=== PATIENT | female | born 1975 | race Two or more races ===

== ENCOUNTER 2020-03-06 16:57 | Outpatient (REF) | payer OTHER, SELFPAY | END 2020-03-06 16:58 | disposition home or self-care (01) | LOC: HO.LNP 16:57 | PROVIDERS: Visit Provider Nurse Practitioner Family | DX: Z20.828 Contact with and (suspected) exposure to other viral communicable diseases (principal); R05 Cough | CPT/HCPCS: U0003 ==

== ENCOUNTER → 2020-03-10 07:49 | Outpatient (BNVA) | payer OTHER, SELFPAY | PROVIDERS: PCP Internal Medicine; Referring Provider Internal Medicine; Visit Provider Internal Medicine Endocrinology, Diabetes & Metabolism | DX: Z76.89 Persons encountering health services in other specified circumstances (principal) ==

== ENCOUNTER → 2020-06-03 07:27 | Outpatient (BNVA) | payer OTHER, SELFPAY | PROVIDERS: PCP Internal Medicine; Visit Provider Internal Medicine Endocrinology, Diabetes & Metabolism | DX: E11.65 Type 2 diabetes mellitus with hyperglycemia (principal); E11.21 Type 2 diabetes mellitus with diabetic nephropathy; Z79.4 Long term (current) use of insulin; I10 Essential (primary) hypertension; E78.00 Pure hypercholesterolemia, unspecified; E66.01 Morbid (severe) obesity due to excess calories; Z68.41 Body mass index [BMI] 40.0-44.9, adult; E55.9 Vitamin D deficiency, unspecified; E03.8 Other specified hypothyroidism; E06.3 Autoimmune thyroiditis | CPT/HCPCS: 82947; 99212 ==

== ENCOUNTER 2020-06-03 08:37 | Outpatient (REF) | payer OTHER, SELFPAY ==
[2020-06-03 10:45] LABS: Alanine Aminotransferase 16 U/L (0-31); Albumin Level 4.1 g/dL (3.5-5.0); Alkaline Phosphatase 51 U/L (39-117); Anion Gap 14 (12-20); Aspartate Amino Transferase 14 U/L (5-31); Bilirubin Total 0.4 mg/dL (0.0-1.0); Blood Urea Nitrogen 12 mg/dL (9-16); Calcium 8.8 mg/dL (8.4-10.2); Carbon Dioxide 26 mmol/L (22-29); Chloride 103 mmol/L (96-108); Cholesterol 139 mg/dL; Estimated Glomerular Filt Rate > 60; Glucose Fasting 114 mg/dL (60-99); HDL Cholesterol 48 mg/dL; LDL Cholesterol Calculated 76 mg/dl; Potassium 4.2 mmol/L (3.3-5.1); Sodium 139 mmol/L (135-145); Total Protein 6.6 g/dL (6.5-8.0); Triglycerides 75 mg/dL
[2020-06-03 11:10] LABS: Free T4 (Free Thyroxine) 1.24 ng/dL (0.71-1.85); Thyroid Stimulating Hormone 0.89 uIU/mL (0.32-4.0)
[2020-06-03 11:15] LABS: Vitamin B12 507 pg/mL (200-900)
[2020-06-03 11:34] LABS: Creatinine Urine 117.01 mg/dL; Microalbum/Creatinine Ratio Ur 245.2 ug/mg cr
[2020-06-04 05:32] LABS: LDL Cholesterol Direct 72 mg/dL (<100)
== END 2020-06-03 08:38 | disposition home or self-care (01) ==
LOC: HO.10HDL 08:37
PROVIDERS: Visit Provider Internal Medicine Endocrinology, Diabetes & Metabolism
DX: E11.65 Type 2 diabetes mellitus with hyperglycemia (principal); Z79.4 Long term (current) use of insulin
CPT/HCPCS: 36415; 80053; 80061; 82043; 82607; 83721; 84439; 84443

== ENCOUNTER → 2020-10-13 07:23 | Outpatient (BNVA) | payer OTHER, SELFPAY | PROVIDERS: PCP Internal Medicine; Visit Provider Internal Medicine Endocrinology, Diabetes & Metabolism | DX: E11.65 Type 2 diabetes mellitus with hyperglycemia (principal); E11.21 Type 2 diabetes mellitus with diabetic nephropathy; I10 Essential (primary) hypertension; E78.00 Pure hypercholesterolemia, unspecified; E66.01 Morbid (severe) obesity due to excess calories; Z68.41 Body mass index [BMI] 40.0-44.9, adult; E55.9 Vitamin D deficiency, unspecified; E03.8 Other specified hypothyroidism; E06.3 Autoimmune thyroiditis; Z79.4 Long term (current) use of insulin; Z71.3 Dietary counseling and surveillance | CPT/HCPCS: 82947; 99212 ==

== ENCOUNTER → 2021-02-13 13:52 | Outpatient (BNVA) | payer OTHER, SELFPAY | PROVIDERS: PCP Internal Medicine; Visit Provider Nurse Practitioner Gerontology | DX: E11.65 Type 2 diabetes mellitus with hyperglycemia (principal); E11.21 Type 2 diabetes mellitus with diabetic nephropathy; E78.00 Pure hypercholesterolemia, unspecified; E55.9 Vitamin D deficiency, unspecified; E03.8 Other specified hypothyroidism; E06.3 Autoimmune thyroiditis; E66.01 Morbid (severe) obesity due to excess calories; I10 Essential (primary) hypertension; K21.9 Gastro-esophageal reflux disease without esophagitis; Z79.4 Long term (current) use of insulin; Z68.42 Body mass index [BMI] 45.0-49.9, adult | CPT/HCPCS: 82947; 83036; 99212 ==

== ENCOUNTER → 2021-02-20 09:51 | Outpatient (BNVA) | payer OTHER, SELFPAY | PROVIDERS: PCP Internal Medicine; Visit Provider Registered Nurse Diabetes Educator | DX: E11.65 Type 2 diabetes mellitus with hyperglycemia (principal); Z79.4 Long term (current) use of insulin | CPT/HCPCS: 99211 ==

== ENCOUNTER → 2021-03-06 08:49 | Outpatient (BNVA) | payer OTHER, SELFPAY | PROVIDERS: PCP Internal Medicine; Visit Provider Registered Nurse Diabetes Educator | DX: E11.65 Type 2 diabetes mellitus with hyperglycemia (principal); Z79.4 Long term (current) use of insulin | CPT/HCPCS: 99211 ==

== ENCOUNTER 2021-03-24 13:54 | Outpatient (REF) | payer OTHER, SELFPAY ==
[2021-03-26 02:50] LABS: CT PCR NOT DETECTED (Not Detect.); NG PCR NOT DETECTED (Not Detect.)
[2021-03-26 10:14] LABS: BV Int Neg Control Negative (Negative); BV Int Pos Control Positive (Positive)
[2021-03-28 05:46] LABS: HPV mRNA E6/E7 rflx Not Detected (Not Detected)
== END 2021-03-24 13:55 | disposition home or self-care (01) ==
LOC: HO.LAB 13:54
PROVIDERS: PCP Internal Medicine; Visit Provider Advanced Practice Midwife
DX: Z01.411 Encounter for gynecological examination (general) (routine) with abnormal findings (principal); Z11.51 Encounter for screening for human papillomavirus (HPV); N91.1 Secondary amenorrhea; Z20.2 Contact with and (suspected) exposure to infections with a predominantly sexual mode of transmission; E66.01 Morbid (severe) obesity due to excess calories; E11.65 Type 2 diabetes mellitus with hyperglycemia; Z79.4 Long term (current) use of insulin
CPT/HCPCS: 87480; 87491; 87510; 87591; 87624; 87660; 88142

== ENCOUNTER → 2021-04-01 12:21 | Outpatient (BNVA) | payer OTHER, SELFPAY | PROVIDERS: PCP Internal Medicine; Visit Provider Dietitian, Registered | DX: E11.65 Type 2 diabetes mellitus with hyperglycemia (principal); E66.01 Morbid (severe) obesity due to excess calories; Z79.4 Long term (current) use of insulin; Z68.41 Body mass index [BMI] 40.0-44.9, adult | CPT/HCPCS: 97803 ==

== ENCOUNTER 2021-04-10 11:58 | Outpatient (REF) | payer OTHER, SELFPAY ==
--- NOTE | ~2021-04-10 | MM_ITS ---
EXAMINATION: MM SCREENING DIGITAL BREAST TOMOSYNTHESIS, BILATERAL CLINICAL INFORMATION: Screening. Asymptomatic. No prior breast imaging. Age 45. No known family history breast cancer. The lifetime risk of breast cancer based on the Tyrer-Cuzick Model is 12%. COMPARISON: None (current study represents initial baseline exam). TECHNIQUE: Digital breast tomosynthesis is performed in both the craniocaudal and mediolateral oblique views along with computer-aided detection (CAD). Synthesized 2D images are generated from the tomosynthesis. FINDINGS: There are scattered areas of fibroglandular density (ACR BI-RADS breast composition Category b). There are no significant masses, abnormal calcifications, or other abnormalities. The axilla and skin contours are unremarkable. MM/MM tomosynthesis screening BI IMPRESSION: No mammographic evidence of malignancy. ASSESSMENT: BI-RADS 1: Negative RECOMMENDATION: Routine annual mammography screening. This patient's information was entered into a reminder system with a target due date for their next mammogram.
== END 2021-04-10 11:59 | disposition home or self-care (01) ==
LOC: HO.MAMMO 11:58
PROVIDERS: Visit Provider Internal Medicine
DX: E11.65 Type 2 diabetes mellitus with hyperglycemia (principal); E11.21 Type 2 diabetes mellitus with diabetic nephropathy; E11.649 Type 2 diabetes mellitus with hypoglycemia without coma; Z12.31 Encounter for screening mammogram for malignant neoplasm of breast; Z79.4 Long term (current) use of insulin
CPT/HCPCS: 77063; 77067; 99211

== ENCOUNTER 2021-06-10 11:15 | Outpatient (REF) | payer OTHER, SELFPAY ==
[2021-06-10 14:00] LABS: H Pylori Breath Test Negative (Negative)
== END 2021-06-10 11:16 | disposition home or self-care (01) ==
LOC: HO.LNP 11:15
PROVIDERS: PCP Internal Medicine; Referring Provider Internal Medicine; Visit Provider Nurse Practitioner Family
DX: K21.9 Gastro-esophageal reflux disease without esophagitis (principal); K58.2 Mixed irritable bowel syndrome; K59.01 Slow transit constipation; R14.0 Abdominal distension (gaseous)
CPT/HCPCS: 83013; 99212

== ENCOUNTER → 2021-08-24 10:23 | Outpatient (BNVA) | payer OTHER, SELFPAY | PROVIDERS: PCP Internal Medicine; Visit Provider Nurse Practitioner Gerontology | DX: E11.65 Type 2 diabetes mellitus with hyperglycemia (principal); E11.21 Type 2 diabetes mellitus with diabetic nephropathy; E78.00 Pure hypercholesterolemia, unspecified; E55.9 Vitamin D deficiency, unspecified; E03.8 Other specified hypothyroidism; E06.3 Autoimmune thyroiditis; E66.01 Morbid (severe) obesity due to excess calories; I10 Essential (primary) hypertension; Z79.4 Long term (current) use of insulin; Z79.84 Long term (current) use of oral hypoglycemic drugs; Z68.42 Body mass index [BMI] 45.0-49.9, adult; Z79.899 Other long term (current) drug therapy | CPT/HCPCS: 82947; 83036; 99212 ==

== ENCOUNTER 2021-10-03 10:55 | Outpatient (REF) | payer OTHER, SELFPAY ==
[2021-10-03 11:08] LABS: MANUAL DIFF FLAG NO
[2021-10-03 11:49] LABS: Basophils Absolute Auto 0.1 X10*3/uL (0.0-0.2); Basophils Percent Auto 0.7 % (0-2); Eosinophils Absolute Auto 0.4 X10*3/uL (0.0-0.4); Eosinophils Percent Auto 4.5 % (0-4); Hematocrit 36.4 % (37.0-47.0); Hemoglobin 11.7 g/dl (12.0-16.0); Imm Gran Abs Auto 0.03 X10*3/uL (0.00-0.03); Imm Gran Pct Auto 0.3 % (0.0-0.4); Lymphocytes Absolute Auto 2.1 X10*3/uL (1.2-4.9); Lymphocytes Percent Auto 23.5 % (20-40); Mean Corpuscular HGB Conc 32.1 g/dl (31.0-35.0); Mean Corpuscular Hemoglobin 28.6 pg (27.0-33.0); Mean Platelet Volume 10.7 fL (9.4-12.3); Monocytes Absolute Auto 0.7 X10*3/uL (0.1-1.2); Monocytes Percent Auto 7.9 % (2-11); Neutrophils Absolute Auto 5.5 x10*3/uL (2.0-8.3); Neutrophils Percent Auto 63.1 % (45-73); Platelet Count 297 X10*3/uL (160-400); Red Blood Count 4.09 X10*6/uL (4.20-5.50); Red Cell Distribution Width 13.6 % (11.0-16.0); White Blood Count 8.7 X10*3/uL (4.8-10.8)
[2021-10-03 11:58] LABS: Alanine Aminotransferase 11 U/L (0-31); Albumin Level 3.9 g/dL (3.5-5.0); Alkaline Phosphatase 78 U/L (39-117); Anion Gap 12 (12-20); Aspartate Amino Transferase 12 U/L (5-31); Bilirubin Total 0.4 mg/dL (0.0-1.0); Blood Urea Nitrogen 12 mg/dL (9-16); Calcium 9.1 mg/dL (8.4-10.2); Carbon Dioxide 25 mmol/L (22-29); Chloride 106 mmol/L (96-108); Cholesterol 134 mg/dL; Estimated Glomerular Filt Rate > 60; Glucose Fasting 166 mg/dL (60-99); HDL Cholesterol 59 mg/dL; LDL Cholesterol Calculated 62 mg/dl; Potassium 4.3 mmol/L (3.3-5.1); Sodium 139 mmol/L (135-145); Total Protein 6.5 g/dL (6.5-8.0); Triglycerides 68 mg/dL
[2021-10-03 12:05] LABS: Creatinine Urine 182.58 mg/dL
[2021-10-03 12:21] LABS: Thyroid Stimulating Hormone 1.59 uIU/mL (0.32-4.0); Vitamin D 25-OH Total 45.7 ng/mL (>30)
[2021-10-05 04:58] LABS: LDL Cholesterol Direct 60 mg/dL (<100)
[2021-10-05 10:10] LABS: Folate 14.7 ng/mL (> or = 4.0); Vitamin B12 567 pg/mL (200-900)
== END 2021-10-03 10:56 | disposition home or self-care (01) ==
LOC: HO.LAB 10:55
PROVIDERS: Absent Provider Internal Medicine; PCP Internal Medicine; Visit Provider Nurse Practitioner Gerontology
DX: E11.21 Type 2 diabetes mellitus with diabetic nephropathy (principal); K21.9 Gastro-esophageal reflux disease without esophagitis
CPT/HCPCS: 36415; 80053; 80061; 82043; 82306; 82607; 82746; 83721; 84439; 84443; 85025

== ENCOUNTER 2021-10-13 15:38 | Outpatient (REF) | payer OTHER, SELFPAY ==
[2021-10-13 17:26] LABS: Vitamin D 25-OH Total 49.3 ng/mL (>30)
== END 2021-10-13 15:39 | disposition home or self-care (01) ==
LOC: HO.LAB 15:38
PROVIDERS: Absent Provider Nurse Practitioner Gerontology; PCP Internal Medicine; Visit Provider Nurse Practitioner Family
DX: K58.9 Irritable bowel syndrome, unspecified (principal); E11.21 Type 2 diabetes mellitus with diabetic nephropathy; E55.9 Vitamin D deficiency, unspecified
CPT/HCPCS: 36415; 82306; 82785; 86003; 99211; 99212

== ENCOUNTER → 2021-11-19 08:48 | Outpatient (BNVA) | payer OTHER, SELFPAY | PROVIDERS: PCP Internal Medicine; Visit Provider Registered Nurse Diabetes Educator | DX: E11.65 Type 2 diabetes mellitus with hyperglycemia (principal); Z79.4 Long term (current) use of insulin | CPT/HCPCS: 99211 ==

== ENCOUNTER 2022-01-09 10:17 | Emergency (ER) | payer OTHER, SELFPAY ==
--- NOTE | ~2022-01-09 | CT_ITS ---
EXAMINATION: CT SOFT TISSUE NECK WITHOUT CONTRAST CLINICAL INFORMATION: Left mandibular/neck pain and swelling. COMPARISON: None TECHNIQUE: Helical imaging was performed in the axial plane with generation of coronal and sagittal reformatted images. This CT examination was performed using dose optimization techniques as appropriate, variously including the following: *Automated exposure control *Adjustment of mA and/or kV according to patient size (this includes techniques or standardized protocols for targeted exams where dose is matched to indication/reason for exam; i.e. extremities or head) *Use of iterative reconstruction technique DLP: 675 mGy-cm FINDINGS: There is thickening of the platysma muscle on the left side with mild soft tissue stranding in the lateral left submandibular triangle and overlying the left parotid gland. No discrete soft tissue lesion or drainable fluid collection is otherwise seen. There is no cervical adenopathy. No mandibular periapical disease is visible. Bulky anterior endplate spurring with [id number] disc space narrowing evident at the C4-C5, C5-C6, and C6-C7 levels. The airway is normally maintained. The superior mediastinum is unremarkable. There are mild subsegmental atelectatic changes in the lungs. No acute osseous abnormality is otherwise seen. The orbits are normal. The paranasal sinuses, middle ear cavities, and mastoid air cells are well aerated. The TMJs are normal. The thyroid gland is homogeneous. The oral cavity, pharyngeal mucosal space, and larynx are unremarkable. The submandibular and parotid glands are fairly homogeneous in attenuation. The imaged portions of the brain demonstrate no acute abnormality. CT/CT soft tissue neck wo IV con IMPRESSION: Nonspecific soft tissue thickening of the platysma muscle with hazy inflammatory stranding of the overlying subcutaneous fat. Mild inflammatory changes in the left submandibular triangle laterally and overlying the left parotid gland to a lesser degree. No drainable fluid collection. No bulky cervical adenopathy. Query for any symptoms of a mild left-sided acute parotiditis.
[2022-01-09 10:44] VITALS: BP 151/94; PULSE 76; RESP 16; TEMP 36.3; O2SAT 100; BMI 48.2
[2022-01-09] MEDS: NaPROXEN 500 MG TABLET PO (12:20)
[2022-01-09] MEDS: Cyclobenzaprine HCl 10 MG TABLET PO (12:20)
--- NOTE | 2022-01-09 13:13 | ED.GENADULT ---
HPI - General Adult General Chief complaint: General Medical Stated complaint: swollen jaw no inj Time Seen by Provider: 01/09/22 11:55 Source: patient Mode of arrival: ambulatory Limitations: no limitations History of Present Illness HPI narrative: 46yoF c PMHx of allergic rhinitis, asthma, diabetic neuropathy associated with type 2 diabetes mellitus, hypercholesterolemia, hypertension, hypothyroidism, obesity and vitamin-D deficiency presenting to the ER with complaints of left jaw/mandibular pain that started suddenly after eating 2 [place]oan fries from [employer]. She reports it feels like a muscle spasm and she has been unable to eat since then. She reports ?I feel a lump?. She reports that she is up-to-date on all immunizations no recent cuts or falls. She denies any headaches, fevers, chills, sore throat, trouble swallowing or breathing, chest pain, cough, sputum production, trismus, drooling, changes in voice any history is of cancers or any other symptoms complaints or concerns at this time. MD complaint: Left jaw/mandibular pain Onset (ago): day(s) (Since yesterday) Location: mouth and neck Radiation: non-radiation Severity: moderate Quality: aching (Spasming) and constant Pain Consistency: constant Relieving factors: none Exacerbating factors: eating, movement and other (Palpation or chewing) Associated symptoms: denies other symptoms Treatments prior to arrival: none Related Data Home Medications Medication Instructions Recorded Confirmed pen needle, diabetic 32 gauge x #50 ea 03/06/20 12/07/21 Previous Rx's Medication Instructions Recorded albuterol sulfate 90 mcg/actuation 1 inh inhalation Q6H PRN shortness 04/04/20 aerosol inhaler (Ventolin HFA) of breath or wheezing #18 grams pen needle, diabetic 32 gauge x #150 ea 04/29/20 (1st Tier Unifine Pentips Plus) FreeStyle Lancets 28 gauge #120 ea 05/16/20 (lancets) blood sugar diagnostic (FreeStyle #200 ea 02/13/21 Lite Strips) lancets 28 gauge (FreeStyle #200 ea 02/13/21 Lancets) flash glucose sensor (FreeStyle #2 ea 04/10/21 Pascual 2 Sensor kit) albuterol sulfate 90 mcg/actuation 1 inh inhalation QID PRN shortness 05/12/21 aerosol inhaler of breath or wheezing #6.7 grams lidocaine 4 % topical patch 1 patch topical DAILY PRN pain #15 07/21/21 (Aspercreme (lidocaine)) ea tizanidine 2 mg tablet 2 mg PO Q12H PRN muscle spasticity 07/21/21 #10 tabs lisinopril 5 mg tablet 5 mg PO DAILY 30 days #30 tabs 08/06/21 insulin aspart 5 - 16 unit subcut QID 30 days #15 08/12/21 (niacinamide)(U-100) 100 unit/mL(3 mL mL) subcutaneous pen (Fiasp FlexTouch U-100 Insulin) insulin glargine 100 unit/mL (3 18 unit (0.18 mL) subcut QPM #15 mL 08/24/21 mL) subcutaneous pen (Lantus Solostar U-100 Insulin) cyclobenzaprine 5 mg tablet 5 mg PO TID PRN muscle spasm 15 09/03/21 days #45 tabs atorvastatin 20 mg tablet 20 mg PO DAILY #30 caps 09/08/21 metformin 500 mg tablet,extended 1,000 mg PO BID #120 tabs 10/06/21 release 24 hr sitagliptin 100 mg tablet (Januvia) 100 mg PO DAILY #30 tabs 10/06/21 pantoprazole 40 mg tablet,delayed 40 mg PO DAILY #90 tabs 10/13/21 release sennosides 8.6 mg tablet (Natural 17.2 mg PO BEDTIME constipation 10/13/21 Senna Laxative) #60 tabs cholecalciferol (vitamin D3) 25 25 mcg PO DAILY #90 caps 10/14/21 mcg (1,000 unit) capsule pen needle, diabetic 32 gauge x #150 ea 11/09/21 (BD Aishwarya 2nd Gen Pen Needle) meloxicam 7.5 mg tablet 15 mg PO DAILY PRN pain 5 days #10 12/31/21 tabs prednisone 50 mg tablet 50 mg PO DAILY #5 tabs 12/31/21 Levoxyl 100 mcg tablet 100 mcg PO DAILY #30 tabs 01/05/22 (levothyroxine) amoxicillin 875 mg-potassium 1 tab PO BID 10 days #20 tabs 01/09/22 clavulanate 125 mg tablet cyclobenzaprine 10 mg tablet 10 mg PO BID PRN muscle spasm #14 01/09/22 tabs naproxen 500 mg tablet 500 mg PO BID PRN pain #14 tabs 01/09/22 Allergies Allergy/AdvReac Type Severity Reaction Status Date / Time aspirin [ASA] Allergy Unknown BLEEDING Verified 12/31/21 15:51 grasses/pollen Allergy Mild congestion Uncoded 12/07/21 15:22 Actos Allergy Unknown nausea and Uncoded 12/07/21 15:22 vomiting Trulicity Allergy Unknown nausea and Uncoded 12/07/21 15:22 vomiting Review of Systems Review of Systems: Constitutional : No Weight loss, No Fever, No Chills, No Night Sweats, No Fatigue, No Malaise ENT/Mouth : No Hearing loss, No Ear Pain, No Nasal Congestion, No Sinus Pain, No Hoarseness, No sore throat, No Rhinorrhea, No Swallowing Difficulty Eyes: No Eye Pain, No Swelling, No Redness, No Foreign Body, No Discharge, No Vision Changes Cardiovascular : No Chest Pain, No SOB, No Dyspnea on Exertion, No Orthopnea, No Edema, No Palpitations Respiratory : No Cough, No Sputum, No Wheezing, No Smoke Exposure, No Dyspnea Gastrointestinal : No Nausea, No Vomiting, No Diarrhea, No Constipation, No abdominal Pain, No Hematochezia, No Melena Genitourinary : no irregular bleeding, No Dysuria, No Urinary Frequency, No Hematuria, No Urinary Incontinence, No Urgency, No Flank Pain, No Urinary Flow Changes, No Hesitancy Musculoskeletal : + joint pain, No Myalgias, No Joint Swelling Skin : No Skin Lesions, No rash Neuro : No Weakness, No Numbness, No Paresthesias, No Loss of Consciousness, No Dizziness, No Headache Psych : No Anxiety/Panic, No Depression, No SI/HI/AH/VH, No Social Issues, Heme/Lymph: No Bruising, No Bleeding,No Lymphadenopathy Endocrine : No Polyuria, No Polydipsia, No Temperature Intolerance Yes all other systems are reviewed and are negative [facility] Past Medical History Attestation statement: The following information was validated with the patient. 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 Menstrual bleeding problem Obesity Obesity due to excess calories Type 2 diabetes mellitus with hyperglycemia Vitamin D deficiency Surgical History Hx of tooth extraction Family History Family History Father Hypertension Obesity Prediabetes Mother Heart disease Glaucoma Social History Social History Household Members: Family Housing: Apartment Alcohol intake: never Patient Tobacco Use Status: Never used Tobacco e-Cigarette/Vaping Use: Never Used Second Hand Smoke Exposure: No Advance Directives: No Advance Directives Information Provided: No service: No Current occupational status: employed Current occupational exposures/hazards: No Gender identity: Female Cognitive needs: No Hearing needs: No Vision needs: Yes Physical Exam ED Vital Signs: Vital Signs - 24 hr 01/09/22 10:44 Temperature 97.4 F Pulse Rate 76 Respiratory Rate 16 Blood Pressure 151/94 H Pulse Oximetry 100 Oxygen Delivery Method Room Air BMI result Body Mass Index 48.2 vital signs have been reviewed as normal and appeared to be correct. Blood pressure 151/94. Heart rate normal. Respiration rate normal. Temperature normal. Oxygen saturation normal. Appearance: Alert. Oriented X3. No acute distress. Head: Normal external exam. Normocephalic. Atraumatic. Eyes: PERRLA. EOMI. Conjunctiva and sclera normal. Eyelids normal. ENT: EAC normal. TM's Normal. Dentation within normal limits. Not consistent with stones at this time. Not consistent with pharyngeal abscess/dental abscess/gingival abscess/tonsillar abscess. No erythema or exudate noted. Soft and hard palate within normal limits. Pharynx normal. Uvula midline. Moist mucous membranes. No lesions/ulcerations or masses noted on the tongue. Normal voice. No trismus noted. No drooling noted. No muffled voice noted. Neck: Normal inspection. Neck supple. FROM. + left anterior cervical chain adenopathy. The patient noted to have tenderness at the left jaw/mandibular/neck aspect. No obvious deformities. Thyroid Normal. No tracheal deviation noted. No crepitus is noted. No meningeal signs. No neck mass noted. No signs of trauma noted. CVS: Normal heart rate and rhythm. Heart sound normal. Pulses normal throughout. No murmurs/rales/gallops. Respiratory: No respiratory distress. Painless inspiration. Breath sounds normal. No wheezes/rales/rhonchi noted. Chest nontender. No crepitus is noted. No signs of trauma noted. No accessory muscle usage noted or decreased air movement noted. No signs of trauma. Abdomen: Soft and nontender. Bowel sounds normal in all 4 quadrants. No distention noted. No organomegaly noted. No visible injury noted. Back: Full range of motion noted. Nontender. Skin: Skin warm and dry. Normal skin color. Normal skin turgor. No rashes/lesions/lacerations noted. Extremities: Extremities exhibit normal range of motion and nontender. Neuro: Oriented X 3. No motor deficit. No sensory deficit. Reflexes normal. Normal steady gait. No focal neuro deficits noted. CN's II-XII intact bilaterally? Vascular: + radial pulses/+ 2 distal pedal pulses/+2 dorsalis pedis b/l. Normal cap refill. No cyanosis noted to upper extremity nails and lower extremity toes nails. Course Course Course Narrative: 12:12pm - 46yoF c PMHx of allergic rhinitis, asthma, diabetic neuropathy associated with type 2 diabetes mellitus, hypercholesterolemia, hypertension, hypothyroidism, obesity and vitamin-D deficiency presenting to the ER with complaints of left jaw/mandibular pain that started suddenly after eating 2 Samoan fries from [employer]. She reports it feels like a muscle spasm and she has been unable to eat since then. She reports ?I feel a lump?. Will obtain a CT scan of soft tissue neck. Provide naproxen and Flexeril and re-evaluate. Reevaluation(s) Reevaluation #1: - CT scan of soft tissue neck reports possible mild left-sided acute parotiditis.. Therefore will DC home with antibiotics and symptomatic treatment instructions return if any new or worsening symptoms to follow up with primary care provider. Patient understands agrees with this plan. Time: 14:33 Medical Decision Making Medical Records Medical records reviewed: Yes I reviewed the patient's medical records. Imaging Data CT scan soft tissue neck without contrast: Attestation: I personally reviewed and interpreted this imaging study as follows: Radiologist's impression: FINDINGS: There is thickening of the platysma muscle on the left side with mild soft tissue stranding in the lateral left submandibular triangle and overlying the left parotid gland. No discrete soft tissue lesion or drainable fluid collection is otherwise seen. There is no cervical adenopathy. No mandibular periapical disease is visible. Bulky anterior endplate spurring with [id number] disc space narrowing evident at the C4-C5, C5-C6, and C6-C7 levels. The airway is normally maintained. The superior mediastinum is unremarkable. There are mild subsegmental atelectatic changes in the lungs. No acute osseous abnormality is otherwise seen. The orbits are normal. The paranasal sinuses, middle ear cavities, and mastoid air cells are well aerated. The TMJs are normal. The thyroid gland is homogeneous. The oral cavity, pharyngeal mucosal space, and larynx are unremarkable. The submandibular and parotid glands are fairly homogeneous in attenuation. The imaged portions of the brain demonstrate no acute abnormality. CT/CT soft tissue neck wo IV con IMPRESSION: Nonspecific soft tissue thickening of the platysma muscle with hazy inflammatory stranding of the overlying subcutaneous fat. Mild inflammatory changes in the left submandibular triangle laterally and overlying the left parotid gland to a lesser degree. No drainable fluid collection. No bulky cervical adenopathy. Query for any symptoms of a mild left-sided acute parotiditis. Discharge Plan Discharge Clinical Impression: Parotiditis Patient Disposition: Home, Self-Care Instructions: Adenitis (ED) Prescriptions: New amoxicillin-pot clavulanate 875-125 mg tablet 1 tab PO BID 10 Days Qty: 20 0RF naproxen 500 mg tablet 500 mg PO BID PRN (Reason: pain) Qty: 14 0RF cyclobenzaprine 10 mg tablet 10 mg PO BID PRN (Reason: muscle spasm) Qty: 14 0RF No Action (DME) pen needle, diabetic [1st Tier Unifine Pentips Plus] 32 gauge x 5/32 needle See Rx Instructions .ROUTE .MEDSUPPLY Qty: 150 6RF Rx Instructions: 4 times a day (DME) lancets [FreeStyle Lancets] 28 gauge misc See Rx Instructions topical QID Qty: 120 6RF Rx Instructions: 4 times a day lisinopril 5 mg tablet 5 mg PO DAILY 30 Days Qty: 30 6RF Fiasp FlexTouch U-100 Insulin 100 unit/mL (3 mL) insulin pen 5 - 16 unit subcut QID 30 Days Qty: 15 5RF atorvastatin 20 mg tablet 20 mg PO DAILY Qty: 30 6RF Januvia 100 mg tablet 100 mg PO DAILY Qty: 30 7RF metformin 500 mg tablet extended release 24 hr 1,000 mg PO BID Qty: 120 7RF cholecalciferol (vitamin D3) 25 mcg (1,000 unit) capsule 25 mcg PO DAILY Qty: 90 1RF (DME) pen needle, diabetic [BD Aishwarya 2nd Gen Pen Needle] 32 gauge x 5/32 needle See Rx Instructions .MEDSUPPLY Qty: 150 4RF Rx Instructions: 5 times a day levothyroxine [Levoxyl] 100 mcg tablet 100 mcg PO DAILY Qty: 30 1RF Rx Instructions: TRACI - no substitutions Brand name medically necessary (DME) pen needle, diabetic 32 gauge x 5/32 needle See Rx Instructions subcut .MEDSUPPLY Qty: 50 Rx Instructions: As directed albuterol sulfate [Ventolin HFA] 90 mcg/actuation HFA aerosol inhaler 1 inh inhalation Q6H PRN (Reason: shortness of breath or wheezing) Qty: 18 1RF albuterol sulfate 90 mcg/actuation HFA aerosol inhaler 1 inh inhalation QID PRN (Reason: shortness of breath or wheezing) Qty: 6.7 1RF cyclobenzaprine 5 mg tablet 5 mg PO TID PRN (Reason: muscle spasm) 15 Days Qty: 45 0RF tizanidine 2 mg tablet 2 mg PO Q12H PRN (Reason: muscle spasticity) Qty: 10 0RF lidocaine [Aspercreme (lidocaine)] 4 % adhesive patch,medicated 1 patch topical DAILY PRN (Reason: pain) Qty: 15 0RF prednisone 50 mg tablet 50 mg PO DAILY Qty: 5 0RF meloxicam 7.5 mg tablet 15 mg PO DAILY PRN (Reason: pain) 5 Days Qty: 10 0RF (DME) FreeStyle Lite Strips Strip See Rx Instructions .ROUTE .MEDSUPPLY Qty: 200 11RF Rx Instructions: As directed six times a day (DME) lancets [FreeStyle Lancets] 28 gauge misc See Rx Instructions .ROUTE .MEDSUPPLY Qty: 200 11RF Rx Instructions: 6times a day Lantus Solostar U-100 Insulin 100 unit/mL (3 mL) insulin pen 18 unit subcut QPM Qty: 15 3RF pantoprazole 40 mg tablet,delayed release (DR/EC) 40 mg PO DAILY Qty: 90 2RF Rx Instructions: take one tablet half an hour before breakfast sennosides [Natural Senna Laxative] 8.6 mg tablet 17.2 mg PO BEDTIME Qty: 60 1RF (DME) FreeStyle Pascual 2 Sensor Kit See Rx Instructions .ROUTE .MEDSUPPLY Qty: 2 11RF Rx Instructions: As directed every 2 weeks Referrals: Po,Daksha Eduardo MD [Primary Care Provider] - 2 days Stand Alone Forms: Work/School Release Print Language: Botswanan
== END 2022-01-09 14:52 | disposition home or self-care (01) ==
PROVIDERS: Emergency Provider Internal Medicine; PCP Internal Medicine
DX: K11.20 Sialoadenitis, unspecified (principal); E11.9 Type 2 diabetes mellitus without complications; I10 Essential (primary) hypertension; E78.00 Pure hypercholesterolemia, unspecified; E66.01 Morbid (severe) obesity due to excess calories; Z68.42 Body mass index [BMI] 45.0-49.9, adult; Z79.4 Long term (current) use of insulin; Z79.02 Long term (current) use of antithrombotics/antiplatelets; Z79.899 Other long term (current) drug therapy
CPT/HCPCS: 70490; 99283; 99284

== ENCOUNTER → 2022-01-11 15:39 | Outpatient (BNVA) | payer OTHER, SELFPAY | PROVIDERS: PCP Internal Medicine; Visit Provider Nurse Practitioner Family | DX: K21.9 Gastro-esophageal reflux disease without esophagitis (principal); K58.1 Irritable bowel syndrome with constipation; Z79.899 Other long term (current) drug therapy | CPT/HCPCS: 99212 ==

== ENCOUNTER → 2022-02-03 07:36 | Outpatient (BNVA) | payer OTHER, SELFPAY | PROVIDERS: PCP Internal Medicine; Visit Provider Internal Medicine Endocrinology, Diabetes & Metabolism | DX: E11.65 Type 2 diabetes mellitus with hyperglycemia (principal); Z79.4 Long term (current) use of insulin; E03.8 Other specified hypothyroidism; E06.3 Autoimmune thyroiditis | CPT/HCPCS: 82947; 99212 ==

== ENCOUNTER → 2022-02-18 15:20 | Outpatient (BNVA) | payer OTHER, SELFPAY | PROVIDERS: PCP Internal Medicine; Visit Provider Registered Nurse Diabetes Educator | DX: E11.65 Type 2 diabetes mellitus with hyperglycemia (principal); Z79.4 Long term (current) use of insulin | CPT/HCPCS: 99211 ==

== ENCOUNTER → 2022-03-05 08:45 | Outpatient (BNVA) | payer OTHER, SELFPAY | PROVIDERS: PCP Internal Medicine; Visit Provider Registered Nurse Diabetes Educator | DX: E11.21 Type 2 diabetes mellitus with diabetic nephropathy (principal) | CPT/HCPCS: 99211 ==

== ENCOUNTER → 2022-03-11 15:17 | Outpatient (BNVA) | payer OTHER, SELFPAY | PROVIDERS: PCP Internal Medicine; Visit Provider Registered Nurse Diabetes Educator | DX: E11.65 Type 2 diabetes mellitus with hyperglycemia (principal); Z79.4 Long term (current) use of insulin | CPT/HCPCS: 99211 ==

== ENCOUNTER 2022-03-29 10:10 | Outpatient (REF) | payer OTHER, SELFPAY ==
[2022-03-29 18:09] LABS: Influenza A PCR NEGATIVE (Negative); Influenza B PCR NEGATIVE (Negative); Resp Syncy Virus RNA Qual PCR NEGATIVE (Negative); SARS COV2 PCR INHOUSE NEGATIVE (Negative)
== END 2022-03-29 10:11 | disposition home or self-care (01) ==
LOC: HO.LAB 10:10
PROVIDERS: Visit Provider Internal Medicine
DX: Z20.822 Contact with and (suspected) exposure to COVID-19 (principal); R43.9 Unspecified disturbances of smell and taste
CPT/HCPCS: 0241U

== ENCOUNTER → 2022-04-01 15:20 | Outpatient (BNVA) | payer OTHER, SELFPAY | PROVIDERS: PCP Internal Medicine; Visit Provider Registered Nurse Diabetes Educator | DX: E11.21 Type 2 diabetes mellitus with diabetic nephropathy (principal) | CPT/HCPCS: 99211 ==

== ENCOUNTER 2022-04-16 11:46 | Outpatient (REF) | payer OTHER, SELFPAY ==
--- NOTE | ~2022-04-16 | MM_ITS ---
EXAMINATION: MM SCREENING DIGITAL BREAST TOMOSYNTHESIS, BILATERAL CLINICAL INFORMATION: Screening. Asymptomatic. The lifetime risk of breast cancer based on the Tyrer-Cuzick Model is 11.7%. COMPARISON: Mammography: 04/10/2021. TECHNIQUE: Digital breast tomosynthesis is performed in both the craniocaudal and mediolateral oblique views along with computer-aided detection (CAD). Synthesized 2D images are generated from the tomosynthesis. FINDINGS: The breasts are heterogeneously dense, which may obscure small masses (ACR BI-RADS breast composition Category c). About the deep lateral aspect of the right breast, there is a lobulated contour density which is well demarcated measuring approximately 5 mm in diameter and lying approximately 12 cm from the nipple. No associated microcalcifications or spiculation is noted. About the anterior aspect of the left breast, there is a lobular contour density measuring approximately 1.2 x 0.8 cm in size. Recommend callback for bilateral breast spot compression views and possible ultrasound. MM/MM tomosynthesis screening BI IMPRESSION: Bilateral breast densities for further evaluation as described. ASSESSMENT: BI-RADS 0: Incomplete - Need Additional Imaging Evaluation . RECOMMENDATION: 1. Additional views of the bilateral breasts. 2. Targeted ultrasound if warranted after review of the additional views. 3. Radiology department staff will contact the patient for additional imaging. This patient's information was entered into a reminder system with a target due date for their next mammogram.
== END 2022-04-16 11:47 | disposition home or self-care (01) ==
LOC: HO.MAMMO 11:46
PROVIDERS: PCP Internal Medicine; Visit Provider Internal Medicine
DX: Z12.31 Encounter for screening mammogram for malignant neoplasm of breast (principal)
CPT/HCPCS: 77063; 77067

== ENCOUNTER 2022-05-05 14:32 | Outpatient (REF) | payer OTHER, SELFPAY ==
--- NOTE | ~2022-05-05 | MM_ITS ---
EXAMINATION: MM DIAGNOSTIC DIGITAL BREAST TOMOSYNTHESIS, BILATERAL BILATERAL BREAST ULTRASOUND CLINICAL INFORMATION: Bilateral breast densities. COMPARISON: Mammography: 04/16/2022 and 04/10/2021. TECHNIQUE: Digital breast tomosynthesis is performed. 2D images are generated from the tomosynthesis. The following views are obtained: Spot compression views of the left breast in craniocaudal and mediolateral oblique projections. Spot compression views of the right breast in mediolateral oblique projection. FINDINGS: There are scattered areas of fibroglandular density (ACR BI-RADS breast composition Category b). There is question of persistence of a faint circumscribed oval density about the central aspect of the left breast, approximately 3 cm from nipple, measuring approximately 1 cm in diameter. On tomosynthesis views this may represent superimposition of fibroglandular tissue. Within the deep lateral aspect of the right breast, approximately 12 cm from the nipple, there is a lobular circumscribed 7 mm density present. Targeted left breast ultrasound did not demonstrate any abnormal cystic or solid masses. No region of abnormal distal sound shadowing was appreciated. No edematous change within the parenchyma is seen. Recommend 6 month follow up mammography of the left breast. Targeted right breast ultrasound demonstrates a lobular hypoechoic lesion without internal vascularity and no definite fatty cleft. The lesion measures approximately 6 x 5 x 5 mm in size. This lies at approximately the 9 o'clock position, 9 cm from the nipple. The lesion is taller than it is wide. There appears to be some mild distal sound shadowing without definite distal sound enhancement. Ultrasound-guided core biopsy is recommended. Results are discussed with the patient at time of visit. Breast Center patient navigator called referring provider's office with the above recommendation. MM/MM tomosynthesis added view BI IMPRESSION: Right breast density in the deep lateral aspect for which ultrasound-guided core biopsy is recommended. Faint circumscribed density of the central anterior left breast without corresponding ultrasound finding and with tomosynthesis views demonstrating it to possibly represent superimposition of fibroglandular tissue. Six-month follow up examination of the left breast is recommended. ASSESSMENT: RIGHT BREAST: BI-RADS 4: Suspicious. LEFT BREAST: BI-RADS 3, probably benign. RECOMMENDATION: Ultrasound-guided core biopsy of the right breast lesion. This patient's information was entered into a reminder system with a target due date for their next mammogram.
== END 2022-05-05 14:33 | disposition home or self-care (01) ==
LOC: HO.MAMMO 14:32
PROVIDERS: PCP Internal Medicine; Visit Provider Internal Medicine
DX: R92.2 Inconclusive mammogram (principal)
CPT/HCPCS: 76642; 77062; 77066

== ENCOUNTER 2022-05-12 09:34 | Outpatient (REF) | payer OTHER, SELFPAY ==
--- NOTE | ~2022-05-12 | MM_ITS ---
EXAMINATION: ULTRASOUND GUIDED CORE BIOPSY BREAST, RIGHT POST PROCEDURE DIGITAL MAMMOGRAM, RIGHT CLINICAL INFORMATION: Macrolobulated avascular hypoechoic lesion posterior 9:00 right breast for tissue sampling. TC score 12%. COMPARISON: Mammography 05/05/2022, 04/16/2022, 04/10/2021; targeted right breast ultrasound 05/05/2022. FINDINGS: Proper informed consent is obtained from the patient after discussion of the procedure, potential risks and complications, and alternatives. Patient was given an opportunity for questions. The patient appeared to understand. The patient consented to the procedure and signed the consent form. GUIDANCE: Ultrasound-guided; aseptic technique. LESION: Macrolobulated avascular anechoic nodule posterior outer right breast. Suspected fibrocystic changes/grouped microcysts. APPROACH: Lateral medial. ANESTHESIA: 16mL carbonated 1% lidocaine. DERMATOTOMY: Single skin bryan dermatotomy performed. NEEDLE: 14-gauge Achieve core biopsy device with 13.5-gauge co-axial guide needle. CORES: 4. The nodule is difficult to visualize following first 2 passes suggesting collapse of cysts. CLIP: HydroMARK; shape: butterfly. The sampled lesion is difficult to visualize following sampling. Clip placed in general vicinity of the targeted lesion. POST PROCEDURE UNILATERAL DIGITAL MAMMOGRAM: The post biopsy mammogram is performed in separate room using separate digital mammography equipment from the biopsy procedure. CC and ML views are obtained. There are scattered areas of fibroglandular density (breast composition category: b). The clip marker is in expected position. No gross hematoma. The patient tolerated the procedure well. No immediate complications. Home instructions reviewed with the patient. Final pathology results are pending. MM/MM diagnostic mammo unilat RT IMPRESSION: 1. Status post ultrasound-guided core biopsy right breast. 2. Clip placed: HydroMARK; shape: butterfly. 3. Pathology pending. An addendum report will be issued.
== END 2022-05-12 09:35 | disposition home or self-care (01) ==
LOC: HO.MAMMO 09:34
PROVIDERS: PCP Internal Medicine; Visit Provider Surgery
DX: R92.2 Inconclusive mammogram (principal)
CPT/HCPCS: 19083; 77062; 77065; 88305; 99202

== ENCOUNTER → 2022-05-20 13:38 | Outpatient (BNVA) | payer OTHER, SELFPAY | PROVIDERS: PCP Internal Medicine; Visit Provider Surgery | DX: R92.2 Inconclusive mammogram (principal) | CPT/HCPCS: 99212 ==

== ENCOUNTER → 2022-06-09 15:43 | Outpatient (BNVA) | payer OTHER, SELFPAY | PROVIDERS: PCP Internal Medicine; Visit Provider Internal Medicine Endocrinology, Diabetes & Metabolism | DX: E11.65 Type 2 diabetes mellitus with hyperglycemia (principal); E11.21 Type 2 diabetes mellitus with diabetic nephropathy; I10 Essential (primary) hypertension; E06.3 Autoimmune thyroiditis; E78.5 Hyperlipidemia, unspecified; E66.9 Obesity, unspecified; Z68.42 Body mass index [BMI] 45.0-49.9, adult; Z79.4 Long term (current) use of insulin | CPT/HCPCS: 82947; 99212 ==

== ENCOUNTER → 2022-06-15 09:56 | Outpatient (BNVA) | payer OTHER, SELFPAY | PROVIDERS: PCP Internal Medicine; Referring Provider Internal Medicine; Visit Provider Nurse Practitioner Family | DX: K21.9 Gastro-esophageal reflux disease without esophagitis (principal); K59.01 Slow transit constipation; K58.1 Irritable bowel syndrome with constipation; Z91.018 Allergy to other foods; Z79.899 Other long term (current) drug therapy | CPT/HCPCS: 99212 ==

== ENCOUNTER 2022-09-11 07:59 | Outpatient (REF) | payer OTHER, SELFPAY ==
[2022-09-11 09:29] LABS: Free T4 (Free Thyroxine) 1.22 ng/dL (0.71-1.85); Thyroid Stimulating Hormone 1.72 uIU/mL (0.32-4.0)
== END 2022-09-11 08:00 | disposition home or self-care (01) ==
LOC: HO.LAB 07:59
PROVIDERS: PCP Internal Medicine; Visit Provider Internal Medicine Endocrinology, Diabetes & Metabolism
DX: E03.8 Other specified hypothyroidism (principal); E06.3 Autoimmune thyroiditis
CPT/HCPCS: 36415; 84439; 84443

== ENCOUNTER → 2022-09-16 15:11 | Outpatient (BNVA) | payer OTHER, SELFPAY | PROVIDERS: PCP Internal Medicine; Visit Provider Internal Medicine Endocrinology, Diabetes & Metabolism | DX: E11.65 Type 2 diabetes mellitus with hyperglycemia (principal); E03.8 Other specified hypothyroidism; E06.3 Autoimmune thyroiditis; Z79.4 Long term (current) use of insulin | CPT/HCPCS: 82947; 99212 ==

== ENCOUNTER 2022-10-12 13:35 | Outpatient (REF) | payer OTHER, SELFPAY ==
--- NOTE | ~2022-10-12 | MM_ITS ---
EXAMINATION: MM DIAGNOSTIC DIGITAL BREAST TOMOSYNTHESIS, LEFT CLINICAL INFORMATION: Short interval six-month follow-up probable benign asymmetric density anterior central left breast. History benign ultrasound-guided core biopsy contralateral right breast 05/12/2022 (focal fibrocystic change with apocrine metaplasia). TC score 12%. COMPARISON: Mammography: 05/05/2022, 04/16/2022 (BI-RADS 0), 04/10/2021 (baseline); left breast ultrasound 05/05/2022. TECHNIQUE: Digital breast tomosynthesis is performed in both the craniocaudal and mediolateral oblique views along with computer-aided detection (CAD). Synthesized 2D images are generated from the tomosynthesis. FINDINGS: There are scattered areas of fibroglandular density (ACR BI-RADS breast composition Category b). Parenchymal pattern is similar to prior studies. There is no developing density or interval architectural abnormality. No abnormal calcifications. The fibroglandular density anterior central left breast is stable. They will be reassessed again at time of annual bilateral exam, due in 6 months. The axilla and skin contours are unremarkable. Results are provided to the patient at time of visit by the technologist. MM/MM tomosynthesis diagnostic LT IMPRESSION: -No mammographic evidence of malignancy. -No interval developing density or architectural abnormality. ASSESSMENT: BI-RADS 3: Probably Benign RECOMMENDATION: Diagnostic mammography at time of annual bilateral mammography, due in 6 months. This patient's information was entered into a reminder system with a target due date for their next mammogram.
== END 2022-10-12 13:36 | disposition home or self-care (01) ==
LOC: HO.MAMMO 13:35
PROVIDERS: PCP Internal Medicine; Visit Provider Surgery
DX: R92.2 Inconclusive mammogram (principal)
CPT/HCPCS: 77061; 77065

== ENCOUNTER → 2022-10-13 09:23 | Outpatient (BNVA) | payer OTHER, SELFPAY | PROVIDERS: PCP Internal Medicine; Visit Provider Registered Nurse Diabetes Educator | DX: E11.21 Type 2 diabetes mellitus with diabetic nephropathy (principal) | CPT/HCPCS: 99211 ==

== ENCOUNTER 2022-11-23 08:21 | Outpatient (AMB) | payer OTHER, SELFPAY ==
--- NOTE | 2022-11-23 08:24 | MHC.PC.OV ---
Vital Signs 11/23/22 08:25 Height 5 ft 5 in Weight 287 lb BMI 47.8 BP 122/76 Blood Pressure Location Lt brachial Position Sitting Pulse 93 Pulse Source Pulse Oximeter Pulse Oximetry (%) 97 Oxygen Delivery Method Room Air Intake Visit Reasons: 3mth f/u Allergies aspirin [ASA] Allergy (Unknown, Verified 11/23/22 08:25) BLEEDING prednisone Adverse Reaction (Intermediate, Verified 11/23/22 08:25) high Blood sugar grasses/pollen Allergy (Mild, Uncoded 11/23/22 08:25) congestion Actos Allergy (Unknown, Uncoded 11/23/22 08:25) nausea and vomiting Trulicity Allergy (Unknown, Uncoded 11/23/22 08:25) nausea and vomiting Medication List - Last Reconciled 11/23/22 by Daksha Hernandez MD albuterol sulfate 90 mcg/actuation 1 inh inhalation QID PRN albuterol sulfate 90 mcg/actuation (Ventolin HFA) 1 inh inhalation Q6H PRN atorvastatin 20 mg PO DAILY blood sugar diagnostic (FreeStyle Lite Strips) As directed six times a day blood-glucose meter,continuous (Dexcom G6 Outpatient Physical Therapist Assistant) As directed blood-glucose sensor (Dexcom G6 Sensor device) As directed blood-glucose transmitter (Dexcom G6 Transmitter device) As directed cyclobenzaprine 5 mg PO TID PRN 15 days fexofenadine (Jennifer Allergy) 180 mg PO DAILY FreeStyle Lancets (lancets) 4 times a day NS insulin aspart (niacinamide) 100 unit/mL (3 mL) (Fiasp FlexTouch U-100 Insulin) 5 - 16 units subcut QID insulin glargine (Lantus Solostar U-100 Insulin) 12 units subcut QPM insulin pump cart,auto,BT-cntr (Omnipod 5 G6 Intro Kit (Gen 5) subcutaneous cartridge with controller) As directed insulin pump cart,automated,BT (Omnipod 5 G6 Pods (Gen 5) subcutaneous cartridge) As directed Levoxyl (levothyroxine) 100 mcg PO DAILY NS lisinopril 10 mg PO DAILY 30 days metformin ER 1,000 mg (2 x 500 mg) PO BID nystatin 1 appl topical BID pantoprazole 40 mg PO DAILY pen needle, diabetic As directed pen needle, diabetic (1st Tier Unifine Pentips Plus) 4 times a day pen needle, diabetic (BD Aishwarya 2nd Gen Pen Needle) 5 times a day semaglutide (Ozempic) 0.25 mg (0.4 mL) subcut QWEEK sennosides (Natural Senna Laxative) 17.2 mg (2 x 8.6 mg) PO BEDTIME Tobacco use date assessed: 08/16/22 Dental Screening Dental Screen Date: 11/23/22 Did you have a dental visit in the last 12 months?: Yes Did you have a dental problem in the last 6 months where you did not have access to dental care?: No Was dental information given to patient?: Patient has dentist HPI 3mth f/u HPI Details 46-year-old morbidly obese female with diabetes mellitus hypertension hypercholesterolemia hypothyroidism and GERD last seen in July 2022 blood work requested patient is here for follow-up. Mammogram is up-to-date. Noted 9 lb weight loss from starting the Ozempic [facility] Medical History (Updated 11/23/22 @ 08:53 by Daksha Hernandez MD) Allergic rhinitis Asthma Cough Diabetic nephropathy associated with type 2 diabetes mellitus Hypercholesterolemia Hypertension Hypothyroid Hypothyroidism Impacted cerumen of right ear MCFP (current) use of insulin Menstrual bleeding problem Obesity Obesity due to excess calories Type 2 diabetes mellitus with hyperglycemia Viral syndrome Vitamin D deficiency Surgical History Hx of right breast biopsy Hx of tooth extraction Family History (Updated 11/23/22 @ 08:26 by Nika Mike CMA) Father Hypertension Obesity Prediabetes Mother Heart disease Glaucoma Social History Household Members: Family Housing: Apartment Alcohol intake: never Patient Tobacco Use Status: Never used Tobacco e-Cigarette/Vaping Use: Never Used Second Hand Smoke Exposure: No service: No Current occupational status: employed Current occupational exposures/hazards: No Gender identity: Female Cognitive needs: No Hearing needs: No Vision needs: Yes Female Reproductive History Menstrual Age of Menarche: 12 Questionnaire PHQ-9 Over the last 2 weeks, how often have you been bothered by any of the following problems? 1. Little interest or pleasure in doing things: not at all 2. Feeling down, depressed, or hopeless: not at all 3. Trouble falling or staying asleep, or sleeping too much: not at all 4. Feeling tired or having little energy: not at all 5. Poor appetite or overeating: not at all 6. Feeling bad about yourself - or that you are a failure or have let yourself or your family down: not at all 7. Trouble concentrating on things, such as reading the newspaper or watching television: not at all 8. Moving or speaking so slowly that other people could have noticed. Or the opposite - being so fidgety or restless that you have been moving around a lot more than usual: not at all 9. Thoughts that you would be better off or of hurting yourself in some way: not at all Total score: 0 Depression Screening Interpretation: Negative Source: Developed by Drs. Sagar Ascencio, Jackelyn Dueñas, Camilo Redman and colleagues, with an educational maura from [employer]. Thrive Questionnaire Date Thrive assessed: 11/23/22 I am a: Patient What is your living situation today?: I have a steady place to live Within the past 12 months, did the food you bought not last and you didn't have the money to get more?: Never true Within the past 12 months, did you worry whether your food would run out before you got money to buy more?: Never true Do you have trouble paying for medicines?: No Do you have trouble getting transportation to medical appointments?: No Do you have trouble paying your heating and electricity bill?: No Do you have trouble taking care of your child, family member or friend?: No Do you have trouble with day-to-day activities such as bathing, preparing meals, shopping, managing finances, etc.?: No Are you currently unemployed and looking for a job?: No Are you interested in more education?: No Currently or been in a relationship where the following occur: no concerns reported AUDIT C Alcohol Use Questionnaire (AUDIT-C) 1. How often do you have a drink containing alcohol?: Never 3. How often do you have six or more drinks on one occasion?: Never Total Score: 0 Score Reviewed/Action Taken: No DIMA-7 AMB Questionnaire DIMA-7 Date DIMA - 7 assessed: 05/07/22 Source: Developed by Drs. Sagar Ascencio, Jackelyn Dueñas, Camilo Redman and colleagues, with an educational maura from [employer]. Physical exam (Primary Care) Vital Signs: Last Vital Signs Pulse 93 11/23/22 08:25 BP 122/76 11/23/22 08:25 Pulse Ox 97 11/23/22 08:25 Oxygen Delivery Method Room Air 11/23/22 08:25 BMI result Body Mass Index 47.8 Tobacco/Smoking Status: Tobacco use Status Tobacco use date assessed 08/16/22 11/23/22 08:26 Patient Tobacco Use Status Never used Tobacco 11/23/22 08:26 e-Cigarette/Vaping Use Never Used 11/23/22 08:26 PHQ-9: PHQ-9 Score PHQ-9: Total score 0 11/23/22 08:38 Depression Screening Interpretation: Negative Thrive Assessment: Date of Thrive Assessment Date Thrive assessed 11/23/22 11/23/22 08:33 Currently or been in a relationship where the following occur: no concerns reported Const General: alert; No acute distress Eyes Conjunctivae: conjunctivae normal Resp Auscultation: clear to auscultation bilaterally Cardio Rate: regular rate Rhythm: regular rhythm GI Inspection: Yes normal to inspection Extrem General: Yes normal to inspection and No edema Results AMB Hemoglobin A1c AMB Hemoglobin A1c 6.9 % Last Edit by Nika Mike CMA on 11/23/22 08:42 Results Reviewed Results Reviewed: Laboratory Last Values Hgb A1c (Clinic) 6.9 % (4.0-6.0) H 11/23/22 08:38 Assessment and Plan Assessment & Plan (1) Type 2 diabetes mellitus with hyperglycemia: Comment: Eye and Lasix Code(s): E11.65 - Type 2 diabetes mellitus with hyperglycemia Qualifiers: Diabetes mellitus longwall foreman insulin use: with longwall foreman use Qualified Code(s): E11.65 - Type 2 diabetes mellitus with hyperglycemia; Z79.4 - MCFP (current) use of insulin Plan: Decrease the amount of carbohydrate intake, pasta, bread, rice and potatoes are all sugar and that is aside from all the sweet stuff, remember that fruits are good but they are Sweet also. Hemoglobin A1c goal of less than 6.5 patient does follow-up with branch employment coordinator and Endocrinology (2) Hypertension: Code(s): I10 - Essential (primary) hypertension Qualifiers: Hypertension type: essential hypertension Qualified Code(s): I10 - Essential (primary) hypertension Plan: Continue with blood pressure medication. Decrease salt intake and exercise patient is on lisinopril 10 mg once a day (3) Obesity: Code(s): E66.9 - Obesity, unspecified Qualifiers: Obesity type: due to excess calories Obesity classification: adult class 3 (BMI >= 40) Serious obesity comorbidity presence: with serious comorbidity Body mass index: BMI 40.0-44.9 Qualified Code(s): E66.01 - Morbid (severe) obesity due to excess calories; Z68.41 - Body mass index [BMI]40.0-44.9, adult Plan: Diet and exercise, continue with semaglutide (4) Hypercholesterolemia: Code(s): E78.00 - Pure hypercholesterolemia, unspecified Plan: Avoid fried foods, chicken skin, eggs, butter margarine, pastries and meat. Be it pork or beef they have a lot of cholesterol LDL goal of less than 100 and triglyceride of less than 150. 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 After eating do not lie down, allow 3-4 hours before in lie down. And keep the head of bed above 30 degrees to avoid the acid from going up. Orders: Orders AMB Hemoglobin A1c Today Z13.9 - Encounter for screening, unspecified Medications: Refilled fexofenadine (Jennifer Allergy) 180 mg PO DAILY 90 tabs 1RF R09.81 - Nasal congestion Discontinued hydrocortisone-acetic acid 1-2 % Discontinued Reason: Change Referral Type 4 drps otic (ears) TID PRN 10 mL 0RF ear irritation H61.899 - Other specified disorders of external ear, unspecified ear sitagliptin phosphate (Januvia) Discontinued Reason: Doctor's Order 100 mg PO DAILY 30 tabs 3RF Coding Level of Care Code Est Pt Level 4 (34068) Diagnoses Type 2 diabetes mellitus with hyperglycemia E11.65; Z79.4 Diabetes mellitus longwall foreman insulin use: with senior care use Hypertension I10 Hypertension type: essential hypertension Obesity E66.01; Z68.41 Obesity type: due to excess calories Obesity classification: adult class 3 (BMI >= 40) Serious obesity comorbidity presence: with serious comorbidity Body mass index: BMI 40.0-44.9 Hypercholesterolemia E78.00 Hypothyroidism E03.8; E06.3 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
[2022-11-23 08:25] VITALS: BP 122/76; PULSE 93; O2SAT 97; BMI 47.8
== END 2022-11-23 09:25 | disposition home or self-care (01) ==
PROVIDERS: PCP Internal Medicine; Visit Provider Internal Medicine
DX: E11.65 Type 2 diabetes mellitus with hyperglycemia (principal); E66.01 Morbid (severe) obesity due to excess calories; Z68.41 Body mass index [BMI] 40.0-44.9, adult; Z79.4 Long term (current) use of insulin; I10 Essential (primary) hypertension; E78.00 Pure hypercholesterolemia, unspecified; E03.8 Other specified hypothyroidism; E06.3 Autoimmune thyroiditis; K21.9 Gastro-esophageal reflux disease without esophagitis
CPT/HCPCS: 83036; 99214

== ENCOUNTER 2022-12-07 10:01 | Outpatient (AMB) | payer OTHER, SELFPAY ==
--- NOTE | 2022-12-07 10:13 | A.OFFVIS_ITS ---
Intake Vital Signs 12/07/22 10:15 Height 5 ft 5 in Weight 285 lb BMI 47.4 Blood Pressure Location Lt brachial Position Sitting Intake Visit Reasons: 6 monht follow up GERD Intake Note: Patient follow up for GERD. Patient cc: acid relex with some burning sensation. Denies any other GI issues. Telesales Team Leader Required: No Accompanied by: Self / Same As Patient Allergies aspirin [ASA] Allergy (Unknown, Verified 12/07/22 10:12) BLEEDING prednisone Adverse Reaction (Intermediate, Verified 12/07/22 10:12) high Blood sugar grasses/pollen Allergy (Mild, Uncoded 11/23/22 08:25) congestion Actos Allergy (Unknown, Uncoded 11/23/22 08:25) nausea and vomiting Trulicity Allergy (Unknown, Uncoded 11/23/22 08:25) nausea and vomiting HPI 6 monht follow up GERD HPI Details LAST VISIT GERD (gastroesophageal reflux disease) Continue current dose of pantoprazole. Discussed with patient avoiding dietary triggers in late night snacking. Will send patient to see wood machinist apprentice. Patient reports that she feels like she has recently developed many different allergies to different food. Discussed with patient that some of all are probably sensitivities and not necessarily allergies. Discussed with patient the importance of staying upright for minimal 3 hours after meals. Constipation Continue to take senna. Discussed with patient drinking plenty fluids and increasing activity to promote better bowel motility. IBS (irritable bowel syndrome) Patient is following a low FODMAP diet. Patient states that she is avoiding food that is causing her abdominal cramping and bloating. Food allergy Multiple different allergies and sensitivities to food. Will send patient to see wood machinist apprentice. Discussed with patient that some of the food might not be allergies but sensitivities. I will see her in 6 months, sooner on as needed basis. Patient is agreeable to this plan and verbalizes understanding of instructions. She was given the opportunity to ask questions and all questions answered. ? Thank you for allowing me to participate in her care Plan Orders Referrals Allergy & Immunology Referral Z91.018 TODAY'S VISIT Patient is here today for follow-up. Patient reports that she has been doing fairly well, however she continues to occasionally have epigastric discomfort with dyspepsia without dysphagia or odynophagia. Patient reports that she is taking pantoprazole in the morning, feels like it is working for her. Patient states that occasionally when she eats something does not agree with her she will have the symptoms. However patient does states that she is trying to avoid food that irritates her stomach. Patient was started on Ozempic about 8 weeks ago or so. Patient states that she noticed more GI symptoms like postprandial epigastric discomfort after starting the medication. Patient reports that she lost 10 lb. Patient denies any nausea or vomiting. Denies any abdominal pain or discomfort. Occasional postprandial abdominal bloating. Patient reports that she is using senna and is moving her bowels daily. Patient denies melena, hematochezia, unintentional weight loss or ribbon like stools PFS Medical History (Updated 11/23/22 @ 08:53 by Daksha Hernandez MD) Allergic rhinitis Asthma Cough Diabetic nephropathy associated with type 2 diabetes mellitus Hypercholesterolemia Hypertension Hypothyroid Hypothyroidism Impacted cerumen of right ear assisted (current) use of insulin Menstrual bleeding problem Obesity Obesity due to excess calories Type 2 diabetes mellitus with hyperglycemia Viral syndrome Vitamin D deficiency Surgical History Hx of right breast biopsy Hx of tooth extraction Family History Father Hypertension Obesity Prediabetes Mother Heart disease Glaucoma Social History Household Members: Family Housing: Apartment Alcohol intake: never Patient Tobacco Use Status: Never used Tobacco e-Cigarette/Vaping Use: Never Used Second Hand Smoke Exposure: No service: No Current occupational status: employed Current occupational exposures/hazards: No Gender identity: Female Cognitive needs: No Hearing needs: No Vision needs: Yes Female Reproductive History Menstrual Age of Menarche: 12 Review of Systems Const Denies weight gain and Denies weight loss ENT Reports no additional complaints, Denies dysphagia and Denies odynophagia Card Reports no additional complaints Resp Reports no additional complaints GI Denies abdominal pain, Denies belching, Denies melena, Reports bloating (Occasional), Denies change in bowel habits, Denies dysphagia, Denies excessive flatus, Denies dyspepsia, Reports heartburn (Occasional), Denies diarrhea, Denies loose stools, Denies nausea, Denies odynophagia and Denies vomiting Reports no additional complaints Musc Reports no additional complaints Neuro Reports no additional complaints Psych Reports no additional complaints Endo Reports no additional complaints Physical Exam Vital Signs: BMI result Body Mass Index 47.4 Const General: healthy appearing, no acute distress and well developed Nutritional Appearance: obese Orientation/consciousness: patient oriented x3 HEENT Head: Yes normal to inspection, Yes normocephalic and Yes atraumatic Face and sinus: Yes normal facial exam Mouth: Normal oral and palatal mucosa present Throat: Yes posterior oropharynx normal, Yes tonsils normal and Yes uvula midline Eyes General: appearance normal, both eyes and all related structures Neck Neck: Yes normal visual inspection, Yes full ROM and Yes trachea midline Thyroid: Thyroid normal Resp Effort & Inspection: normal respiratory effort, able to speak in complete sentences, no tracheal deviation and symmetric chest movement Auscultation: clear to auscultation bilaterally Cardio Rate: regular rate Heart sounds: S1 normal heart sound present and S2 normal heart sound present GI Inspection: Yes normal to inspection, No distended and Yes obesity Palpation (GI): Soft to palpation, not firm, nontender and No hepatosplenomegaly present Auscultation: normal bowel sounds General: Yes no CVA tenderness Back/Spine/Pelvis Back: no CVA tenderness Skin General skin exam: elasticity normal, turgor normal and dry skin Neuro General: patient oriented x3 Psych Appearance: grossly normal Mental Status: mental status grossly normal Speech and movement: Normal speech and movement present Assessment & Plan Assessment & Plan (1) GERD (gastroesophageal reflux disease): Code(s): K21.9 - Gastro-esophageal reflux disease without esophagitis Qualifiers: Esophagitis presence: esophagitis presence not specified Qualified Cod e(s): K21.9 - Gastro-esophageal reflux disease without esophagitis Plan: Continue current treatment with pantoprazole. Discussed with patient avoiding dietary triggers and late night snacking. Staying upright for minimal 3 hours after meals discussed with patient. Patient will try smaller meals and more often (2) Constipation: Code(s): K59.00 - Constipation, unspecified Qualifiers: Constipation type: chronic idiopathic constipation Qualified Code(s): K59.04 - Chronic idiopathic constipation Plan: Continue taking Senokot daily. Patient was also encouraged to increase fluid intake and activity to promote better bowel motility. (3) IBS (irritable bowel syndrome): Code(s): K58.9 - Irritable bowel syndrome without diarrhea Qualifiers: Irritable bowel syndrome type: without diarrhea Qualified Code(s): K58.9 - Irritable bowel syndrome without diarrhea Plan: Occasional postprandial abdominal bloating. Low FODMAP diet discussed with patient. Patient is on unable to tolerate certain food. Will be seeing wood machinist apprentice in the next couple months. I will see patient in 8 months, sooner on as needed basis. Patient is agreeable to this plan and verbalizes understanding of instructions. She was given the opportunity to ask questions all questions answered. Thank you for allowing me to participate in her care Medications: Refilled sennosides (Natural Senna Laxative) 17.2 mg (2 x 8.6 mg) PO BEDTIME 60 tabs 4RF constipation K59.00 - Constipation, unspecified Coding Level of Care Code Est Pt Level 3 (73850) Diagnoses GERD (gastroesophageal reflux disease) K21.9 Esophagitis presence: esophagitis presence not specified Constipation K59.04 Constipation type: chronic idiopathic constipation IBS (irritable bowel syndrome) K58.9 Irritable bowel syndrome type: without diarrhea Time Spent (min) 30 Comment 20 minutes spent with patient and additional 10 minutes spent reviewing her records
[2022-12-07 10:15] VITALS: BMI 47.4
== END 2022-12-07 10:38 | disposition home or self-care (01) ==
PROVIDERS: PCP Internal Medicine; Visit Provider Nurse Practitioner Family
DX: K21.9 Gastro-esophageal reflux disease without esophagitis (principal); K59.04 Chronic idiopathic constipation; K58.9 Irritable bowel syndrome, unspecified
CPT/HCPCS: 99213

== ENCOUNTER → 2022-12-07 10:01 | Outpatient (BNVA) | payer OTHER, SELFPAY | PROVIDERS: PCP Internal Medicine; Visit Provider Nurse Practitioner Family | DX: K21.9 Gastro-esophageal reflux disease without esophagitis (principal); K59.04 Chronic idiopathic constipation; K58.9 Irritable bowel syndrome, unspecified; Z79.899 Other long term (current) drug therapy | CPT/HCPCS: 99212 ==

== ENCOUNTER 2022-12-10 08:48 | Outpatient (AMB) | payer OTHER, SELFPAY ==
--- NOTE | 2022-12-10 09:29 | A.OFFVIS_ITS ---
Intake Intake Visit Reasons: DM/with dexcom Estimator Paperboard Boxes Required: No Accompanied by: Self / Same As Patient Allergies aspirin [ASA] Allergy (Unknown, Verified 12/07/22 10:12) BLEEDING prednisone Adverse Reaction (Intermediate, Verified 12/07/22 10:12) high Blood sugar grasses/pollen Allergy (Mild, Uncoded 11/23/22 08:25) congestion Actos Allergy (Unknown, Uncoded 11/23/22 08:25) nausea and vomiting Trulicity Allergy (Unknown, Uncoded 11/23/22 08:25) nausea and vomiting HPI Comprehensive Diabetes Asmnt Most Recent Diabetes Results: No Data to Display [facility] Medical History (Updated 11/23/22 @ 08:53 by Daksha Hernandez MD) Allergic rhinitis Asthma Cough Diabetic nephropathy associated with type 2 diabetes mellitus Hypercholesterolemia Hypertension Hypothyroid Hypothyroidism Impacted cerumen of right ear half-way (current) use of insulin Menstrual bleeding problem Obesity Obesity due to excess calories Type 2 diabetes mellitus with hyperglycemia Viral syndrome Vitamin D deficiency Surgical History Hx of right breast biopsy Hx of tooth extraction Family History Father Hypertension Obesity Prediabetes Mother Heart disease Glaucoma Social History Household Members: Family Housing: Apartment Alcohol intake: never Patient Tobacco Use Status: Never used Tobacco e-Cigarette/Vaping Use: Never Used Second Hand Smoke Exposure: No service: No Current occupational status: employed Current occupational exposures/hazards: No Gender identity: Female Cognitive needs: No Hearing needs: No Vision needs: Yes Female Reproductive History Menstrual Age of Menarche: 12 Assessment & Plan Assessment & Plan (1) Type 2 diabetes mellitus with hyperglycemia: Comment: Eye and Lasix Code(s): E11.65 - Type 2 diabetes mellitus with hyperglycemia Qualifiers: Diabetes mellitus terminal operations manager insulin use: with penitentiary use Qualified Code(s): E11.65 - Type 2 diabetes mellitus with hyperglycemia; Z79.4 - buttermaker (current) use of insulin Plan: Personal Continuous Glucose Monitor: Patient's last A1c on 11/23/2022 6.9% Patients CGM information reviewed Reviewed patient's sensor data: Hypoglycemia: ? 1% Hyperglycemia:? 42% Time in Range:? 57% Average glucose for the last 2 weeks?176 mg/dL Patient use currently taking Lantus 12 units daily Fiasp before meals Insulin to carb ratio 1-10 Correction factor 1-20 She has decided that she would prefer to stay on Dexcom G7, 2 sample Dexcom G7 sensors given to patient. Prescription request sent to Dr. Wade for Dexcom G7 sensor Patient had conversation with nurse navigation suggested she may have Diabetes 1 or DIEGO. I recommended to patient she discuss this at appointment with Dr. Wade on 01/18/23. She can request that he run a C-peptide and/or DIMA antibody test to determine type of diabetes. Patient also reports that she had some severe lows recently, and requested prescription for glucagon. Reviewed with patient how to use Baqsimi nasal glucagon. Request for prescription sent to Dr. Wade. Patient having pattern of hyperglycemia around lunchtime. Discussed with marly michel using correction factor to correct for hyperglycemia. Patient will be returning to work in 2 weeks, where glucose pattern may change some. Instructed patient if she has questions after returning to work regarding glucose patterns to contact senior health educator. In addition patient reports that she did not take Lantus last night due to glucose of 101 mg/dL before bed. But noticed that her glucose running high overnight and into the morning. Reviewed with patient the importance of consistently taking Lantus, keep glucose levels evenly under control. If patient does not feel comfortable taking Lantus 12 units when her glucose is in the range of 100 mg/dL she can either try using complex carbohydrate bedtime snack or reduce Lantus to 8 units. Understand reducing Lantus to 8 units will affect the next 24 hours of glucose levels Reviewed how to interpret trend arrows Reminded patient that to check finger sticks if symptoms do not match sensor reading. Discussed lag time between finger stick and sensor data.? Patient able to insert sensor independently at home without issue.? Coding Level of Care Code Est Pt Level 1 (41075) Diagnoses Type 2 diabetes mellitus with hyperglycemia E11.65; Z79.4 Diabetes mellitus penitentiary insulin use: with terminal operations manager use
== END 2022-12-10 09:31 | disposition home or self-care (01) ==
PROVIDERS: PCP Internal Medicine; Visit Provider Registered Nurse Diabetes Educator
DX: E11.65 Type 2 diabetes mellitus with hyperglycemia (principal); Z79.4 Long term (current) use of insulin

== ENCOUNTER → 2022-12-10 08:48 | Outpatient (BNVA) | payer OTHER, SELFPAY | PROVIDERS: PCP Internal Medicine; Visit Provider Registered Nurse Diabetes Educator | DX: E11.65 Type 2 diabetes mellitus with hyperglycemia (principal); E11.21 Type 2 diabetes mellitus with diabetic nephropathy; E78.00 Pure hypercholesterolemia, unspecified; Z79.4 Long term (current) use of insulin | CPT/HCPCS: 99211 ==

== ENCOUNTER 2023-01-15 08:13 | Outpatient (REF) | payer OTHER, SELFPAY ==
[2023-01-15 09:35] LABS: Anion Gap 15 (12-20); Blood Urea Nitrogen 14 mg/dL (9-16); Calcium 9.4 mg/dL (8.4-10.2); Carbon Dioxide 24 mmol/L (22-29); Chloride 106 mmol/L (96-108); Cholesterol 126 mg/dL (<200); Estimated Glomerular Filt Rate > 60; Glucose Random 163 mg/dL (60-115); HDL Cholesterol 56 mg/dL (>40); LDL Cholesterol Calculated 58 mg/dL (<100); Potassium 4.2 mmol/L (3.3-5.1); Sodium 141 mmol/L (135-145); Triglycerides 62 mg/dL (<150)
[2023-01-15 09:49] LABS: Thyroid Stimulating Hormone 1.58 uIU/mL (0.32-4.0)
[2023-01-15 09:50] LABS: Free T4 (Free Thyroxine) 1.14 ng/dL (0.71-1.85); Vitamin D 25-OH Total 47.8 ng/mL (>30)
[2023-01-15 10:06] LABS: Folate 12.6 ng/mL (> or = 4.0); Vitamin B12 1355 pg/mL (200-900)
[2023-01-15 10:39] LABS: Creatinine Urine 248.78 mg/dL; Microalbum/Creatinine Ratio Ur 93.2 ug/mg cr (<30)
[2023-01-15 10:52] LABS: Estimated Average Glucose 157 mg/dL; Hemoglobin A1c % 7.1 % (<6.0)
== END 2023-01-15 08:14 | disposition home or self-care (01) ==
LOC: HO.LAB 08:13
PROVIDERS: Absent Provider Internal Medicine; PCP Internal Medicine; Visit Provider Internal Medicine Endocrinology, Diabetes & Metabolism
DX: E11.65 Type 2 diabetes mellitus with hyperglycemia (principal); E78.00 Pure hypercholesterolemia, unspecified; Z79.4 Long term (current) use of insulin
CPT/HCPCS: 36415; 80048; 80061; 82043; 82306; 82570; 82607; 82746; 83036; 84439; 84443

== ENCOUNTER 2023-01-18 15:14 | Outpatient (AMB) | payer OTHER, SELFPAY ==
--- NOTE | 2023-01-18 15:15 | MHC.OFFVIS ---
Intake Vital Signs 01/18/23 15:16 Height 5 ft 5 in Weight 288 lb 2.307 oz BMI 47.9 BP 137/84 Blood Pressure Location Lt brachial Position Sitting Pulse 80 Pulse Source Pulse Oximeter Intake Visit Reasons: f/u Type 2 DM/LVM Intake Note: Patient presents today to follow up on Type 2 Diabetes Mellitus. Patient receives DME supplies through: Last Diabetic Eye exam: 05/2022 Last Podiatry Visit: None Random Glucose: 146 mg/dl HgA1C:6.9% 11/23/22 Videogame Tester Required: No Accompanied by: Self / Same As Patient Allergies aspirin [ASA] Allergy (Unknown, Verified 01/18/23 15:22) BLEEDING prednisone Adverse Reaction (Intermediate, Verified 01/18/23 15:22) high Blood sugar grasses/pollen Allergy (Mild, Uncoded 11/23/22 08:25) congestion Actos Allergy (Unknown, Uncoded 11/23/22 08:25) nausea and vomiting Trulicity Allergy (Unknown, Uncoded 11/23/22 08:25) nausea and vomiting Medication List - Last Reconciled 01/18/23 by Sagar Wade MD albuterol sulfate 90 mcg/actuation 1 inh inhalation QID PRN albuterol sulfate 90 mcg/actuation (Ventolin HFA) 1 inh inhalation Q6H PRN atorvastatin 20 mg PO DAILY blood sugar diagnostic (FreeStyle Lite Strips) As directed six times a day blood-glucose sensor (Dexcom G7 Sensor device) As directed change every 10 days cyclobenzaprine 5 mg PO TID PRN 15 days fexofenadine (Jennifer Allergy) 180 mg PO DAILY FreeStyle Lancets (lancets) 4 times a day NS glucagon 3 mg/actuation (Baqsimi) 3 mg intranasal ONCE insulin aspart (niacinamide) 100 unit/mL (3 mL) (Fiasp FlexTouch U-100 Insulin) 5 - 16 units subcut QID insulin glargine (Lantus Solostar U-100 Insulin) 12 units subcut QPM insulin pump cart,auto,BT-cntr (Omnipod 5 G6 Intro Kit (Gen 5) subcutaneous cartridge with controller) As directed insulin pump cart,automated,BT (Omnipod 5 G6 Pods (Gen 5) subcutaneous cartridge) As directed Levoxyl (levothyroxine) 100 mcg PO DAILY NS lisinopril 10 mg PO DAILY 30 days metformin ER 1,000 mg (2 x 500 mg) PO BID nystatin 1 appl topical BID pantoprazole 40 mg PO DAILY pen needle, diabetic As directed pen needle, diabetic (1st Tier Unifine Pentips Plus) 4 times a day pen needle, diabetic (BD Aishwarya 2nd Gen Pen Needle) USE TO INJECT 5 TIMES A DAY semaglutide (Ozempic) 0.25 mg (0.368 mL) subcut QWEEK sennosides (Natural Senna Laxative) 17.2 mg (2 x 8.6 mg) PO BEDTIME HPI HPI Comments History of Present Illness Details Patient is 47-year-old female who presents for management of diabetes type 2 and hypothyroidism. Past medical history: Diabetes type 2 hypothyroidism, HTN, dyslipidemia, obesity 1) Diabetes - Diabetes type 2 diagnosed and 2015. She also had hypoglycemic unawareness. Micro and macrovascular complications: Nephropathy (+ microalbumin) Diabetes medications: Lantus 12 units daily, Fiasp via I:C ratior and sensitivity. . metformin ER 500 mg 2 tabs twice a day, Ozempic 0.25 qwkly Insurance did't cover [facility] Fiasp sensitivity factor of 1:30 Insulin to carb ratio 1:10 Correcting to 120 mg/dL CGM: in last 2 weeks average glucose 160 CGM 7.1 100% active. GMI 7.1%. Low 1%, In target of 70-180 69%, 30% above Symptoms reported: denies numbness, tingling, cramping in lower extremities Hypoglycemia: Rare Exercise: denies Kiln Setter - CDE education: currently Produce Specialist: never Dental exam: goes every 6 month Ophthalmology evaluation: Apr 2022 2) Hypothyroidism Has had Hypothyroidism since around 2014. Medications: Levoxyl 100 mcg eats and takes other medications at least one hour later. Reports has been on LT4 100mcg for 6 years Symptoms: REports cold intolerance, weight loss, irregular periods, occasional constipation, occasional insomnia, fatigue, dry skin. Denies dysphagia, dyspnea, dysphonia, Denies radiation to head or neck, thyroid surgery or biopsy. Denies biotin use. Family History: unknown if any hypothyroidism in family Laboratory Tests 02/13/21 14:31 Hgb A1c (Clinic) 7.8 H 06/03/20 06/03/20 06/03/20 08:45 08:45 Unknown Creatinine 0.61 Estimated GFR > 60 Hgb A1c (Clinic) Triglycerides 75 Cholesterol 139 LDL Cholesterol Di rect 72 LDL Cholesterol, C alc 76 HDL Cholesterol 48 TSH 0.89 Free T4 1.24 Microalb/Creat Rat io 245.2 10/13/20 07:47 Creatinine Estimated GFR Hgb A1c (Clinic) 7.8 H Triglycerides Cholesterol LDL Cholesterol Di rect LDL Cholesterol, C alc HDL Cholesterol TSH Free T4 Microalb/Creat Rat io Was thinking about going on Omnipod but co-pay is too high [facility] Medical History (Updated 11/23/22 @ 08:53 by Daksha Hernandez MD) Obesity due to excess calories Viral syndrome 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 Vitamin D deficiency Diabetic nephropathy associated with type 2 diabetes mellitus Hypothyroidism Cough Impacted cerumen of right ear Allergic rhinitis Menstrual bleeding problem Hypothyroid Asthma Hypercholesterolemia Obesity Hypertension Type 2 diabetes mellitus with hyperglycemia Surgical History Hx of right breast biopsy Hx of tooth extraction Family History Father Hypertension Obesity Prediabetes Mother Heart disease Glaucoma Social History Household Members: Family Housing: Apartment Alcohol intake: never Patient Tobacco Use Status: Never used Tobacco e-Cigarette/Vaping Use: Never Used Second Hand Smoke Exposure: No service: No Current occupational status: employed Current occupational exposures/hazards: No Gender identity: Female Cognitive needs: No Hearing needs: No Vision needs: Yes Female Reproductive History Menstrual Age of Menarche: 12 Physical Exam Absence of Cushingoid features. Absence of acromegalic features. Neck exam reveals nl size thyroid about 15 gms. No thyroid nodules palpable. No carotid bruits present. Lungs CTA. Heart S1 S2, Reg R/R. No M/R/ G. Skin exam reveals absence of vitiligo or acanthosis nigricans. Abdominal exam reveals Soft NT/ND with NA BS. No organomegaly present. Neck Other: . Extrem Other: Visual exam of foot performed. No ulcerations or open lesions. there are calluses on both toes. No onchomycosis, They are also multiple dry patches.Pulses 2 + distally Sensation intact to monofilament exam. Vibratory sensation sensed is intact with 128 Hz tuning fork Assessment & Plan Assessment & Plan (1) Type 2 diabetes mellitus with hyperglycemia: Comment: Eye and Lasix Code(s): E11.65 - Type 2 diabetes mellitus with hyperglycemia Qualifiers: Diabetes mellitus terminal block assembler insulin use: with terminal block assembler use Qualified Code(s): E11.65 - Type 2 diabetes mellitus with hyperglycemia; Z79.4 - MCC (current) use of insulin Plan: This is a 46-year-old female with a history of type 2 diabetes being treated metformin, Ozempic and basal- bolus insulin with excellent glycemic control and known microvascular complications namely microalbumin . The plan is to increase the Ozempic to 0.5 mg q.week. 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
[2023-01-18 15:16] VITALS: BP 137/84; PULSE 80; BMI 47.9
[2023-01-18 15:30] LABS: Glucose, Whole Blood 146 mg/dL (60-115)
== END 2023-01-18 15:54 | disposition home or self-care (01) ==
PROVIDERS: PCP Internal Medicine; Visit Provider Internal Medicine Endocrinology, Diabetes & Metabolism
DX: E11.65 Type 2 diabetes mellitus with hyperglycemia (principal); Z79.4 Long term (current) use of insulin; E03.8 Other specified hypothyroidism; E06.3 Autoimmune thyroiditis
CPT/HCPCS: 99214

== ENCOUNTER → 2023-01-18 15:14 | Outpatient (BNVA) | payer OTHER, SELFPAY | PROVIDERS: Visit Provider Internal Medicine Endocrinology, Diabetes & Metabolism | DX: E11.65 Type 2 diabetes mellitus with hyperglycemia (principal); E06.3 Autoimmune thyroiditis; E03.8 Other specified hypothyroidism; Z79.4 Long term (current) use of insulin | CPT/HCPCS: 82947; 99212 ==

== ENCOUNTER 2023-01-26 15:23 | Outpatient (REF) | payer OTHER, SELFPAY ==
[2023-02-01 19:39] LABS: Glutamic acid decarboxylase Ab >250 IU/mL (<5)
== END 2023-01-26 15:24 | disposition home or self-care (01) ==
LOC: HO.LAB 15:23
PROVIDERS: PCP Internal Medicine; Visit Provider Internal Medicine Endocrinology, Diabetes & Metabolism
DX: E11.65 Type 2 diabetes mellitus with hyperglycemia (principal)
CPT/HCPCS: 36415; 86341

== ENCOUNTER 2023-02-28 15:15 | Outpatient (AMB) | payer OTHER, SELFPAY ==
--- NOTE | 2023-02-28 16:06 | MHC.AMDMED ---
Intake Intake Visit Reasons: DM Administrative Support Coordinator Required: No Accompanied by: Self / Same As Patient Allergies aspirin [ASA] Allergy (Unknown, Verified 01/18/23 15:22) BLEEDING prednisone Adverse Reaction (Intermediate, Verified 01/18/23 15:22) high Blood sugar grasses/pollen Allergy (Mild, Uncoded 11/23/22 08:25) congestion Actos Allergy (Unknown, Uncoded 11/23/22 08:25) nausea and vomiting Trulicity Allergy (Unknown, Uncoded 11/23/22 08:25) nausea and vomiting HPI Comprehensive Diabetes Asmnt Most Recent Diabetes Results: Microalb/Creat Ratio 93.2 ug/mg cr (<30) H 01/15/23 Cholesterol 126 mg/dL (<200) 01/15/23 HDL Cholesterol 56 mg/dL (>40) 01/15/23 Triglycerides 62 mg/dL (<150) 01/15/23 Creatinine 0.65 mg/dL (0.5-1.4) 01/15/23 Blood Urea Nitrogen 14 mg/dL (9-16) 01/15/23 Sodium 141 mmol/L (135-145) 01/15/23 Potassium 4.2 mmol/L (3.3-5.1) 01/15/23 Chloride 106 mmol/L (96-108) 01/15/23 Carbon Dioxide 24 mmol/L (22-29) 01/15/23 Calcium 9.4 mg/dL (8.4-10.2) 01/15/23 [facility] Medical History (Updated 02/28/23 @ 16:08 by Glory Wolfe RN) Obesity due to excess calories Viral syndrome 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 Vitamin D deficiency Diabetic nephropathy associated with type 2 diabetes mellitus Hypothyroidism Cough Impacted cerumen of right ear Allergic rhinitis Menstrual bleeding problem Hypothyroid Asthma Hypercholesterolemia Obesity Hypertension Type 2 diabetes mellitus with hyperglycemia Surgical History Hx of right breast biopsy Hx of tooth extraction Family History Father Hypertension Obesity Prediabetes Mother Heart disease Glaucoma Social History Household Members: Family Housing: Apartment Alcohol intake: never Patient Tobacco Use Status: Never used Tobacco e-Cigarette/Vaping Use: Never Used Second Hand Smoke Exposure: No service: No Current occupational status: employed Current occupational exposures/hazards: No Gender identity: Female Cognitive needs: No Hearing needs: No Vision needs: Yes Female Reproductive History Menstrual Age of Menarche: 12 Assessment & Plan Assessment & Plan (1) 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 0% Hyperglycemia:? 52% Time in Range:? 48% Average glucose for the last 2 weeks? 188 mg/dL patient's diabetes diagnosis was recently changed to DIEGO, Dr. Wade ordered patient to stop metformin and Ozempic patient reports since then her glucose levels have been running above target patient reports she is currently taking Lantus 22 units daily using insulin to carb ratio of 1-7 sensitivity factor 1-30 reviewed with patient the difference between DIEGO and type 2 diabetes recommended to patient to increase Lantus 25 units daily updated insulin to carb ratio from 1-7 to 1-6 updated sensitivity factor from 1-30 to 1-25 reviewed patient how to treat low blood sugar with rule of 15s patient has increase in hypoglycemic events go back to using 1-7, and 1-30 Reviewed how to interpret trend arrows Reminded patient that to check finger sticks if symptoms do not match sensor reading. Discussed lag time between finger stick and sensor data.? Patient able to insert sensor independently at home without issue.? 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
== END 2023-02-28 16:11 | disposition home or self-care (01) ==
PROVIDERS: PCP Internal Medicine; Visit Provider Registered Nurse Diabetes Educator
DX: E13.9 Other specified diabetes mellitus without complications (principal)

== ENCOUNTER → 2023-02-28 15:15 | Outpatient (BNVA) | payer OTHER, SELFPAY | PROVIDERS: PCP Internal Medicine; Visit Provider Registered Nurse Diabetes Educator | DX: E13.9 Other specified diabetes mellitus without complications (principal) | CPT/HCPCS: 99211 ==

== ENCOUNTER 2023-03-03 15:42 | Outpatient (AMB) | payer OTHER, SELFPAY ==
[2023-03-03 15:56] VITALS: BP 162/88; PULSE 75; O2SAT 100; BMI 48.8
--- NOTE | 2023-03-03 15:56 | MHC.PC.OV ---
Vital Signs 03/03/23 15:56 Height 5 ft 5 in Weight 293 lb BMI 48.8 BP 162/88 H Blood Pressure Location Lt brachial Position Sitting Pulse 75 Pulse Source Pulse Oximeter Pulse Oximetry (%) 100 Oxygen Delivery Method Room Air Intake Visit Reasons: 3 months f/u Local Sales Associate Required: No Corn Sheller Operator: Not Required per policy Accompanied by: Self / Same As Patient Allergies aspirin [ASA] Allergy (Unknown, Verified 03/03/23 15:57) BLEEDING prednisone Adverse Reaction (Intermediate, Verified 03/03/23 15:57) high Blood sugar grasses/pollen Allergy (Mild, Uncoded 03/03/23 15:57) congestion Actos Allergy (Unknown, Uncoded 03/03/23 15:57) nausea and vomiting Trulicity Allergy (Unknown, Uncoded 03/03/23 15:57) nausea and vomiting Medication List - Last Reconciled 03/03/23 by Daksha Heranndez MD albuterol sulfate 90 mcg/actuation (Ventolin HFA) 1 inh inhalation Q6H PRN atorvastatin 20 mg PO DAILY blood sugar diagnostic (FreeStyle Lite Strips) As directed six times a day blood-glucose sensor (Best Learning English G7 Sensor device) As directed change every 10 days cyclobenzaprine 5 mg PO TID PRN 15 days fexofenadine (Jennifer Allergy) 180 mg PO DAILY FreeStyle Lancets (lancets) 4 times a day NS insulin aspart (niacinamide) 100 unit/mL (3 mL) (Fiasp FlexTouch U-100 Insulin) Inject up to 70 units a day subcutaneously 4 times a day; insulin glargine (Lantus Solostar U-100 Insulin) 30 units (0.3 mL) subcut QPM insulin pump cart,auto,BT-cntr (Omnipod 5 G6 Intro Kit (Gen 5) subcutaneous cartridge with controller) As directed insulin pump cart,automated,BT (Omnipod 5 G6 Pods (Gen 5) subcutaneous cartridge) As directed Levoxyl (levothyroxine) 100 mcg PO DAILY NS lisinopril 10 mg PO DAILY 30 days pantoprazole 40 mg PO DAILY pen needle, diabetic As directed pen needle, diabetic (1st Tier Unifine Pentips Plus) 4 times a day pen needle, diabetic (BD Aishwarya 2nd Gen Pen Needle) USE TO INJECT 5 TIMES A DAY Tobacco use date assessed: 08/16/22 Dental Screening Dental Screen Date: 03/03/23 Did you have a dental visit in the last 12 months?: No Did you have a dental problem in the last 6 months where you did not have access to dental care?: No Was dental information given to patient?: Patient has dentist HPI 3 months f/u HPI Details 47-year-old morbidly obese female with diabetes mellitus hypertension hypercholesterolemia hypothyroidism GERD last seen in November 2022. Patient comes in for follow-up. Mammogram is up-to-date patient follows up with Endocrinology noted increase in weight. no pump yet - because the dexcom 7 not communicating with omnipod and still awaiting. 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 Vitamin D deficiency Diabetic nephropathy associated with type 2 diabetes mellitus Hypothyroidism Cough Impacted cerumen of right ear Allergic rhinitis Menstrual bleeding problem Hypothyroid Asthma Hypercholesterolemia Obesity Hypertension Surgical History Hx of right breast biopsy Hx of tooth extraction Family History Father Hypertension Obesity Prediabetes Mother Heart disease Glaucoma Social History Household Members: Family Housing: Apartment Alcohol intake: never Patient Tobacco Use Status: Never used Tobacco e-Cigarette/Vaping Use: Never Used Second Hand Smoke Exposure: No service: No Current occupational status: employed Current occupational exposures/hazards: No Gender identity: Female Cognitive needs: No Hearing needs: No Vision needs: Yes Female Reproductive History Menstrual Age of Menarche: 12 Questionnaire PHQ-9 Over the last 2 weeks, how often have you been bothered by any of the following problems? 1. Little interest or pleasure in doing things: not at all 2. Feeling down, depressed, or hopeless: not at all 3. Trouble falling or staying asleep, or sleeping too much: not at all 4. Feeling tired or having little energy: not at all 5. Poor appetite or overeating: not at all 6. Feeling bad about yourself - or that you are a failure or have let yourself or your family down: not at all 7. Trouble concentrating on things, such as reading the newspaper or watching television: not at all 8. Moving or speaking so slowly that other people could have noticed. Or the opposite - being so fidgety or restless that you have been moving around a lot more than usual: not at all 9. Thoughts that you would be better off or of hurting yourself in some way: not at all Total score: 0 Depression Screening Interpretation: Negative Depression Screening Done: Yes Source: Developed by Drs. Sagar Ascencio, Jackelyn Dueñas, Camilo Redman and colleagues, with an educational maura from [employer]. Thrive Questionnaire Date Thrive assessed: 11/23/22 AUDIT C Alcohol Use Questionnaire (AUDIT-C) 1. How often do you have a drink containing alcohol?: Never 3. How often do you have six or more drinks on one occasion?: Never Total Score: 0 Score Reviewed/Action Taken: No DIMA-7 AMB Questionnaire DIMA-7 Date DIMA - 7 assessed: 05/07/22 Source: Developed by Drs. Sagar Ascencio, Jackelyn Dueñas, Camilo Redman and colleagues, with an educational maura from [employer]. Physical exam (Primary Care) Vital Signs: Last Vital Signs Pulse 75 03/03/23 15:56 BP 162/88 H 03/03/23 15:56 Pulse Ox 100 03/03/23 15:56 Oxygen Delivery Method Room Air 03/03/23 15:56 BMI result Body Mass Index 48.8 Tobacco/Smoking Status: Tobacco use Status Tobacco use date assessed 08/16/22 03/03/23 15:58 Patient Tobacco Use Status Never used Tobacco 03/03/23 15:58 e-Cigarette/Vaping Use Never Used 03/03/23 15:58 PHQ-9: PHQ-9 Score PHQ-9: Total score 0 03/03/23 16:26 Depression Screening Interpretation: Negative Thrive Assessment: Date of Thrive Assessment Date Thrive assessed 11/23/22 03/03/23 15:58 Const General: alert; No acute distress Eyes Conjunctivae: conjunctivae normal Resp Auscultation: clear to auscultation bilaterally Cardio Rate: regular rate Rhythm: regular rhythm GI Inspection: Yes normal to inspection Extrem General: Yes normal to inspection and No edema Office Procedures Flu Questionnaire Does the patient have a severe egg allergy?: No Does the patient have severe life threatening allergies?: No Does the patient have a fever or illness today?: No Has the patient ever had Guillain-[place] Syndrome?: No Has the patient ever had any past reaction to a flu shot?: No Immunizations flu vacc [id number] 6mos up(PF) 60 mcg(15 mcgx4)/0.5 mL IM syringe Performing Provider: Daksha Hernandez MD [facility] Administered by: AB Trejo on 03/03/23 16:38 Dose Route Admin Location Dispensed Lot Number Expiration Date NDC Die Developer 0.5 mL IM Left Deltoid 0.5 mL [id number] 10/23/23 28095-025-44 [employer] VIS Given Date VIS Provided VIS Publication Date 03/03/23 Single Vaccine 20 Eligibility Eligibility Date Funding Source Not [facility] Eligible 03/03/23 Private Assessment and Plan Assessment & Plan (1) 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 Hemoglobin A1c goal of less than 6.5 patient is being followed up by Endocrinology Fiasp, Lantus and insulin pump (2) Colon cancer screening: Code(s): Z12.11 - Encounter for screening for malignant neoplasm of colon Plan: Reminder about colon cancer screening (3) Obesity, morbid, BMI 40.0-49.9: Code(s): E66.01 - Morbid (severe) obesity due to excess calories Plan: Diet and exercise (4) GERD (gastroesophageal reflux disease): Code(s): K21.9 - Gastro-esophageal reflux disease without esophagitis Qualifiers: Esophagitis presence: esophagitis presence not specified Qualified Code(s): K21.9 - Gastro-esophageal reflux disease without esophagitis Plan: Avoid the foods that causes that usually spicy foods, tomato products, juices, coffee, soda and foods that your sensitive to. After eating do not lie down, allow 3-4 hours before in lie down. And keep the head of bed above 30 degrees to avoid the acid from going up. (5) Hypercholesterolemia: Code(s): E78.00 - Pure hypercholesterolemia, unspecified Plan: Avoid fried foods, chicken skin, eggs, butter margarine, pastries and meat. 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 Decrease salt intake and exercise patient is on lisinopril 10 mg once a day (8) Anemia: Code(s): D64.9 - Anemia, unspecified Orders: Orders IRON PROFILE 3 Months D64.9 - Anemia, unspecified Thyroid Stimulating Hormone 3 Months D64.9 - Anemia, unspecified Free T4 (Free Thyroxine) 3 Months D64.9 - Anemia, unspecified Influenza 9716-0351 Immunization Today Z23 - Encounter for immunization Complete Blood Count Auto Diff 3 Months D64.9 - Anemia, unspecified Ferritin 3 Months D64.9 - Anemia, unspecified Reticulocyte Count 3 Months D64.9 - Anemia, unspecified Vitamin B12 and Folate 3 Months D64.9 - Anemia, unspecified Coding Level of Care Code Est Pt Level 4 (00261) Diagnoses 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
== END 2023-03-03 16:42 | disposition home or self-care (01) ==
PROVIDERS: PCP Internal Medicine; Visit Provider Internal Medicine
DX: E13.9 Other specified diabetes mellitus without complications (principal); E66.01 Morbid (severe) obesity due to excess calories; Z68.42 Body mass index [BMI] 45.0-49.9, adult; K21.9 Gastro-esophageal reflux disease without esophagitis; E78.00 Pure hypercholesterolemia, unspecified; E03.8 Other specified hypothyroidism; Z23 Encounter for immunization; E06.3 Autoimmune thyroiditis; I10 Essential (primary) hypertension; D64.9 Anemia, unspecified
CPT/HCPCS: 90471; 90686; 99214

== ENCOUNTER 2023-03-14 15:13 | Outpatient (AMB) | payer OTHER, SELFPAY ==
--- NOTE | 2023-03-14 15:35 | MHC.AMDMED ---
Intake Intake Visit Reasons: 30 min Allergies aspirin [ASA] Allergy (Unknown, Verified 03/03/23 15:57) BLEEDING prednisone Adverse Reaction (Intermediate, Verified 03/03/23 15:57) high Blood sugar grasses/pollen Allergy (Mild, Uncoded 03/03/23 15:57) congestion Actos Allergy (Unknown, Uncoded 03/03/23 15:57) nausea and vomiting Trulicity Allergy (Unknown, Uncoded 03/03/23 15:57) nausea and vomiting HPI Comprehensive Diabetes Asmnt Most Recent Diabetes Results: Microalb/Creat Ratio 93.2 ug/mg cr (<30) H 01/15/23 Cholesterol 126 mg/dL (<200) 01/15/23 HDL Cholesterol 56 mg/dL (>40) 01/15/23 Triglycerides 62 mg/dL (<150) 01/15/23 Creatinine 0.65 mg/dL (0.5-1.4) 01/15/23 Blood Urea Nitrogen 14 mg/dL (9-16) 01/15/23 Sodium 141 mmol/L (135-145) 01/15/23 Potassium 4.2 mmol/L (3.3-5.1) 01/15/23 Chloride 106 mmol/L (96-108) 01/15/23 Carbon Dioxide 24 mmol/L (22-29) 01/15/23 Calcium 9.4 mg/dL (8.4-10.2) 01/15/23 [facility] Medical History (Updated 03/03/23 @ 16:29 by Daksha Hernandez MD) Obesity due to excess calories Viral syndrome care home (current) use of insulin Vitamin D deficiency Diabetic nephropathy associated with type 2 diabetes mellitus Hypothyroidism Cough Impacted cerumen of right ear Allergic rhinitis Menstrual bleeding problem Hypothyroid Asthma Hypercholesterolemia Obesity Hypertension Surgical History Hx of right breast biopsy Hx of tooth extraction Family History Father Hypertension Obesity Prediabetes Mother Heart disease Glaucoma Social History Household Members: Family Housing: Apartment Alcohol intake: never Patient Tobacco Use Status: Never used Tobacco e-Cigarette/Vaping Use: Never Used Second Hand Smoke Exposure: No service: No Current occupational status: employed Current occupational exposures/hazards: No Gender identity: Female Cognitive needs: No Hearing needs: No Vision needs: Yes Female Reproductive History Menstrual Age of Menarche: 12 Assessment & Plan Assessment & Plan (1) 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 1% Hyperglycemia:? 44% Time in Range:? 55% Average glucose for the last 2 weeks?178 mg/dL Patient is having postprandial increase in blood sugar after breakfast, glucose levels days elevated until mid afternoon Patient has had a couple of lows in mid afternoon which could be related to patient taking correction dose, patient also overnight has had 1 episode of hypoglycemia. Reviewed with patient to use 15s to treat hypoglycemia Recommended to patient to reduce Lantus to 24 units daily Change insulin to carb ratio for breakfast from 1-6 to 1-5, leave lunch and supper at 1-6 Reviewed how to interpret trend arrows Reminded patient that to check finger sticks if symptoms do not match sensor reading. Discussed lag time between finger stick and sensor data.? Patient able to insert sensor independently at home without issue.? 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
== END 2023-03-14 15:51 | disposition home or self-care (01) ==
PROVIDERS: PCP Internal Medicine; Visit Provider Registered Nurse Diabetes Educator
DX: E13.9 Other specified diabetes mellitus without complications (principal)

== ENCOUNTER → 2023-03-14 15:13 | Outpatient (BNVA) | payer OTHER, SELFPAY | PROVIDERS: PCP Internal Medicine; Visit Provider Registered Nurse Diabetes Educator | DX: E13.9 Other specified diabetes mellitus without complications (principal); Z79.4 Long term (current) use of insulin | CPT/HCPCS: 99211 ==

== ENCOUNTER 2023-04-15 14:43 | Outpatient (REF) | payer OTHER, SELFPAY ==
--- NOTE | ~2023-04-15 | MM_ITS ---
EXAMINATION: MM DIAGNOSTIC DIGITAL BREAST TOMOSYNTHESIS, BILATERAL CLINICAL INFORMATION: Follow-up retroareolar focal asymmetry left breast, not seen on ultrasound previously. COMPARISON: Mammography: 10/12/2022, 10/03/2022, 04/16/2022 (BI-RADS 0). TECHNIQUE: Digital breast tomosynthesis is performed in both the craniocaudal and mediolateral oblique views along with computer-aided detection (CAD). Synthesized 2D images are generated from the tomosynthesis. FINDINGS: There are scattered areas of fibroglandular density (ACR BI-RADS breast composition Category b). Only well seen on the left cc view, and the directly retroareolar anterior left breast, there is a 1 view asymmetry measuring 1.3 x 1.0 cm, stable from prior exams. Previous ultrasound 05/05/2022 showed no abnormalities. This is likely an island of glandular parenchyma, especially given its inability to be well seen currently on the left MLO view. One-year follow-up recommended to ensure stability. There is a biopsy clip in a small mass within the posterolateral right breast. No suspicious masses, areas of architectural distortion, or suspicious calcifications in either breast. MM/MM tomosynthesis diagnostic BI IMPRESSION: No findings suspicious for malignancy in either breast. The asymmetry is seen in the retroareolar region of the left breast is only well seen on the CC projection and not well seen on the MLO projection. Despite this, it appears similar in size and morphology from prior studies without change. Nothing was seen on prior left breast ultrasound. I would recommend a 1 year follow-up to document a two-year stability. There are no suspicious findings in the right breast. ASSESSMENT: BI-RADS BI-RADS 3 - Probably benign finding(s) - 12 month follow-up suggested RECOMMENDATION: 12 month diagnostic follow up Results were provided to the patient at time of visit by the technologist. This patient's information was entered into a reminder system with a target due date for their next mammogram.
== END 2023-04-15 14:44 | disposition home or self-care (01) ==
LOC: HO.MAMMO 14:43
PROVIDERS: PCP Internal Medicine; Visit Provider Internal Medicine
DX: R92.2 Inconclusive mammogram (principal)
CPT/HCPCS: 77062; 77066

== ENCOUNTER → 2023-04-15 15:00 | Outpatient (BNV) | payer OTHER, SELFPAY | PROVIDERS: PCP Internal Medicine; Visit Provider Radiology Diagnostic Radiology | DX: R92.8 Other abnormal and inconclusive findings on diagnostic imaging of breast (principal) | CPT/HCPCS: 77062; 77066 ==

== ENCOUNTER 2023-05-18 15:21 | Outpatient (AMB) | payer OTHER, SELFPAY ==
--- NOTE | 2023-05-18 15:34 | A.OFFVIS_ITS ---
Intake Intake Visit Reasons: DM/confirmed Allergies aspirin [ASA] Allergy (Unknown, Verified 03/03/23 15:57) BLEEDING prednisone Adverse Reaction (Intermediate, Verified 03/03/23 15:57) high Blood sugar grasses/pollen Allergy (Mild, Uncoded 03/03/23 15:57) congestion Actos Allergy (Unknown, Uncoded 03/03/23 15:57) nausea and vomiting Trulicity Allergy (Unknown, Uncoded 03/03/23 15:57) nausea and vomiting HPI Comprehensive Diabetes Asmnt Most Recent Diabetes Results: Microalb/Creat Ratio 93.2 ug/mg cr (<30) H 01/15/23 Cholesterol 126 mg/dL (<200) 01/15/23 HDL Cholesterol 56 mg/dL (>40) 01/15/23 Triglycerides 62 mg/dL (<150) 01/15/23 Creatinine 0.65 mg/dL (0.5-1.4) 01/15/23 Blood Urea Nitrogen 14 mg/dL (9-16) 01/15/23 Sodium 141 mmol/L (135-145) 01/15/23 Potassium 4.2 mmol/L (3.3-5.1) 01/15/23 Chloride 106 mmol/L (96-108) 01/15/23 Carbon Dioxide 24 mmol/L (22-29) 01/15/23 Calcium 9.4 mg/dL (8.4-10.2) 01/15/23 AST 12 U/L (5-31) 10/03/21 ALT 11 U/L (0-31) 10/03/21 Total Protein 6.5 g/dL (6.5-8.0) 10/03/21 Albumin 3.9 g/dL (3.5-5.0) 10/03/21 [facility] Medical History (Updated 03/03/23 @ 16:29 by Daksha Hernandez MD) Obesity due to excess calories Viral syndrome 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 Vitamin D deficiency Diabetic nephropathy associated with type 2 diabetes mellitus Hypothyroidism Cough Impacted cerumen of right ear Allergic rhinitis Menstrual bleeding problem Hypothyroid Asthma Hypercholesterolemia Obesity Hypertension Surgical History Hx of right breast biopsy Hx of tooth extraction Family History Father Hypertension Obesity Prediabetes Mother Heart disease Glaucoma Social History Household Members: Family Housing: Apartment Alcohol intake: never Patient Tobacco Use Status: Never used Tobacco e-Cigarette/Vaping Use: Never Used Second Hand Smoke Exposure: No service: No Current occupational status: employed Current occupational exposures/hazards: No Gender identity: Female Cognitive needs: No Hearing needs: No Vision needs: Yes Female Reproductive History Menstrual Age of Menarche: 12 Assessment & Plan Assessment & Plan (1) 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 0% Hyperglycemia:? 45% Time in Range:? 55% Average glucose for the last 2 weeks? 180 mg/dL Patient is interested in Omnipod 5, however does not want to resubmit prescriptions until Omnipod 5 is integrated with Dexcom G7 Patient has upcoming appointment with Dr. Wade in May 2023, at that visit recommended patient discuss starting medication to help with insulin resistance. Metformin is not an option because of GI side effects Patient has overnight increase in glucose levels, we will adjust Lantus from 25- 30 units leaving insulin to carb ratios the same Reviewed how to interpret trend arrows Reminded patient that to check finger sticks if symptoms do not match sensor reading. Discussed lag time between finger stick and sensor data.? Patient able to insert sensor independently at home without issue.? 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
== END 2023-05-18 15:52 | disposition home or self-care (01) ==
PROVIDERS: PCP Internal Medicine; Visit Provider Registered Nurse Diabetes Educator
DX: E13.9 Other specified diabetes mellitus without complications (principal)

== ENCOUNTER → 2023-05-18 15:21 | Outpatient (BNVA) | payer OTHER, SELFPAY | PROVIDERS: PCP Internal Medicine; Visit Provider Registered Nurse Diabetes Educator | DX: E13.9 Other specified diabetes mellitus without complications (principal) | CPT/HCPCS: 99211 ==

== ENCOUNTER 2023-05-30 15:04 | Outpatient (AMB) | payer OTHER, SELFPAY ==
[2023-05-30 15:06] VITALS: BP 110/72; PULSE 74; BMI 53.0
--- NOTE | 2023-05-30 15:06 | A.OFFVIS_ITS ---
Intake Vital Signs 05/30/23 15:06 Height 5 ft 5 in Weight 318 lb 9.087 oz BMI 53.0 BP 110/72 Blood Pressure Location Lt brachial Position Sitting Pulse 74 Pulse Source Pulse Oximeter Intake Visit Reasons: DM Intake Note: Patient presents today to follow up on DMT. Last Diabetic Eye exam: 05/2022 Last Podiatry Visit:None Random Glucose: 76 mg/dl HgA1c: 7.2% Comic Book Artist Required: No Accompanied by: Self / Same As Patient Allergies aspirin [ASA] Allergy (Unknown, Verified 05/30/23 15:20) BLEEDING prednisone Adverse Reaction (Intermediate, Verified 05/30/23 15:20) high Blood sugar grasses/pollen Allergy (Mild, Uncoded 03/03/23 15:57) congestion Actos Allergy (Unknown, Uncoded 03/03/23 15:57) nausea and vomiting Trulicity Allergy (Unknown, Uncoded 03/03/23 15:57) nausea and vomiting Medication List - Last Reconciled 05/30/23 by Sagar Wade MD albuterol sulfate 90 mcg/actuation (Ventolin HFA) 1 inh inhalation Q6H PRN atorvastatin 20 mg PO DAILY blood sugar diagnostic (FreeStyle Lite Strips) As directed six times a day blood-glucose sensor ([employer] G7 Sensor device) As directed change every 10 days cyclobenzaprine 5 mg PO TID PRN 15 days fexofenadine (Jennifer Allergy) 180 mg PO DAILY FreeStyle Lancets (lancets) 4 times a day NS insulin aspart (niacinamide) 100 unit/mL (3 mL) (Fiasp FlexTouch U-100 Insulin) Inject up to 70 units a day subcutaneously 4 times a day; insulin glargine (Lantus Solostar U-100 Insulin) 30 units (0.3 mL) subcut QPM insulin pump cart,auto,BT-cntr (Omnipod 5 G6 Intro Kit (Gen 5) subcutaneous cartridge with controller) As directed insulin pump cart,automated,BT (Omnipod 5 G6 Pods (Gen 5) subcutaneous cartridge) As directed Levoxyl (levothyroxine) 100 mcg PO DAILY NS lisinopril 10 mg PO DAILY 30 days pantoprazole 40 mg PO DAILY pen needle, diabetic As directed pen needle, diabetic (1st Tier Unifine Pentips Plus) 4 times a day pen needle, diabetic (BD Aishwarya 2nd Gen Pen Needle) USE TO INJECT 5 TIMES A DAY HPI HPI Comments History of Present Illness Details Patient is 47-year-old female who presents for management of diabetes type 1 and hypothyroidism. Past medical history: Diabetes type 2 hypothyroidism, HTN, dyslipidemia, obesity 1) Diabetes - Diabetes type 2 diagnosed and 2015. She also had hypoglycemic unawareness. Micro and macrovascular complications: Nephropathy (+ microalbumin) Diabetes medications: Lantus 30 units daily, Fiasp via I:C ratior and sensitivity. . Fiasp sensitivity factor of 1:30 Insulin to carb ratio 1:10 Correcting to 120 mg/dL CGM: in last 2 weeks average glucose 164 CGM 7.2 100% active. GMI 7.2%. 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 Needs to make appt 2) Hypothyroidism Has had Hypothyroidism since around 2014. Medications: Levoxyl 100 mcg eats and takes other medications at least one hour later. Reports has been on LT4 100mcg for 6 years Symptoms: REports cold intolerance, weight loss, irregular periods, occasional constipation, occasional insomnia, fatigue, dry skin. Denies dysphagia, dyspn ea, dysphonia, Denies radiation to head or neck, thyroid surgery or biopsy. Denies biotin use. Family History: unknown if any hypothyroidism in family Laboratory Tests 02/13/21 14:31 Hgb A1c (Clinic) 7.8 H 06/03/20 06/03/20 06/03/20 08:45 08:45 Unknown Creatinine 0.61 Estimated GFR > 60 Hgb A1c (Clinic) Triglycerides 75 Cholesterol 139 LDL Cholesterol Di rect 72 LDL Cholesterol, C alc 76 HDL Cholesterol 48 TSH 0.89 Free T4 1.24 Microalb/Creat Rat io 245.2 10/13/20 07:47 Creatinine Estimated GFR Hgb A1c (Clinic) 7.8 H Triglycerides Cholesterol LDL Cholesterol Di rect LDL Cholesterol, C alc HDL Cholesterol TSH Free T4 Microalb/Creat Rat io Was thinking about going on Omnipod but co-pay is too high [facility] Medical History (Updated 05/30/23 @ 15:19 by Sagar Wade MD) Uncontrolled type 1 diabetes mellitus with hyperglycemia, with long-term current use of insulin Obesity due to excess calories Viral syndrome alf (current) use of insulin Vitamin D deficiency Diabetic nephropathy associated with type 2 diabetes mellitus Hypothyroidism Cough Impacted cerumen of right ear Allergic rhinitis Menstrual bleeding problem Hypothyroid Asthma Hypercholesterolemia Obesity Hypertension Surgical History Hx of right breast biopsy Hx of tooth extraction Family History Father Hypertension Obesity Prediabetes Mother Heart disease Glaucoma Social History Household Members: Family Housing: Apartment Alcohol intake: never Patient Tobacco Use Status: Never used Tobacco e-Cigarette/Vaping Use: Never Used Second Hand Smoke Exposure: No service: No Current occupational status: employed Current occupational exposures/hazards: No Gender identity: Female Cognitive needs: No Hearing needs: No Vision needs: Yes Female Reproductive History Menstrual Age of Menarche: 12 Physical Exam Vital Signs: Last Vital Signs Pulse 74 05/30/23 15:06 BP 110/72 05/30/23 15:06 BMI result Body Mass Index 53.0 Absence of Cushingoid features. Absence of acromegalic features. Neck exam reveals nl size thyroid about 15 gms. No thyroid nodules palpable. No carotid bruits present. Lungs CTA. Heart S1 S2, Reg R/R. No M/R/ G. Skin exam reveals absence of vitiligo or acanthosis nigricans. Abdominal exam reveals Soft NT/ND with NA BS. No organomegaly present. Neck Other: . Extrem Other: Visual exam of foot performed. No ulcerations or open lesions. there are calluses on both toes. No onchomycosis, They are also multiple dry patches.Pulses 2 + distally Sensation intact to monofilament exam. Vibratory sensation sensed is intact with 128 Hz tuning fork Results AMB Hemoglobin A1c AMB Hemoglobin A1c 7.2 % Last Edit by Linda Guy on 05/30/23 15:27 Assessment & Plan Assessment & Plan (1) Type 2 diabetes mellitus with hyperglycemia: Comment: Eye and Lasix Code(s): E11.65 - Type 2 diabetes mellitus with hyperglycemia Qualifiers: Diabetes mellitus care home insulin use: with care home use Qualified Code(s): E11.65 - Type 2 diabetes mellitus with hyperglycemia; Z79.4 - superintendent container terminal (current) use of insulin Plan: (2) Hypothyroidism: Code(s): E03.9 - Hypothyroidism, unspecified Qualifiers: 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 Plan is to continue the current therapy (3) Uncontrolled type 1 diabetes mellitus with hyperglycemia, with long-term current use of insulin: Code(s): E10.65 - Type 1 diabetes mellitus with hyperglycemia Plan: Is a 47-year-old female with a history of type 1 diabetes being treated with basal-bolus insulin with good but not optimal glycemic control and known microvascular complications namely micro albuminuria Plan is to continue the current therapy. We will talk to the patient again about getting an Omnipod 5 pump . 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
[2023-05-30 15:22] LABS: Glucose, Whole Blood 76 mg/dL (60-115)
== END 2023-05-30 15:28 | disposition home or self-care (01) ==
PROVIDERS: PCP Internal Medicine; Visit Provider Internal Medicine Endocrinology, Diabetes & Metabolism
DX: E10.65 Type 1 diabetes mellitus with hyperglycemia (principal); Z79.4 Long term (current) use of insulin; E03.8 Other specified hypothyroidism; E06.3 Autoimmune thyroiditis
CPT/HCPCS: 99214

== ENCOUNTER → 2023-05-30 15:04 | Outpatient (BNVA) | payer OTHER, SELFPAY | PROVIDERS: PCP Internal Medicine; Visit Provider Internal Medicine Endocrinology, Diabetes & Metabolism | DX: E10.65 Type 1 diabetes mellitus with hyperglycemia (principal); E03.8 Other specified hypothyroidism; E06.3 Autoimmune thyroiditis; Z79.4 Long term (current) use of insulin; Z79.899 Other long term (current) drug therapy | CPT/HCPCS: 82947; 83036; 99212 ==

== ENCOUNTER 2023-06-13 15:36 | Outpatient (AMB) | payer OTHER, SELFPAY ==
--- NOTE | 2023-06-13 15:38 | MHC.PC.OV ---
Vital Signs 06/13/23 15:39 Height 5 ft 5 in Weight 321 lb 4 oz BMI 53.5 BP 110/64 Blood Pressure Location Lt brachial Position Sitting Pulse 71 Pulse Source Pulse Oximeter Pulse Oximetry (%) 98 Oxygen Delivery Method Room Air Intake Visit Reasons: DM Intake Note: Patient is here to follow up on DM. Licensed Psychologist Manager Required: No Designer Architect: Not Required per policy Accompanied by: Self / Same As Patient Allergies aspirin [ASA] Allergy (Unknown, Verified 06/13/23 15:39) BLEEDING prednisone Adverse Reaction (Intermediate, Verified 06/13/23 15:39) high Blood sugar grasses/pollen Allergy (Mild, Uncoded 06/13/23 15:39) congestion Actos Allergy (Unknown, Uncoded 06/13/23 15:39) nausea and vomiting Trulicity Allergy (Unknown, Uncoded 06/13/23 15:39) nausea and vomiting Medication List - Last Reconciled 06/13/23 by Daksha Hernandez, albuterol sulfate 90 mcg/actuation (Ventolin HFA) 1 inh inhalation Q6H PRN atorvastatin 20 mg PO DAILY blood sugar diagnostic (FreeStyle Lite Strips) As directed six times a day blood-glucose sensor ([employer] G7 Sensor device) As directed change every 10 days cyclobenzaprine 5 mg PO TID PRN 15 days fexofenadine (Jennifer Allergy) 180 mg PO DAILY FreeStyle Lancets (lancets) 4 times a day NS insulin aspart (niacinamide) 100 unit/mL (3 mL) (Fiasp FlexTouch U-100 Insulin) Inject up to 70 units a day subcutaneously 4 times a day; insulin glargine (Lantus Solostar U-100 Insulin) 30 units (0.3 mL) subcut QPM insulin pump cart,auto,BT-cntr (Omnipod 5 G6 Intro Kit (Gen 5) subcutaneous cartridge with controller) As directed insulin pump cart,automated,BT (Omnipod 5 G6 Pods (Gen 5) subcutaneous cartridge) As directed Levoxyl (levothyroxine) 100 mcg PO DAILY NS lisinopril 10 mg PO DAILY 30 days pantoprazole 40 mg PO DAILY pen needle, diabetic As directed pen needle, diabetic (1st Tier Unifine Pentips Plus) 4 times a day pen needle, diabetic (BD Aishwarya 2nd Gen Pen Needle) USE TO INJECT 5 TIMES A DAY Tobacco use date assessed: 06/13/23 Dental Screening Dental Screen Date: 06/13/23 Did you have a dental visit in the last 12 months?: No Did you have a dental problem in the last 6 months where you did not have access to dental care?: No Was dental information given to patient?: No HPI DM HPI Details 47-year-old morbidly obese female with diabetes mellitus GERD hypercholesterolemia hypothyroidism hypertension last seen in February 2023. Patient was reminded about the colon cancer screening. And has seen endocrinology May 2023 advised Omnipod 5 pump and Dexcom PFSH Medical History (Updated 05/30/23 @ 15:19 by Sagar Wade MD) Uncontrolled type 1 diabetes mellitus with hyperglycemia, with long-term current use of insulin Obesity due to excess calories Viral syndrome group home (current) use of insulin Vitamin D deficiency Diabetic nephropathy associated with type 2 diabetes mellitus Hypothyroidism Cough Impacted cerumen of right ear Allergic rhinitis Menstrual bleeding problem Hypothyroid Asthma Hypercholesterolemia Obesity Hypertension Surgical History Hx of right breast biopsy Hx of tooth extraction Family History Father Hypertension Obesity Prediabetes Mother Heart disease Glaucoma Social History Household Members: Family Housing: Apartment Alcohol intake: never Patient Tobacco Use Status: Never used Tobacco e-Cigarette/Vaping Use: Never Used Second Hand Smoke Exposure: No service: No Current occupational status: employed Current occupational exposures/hazards: No Gender identity: Female Cognitive needs: No Hearing needs: No Vision needs: Yes Female Reproductive History Menstrual Age of Menarche: 12 Questionnaire PHQ-9 Over the last 2 weeks, how often have you been bothered by any of the following problems? 1. Little interest or pleasure in doing things: not at all 2. Feeling down, depressed, or hopeless: not at all 3. Trouble falling or staying asleep, or sleeping too much: not at all 4. Feeling tired or having little energy: not at all 5. Poor appetite or overeating: not at all 6. Feeling bad about yourself - or that you are a failure or have let yourself or your family down: not at all 7. Trouble concentrating on things, such as reading the newspaper or watching television: not at all 8. Moving or speaking so slowly that other people could have noticed. Or the opposite - being so fidgety or restless that you have been moving around a lot more than usual: not at all 9. Thoughts that you would be better off or of hurting yourself in some way: not at all Total score: 0 Depression Screening Interpretation: Negative Depression Screening Done: Yes Source: Developed by Drs. Sagar Ascencio, Jackelyn Dueñas, Camilo Redman and colleagues, with an educational maura from [employer]. Thrive Questionnaire Date Thrive assessed: 06/13/23 I am a: Patient What is your living situation today?: I have a steady place to live Within the past 12 months, did the food you bought not last and you didn't have the money to get more?: Never true Within the past 12 months, did you worry whether your food would run out before you got money to buy more?: Never true Do you have trouble paying for medicines?: No Do you have trouble getting transportation to medical appointments?: No Do you have trouble paying your heating and electricity bill?: No Do you have trouble taking care of your child, family member or friend?: No Do you have trouble with day-to-day activities such as bathing, preparing meals, shopping, managing finances, etc.?: No Are you currently unemployed and looking for a job?: No Are you interested in more education?: No Currently or been in a relationship where the following occur: no concerns reported THRIVE Score: 0 AUDIT C Alcohol Use Questionnaire (AUDIT-C) 1. How often do you have a drink containing alcohol?: Never Total Score: 0 DIMA-7 AMB Questionnaire DIMA-7 Date DIMA - 7 assessed: 06/13/23 Feeling nervous, anxious, or on edge: 0 = Not at all Not being able to stop or control worryin = Not at all Worrying too much about different things: 0 = Not at all Trouble relaxin = Not at all Being so restless that it is hard to sit still: 0 = Not at all Becoming easily annoyed or irritable: 0 = Not at all Feeling afraid as if something awful might happen: 0 = Not at all Total DIMA-7 score (0-4 normal; 5-9 mild; 10-14 moderate; 15-21 severe): 0 Source: Developed by Drs. Sagar Ascencio, Jackelyn Dueñas, Camilo Redman and colleagues, with an educational maura from [employer]. Physical exam (Primary Care) Vital Signs: Last Vital Signs Pulse 71 06/13/23 15:39 BP 110/64 06/13/23 15:39 Pulse Ox 98 06/13/23 15:39 Oxygen Delivery Method Room Air 06/13/23 15:39 BMI result Body Mass Index 53.5 Tobacco/Smoking Status: Tobacco use Status Tobacco use date assessed 06/13/23 06/13/23 15:45 Patient Tobacco Use Status Never used Tobacco 06/13/23 15:45 e-Cigarette/Vaping Use Never Used 06/13/23 15:45 PHQ-9: PHQ-9 Score PHQ-9: Total score 0 06/13/23 16:04 Depression Screening Interpretation: Negative Thrive Assessment: Date of Thrive Assessment Date Thrive assessed 06/13/23 06/13/23 15:45 Currently or been in a relationship where the following occur: no concerns reported Const General: alert; No acute distress Eyes Conjunctivae: conjunctivae normal Resp Auscultation: clear to auscultation bilaterally Cardio Rate: regular rate Rhythm: regular rhythm GI Inspection: Yes normal to inspection Extrem General: Yes normal to inspection and No edema Assessment and Plan Assessment & Plan (1) Uncontrolled type 1 diabetes mellitus with hyperglycemia, with long-term current use of insulin: Code(s): E10.65 - Type 1 diabetes mellitus with hyperglycemia Plan: Decrease the amount of carbohydrate intake, pasta, bread, rice and potatoes are all sugar and that is aside from all the sweet stuff, remember that fruits are good but they are Sweet also. Hemoglobin A1c goal of less than 6.5. Patient is being followed up by Endocrinology presently and planned insulin pump (2) Colon cancer screening: Code(s): Z12.11 - Encounter for screening for malignant neoplasm of colon Plan: Patient is reminded about colonoscopy.- scheduled to see GASTRO (3) Obesity due to excess calories: Code(s): E66.09 - Other obesity due to excess calories Qualifiers: Body mass index: BMI 45.0-49.9 Obesity classification: adult class 3 (BMI >= 40) Serious obesity comorbidity presence: with serious comorbidity Qualified Code(s): E66.01 - Morbid (severe) obesity due to excess calories; Z68.42 - Body mass index [BMI] 45.0-49.9, adult Plan: Diet and exercise (4) Hypercholesterolemia: Code(s): E78.00 - Pure hypercholesterolemia, unspecified Plan: Avoid fried foods, chicken skin, eggs, butter margarine, pastries and meat. Be it pork or beef they have a lot of cholesterol LDL goal of less than 100 and triglyceride of less than 150 on atorvastatin 20 mg once a day (5) Hypertension: Code(s): I10 - Essential (primary) hypertension Qualifiers: Hypertension type: essential hypertension Qualified Code(s): I10 - Essential (primary) hypertension Plan: Continue with blood pressure medication. Decrease salt intake and exercise continue with lisinopril 10 mg once a day (6) GERD (gastroesophageal reflux disease): Code(s): K21.9 - Gastro-esophageal reflux disease without esophagitis Qualifiers: Esophagitis presence: esophagitis presence not specified Qualified Code(s): K21.9 - Gastro-esophageal reflux disease without esophagitis Plan: Avoid the foods that causes that usually spicy foods, tomato products, juices, coffee, soda and foods that your sensitive to. After eating do not lie down, allow 3-4 hours before in lie down. And keep the head of bed above 30 degrees to avoid the acid from going up. On pantoprazole 40 mg once a day Medications: Refilled albuterol sulfate 90 mcg/actuation (Ventolin HFA) 1 inh inhalation Q6H PRN 18 grams 0RF shortness of breath or wheezing Coding Level of Care Code Est Pt Level 4 (20500) Diagnoses Uncontrolled type 1 diabetes mellitus with hyperglycemia, with long-term current use of insulin E10.65 Colon cancer screening Z12.11 Class 3 severe obesity due to excess calories with serious comorbidity and body mass index (BMI) of 45.0 to 49.9 in adult E66.01; Z68.42 Body mass index: BMI 45.0-49.9 Obesity classification: adult class 3 (BMI >= 40) Serious obesity comorbidity presence: with serious comorbidity Hypercholesterolemia E78.00 Essential hypertension I10 Hypertension type: essential hypertension Gastroesophageal reflux disease, unspecified whether esophagitis present K21.9 Esophagitis presence: esophagitis presence not specified
[2023-06-13 15:39] VITALS: BP 110/64; PULSE 71; O2SAT 98; BMI 53.5
== END 2023-06-13 16:18 | disposition home or self-care (01) ==
PROVIDERS: PCP Internal Medicine; Visit Provider Internal Medicine
DX: E10.65 Type 1 diabetes mellitus with hyperglycemia (principal); E66.01 Morbid (severe) obesity due to excess calories; Z68.42 Body mass index [BMI] 45.0-49.9, adult; Z12.11 Encounter for screening for malignant neoplasm of colon; E78.00 Pure hypercholesterolemia, unspecified; I10 Essential (primary) hypertension; K21.9 Gastro-esophageal reflux disease without esophagitis
CPT/HCPCS: 99214

== ENCOUNTER 2023-06-17 09:46 | Outpatient (AMB) | payer OTHER, SELFPAY ==
--- NOTE | 2023-06-17 09:48 | MHC.OFFVIS ---
Intake Vital Signs 06/17/23 09:49 Height 5 ft 5 in Weight 312 lb BMI 51.9 BP 131/75 Blood Pressure Location Lt brachial Position Sitting Pulse 75 Pulse Source Monitor Intake Visit Reasons: 6 month fu Intake Note: Patient states her stool is pasty since she stopped taking her senna medication, the senna was making her constipated. Mineral Surveying Technician Required: No Accompanied by: Self / Same As Patient Allergies aspirin [ASA] Allergy (Unknown, Verified 06/17/23 09:51) BLEEDING prednisone Adverse Reaction (Intermediate, Verified 06/17/23 09:51) high Blood sugar grasses/pollen Allergy (Mild, Uncoded 06/13/23 15:39) congestion Actos Allergy (Unknown, Uncoded 06/13/23 15:39) nausea and vomiting Trulicity Allergy (Unknown, Uncoded 06/13/23 15:39) nausea and vomiting HPI 6 month fu HPI Details LAST VISIT: GERD (gastroesophageal reflux disease) Continue current treatment with pantoprazole. Discussed with patient avoiding dietary triggers and late night snacking. Staying upright for minimal 3 hours after meals discussed with patient. Patient will try smaller meals and more often Constipation Continue taking Senokot daily. Patient was also encouraged to increase fluid intake and activity to promote better bowel motility. IBS (irritable bowel syndrome) Occasional postprandial abdominal bloating. Low FODMAP diet discussed with patient. Patient is on unable to tolerate certain food. Will be seeing reed maker in the next couple months. I will see patient in 8 months, sooner on as needed basis. Patient is agreeable to this plan and verbalizes understanding of instructions. She was given the opportunity to ask questions all questions answered. ? Thank you for allowing me to participate in her care Plan Medications Refilled sennosides (Natural Senna Laxative) 17.2 mg (2 x 8.6 mg) PO BEDTIME 60 tabs 4RF constipation K59.00 - Constipation, unspecified TODAY'S VISIT: Patient is here today for follow-up. Patient reports that since last time I have seen her she has been feeling better. Patient states that mail caller stopped metformin and Ozempic and since that she has been feeling better. Patient is able to move her bowels without any issues. Start taking senna as she felt that she was not really moving her bowels well. Patient states that she is drinking more water. Her blood sugars much more control with the insulin. Patient is seeing manager dish that helps her introduce food back again. Patient has seen reed maker and has been going for allergy testing. So far patient is not sure if she is allergic to any type of food but she was told she is allergic to pollen. Patient states that she is taking pantoprazole and her symptoms of acid reflux are suppressed for the most part. However patient does admit that occasionally when she has something spicy she will have certain usually at night time. Patient is not taking anything at nighttime to help her with acid reflux. She does try to avoid spicy food. Patient denies melena, hematochezia, unintentional weight loss or ribbon like stools. Patient reports occasional dyspepsia without dysphagia or odynophagia. 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 Vitamin D deficiency Diabetic nephropathy associated with type 2 diabetes mellitus Hypothyroidism Cough Impacted cerumen of right ear Allergic rhinitis Menstrual bleeding problem Hypothyroid Asthma Hypercholesterolemia Obesity Hypertension Surgical History Hx of right breast biopsy Hx of tooth extraction Family History Father Hypertension Obesity Prediabetes Mother Heart disease Glaucoma Social History Household Members: Family Housing: Apartment Alcohol intake: never Patient Tobacco Use Status: Never used Tobacco e-Cigarette/Vaping Use: Never Used Second Hand Smoke Exposure: No service: No Current occupational status: employed Current occupational exposures/hazards: No Gender identity: Female Cognitive needs: No Hearing needs: No Vision needs: Yes Female Reproductive History Menstrual Age of Menarche: 12 Review of Systems Const Denies weight gain and Denies weight loss ENT Reports no additional complaints, Denies dysphagia and Denies odynophagia Card Reports no additional complaints Resp Reports no additional complaints GI Denies abdominal pain, Denies belching, Denies melena, Denies bloating, Denies change in bowel habits, Denies dysphagia, Denies excessive flatus, Denies dyspepsia, Denies heartburn, Denies diarrhea, Denies loose stools, Denies nausea, Denies odynophagia and Denies vomiting Musc Reports no additional complaints Neuro Reports no additional complaints Psych Reports no additional complaints Endo Reports no additional complaints Physical Exam Vital Signs: Last Vital Signs Pulse 75 06/17/23 09:49 BP 131/75 06/17/23 09:49 BMI result Body Mass Index 51.9 Const General: healthy appearing, no acute distress and well developed Nutritional Appearance: obese Orientation/consciousness: patient oriented x3 Resp Effort & Inspection: normal respiratory effort, able to speak in complete sentences, no tracheal deviation and symmetric chest movement Auscultation: clear to auscultation bilaterally Cardio Rate: regular rate GI Inspection: Yes normal to inspection, No distended and Yes obesity Palpation (GI): Soft to palpation, not firm, nontender and No hepatosplenomegaly present Auscultation: normal bowel sounds General: Yes no CVA tenderness Back/Spine/Pelvis Back: no CVA tenderness Skin General skin exam: elasticity normal, turgor normal and dry skin Neuro General: patient oriented x3 Psych Appearance: grossly normal Mental Status: mental status grossly normal Assessment & Plan Assessment & Plan (1) GERD (gastroesophageal reflux disease): Code(s): K21.9 - Gastro-esophageal reflux disease without esophagitis Qualifiers: Esophagitis presence: esophagitis presence not specified Qualified Code(s): K21.9 - Gastro-esophageal reflux disease without esophagitis (2) Constipation: Code(s): K59.00 - Constipation, unspecified (3) IBS (irritable bowel syndrome): Code(s): K58.9 - Irritable bowel syndrome without diarrhea (4) Colon cancer screening: Code(s): Z12.11 - Encounter for screening for malignant neoplasm of colon Plan Patient will continue taking pantoprazole. Avoid dietary triggers in late night snacking. Avoid spicy food space she late at night. May use famotidine on as needed basis. Patient will be going for upper endoscopy as well as for colonoscopy. Patient will be booked in November. Continue increasing fluid intake and activity to promote better bowel motility. Patient will return in 2 months so we can discuss the prep. She is agreeable to this plan and verbalizes understanding of instructions. She was given the opportunity to ask questions and all questions answered. Thank you for allowing me to participate in her care Coding Level of Care Code Est Pt Level 4 (10040) Diagnoses Gastroesophageal reflux disease, unspecified whether esophagitis present K21.9 Esophagitis presence: esophagitis presence not specified Constipation K59.00 IBS (irritable bowel syndrome) K58.9 Colon cancer screening Z12.11 Time Spent (min) 35 Comment 20 minutes spent with patient and additional 15 minutes spent reviewing her records
[2023-06-17 09:49] VITALS: BP 131/75; PULSE 75; BMI 51.9
== END 2023-06-17 10:13 | disposition home or self-care (01) ==
PROVIDERS: PCP Internal Medicine; Visit Provider Nurse Practitioner Family
DX: K21.9 Gastro-esophageal reflux disease without esophagitis (principal); K59.00 Constipation, unspecified; K58.9 Irritable bowel syndrome, unspecified; Z12.11 Encounter for screening for malignant neoplasm of colon
CPT/HCPCS: 99214

== ENCOUNTER → 2023-06-17 09:46 | Outpatient (BNVA) | payer OTHER, SELFPAY | PROVIDERS: PCP Internal Medicine; Visit Provider Nurse Practitioner Family | DX: Z12.11 Encounter for screening for malignant neoplasm of colon (principal); K21.9 Gastro-esophageal reflux disease without esophagitis; K59.00 Constipation, unspecified; K58.9 Irritable bowel syndrome, unspecified | CPT/HCPCS: 99212 ==

== ENCOUNTER 2023-07-06 15:01 | Outpatient (AMB) | payer OTHER, SELFPAY ==
--- NOTE | 2023-07-06 15:22 | AM.OFFWIN_ITS ---
Intake Vital Signs 07/06/23 15:25 Height 5 ft 5 in BP 122/78 Blood Pressure Location Rt brachial Position Sitting Pulse 80 Pulse Source Pulse Oximeter Temp 97.6 F Temp Source Temporal Artery Scan Pulse Oximetry (%) 98 Oxygen Delivery Method Room Air Intake Visit Reasons: EP Lower back pain Intake Note: Pt is here c/o lower back pain. Pt states no falls or injuries. Patient Tobacco Use Status: Never used Tobacco Allergies aspirin [ASA] Allergy (Unknown, Verified 07/06/23 15:24) BLEEDING prednisone Adverse Reaction (Intermediate, Verified 07/06/23 15:24) high Blood sugar grasses/pollen Allergy (Mild, Uncoded 07/06/23 15:24) congestion Actos Allergy (Unknown, Uncoded 07/06/23 15:24) nausea and vomiting Trulicity Allergy (Unknown, Uncoded 07/06/23 15:24) nausea and vomiting Do you need a note to return to daycare/school/sports/work: Yes HPI HPI Comments History of Present Illness Details 47 y/o female patient who presents to [facility] in clinic with c/o lower back pain x 2 days. She was lifting furniture at home and aggravated her back. [facility] Medical History (Updated 07/06/23 @ 15:46 by Maryan Beebe NP) Uncontrolled type 1 diabetes mellitus with hyperglycemia, with long-term current use of insulin Obesity due to excess calories Viral syndrome detention (current) use of insulin Vitamin D deficiency Diabetic nephropathy associated with type 2 diabetes mellitus Hypothyroidism Cough Impacted cerumen of right ear Allergic rhinitis Menstrual bleeding problem Hypothyroid Asthma Hypercholesterolemia Obesity Hypertension Surgical History Hx of right breast biopsy Hx of tooth extraction Family History Father Hypertension Obesity Prediabetes Mother Heart disease Glaucoma Social History Household Members: Family Housing: Apartment Alcohol intake: never Patient Tobacco Use Status: Never used Tobacco e-Cigarette/Vaping Use: Never Used Second Hand Smoke Exposure: No service: No Current occupational status: employed Current occupational exposures/hazards: No Gender identity: Female Cognitive needs: No Hearing needs: No Vision needs: Yes Female Reproductive History Menstrual Age of Menarche: 12 Review of Systems Const All systems reviewed & are unremarkable except as noted in HPI and below Physical Exam Vital Signs: Last Vital Signs Temp 97.6 F 07/06/23 15:25 Pulse 80 07/06/23 15:25 BP 122/78 07/06/23 15:25 Pulse Ox 98 07/06/23 15:25 Oxygen Delivery Method Room Air 07/06/23 15:25 Const General: no acute distress; No comfortable Nutritional Appearance: obese morbidly obese Orientation/consciousness: patient oriented x3 Back/Spine/Pelvis Thoracic/Lumbar Spine: thoracic and lumbar spine normal to inspection, thoraco- lumbar ROM limited with forward flexion, with lateral flexion to the right, with lateral flexion to the left, with rotation to the right and with rotation to the left, thoraco-lumbar spasm and straight leg raise positive Neuro General: patient oriented x3, gait normal and moves all extremities Motor exam (neuro): 5/5 motor strength present throughout Psych Speech and movement: Normal speech and movement present Assessment & Plan Assessment & Plan (1) Low back pain: Code(s): M54.50 - Low back pain, unspecified Qualifiers: Back pain laterality: midline Chronicity: chronic Sciatica presence: without sciatica Qualified Code(s): M54.50 - Low back pain, unspecified; G89.29 - Other chronic pain Plan: - Rest -Take medication as prescribed Medications: New cyclobenzaprine 10 mg PO BEDTIME 14 tabs 0RF M54.50 - Low back pain, unspecified acetaminophen 1,000 mg (2 x 500 mg) PO Q6H PRN 30 caps 0RF pain M54.50 - Low back pain, unspecified lidocaine 5% leave on most painful area for up to 12 hrs 1 patch topical DAILY 30 ea 0RF M54.50 - Low back pain, unspecified Coding Level of Care Code Est Pt Level 3 (94217) Diagnoses Chronic midline low back pain without sciatica M54.50; G89.29 Back pain laterality: midline Chronicity: chronic Sciatica presence: without sciatica Time Spent (min) 15
[2023-07-06 15:25] VITALS: BP 122/78; PULSE 80; TEMP 36.4; O2SAT 98
== END 2023-07-06 15:55 | disposition home or self-care (01) ==
PROVIDERS: PCP Internal Medicine; Visit Provider Nurse Practitioner Family
DX: M54.50 Low back pain, unspecified (principal); G89.29 Other chronic pain
CPT/HCPCS: 99213

== ENCOUNTER 2023-07-18 15:07 | Outpatient (AMB) | payer OTHER, SELFPAY ==
--- NOTE | 2023-07-18 15:31 | A.OFFVIS_ITS ---
Intake Intake Visit Reasons: 30 min Water Engineer Required: No Accompanied by: Self / Same As Patient Allergies aspirin [ASA] Allergy (Unknown, Verified 07/06/23 15:24) BLEEDING prednisone Adverse Reaction (Intermediate, Verified 07/06/23 15:24) high Blood sugar grasses/pollen Allergy (Mild, Uncoded 07/06/23 15:24) congestion Actos Allergy (Unknown, Uncoded 07/06/23 15:24) nausea and vomiting Trulicity Allergy (Unknown, Uncoded 07/06/23 15:24) nausea and vomiting HPI Comprehensive Diabetes Asmnt Most Recent Diabetes Results: Microalb/Creat Ratio 93.2 ug/mg cr (<30) H 01/15/23 Cholesterol 126 mg/dL (<200) 01/15/23 HDL Cholesterol 56 mg/dL (>40) 01/15/23 Triglycerides 62 mg/dL (<150) 01/15/23 Creatinine 0.65 mg/dL (0.5-1.4) 01/15/23 Blood Urea Nitrogen 14 mg/dL (9-16) 01/15/23 Sodium 141 mmol/L (135-145) 01/15/23 Potassium 4.2 mmol/L (3.3-5.1) 01/15/23 Chloride 106 mmol/L (96-108) 01/15/23 Carbon Dioxide 24 mmol/L (22-29) 01/15/23 Calcium 9.4 mg/dL (8.4-10.2) 01/15/23 AST 12 U/L (5-31) 10/03/21 ALT 11 U/L (0-31) 10/03/21 Total Protein 6.5 g/dL (6.5-8.0) 10/03/21 Albumin 3.9 g/dL (3.5-5.0) 10/03/21 [facility] Medical History (Updated 07/06/23 @ 15:46 by Maryan Beebe NP) Uncontrolled type 1 diabetes mellitus with hyperglycemia, with long-term current use of insulin Obesity due to excess calories 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 Vitamin D deficiency Diabetic nephropathy associated with type 2 diabetes mellitus Hypothyroidism Cough Impacted cerumen of right ear Allergic rhinitis Menstrual bleeding problem Hypothyroid Asthma Hypercholesterolemia Obesity Hypertension Surgical History Hx of right breast biopsy Hx of tooth extraction Family History Father Hypertension Obesity Prediabetes Mother Heart disease Glaucoma Social History Household Members: Family Housing: Apartment Alcohol intake: never Patient Tobacco Use Status: Never used Tobacco e-Cigarette/Vaping Use: Never Used Second Hand Smoke Exposure: No service: No Current occupational status: employed Current occupational exposures/hazards: No Gender identity: Female Cognitive needs: No Hearing needs: No Vision needs: Yes Female Reproductive History Menstrual Age of Menarche: 12 Assessment & Plan Assessment & Plan (1) Uncontrolled type 1 diabetes mellitus with hyperglycemia, with long-term current use of insulin: Code(s): E10.65 - Type 1 diabetes mellitus with hyperglycemia Plan: Personal Continuous Glucose Monitor: Patients CGM information reviewed Reviewed patient's sensor data: Hypoglycemia: ? 0% Hyperglycemia:? 29% Time in Range:? 71% Average glucose for the last 2 weeks? 154 mg/dL Patient's last A1c 154 mg/dL Patient has recently started the FodMap diet, she has noticed since the diet her overnight glucose levels have dropped close to hypoglycemic levels. Instructed patient to decrease Lantus from 30 units to 25 units Sensitivity factor: 1-25 I:CHO at breakfast 1:5, lunch and dinner 1:6 Patient will follow-up with diabetes Education nurse in 6 weeks after starting 2nd phase of FodMap Reviewed how to interpret trend arrows . Discussed lag time between finger stick and sensor data.? Patient able to insert sensor independently at home without issue.? Patient Instructions: Decrease Lantus from 30 units to 26 units Follow-up with Diabetes Education nurse in 6 weeks Coding Level of Care Code Est Pt Level 1 (43629) Diagnoses Uncontrolled type 1 diabetes mellitus with hyperglycemia, with long-term current use of insulin E10.65
== END 2023-07-18 15:35 | disposition home or self-care (01) ==
PROVIDERS: PCP Internal Medicine; Visit Provider Registered Nurse Diabetes Educator
DX: E10.65 Type 1 diabetes mellitus with hyperglycemia (principal)

== ENCOUNTER → 2023-07-18 15:07 | Outpatient (BNVA) | payer OTHER, SELFPAY | PROVIDERS: PCP Internal Medicine; Visit Provider Registered Nurse Diabetes Educator | DX: E10.65 Type 1 diabetes mellitus with hyperglycemia (principal) | CPT/HCPCS: 99211 ==

== ENCOUNTER 2023-08-09 10:32 | Outpatient (AMB) | payer OTHER, SELFPAY ==
[2023-08-09 11:31] VITALS: BP 137/62; PULSE 61; BMI 51.2
--- NOTE | 2023-08-09 11:31 | A.OFFVIS_ITS ---
Intake Vital Signs 08/09/23 11:31 Height 5 ft 5 in Weight 308 lb BMI 51.2 BP 137/62 Blood Pressure Location Lt brachial Position Sitting Pulse 61 Intake Visit Reasons: discuss colonoscopy and possible endoscopy Intake Note: Juan presents in the office as a follow up to discuss COLO and EGD. CC: She states that she is here today to discuss having the procedures. Dependency Program Director Required: No Allergies aspirin [ASA] Allergy (Unknown, Verified 08/09/23 11:31) BLEEDING prednisone Adverse Reaction (Intermediate, Verified 08/09/23 11:31) high Blood sugar grasses/pollen Allergy (Mild, Uncoded 08/09/23 11:31) congestion Actos Allergy (Unknown, Uncoded 08/09/23 11:31) nausea and vomiting Trulicity Allergy (Unknown, Uncoded 08/09/23 11:31) nausea and vomiting HPI discuss colonoscopy and possible endoscopy HPI Details LAST VIVIT: GERD (gastroesophageal reflux disease) Constipation IBS (irritable bowel syndrome) Colon cancer screening Plan Patient will continue taking pantoprazole. Avoid dietary triggers in late night snacking. Avoid spicy food space she late at night. May use famotidine on as needed basis. Patient will be going for upper endoscopy as well as for colonoscopy. Patient will be booked in November. Continue increasing fluid intake and activity to promote better bowel motility. Patient will return in 2 months so we can discuss the prep. She is agreeable to this plan and verbalizes unders tanding of instructions. She was given the opportunity to ask questions and all questions answered. TODAY'S VISIT: Patient is here today for follow-up. Patient reports that since she started taking pantoprazole she has been feeling better. Patient in addition is avoiding dietary triggers. She is following FODMAP diet at this time. Patient reports that she is moving her bowels well without any issues. Patient denies dyspepsia, dysphagia or odynophagia. Denies any melena, hematochezia, unintentional weight loss or ribbon like stools. Paternal uncle had CRC. Patient denies any issues with anesthesia in the past. No history of sleep apnea. Not on any anticoagulation medication. Denies any cardiac or respiratory symptoms. [facility] Medical History (Updated 07/06/23 @ 15:46 by Maryan Beebe NP) Uncontrolled type 1 diabetes mellitus with hyperglycemia, with long-term current use of insulin Obesity due to excess calories Viral syndrome [facility] (current) use of insulin Vitamin D deficiency Diabetic nephropathy associated with type 2 diabetes mellitus Hypothyroidism Cough Impacted cerumen of right ear Allergic rhinitis Menstrual bleeding problem Hypothyroid Asthma Hypercholesterolemia Obesity Hypertension Surgical History Hx of right breast biopsy Hx of tooth extraction Family History Father Hypertension Obesity Prediabetes Mother Heart disease Glaucoma Social History Household Members: Family Housing: Apartment Alcohol intake: never Patient Tobacco Use Status: Never used Tobacco e-Cigarette/Vaping Use: Never Used Second Hand Smoke Exposure: No service: No Current occupational status: employed Current occupational exposures/hazards: No Gender identity: Female Cognitive needs: No Hearing needs: No Vision needs: Yes Female Reproductive History Menstrual Age of Menarche: 12 Review of Systems Const Denies weight gain and Denies weight loss ENT Reports no additional complaints, Denies dysphagia and Denies odynophagia Card Reports no additional complaints Resp Reports no additional complaints GI Denies abdominal pain, Denies belching, Denies melena, Denies bloating, Denies change in bowel habits, Denies dysphagia, Denies excessive flatus, Denies dyspepsia, Denies heartburn, Denies diarrhea, Denies loose stools, Denies nausea, Denies odynophagia and Denies vomiting Reports no additional complaints Musc Reports no additional complaints Neuro Reports no additional complaints Psych Reports no additional complaints Endo Reports no additional complaints Physical Exam Vital Signs: Last Vital Signs Pulse 61 08/09/23 11:31 BP 137/62 08/09/23 11:31 BMI result Body Mass Index 51.2 Const General: healthy appearing and no acute distress Nutritional Appearance: obese Orientation/consciousness: patient oriented x3 Resp Effort & Inspection: normal respiratory effort, able to speak in complete sentences, no tracheal deviation and symmetric chest movement Auscultation: clear to auscultation bilaterally Cardio Rate: regular rate GI Inspection: Yes normal to inspection, No distended and Yes obesity Palpation (GI): Soft to palpation, not firm, nontender and No hepatosplenomegaly present Auscultation: normal bowel sounds General: Yes no CVA tenderness Back/Spine/Pelvis Back: no CVA tenderness Skin General skin exam: elasticity normal, turgor normal and dry skin Neuro General: patient oriented x3 Psych Appearance: grossly normal Mental Status: mental status grossly normal Assessment & Plan Assessment & Plan (1) GERD (gastroesophageal reflux disease): Code(s): K21.9 - Gastro-esophageal reflux disease without esophagitis Qualifiers: Esophagitis presence: esophagitis presence not specified Qualified Code(s): K21.9 - Gastro-esophageal reflux disease without esophagitis (2) Colon cancer screening: Code(s): Z12.11 - Encounter for screening for malignant neoplasm of colon (3) Constipation: Code(s): K59.00 - Constipation, unspecified Qualifiers: Constipation type: slow transit constipation Qualified Code(s): K59.01 - Slow transit constipation (4) IBS (irritable bowel syndrome): Code(s): K58.9 - Irritable bowel syndrome without diarrhea Qualifiers: Irritable bowel syndrome type: without diarrhea Qualified Code(s): K58.9 - Irritable bowel syndrome without diarrhea Plan Patient will be sent for upper endoscopy to rule out gastritis, duodenitis, gastric or peptic ulcer, Enriquez's, H pylori. Patient has been on PPI for quite some time. Patient also is diabetic. Patient denies any issues with anesthesia in the past. Will be sent for colonoscopy. Family history of colorectal cancer. Patient is uncle was diagnosed with CRC. Patient denies any melena, hematochezia, unintentional weight loss or ribbon like stools. No issues with anesthesia in the past. No history of sleep apnea. Not on any anticoagulation medication. I will see patient after the procedure, sooner on a s needed basis. Patient is agreeable to this plan and verbalizes understanding of instructions. She was given the opportunity to ask questions and all questions answered. Thank you for allowing me to participate in her care Coding Level of Care Code Est Pt Level 3 (22776) Diagnoses Gastroesophageal reflux disease, unspecified whether esophagitis present K21.9 Esophagitis presence: esophagitis presence not specified Colon cancer screening Z12.11 Slow transit constipation K59.01 Constipation type: slow transit constipation Irritable bowel syndrome without diarrhea K58.9 Irritable bowel syndrome type: without diarrhea Time Spent (min) 30 Comment 20 minutes spent with patient and additional 10 minutes spent reviewing her records
== END 2023-08-09 12:48 | disposition home or self-care (01) ==
PROVIDERS: PCP Internal Medicine; Visit Provider Nurse Practitioner Family
DX: K21.9 Gastro-esophageal reflux disease without esophagitis (principal); Z12.11 Encounter for screening for malignant neoplasm of colon; K59.01 Slow transit constipation; K58.9 Irritable bowel syndrome, unspecified
CPT/HCPCS: 99213

== ENCOUNTER → 2023-08-09 10:32 | Outpatient (BNVA) | payer OTHER, SELFPAY | PROVIDERS: PCP Internal Medicine; Visit Provider Nurse Practitioner Family | DX: Z12.11 Encounter for screening for malignant neoplasm of colon (principal); K21.9 Gastro-esophageal reflux disease without esophagitis; K59.01 Slow transit constipation; K58.9 Irritable bowel syndrome, unspecified | CPT/HCPCS: 99212 ==

== ENCOUNTER 2023-09-21 15:40 | Outpatient (REF) | payer OTHER, SELFPAY ==
[2023-09-21 15:54] LABS: MANUAL DIFF FLAG NO
[2023-09-21 16:57] LABS: Basophils Absolute Auto 0.1 X10*3/uL (0.0-0.2); Basophils Percent Auto 0.7 % (0-2); Eosinophils Absolute Auto 0.3 X10*3/uL (0.0-0.4); Eosinophils Percent Auto 2.4 % (0-4); Hematocrit 36.6 % (37.0-47.0); Imm Gran Abs Auto 0.04 X10*3/uL (0.00-0.03); Imm Gran Pct Auto 0.4 % (0.0-0.4); Immature Retic Fraction 11.1 % (3.0-15.9); Lymphocytes Absolute Auto 2.3 X10*3/uL (1.2-4.9); Lymphocytes Percent Auto 22.5 % (20-40); Mean Corpuscular HGB Conc 32.8 g/dl (31.0-35.0); Mean Corpuscular Hemoglobin 28.9 pg (27.0-33.0); Mean Corpuscular Volume 88.2 fL (80.0-98.0); Mean Platelet Volume 10.9 fL (9.4-12.3); Monocytes Absolute Auto 0.7 X10*3/uL (0.1-1.2); Monocytes Percent Auto 7.1 % (2-11); Neutrophils Absolute Auto 6.9 x10*3/uL (2.0-8.3); Neutrophils Percent Auto 66.9 % (45-73); Platelet Count 336 X10*3/uL (160-400); Red Blood Count 4.15 X10*6/uL (4.20-5.50); Red Cell Distribution Width 15.2 % (11.0-16.0); Retic HGB Equivalent 32.6 pg (30.0-35.0); Reticulocyte Percent 1.7 % (0.5-1.8); Reticulocytes Absolute 0.069 X10*6/uL (0.026-0.095); White Blood Count 10.3 X10*3/uL (4.8-10.8)
[2023-09-21 17:46] LABS: Iron 23 mcg/dL (30-160); Percent Iron Saturation 8 % (15-50); Total Iron Binding Capacity 286 mcg/dL (228-428); Unsaturated Iron Binding 263 ug/dL
[2023-09-21 18:02] LABS: Ferritin 20 ng/mL (10-250); Free T4 (Free Thyroxine) 1.27 ng/dL (0.71-1.85); Thyroid Stimulating Hormone 2.71 uIU/mL (0.32-4.0)
[2023-09-21 18:07] LABS: Vitamin B12 766 pg/mL (200-900)
[2023-09-21 18:29] LABS: Folate 10.7 ng/mL (> or = 4.0)
== END 2023-09-21 15:41 | disposition home or self-care (01) ==
LOC: HO.LAB 15:40
PROVIDERS: PCP Internal Medicine; Visit Provider Internal Medicine
DX: E11.65 Type 2 diabetes mellitus with hyperglycemia (principal); D64.9 Anemia, unspecified; Z79.4 Long term (current) use of insulin
CPT/HCPCS: 36415; 82570; 82607; 82728; 82746; 83540; 84439; 84443; 85025; 85045

== ENCOUNTER 2023-09-22 15:33 | Outpatient (AMB) | payer OTHER, SELFPAY ==
[2023-09-22 15:35] VITALS: BP 136/82; PULSE 73; O2SAT 98; BMI 51.1
--- NOTE | 2023-09-22 15:35 | MHC.PC.OV ---
Vital Signs 09/22/23 15:35 Height 5 ft 5 in Weight 307 lb BMI 51.1 BP 136/82 Blood Pressure Location Rt brachial Position Sitting Pulse 73 Pulse Source Pulse Oximeter Temp Source Skin Pulse Oximetry (%) 98 Oxygen Delivery Method Room Air Intake Visit Reasons: DM Sound Effects Manager Required: No Allergies aspirin [ASA] Allergy (Unknown, Verified 09/22/23 15:35) BLEEDING prednisone Adverse Reaction (Intermediate, Verified 09/22/23 15:35) high Blood sugar grasses/pollen Allergy (Mild, Uncoded 09/22/23 15:35) congestion Actos Allergy (Unknown, Uncoded 09/22/23 15:35) nausea and vomiting Trulicity Allergy (Unknown, Uncoded 09/22/23 15:35) nausea and vomiting Medication List - Last Reconciled 09/22/23 by Daksha Eduardo Po, acetaminophen 1,000 mg (2 x 500 mg) PO Q6H PRN albuterol sulfate 90 mcg/actuation (Ventolin HFA) 1 inh inhalation Q6H PRN atorvastatin 20 mg PO DAILY blood sugar diagnostic (FreeStyle Lite Strips) As directed six times a day blood-glucose sensor (MedAdherence G7 Sensor device) As directed change every 10 days cetirizine 10 mg PO DAILY cyclobenzaprine 10 mg PO BEDTIME ferrous sulfate ER (Slow Fe) 137 mg PO .QD 90 days FreeStyle Lancets (lancets) 4 times a day NS insulin aspart (niacinamide) 100 unit/mL (3 mL) (Fiasp FlexTouch U-100 Insulin) Inject up to 70 units a day subcutaneously 4 times a day; insulin glargine (Lantus Solostar U-100 Insulin) 30 units (0.3 mL) subcut QPM insulin pump cart,auto,BT-cntr (Omnipod 5 G6 Intro Kit (Gen 5) subcutaneous cartridge with controller) As directed insulin pump cart,automated,BT (Omnipod 5 G6 Pods (Gen 5) subcutaneous cartridge) As directed Levoxyl (levothyroxine) 100 mcg PO DAILY NS lidocaine 5% 1 patch topical DAILY lisinopril 10 mg PO DAILY 30 days pantoprazole 40 mg PO DAILY pen needle, diabetic As directed pen needle, diabetic (1st Tier Unifine Pentips Plus) 4 times a day pen needle, diabetic (BD Aishwarya 2nd Gen Pen Needle) USE TO INJECT 5 TIMES A DAY sennosides-docusate sodium 8.6-50 mg (Senna Plus) 2 tab-caps (2 x 8.6-50 mg) PO BEDTIME 30 days Tobacco use date assessed: 09/22/23 Dental Screening Dental Screen Date: 06/13/23 HPI DM HPI Details 47-year-old morbidly obese female with diabetes mellitus hypercholesterolemia hypertension GERD last seen in 06/14/2023. Patient was referred to Gastroenterology for and scheduled for 12/13/2023. 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 Vitamin D deficiency Diabetic nephropathy associated with type 2 diabetes mellitus Hypothyroidism Cough Impacted cerumen of right ear Allergic rhinitis Menstrual bleeding problem Hypothyroid Asthma Hypercholesterolemia Obesity Hypertension Surgical History Hx of right breast biopsy Hx of tooth extraction Family History Father Hypertension Obesity Prediabetes Mother Heart disease Glaucoma Social History Household Members: Family Housing: Apartment Alcohol intake: never Patient Tobacco Use Status: Never used Tobacco e-Cigarette/Vaping Use: Never Used Second Hand Smoke Exposure: No service: No Current occupational status: employed Current occupational exposures/hazards: No Gender identity: Female Cognitive needs: No Hearing needs: No Vision needs: Yes Female Reproductive History Menstrual Age of Menarche: 12 Questionnaire Thrive Questionnaire Date Thrive assessed: 06/13/23 AUDIT C Alcohol Use Questionnaire (AUDIT-C) 1. How often do you have a drink containing alcohol?: Never 3. How often do you have six or more drinks on one occasion?: Never Total Score: 0 DIMA-7 AMB Questionnaire DIMA-7 Date DIMA - 7 assessed: 06/13/23 Source: Developed by Drs. Sagar Ascencio, Jackelyn Dueñas, Camilo Redman and colleagues, with an educational maura from [employer]. Physical exam (Primary Care) Vital Signs: Last Vital Signs Pulse 73 09/22/23 15:35 BP 136/82 09/22/23 15:35 Pulse Ox 98 09/22/23 15:35 Oxygen Delivery Method Room Air 09/22/23 15:35 BMI result Body Mass Index 51.1 Tobacco/Smoking Status: Tobacco use Status Tobacco use date assessed 09/22/23 09/22/23 15:36 Patient Tobacco Use Status Never used Tobacco 09/22/23 15:36 e-Cigarette/Vaping Use Never Used 09/22/23 15:36 Thrive Assessment: Date of Thrive Assessment Date Thrive assessed 06/13/23 09/22/23 15:36 Const General: alert; No acute distress Eyes Conjunctivae: conjunctivae normal Resp Auscultation: clear to auscultation bilaterally Cardio Rate: regular rate Rhythm: regular rhythm GI Inspection: Yes normal to inspection Extrem General: Yes normal to inspection and No edema Results AMB Hemoglobin A1c AMB Hemoglobin A1c 7.2 % Last Edit by AB Lozada on 09/22/23 15:46 Results Reviewed Results Reviewed: Laboratory Last Values Hgb A1c (Clinic) 7.2 % (4.0-6.0) H 09/22/23 15:09 Assessment and Plan Assessment & Plan (1) 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 Decrease salt intake and exercise takes lisinopril 10 mg once a day (4) Hypercholesterolemia: Code(s): E78.00 - Pure hypercholesterolemia, unspecified Plan: Avoid fried foods, chicken skin, eggs, butter margarine, pastries and meat. 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 Panel 3 Months E10.65 - Type 1 diabetes mellitus with hyperglycemia Thyroid Stimulating Hormone 3 Months E10.65 - Type 1 diabetes mellitus with hyperglycemia Lipid Panel 3 Months E10.65 - Type 1 diabetes mellitus with hyperglycemia, E78.00 - Pure hypercholesterolemia, unspecified Hemoglobin A1c 3 Months E10.65 - Type 1 diabetes mellitus with hyperglycemia Microalbumin, Random (w Creat) 3 Months E10.65 - Type 1 diabetes mellitus with hyperglycemia, E11.65 - Type 2 diabetes mellitus with hyperglycemia Free T4 (Free Thyroxine) 3 Months E10.65 - Type 1 diabetes mellitus with hyperglycemia Creatinine Urine 3 Months E10.65 - Type 1 diabetes mellitus with hyperglycemia, E11.65 - Type 2 diabetes mellitus with hyperglycemia Vitamin B12 and Folate 3 Months E10.65 - Type 1 diabetes mellitus with hyperglycemia Vitamin D 25-OH Total 3 Months E10.65 - Type 1 diabetes mellitus with hyperglycemia AMB Hemoglobin A1c Today E11.21 - Type 2 diabetes mellitus with diabetic nephropathy Medications: New ferrous sulfate ER (Slow Fe) 137 mg PO .QD 90 days 90 tabs 3RF D64.9 - Anemia, unspecified sennosides-docusate sodium 8.6-50 mg (Senna Plus) 2 tab-caps (2 x 8.6-50 mg) PO BEDTIME 30 days 60 tabs 4RF K59.00 - Constipation, unspecified Coding Level of Care Code Est Pt Level 4 (57775) Diagnoses 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
== END 2023-09-22 16:10 | disposition home or self-care (01) ==
PROVIDERS: PCP Internal Medicine; Visit Provider Internal Medicine
DX: E11.21 Type 2 diabetes mellitus with diabetic nephropathy (principal); E66.01 Morbid (severe) obesity due to excess calories; Z68.43 Body mass index [BMI] 50.0-59.9, adult; I10 Essential (primary) hypertension; E78.00 Pure hypercholesterolemia, unspecified; E03.8 Other specified hypothyroidism; E06.3 Autoimmune thyroiditis; K59.00 Constipation, unspecified
CPT/HCPCS: 83036; 99214

== ENCOUNTER 2023-10-03 15:15 | Outpatient (AMB) | payer OTHER, SELFPAY ==
--- NOTE | 2023-10-03 15:17 | MHC.OFFVIS ---
Vital Signs 10/03/23 15:18 Height 5 ft 5 in Weight 310 lb 10.101 oz BMI 51.7 BP 118/78 Blood Pressure Location Lt brachial Position Sitting Pulse 67 Pulse Source Pulse Oximeter Intake Visit Reasons: f/u Type 1 DM and hypothyroidism-confirmed Intake Note: Patient present today to follow up on Type 2 Diabetes Mellitus and Hypothyroidism. Patient receives DME supplies through: [employer] Last Diabetic Eye exam: 05/2023 Last Podiatry Visit: Doesn't have one Random Glucose: 113 mg/dl HgA1C: 7.2@ 09/22/23 Ditch Repairer Required: No Accompanied by: Self / Same As Patient Allergies aspirin [ASA] Allergy (Unknown, Verified 10/03/23 15:22) BLEEDING prednisone Adverse Reaction (Intermediate, Verified 10/03/23 15:22) high Blood sugar grasses/pollen Allergy (Mild, Uncoded 10/03/23 15:22) congestion Actos Allergy (Unknown, Uncoded 10/03/23 15:22) nausea and vomiting Trulicity Allergy (Unknown, Uncoded 10/03/23 15:22) nausea and vomiting HPI Comments Details: Patient is 47-year-old female who presents for management of diabetes type 1 and hypothyroidism. Past medical history: Diabetes type 2 hypothyroidism, HTN, dyslipidemia, obesity 1) Diabetes - Diabetes type 2 diagnosed and 2015. She also had hypoglycemic unawareness. Micro and macrovascular complications: Nephropathy (+ microalbumin) Diabetes medications: Lantus 30 units daily, Fiasp via I:C ratior and sensitivity. . Fiasp sensitivity factor of 1:30 Insulin to carb ratio 1:10 Correcting to 120 mg/dL CGM: in last 2 weeks average glucose 180 CGM 7.6 100% active.. 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 Medications: Levoxyl 100 mcg eats and takes other medications at least one hour later. Reports has been on LT4 100mcg for 6 years Symptoms: REports cold intolerance, weight loss, irregular periods, occasional constipation, occasional insomnia, fatigue, dry skin. Denies dysphagia, dyspnea, dysphonia, Denies radiation to head or neck, thyroid surgery or biopsy. Denies biotin use. Family History: unknown if any hypothyroidism in family Laboratory Tests 02/13/21 14:31 Hgb A1c (Clinic) 7.8 H 06/03/20 06/03/20 06/03/20 08:45 08:45 Unknown Creatinine 0.61 Estimated GFR > 60 Hgb A1c (Clinic) Triglycerides 75 Cholesterol 139 LDL Cholesterol Direct 72 LDL Cholesterol, Calc 76 HDL Cholesterol 48 TSH 0.89 Free T4 1.24 Microalb/Creat Ratio 245.2 10/13/20 07:47 Creatinine Estimated GFR Hgb A1c (Clinic) 7.8 H Triglycerides Cholesterol LDL Cholesterol Direct LDL Cholesterol, Calc HDL Cholesterol TSH Free T4 Microalb/Creat Ratio Was thinking about going on Omnipod but co-pay is too high [facility] Medical History (Updated 09/22/23 @ 16:03 by Daksha Hernandez MD) Uncontrolled type 1 diabetes mellitus with hyperglycemia, with long-term current use of insulin Obesity due to excess calories 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 Vitamin D deficiency Diabetic nephropathy associated with type 2 diabetes mellitus Hypothyroidism Cough Impacted cerumen of right ear Allergic rhinitis Menstrual bleeding problem Hypothyroid Asthma Hypercholesterolemia Obesity Hypertension Surgical History Hx of right breast biopsy Hx of tooth extraction Family History Father Hypertension Obesity Prediabetes Mother Heart disease Glaucoma Social History Household Members: Family Housing: Apartment Alcohol intake: never Patient Tobacco Use Status: Never used Tobacco e-Cigarette/Vaping Use: Never Used Second Hand Smoke Exposure: No service: No Current occupational status: employed Current occupational exposures/hazards: No Gender identity: Female Cognitive needs: No Hearing needs: No Vision needs: Yes Female Reproductive History Menstrual Age of Menarche: 12 Physical Exam Vital Signs: Last Vital Signs Pulse 67 10/03/23 15:18 BP 118/78 10/03/23 15:18 BMI result Body Mass Index 51.7 Absence of Cushingoid features. Absence of acromegalic features. Neck exam reveals nl size thyroid about 15 gms. No thyroid nodules palpable. No carotid bruits present. Lungs CTA. Heart S1 S2, Reg R/R. No M/R/ G. Skin exam reveals absence of vitiligo or acanthosis nigricans. Abdominal exam reveals Soft NT/ND with NA BS. No organomegaly present. Neck Other: . Extrem Other: Visual exam of foot performed. No ulcerations or open lesions. there are calluses on both toes. No onchomycosis, They are also multiple dry patches.Pulses 2 + distally Sensation intact to monofilament exam. Vibratory sensation sensed is intact with 128 Hz tuning fork Results Reviewed Results Reviewed: Laboratory Last Values Glucose (Clinic) 113 mg/dL (60-115) 10/03/23 15:25 Assessment & Plan Assessment & Plan (1) Type 2 diabetes mellitus with hyperglycemia: Comment: Eye and Lasix Code(s): E11.65 - Type 2 diabetes mellitus with hyperglycemia Category: Medical Qualifiers: Diabetes mellitus [facility] insulin use: with termination clerk use Qualified Code(s): E11.65 - Type 2 diabetes mellitus with hyperglycemia; Z79.4 - retirement (current) use of insulin Plan: (2) Hypothyroidism: Code(s): E03.9 - Hypothyroidism, unspecified Category: Medical Qualifiers: 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 Plan is to continue the current therapy. At this point, terms of hypothyroidism, patient returned to the care of her primary care provider returned back to endocrinology as needed (3) Uncontrolled type 1 diabetes mellitus with hyperglycemia, with long-term current use of insulin: Code(s): E10.65 - Type 1 diabetes mellitus with hyperglycemia Category: Medical Plan: Is a 47-year-old female with a history of type 1 diabetes being treated with basal-bolus insulin with good but not optimal glycemic control and known microvascular complications namely micro albuminuria Plan is to increase Lantus to 36 units . We will talk to the patient again about getting an Omnipod 5 pump . 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
[2023-10-03 15:18] VITALS: BP 118/78; PULSE 67; BMI 51.7
[2023-10-03 15:29] LABS: Glucose, Whole Blood 113 mg/dL (60-115)
== END 2023-10-03 15:35 | disposition home or self-care (01) ==
PROVIDERS: PCP Internal Medicine; Visit Provider Internal Medicine Endocrinology, Diabetes & Metabolism
DX: E11.65 Type 2 diabetes mellitus with hyperglycemia (principal); Z79.4 Long term (current) use of insulin; E03.8 Other specified hypothyroidism; E06.3 Autoimmune thyroiditis
CPT/HCPCS: 99214

== ENCOUNTER → 2023-10-03 15:15 | Outpatient (BNVA) | payer OTHER, SELFPAY | PROVIDERS: PCP Internal Medicine; Visit Provider Internal Medicine Endocrinology, Diabetes & Metabolism | DX: E11.65 Type 2 diabetes mellitus with hyperglycemia (principal); E03.8 Other specified hypothyroidism; E06.3 Autoimmune thyroiditis; E10.65 Type 1 diabetes mellitus with hyperglycemia; Z79.4 Long term (current) use of insulin | CPT/HCPCS: 82947; 99212 ==

== ENCOUNTER 2023-10-13 08:41 | Outpatient (AMB) | payer OTHER, SELFPAY ==
--- NOTE | 2023-10-13 09:30 | MHC.AMDMED ---
Intake Intake Visit Reasons: f/u T1DM/LVM Hospitality Specialist Required: No Accompanied by: Self / Same As Patient Allergies aspirin [ASA] Allergy (Unknown, Verified 10/03/23 15:22) BLEEDING prednisone Adverse Reaction (Intermediate, Verified 10/03/23 15:22) high Blood sugar grasses/pollen Allergy (Mild, Uncoded 10/03/23 15:22) congestion Actos Allergy (Unknown, Uncoded 10/03/23 15:22) nausea and vomiting Trulicity Allergy (Unknown, Uncoded 10/03/23 15:22) nausea and vomiting HPI Comprehensive Diabetes Asmnt Most Recent Diabetes Results: Microalb/Creat Ratio 93.2 ug/mg cr (<30) H 01/15/23 Cholesterol 126 mg/dL (<200) 01/15/23 HDL Cholesterol 56 mg/dL (>40) 01/15/23 Triglycerides 62 mg/dL (<150) 01/15/23 Creatinine 0.65 mg/dL (0.5-1.4) 01/15/23 Blood Urea Nitrogen 14 mg/dL (9-16) 01/15/23 Sodium 141 mmol/L (135-145) 01/15/23 Potassium 4.2 mmol/L (3.3-5.1) 01/15/23 Chloride 106 mmol/L (96-108) 01/15/23 Carbon Dioxide 24 mmol/L (22-29) 01/15/23 Calcium 9.4 mg/dL (8.4-10.2) 01/15/23 AST 12 U/L (5-31) 10/03/21 ALT 11 U/L (0-31) 10/03/21 Total Protein 6.5 g/dL (6.5-8.0) 10/03/21 Albumin 3.9 g/dL (3.5-5.0) 10/03/21 [facility] Medical History (Updated 09/22/23 @ 16:03 by Daksha Hernandez MD) Uncontrolled type 1 diabetes mellitus with hyperglycemia, with long-term current use of insulin Obesity due to excess calories 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 Vitamin D deficiency Diabetic nephropathy associated with type 2 diabetes mellitus Hypothyroidism Cough Impacted cerumen of right ear Allergic rhinitis Menstrual bleeding problem Hypothyroid Asthma Hypercholesterolemia Obesity Hypertension Surgical History Hx of right breast biopsy Hx of tooth extraction Family History Father Hypertension Obesity Prediabetes Mother Heart disease Glaucoma Social History Household Members: Family Housing: Apartment Alcohol intake: never Patient Tobacco Use Status: Never used Tobacco e-Cigarette/Vaping Use: Never Used Second Hand Smoke Exposure: No service: No Current occupational status: employed Current occupational exposures/hazards: No Gender identity: Female Cognitive needs: No Hearing needs: No Vision needs: Yes Female Reproductive History Menstrual Age of Menarche: 12 Assessment & Plan Assessment & Plan (1) Uncontrolled type 1 diabetes mellitus with hyperglycemia, with long-term current use of insulin: Code(s): E10.65 - Type 1 diabetes mellitus with hyperglycemia Plan: Personal Continuous Glucose Monitor: Patients CGM information reviewed Reviewed patient's sensor data: Hypoglycemia: ? 1% Hyperglycemia:? 41% Time in Range:? 58% Average glucose for the last 2 weeks? 172 mg/dL Patient reports that the last 7 days have been difficult due to family member passing away and she is explained the experiencing more hyperglycemia than usual. Discussed patient how emotional stress can impact glucose levels Patient has also come to a decision that she would like to start insulin pump therapy, patient has chosen iLet insulin pump Discussed with patient, available insulin delivery sets for iLet, and meal and announcement Reviewed how to interpret trend arrows Reminded patient that to check finger sticks if symptoms do not match sensor reading. Discussed lag time between finger stick and sensor data.? Patient able to insert sensor independently at home without issue.? Portions of this note were created using voice recognition software, please excuse any words or phrases that may have been misinterpreted. Patient Instructions: Patient will call for insulin training appointment, when she receives insulin pump supplies Coding Level of Care Code Est Pt Level 1 (48865) Diagnoses Uncontrolled type 1 diabetes mellitus with hyperglycemia, with long-term current use of insulin E10.65
== END 2023-10-13 09:31 | disposition home or self-care (01) ==
PROVIDERS: PCP Internal Medicine; Visit Provider Registered Nurse Diabetes Educator
DX: E10.65 Type 1 diabetes mellitus with hyperglycemia (principal)

== ENCOUNTER → 2023-10-13 08:41 | Outpatient (BNVA) | payer OTHER, SELFPAY | PROVIDERS: PCP Internal Medicine; Visit Provider Registered Nurse Diabetes Educator | DX: E10.65 Type 1 diabetes mellitus with hyperglycemia (principal) | CPT/HCPCS: 99211 ==

== ENCOUNTER 2023-12-15 14:57 | Outpatient (AMB) | payer OTHER, SELFPAY ==
--- NOTE | 2023-12-15 16:35 | MHC.AMDMED ---
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 Required: No Accompanied by: Self / Same As Patient Allergies aspirin [ASA] Allergy (Unknown, Verified 10/03/23 15:22) BLEEDING prednisone Adverse Reaction (Intermediate, Verified 10/03/23 15:22) high Blood sugar grasses/pollen Allergy (Mild, Uncoded 10/03/23 15:22) congestion Actos Allergy (Unknown, Uncoded 10/03/23 15:22) nausea and vomiting Trulicity Allergy (Unknown, Uncoded 10/03/23 15:22) nausea and vomiting HPI Comprehensive Diabetes Asmnt Most Recent Diabetes Results: No Data to Display [facility] Medical History (Updated 09/22/23 @ 16:03 by Daksha Hernandez MD) Uncontrolled type 1 diabetes mellitus with hyperglycemia, with long-term current use of insulin Obesity due to excess calories 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 Vitamin D deficiency Diabetic nephropathy associated with type 2 diabetes mellitus Hypothyroidism Cough Impacted cerumen of right ear Allergic rhinitis Menstrual bleeding problem Hypothyroid Asthma Hypercholesterolemia Obesity Hypertension Surgical History Hx of right breast biopsy Hx of tooth extraction Family History Father Hypertension Obesity Prediabetes Mother Heart disease Glaucoma Social History Household Members: Family Housing: Apartment Alcohol intake: never Patient Tobacco Use Status: Never used Tobacco e-Cigarette/Vaping Use: Never Used Second Hand Smoke Exposure: No service: No Current occupational status: employed Current occupational exposures/hazards: No Gender identity: Female Cognitive needs: No Hearing needs: No Vision needs: Yes Female Reproductive History Menstrual Age of Menarche: 12 Assessment & Plan Assessment & Plan (1) Uncontrolled type 1 diabetes mellitus with hyperglycemia, with long-term current use of insulin: Code(s): E10.65 - Type 1 diabetes mellitus with hyperglycemia Plan Patient presents for pump training for iLet pump and CGM training today. The following topics were reviewed today: -Pump therapy basic concepts: Basal/bolus -Device settings: Bluetooth/mobile connection (if applicable), correct date and time, sound volume -CGM settings(if integrated system): CGM graft views and trend arrows, alerts and alarms, Start new sensor Insulin delivery settings Instructed patient to only use room temperature insulin, how to load cartridge or fill pod, with insulin. Fill tubing and cannula (if applicable) Inserting infusion set or starting pod Troubleshooting after starting new pod or inserting new insulin set: Occlusion, adhesive tape sensitivity, redness Check BG 2 hours after site change Safety information: Importance of a backup plan, for manual injections, proper prescriptions and emergency supplies ketone strips, and rules for testing for ketones Patient was able to insert insulin set today without difficulty. Patient understands the basic concepts of pump therapy, how to give insulin for meals and snacks, how to troubleshoot for hyper and hypoglycemia. Patient will follow up with CDE as instructed Patient will contact CDE with questions or concerns, patient given IT number to support in any technical issues related to insulin pump Portions of this note were created using voice recognition software, please excuse any words or phrases that may have been misinterpreted. Patient Instructions: Patient will follow-up with inclusion special educator in 1 week Coding Level of Care Code Est Pt Level 1 (43432) Diagnoses Uncontrolled type 1 diabetes mellitus with hyperglycemia, with long-term current use of insulin E10.65
== END 2023-12-15 16:40 | disposition home or self-care (01) ==
PROVIDERS: PCP Internal Medicine; Visit Provider Registered Nurse Diabetes Educator
DX: E10.65 Type 1 diabetes mellitus with hyperglycemia (principal)

== ENCOUNTER → 2023-12-15 14:57 | Outpatient (BNVA) | payer OTHER, SELFPAY | PROVIDERS: PCP Internal Medicine; Visit Provider Registered Nurse Diabetes Educator | DX: E10.65 Type 1 diabetes mellitus with hyperglycemia (principal); Z96.41 Presence of insulin pump (external) (internal); Z79.4 Long term (current) use of insulin | CPT/HCPCS: 99211 ==

== ENCOUNTER 2023-12-27 15:46 | Outpatient (AMB) | payer OTHER, SELFPAY ==
--- NOTE | 2023-12-27 16:24 | A.OFFVIS_ITS ---
Intake Intake Visit Reasons: 30 Min Rug Washer Required: No Accompanied by: Self / Same As Patient Allergies aspirin [ASA] Allergy (Unknown, Verified 10/03/23 15:22) BLEEDING prednisone Adverse Reaction (Intermediate, Verified 10/03/23 15:22) high Blood sugar grasses/pollen Allergy (Mild, Uncoded 10/03/23 15:22) congestion Actos Allergy (Unknown, Uncoded 10/03/23 15:22) nausea and vomiting Trulicity Allergy (Unknown, Uncoded 10/03/23 15:22) nausea and vomiting HPI Comprehensive Diabetes Asmnt Most Recent Diabetes Results: No Data to Display [facility] Medical History (Updated 09/22/23 @ 16:03 by Daksha Hernandez MD) Uncontrolled type 1 diabetes mellitus with hyperglycemia, with long-term current use of insulin Obesity due to excess calories Viral syndrome assisted (current) use of insulin Vitamin D deficiency Diabetic nephropathy associated with type 2 diabetes mellitus Hypothyroidism Cough Impacted cerumen of right ear Allergic rhinitis Menstrual bleeding problem Hypothyroid Asthma Hypercholesterolemia Obesity Hypertension Surgical History Hx of right breast biopsy Hx of tooth extraction Family History Father Hypertension Obesity Prediabetes Mother Heart disease Glaucoma Social History Household Members: Family Housing: Apartment Alcohol intake: never Patient Tobacco Use Status: Never used Tobacco e-Cigarette/Vaping Use: Never Used Second Hand Smoke Exposure: No service: No Current occupational status: employed Current occupational exposures/hazards: No Gender identity: Female Cognitive needs: No Hearing needs: No Vision needs: Yes Female Reproductive History Menstrual Age of Menarche: 12 Assessment & Plan Assessment & Plan (1) Uncontrolled type 1 diabetes mellitus with hyperglycemia, with long-term cu rrent use of insulin: Code(s): E10.65 - Type 1 diabetes mellitus with hyperglycemia Plan: Patient presents for pump training for iLet pump and CGM training today. The following topics were reviewed today: -Pump therapy basic concepts: Basal/bolus -Always dose 15 minutes prior to meals - Off pump backup insulin plan Patient is at visit to relearn how to fill cartridges. Patient doug insulin out of insulin pen was able to remove air bubbles. She pushed insulin into cartridge, and removed some air at top of cartridge. She did not have supercharger repair supervisor with her so we could not finish process but she said she understood how to load cartridge, fill tubing and insert insulin delivery set. Instructed patient to only use room temperature insulin, how to load cartridge or fill pod, with insulin. Fill tubing and cannula (if applicable) Troubleshooting after starting new pod or inserting new insulin set: Occlusion, adhesive tape sensitivity, redness Check BG 2 hours after site change Reviewed Safety information: Importance of a backup plan, for manual injections, proper prescriptions and emergency supplies ketone strips, and rules for testing for ketones Patient understands the basic concepts of pump therapy, how to give insulin for meals and snacks, how to troubleshoot for hyper and hypoglycemia. Patient will follow up with [facility] as instructed Patient will contact [facility] with questions or concerns, patient given IT number to support in any technical issues related to insulin pump Portions of this note were created using voice recognition software, please excuse any words or phrases that may have been misinterpreted. Patient Instructions: Patient will follow-up in 2 weeks Coding Level of Care Code Est Pt Level 1 (50605) Diagnoses Uncontrolled type 1 diabetes mellitus with hyperglycemia, with long-term current use of insulin E10.65
== END 2023-12-27 16:26 | disposition home or self-care (01) ==
PROVIDERS: PCP Internal Medicine; Visit Provider Registered Nurse Diabetes Educator
DX: E10.65 Type 1 diabetes mellitus with hyperglycemia (principal)

== ENCOUNTER → 2023-12-27 15:46 | Outpatient (BNVA) | payer OTHER, SELFPAY | PROVIDERS: PCP Internal Medicine; Visit Provider Registered Nurse Diabetes Educator | DX: E10.65 Type 1 diabetes mellitus with hyperglycemia (principal); Z79.4 Long term (current) use of insulin; Z46.81 Encounter for fitting and adjustment of insulin pump | CPT/HCPCS: 99211 ==

== ENCOUNTER 2024-01-11 15:28 | Outpatient (AMB) | payer OTHER, SELFPAY ==
--- NOTE | 2024-01-11 16:04 | A.OFFVIS_ITS ---
Intake Intake Visit Reasons: 60 min/confirmed Scientific Laboratory Supervisor Required: No Accompanied by: Self / Same As Patient Allergies aspirin [ASA] Allergy (Unknown, Verified 10/03/23 15:22) BLEEDING prednisone Adverse Reaction (Intermediate, Verified 10/03/23 15:22) high Blood sugar grasses/pollen Allergy (Mild, Uncoded 10/03/23 15:22) congestion Actos Allergy (Unknown, Uncoded 10/03/23 15:22) nausea and vomiting Trulicity Allergy (Unknown, Uncoded 10/03/23 15:22) nausea and vomiting HPI Comprehensive Diabetes Asmnt Most Recent Diabetes Results: Microalb/Creat Ratio 93.2 ug/mg cr (<30) H 01/15/23 Cholesterol 126 mg/dL (<200) 01/15/23 HDL Cholesterol 56 mg/dL (>40) 01/15/23 Triglycerides 62 mg/dL (<150) 01/15/23 Creatinine 0.65 mg/dL (0.5-1.4) 01/15/23 Blood Urea Nitrogen 14 mg/dL (9-16) 01/15/23 Sodium 141 mmol/L (135-145) 01/15/23 Potassium 4.2 mmol/L (3.3-5.1) 01/15/23 Chloride 106 mmol/L (96-108) 01/15/23 Carbon Dioxide 24 mmol/L (22-29) 01/15/23 Calcium 9.4 mg/dL (8.4-10.2) 01/15/23 AST 12 U/L (5-31) 10/03/21 ALT 11 U/L (0-31) 10/03/21 Total Protein 6.5 g/dL (6.5-8.0) 10/03/21 Albumin 3.9 g/dL (3.5-5.0) 10/03/21 [facility] Medical History (Updated 09/22/23 @ 16:03 by Daksha Hernandez MD) Uncontrolled type 1 diabetes mellitus with hyperglycemia, with long-term current use of insulin Obesity due to excess calories Viral syndrome 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 Vitamin D deficiency Diabetic nephropathy associated with type 2 diabetes mellitus Hypothyroidism Cough Impacted cerumen of right ear Allergic rhinitis Menstrual bleeding problem Hypothyroid Asthma Hypercholesterolemia Obesity Hypertension Surgical History Hx of right breast biopsy Hx of tooth extraction Family History Father Hypertension Obesity Prediabetes Mother Heart disease Glaucoma Social History Household Members: Family Housing: Apartment Alcohol intake: never Patient Tobacco Use Status: Never used Tobacco e-Cigarette/Vaping Use: Never Used Second Hand Smoke Exposure: No service: No Current occupational status: employed Current occupational exposures/hazards: No Gender identity: Female Cognitive needs: No Hearing needs: No Vision needs: Yes Female Reproductive History Menstrual Age of Menarche: 12 Assessment & Plan Assessment & Plan (1) Uncontrolled type 1 diabetes mellitus with hyperglycemia, with long-term current use of insulin: Code(s): E10.65 - Type 1 diabetes mellitus with hyperglycemia Plan: Patient presents for pump training for iLet pump and CGM training today. The following topics were reviewed today: -Pump therapy basic concepts: Basal/bolus -Always dose 15 minutes prior to meals - Off pump backup insulin plan iLet Alerts: ??? High Alert: 300 mg/dl ??? Low Alert: 75 mg/dl CGM: Above target:4.8% At target:94.9% Below target:0.3% Patient's average glucose for the past 14 days 133 mg/dL SD: 25.8 mg/dL CV 19.4% TDD:49.1 units Basal:26.4 units Patient has excellent glucose control with iLet Patient has used in usual twice for dinner, after both she had episodes of hypoglycemia. Patient also reported that at those meals she had increase the dose because she had had alcoholic beverage. Reviewed with patient alcohol can actually hypoglycemia, several hours after consumption. Recommended to patient that next time she just bolus for regular meal, and wants to see if hypoglycemia reoccurs Reviewed with patient the to treat hypoglycemia with rule of 15s Patient reports she carries glucose tabs with her to treat any episodes of hypoglycemia Instructed patient to only use room temperature insulin, how to load cartridge or fill pod, with insulin. Fill tubing and cannula (if applicable) Troubleshooting after starting new pod or inserting new insulin set: Occlusion, adhesive tape sensitivity, redness Check BG 2 hours after site change Reviewed Safety information: Importance of a backup plan, for manual injections, proper prescriptions and emergency supplies ketone strips, and rules for testing for ketones Patient understands the basic concepts of pump therapy, how to give insulin for meals and snacks, how to troubleshoot for hyper and hypoglycemia. Patient will follow up with [facility] as instructed Patient will contact [facility] with questions or concerns, patient given IT number to support in any technical issues related to insulin pump Portions of this note were created using voice recognition software, please excuse any words or phrases that may have been misinterpreted. Patient Instructions: Patient will follow-up with optical engineering technician in 5 weeks Coding Level of Care Code Est Pt Level 1 (42365) Diagnoses Uncontrolled type 1 diabetes mellitus with hyperglycemia, with long-term current use of insulin E10.65
== END 2024-01-11 16:09 | disposition home or self-care (01) ==
PROVIDERS: PCP Internal Medicine; Visit Provider Registered Nurse Diabetes Educator
DX: E10.65 Type 1 diabetes mellitus with hyperglycemia (principal)

== ENCOUNTER → 2024-01-11 15:28 | Outpatient (BNVA) | payer OTHER, SELFPAY | PROVIDERS: PCP Internal Medicine; Visit Provider Registered Nurse Diabetes Educator | DX: E10.65 Type 1 diabetes mellitus with hyperglycemia (principal); Z79.4 Long term (current) use of insulin; Z96.41 Presence of insulin pump (external) (internal); Z46.81 Encounter for fitting and adjustment of insulin pump | CPT/HCPCS: 99211 ==

== ENCOUNTER 2024-01-30 15:15 | Outpatient (AMB) | payer OTHER, SELFPAY ==
[2024-01-30 15:19] VITALS: BP 122/84; PULSE 84; TEMP 36.8; O2SAT 99; BMI 53.7
--- NOTE | 2024-01-30 15:19 | MHC.OFFWIV ---
Intake Vital Signs 01/30/24 15:19 Height 5 ft 5 in Weight 323 lb BMI 53.7 BP 122/84 Blood Pressure Location Rt brachial Position Sitting Pulse 84 Pulse Source Pulse Oximeter Temp 98.3 F Temp Source Oral Pulse Oximetry (%) 99 Oxygen Delivery Method Room Air Intake Visit Reasons: EP ? asthma, congestion ear, nose Intake Note: Patient here for cough, congestion, ear pain which has been present since . Patient Tobacco Use Status: Never used Tobacco Allergies aspirin [ASA] Allergy (Unknown, Verified 01/30/24 15:20) BLEEDING prednisone Adverse Reaction (Intermediate, Verified 01/30/24 15:20) high Blood sugar grasses/pollen Allergy (Mild, Uncoded 01/30/24 15:20) congestion Actos Allergy (Unknown, Uncoded 01/30/24 15:20) nausea and vomiting Trulicity Allergy (Unknown, Uncoded 01/30/24 15:20) nausea and vomiting Do you need a note to return to daycare/school/sports/work: Yes HPI HPI Comments History of Present Illness Details Patient is a 48-year-old female with a past medical history of asthma and diabetes complaining of 3 days of cough and congestion with sinus pain. She denies any wheezing, shortness of breath, fevers, ear pain or headaches. She states she has been using a nebulizer machine that is her cousins and she still has some nebulizer liquid from a prescription her doctor in [place] gave her. But she tells me her Ventolin inhaler is . She has not been taking any other wumn-ewy-droidco medications to manage her symptoms. 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 (current) use of insulin Vitamin D deficiency Diabetic nephropathy associated with type 2 diabetes mellitus Hypothyroidism Cough Impacted cerumen of right ear Allergic rhinitis Menstrual bleeding problem Hypothyroid Asthma Hypercholesterolemia Obesity Hypertension Surgical History Hx of right breast biopsy Hx of tooth extraction Family History Father Hypertension Obesity Prediabetes Mother Heart disease Glaucoma Social History Household Members: Family Housing: Apartment Alcohol intake: never Patient Tobacco Use Status: Never used Tobacco e-Cigarette/Vaping Use: Never Used Second Hand Smoke Exposure: No service: No Current occupational status: employed Current occupational exposures/hazards: No Gender identity: Female Cognitive needs: No Hearing needs: No Vision needs: Yes Female Reproductive History Menstrual Age of Menarche: 12 Review of Systems Const All systems reviewed & are unremarkable except as noted in HPI and below Physical Exam Vital Signs: Last Vital Signs Temp 98.3 F 01/30/24 15:19 Pulse 84 01/30/24 15:19 BP 122/84 01/30/24 15:19 Pulse Ox 99 01/30/24 15:19 Oxygen Delivery Method Room Air 01/30/24 15:19 BMI result Body Mass Index 53.7 Const General: cooperative, healthy appearing, comfortable and no acute distress Orientation/consciousness: patient oriented x3 Limitations: no limitations HEENT Head: Yes normal to inspection Ears: hearing grossly normal bilaterally, external ears normal and TM's normal bilaterally General nose exam: Normal external nose present, Normal nares present and No nasal discharge present Face and sinus: Yes normal facial exam and Yes sinuses nontender Mouth: Normal oral and palatal mucosa present and moist mucous membranes Throat: Yes tonsils normal, Yes uvula midline and Yes posterior oropharynx abnormal (Erythema) Eyes General: appearance normal, both eyes and all related structures Neck Neck: Yes normal visual inspection Resp Effort & Inspection: normal respiratory effort, able to speak in complete sentences, Actively coughing, no respiratory distress, not tachypneic, no tripod positioning and no use of accessory muscles Auscultation: clear to auscultation bilaterally Cardio Rate: regular rate Rhythm: regular rhythm Heart sounds: normal S1 and S2 Skin General skin exam: no rashes or lesions noted Neuro General: patient oriented x3 Extrem General: Yes normal to inspection and Yes no clubbing, cyanosis or edema Assessment & Plan Assessment & Plan (1) Upper respiratory tract infection: Code(s): J06.9 - Acute upper respiratory infection, unspecified Qualifiers: URI type: unspecified viral URI Qualified Code(s): J06.9 - Acute upper respiratory infection, unspecified Plan: Vital signs are stable and patient is well-appearing, lung sounds are clear so no indication for a chest x-ray. I will send a new inhaler to her pharmacy. Recommended she use a Neti pot with distilled water, Flonase or Nasonex and other qiip-tlg-xuyjont medications to manage her symptoms. We did send flu COVID and RSV testing as well. Plan See above Medications: Refilled albuterol sulfate 90 mcg/actuation (Ventolin HFA) 1 inh inhalation Q6H PRN 18 grams 0RF shortness of breath or wheezing Coding Level of Care Code Est Pt Level 3 (27544) Diagnoses Viral upper respiratory tract infection J06.9 URI type: unspecified viral URI
== END 2024-01-30 15:51 | disposition home or self-care (01) ==
PROVIDERS: PCP Internal Medicine; Visit Provider Physician Assistant
DX: J06.9 Acute upper respiratory infection, unspecified (principal)

== ENCOUNTER 2024-01-30 15:15 | Outpatient (REF) | payer OTHER, SELFPAY ==
[2024-01-31 10:58] LABS: Influenza A PCR NEGATIVE (Negative); Influenza B PCR NEGATIVE (Negative); Resp Syncy Virus RNA Qual PCR NEGATIVE (Negative); SARS COV2 PCR INHOUSE NEGATIVE (Negative)
== END 2024-01-30 15:16 | disposition home or self-care (01) ==
LOC: HO.LAB 15:15
PROVIDERS: PCP Internal Medicine; Visit Provider Physician Assistant
DX: J06.9 Acute upper respiratory infection, unspecified (principal)
CPT/HCPCS: 0241U; 99212

== ENCOUNTER 2024-02-02 16:15 | Outpatient (AMB) | payer OTHER, SELFPAY ==
--- NOTE | 2024-02-02 16:09 | A.OFFVIS_ITS ---
Vital Signs 02/02/24 16:20 Height 5 ft 5 in Weight 324 lb 1.272 oz BMI 53.9 BP 118/74 Blood Pressure Location Rt brachial Position Sitting Pulse 76 Pulse Source Pulse Oximeter Intake Visit Reasons: f/u Type 1 DM/CONFIRMED Intake Note: Patient presents today to re-establish treatment for Type 1 Diabetes Mellitus: Last Diabetic eye exam was on: 05/2023 Last Podiatry exam was on: Does not see a Fire Lookout Most recent HbA1c: 7.0%, 02/02/2024 Random Glucose- 72 mg/dL, Today Packing Machine Can Feeder Required: No Accompanied by: Self / Same As Patient Allergies aspirin [ASA] Allergy (Unknown, Verified 02/02/24 16:17) BLEEDING prednisone Adverse Reaction (Intermediate, Verified 02/02/24 16:17) high Blood sugar grasses/pollen Allergy (Mild, Uncoded 02/02/24 16:17) congestion Actos Allergy (Unknown, Uncoded 02/02/24 16:17) nausea and vomiting Trulicity Allergy (Unknown, Uncoded 02/02/24 16:17) nausea and vomiting HPI Comments Details: Patient is 48-year-old female who presents for management of diabetes type 1 and hypothyroidism. She was last seen by Dr. Wade September 2023 and by Glory SILVA on 01/11/2024 for follow up islet insulin pump. Continuous glucose sensing at that time was in excellent control. A1C on 02/02/24 09/22/23 7.2% Past medical history: Diabetes type 2 hypothyroidism, HTN, dyslipidemia, obesity 1) Diabetes Diabetes type 2 diagnosed and 2015. She also had hypoglycemic unawareness. Micro and macrovascular complications: Nephropathy (+ microalbumin) Diabetes medications: Back up pump failure plan: Lantus 30 units daily, Fiasp via I:C ratio 1:10, and sensitivity 1:10 begin correction at 120mg/dl Dexcom average glucose: [145 ] 14 day continuous glucose monitor report reviewed Glucose Managment indicator 6.9 % Days with CGM data 93 % TIme in ranges: 1.4 % very high (above 250) 15.1 % high ?(181-250) A 3.4 % in range ?(70-180] 0.1 % low (69-55) 0 % ?very low (below 54) [ 26.4] Standard Deviation Interpretation [well-controlled with no significant postprandial variation ] Symptoms reported: denies numbness, tingling, cramping in lower extremities Hypoglycemia: No Exercise: denies Bronze Chaser - CDE education: currently Fire Lookout: never Dental exam: goes every 6 month Ophthalmology evaluation: 05/2023 2) Hypothyroidism Has had Hypothyroidism since around 2014. Medications: Levoxyl 100 mcg eats and takes other medications at least one hour later. TSH has been in good range. 09/21/23 2.71 Symptoms: Reports some fatigue, dry skin. Denies dysphagia, dyspnea, dysphonia, Denies radiation to head or neck, thyroid surgery or biopsy. Denies biotin use. 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 Vitamin D deficiency Diabetic nephropathy associated with type 2 diabetes mellitus Hypothyroidism Cough Impacted cerumen of right ear Allergic rhinitis Menstrual bleeding problem Hypothyroid Asthma Hypercholesterolemia Obesity Hypertension Surgical History Hx of right breast biopsy Hx of tooth extraction Family History Father Hypertension Obesity Prediabetes Mother Heart disease Glaucoma Social History Household Members: Family Housing: Apartment Alcohol intake: never Patient Tobacco Use Status: Never used Tobacco e-Cigarette/Vaping Use: Never Used Second Hand Smoke Exposure: No service: No Current occupational status: employed Current occupational exposures/hazards: No Gender identity: Female Cognitive needs: No Hearing needs: No Vision needs: Yes Female Reproductive History Menstrual Age of Menarche: 12 Physical Exam Vital Signs: Last Vital Signs Pulse 76 02/02/24 16:20 BP 118/74 02/02/24 16:20 BMI result Body Mass Index 53.9 Const Other: Absence of Cushingoid features. Absence of acromegalic features. Neck exam reveals nl size thyroid about 15 gms. No thyroid nodules palpable. No carotid bruits present. Lungs CTA. Heart S1 S2, Reg R/R. No M/R G. Skin exam reveals absence of vitiligo or acanthosis nigricans. No edema Visual exam of foot performed. No ulcerations or open lesions. No inter digit maceration or fissuring. No onychomycosis, no callouses. Sensation intact to monofilament exam. Vibratory sensation is normal with 128 Hz tuning fork. Results AMB Hemoglobin A1c AMB Hemoglobin A1c 7.0 % Last Edit by AB Henriquez on 02/02/24 16:36 Results Reviewed Results Reviewed: Laboratory Last Values Glucose (Clinic) 72 mg/dL (60-115) 02/02/24 16:25 Hgb A1c (Clinic) 7.0 % (4.0-6.0) H 02/02/24 16:29 Assessment & Plan Assessment & Plan (1) Uncontrolled type 1 diabetes mellitus with hyperglycemia, with long-term current use of insulin: Code(s): E10.65 - Type 1 diabetes mellitus with hyperglycemia Category: Medical Plan Patient is a type 1 diabetic recently switched over from basal bolus insulin to islet bionics insulin pump. She is doing well with recent CGM data an average of 145 without hypoglycemia. Orders: Orders AMB Hemoglobin A1c 02/02/24 E10.65 - Type 1 diabetes mellitus with hyperglycemia AMB Glucose Monitoring Today E10.65 - Type 1 diabetes mellitus with hyperglycemia Referrals Podiatry Referral E10.65 - Type 1 diabetes mellitus with hyperglycemia Medications: New blood-glucose meter (FreeStyle Lite Meter kit) As directed 1 ea 1RF lancets (FreeStyle Lancets) 6 times a day prn sensor failure or to confirm glucose 100 ea 1RF Changed From blood sugar diagnostic (FreeStyle Lite Strips) As directed six times a day 200 ea 11RF E11.65 - Type 2 diabetes mellitus with hyperglycemia, Z79.4 - halfway (current) use of insulin To blood sugar diagnostic (FreeStyle Lite Strips) As directed six times a day p.r.n. sensor failure or to confirm readings 200 ea 11RF E11.65 - Type 2 diabetes mellitus with hyperglycemia, Z79.4 - halfway (current) use of insulin Refilled blood sugar diagnostic (FreeStyle Lite Strips) As directed six times a day p.r.n. sensor failure or to confirm readings 200 ea 11RF E11.65 - Type 2 diabetes mellitus with hyperglycemia, Z79.4 - halfway (current) use of insulin Patient Instructions: Symptoms of DKA were reviewed: early: frequent urination, dry mouth, fatigue, feeling ill, severe symptoms: ketones in the urine, abdominal pain, nausea, v omiting and weakness. It is important to hydrate with sugar free liquids every 30 minutes and bring the sugars down to normal levels. Troubleshooting after starting new pod or inserting new insulin set: Occlusion, adhesive tape sensitivity, redness Check BG 2 hours after site change Safety information: Importance of a backup plan, for manual injections, proper prescriptions and emergency supplies ketone strips, and rules for testing for ketones, functional glucometer and if sensor failed must manually enter in blood glucose readings in order to keep the pump working for 48 hours The patient was counseled to always carry a source of sugar and on the rule of 15's: Take 3 glucose tablets and repeat again in 15 minutes if blood sugar is not in normal range. Continue to repeat every 15 minutes until blood sugar is normal. Coding Level of Care Code Est Pt Level 5 (89546) Diagnoses Uncontrolled type 1 diabetes mellitus with hyperglycemia, with long-term current use of insulin E10.65 Time Spent (min) 45 Comment Reviewing labs/provider notes, glucose sensor/pump reports, face to face, chart doc
[2024-02-02 16:20] VITALS: BP 118/74; PULSE 76; BMI 53.9
[2024-02-02 16:29] LABS: Glucose, Whole Blood 72 mg/dL (60-115)
== END 2024-02-03 08:41 | disposition home or self-care (01) ==
PROVIDERS: PCP Internal Medicine; Visit Provider Nurse Practitioner Adult Health
DX: E10.65 Type 1 diabetes mellitus with hyperglycemia (principal)
CPT/HCPCS: 99215

== ENCOUNTER → 2024-02-02 16:15 | Outpatient (BNVA) | payer OTHER, SELFPAY | PROVIDERS: PCP Internal Medicine; Visit Provider Nurse Practitioner Adult Health | DX: E10.65 Type 1 diabetes mellitus with hyperglycemia (principal); E03.9 Hypothyroidism, unspecified; Z79.4 Long term (current) use of insulin | CPT/HCPCS: 82947; 83036; 99212 ==

== ENCOUNTER 2024-02-06 15:34 | Outpatient (AMB) | payer OTHER, SELFPAY ==
--- NOTE | 2024-02-06 15:55 | MHC.PC.OV ---
Vital Signs 02/06/24 15:56 Height 5 ft 5 in Weight 321 lb 4 oz BMI 53.5 BP 130/70 Blood Pressure Location Rt brachial Position Sitting Pulse 82 Pulse Source Pulse Oximeter Pulse Oximetry (%) 98 Oxygen Delivery Method Room Air Intake Visit Reasons: DM Intake Note: Patient is here to follow up on DM. Pt decline for flu shot today. Medical Assistant Secretary Required: No Bagman/Woman: Not Required per policy Accompanied by: Self / Same As Patient Allergies aspirin [ASA] Allergy (Unknown, Verified 02/06/24 15:56) BLEEDING lisinopril Adverse Reaction (Intermediate, Unverified 02/06/24 16:20) Cough prednisone Adverse Reaction (Intermediate, Verified 02/06/24 15:56) high Blood sugar grasses/pollen Allergy (Mild, Uncoded 02/06/24 15:56) congestion Actos Allergy (Unknown, Uncoded 02/06/24 15:56) nausea and vomiting Trulicity Allergy (Unknown, Uncoded 02/06/24 15:56) nausea and vomiting Tobacco use date assessed: 02/06/24 Dental Screening Dental Screen Date: 06/13/23 HPI DM HPI Details 48-year-old morbidly obese female with diabetes mellitus (DIEGO) hypertension hypercholesterolemia hypothyroidism last seen in 09/22/2023. Patient's mammogram is up-to-date. Patient is under endocrinology on basal bolus insulin [employer] insulin pump. January 29 urgent care visit for upper respiratory tract infection prescribed albuterol. Review of the notes has been seen by Allergy and immunology November 27 diagnosis of allergic rhinitis with mild asthma advised immunotherapy. complains of cough with congestion, no fevers. - colon test not done due grandma passing away. 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 Vitamin D deficiency Diabetic nephropathy associated with type 2 diabetes mellitus Hypothyroidism Cough Impacted cerumen of right ear Allergic rhinitis Menstrual bleeding problem Hypothyroid Asthma Hypercholesterolemia Obesity Hypertension Surgical History Hx of right breast biopsy Hx of tooth extraction Family History Father Hypertension Obesity Prediabetes Mother Heart disease Glaucoma Social History Household Members: Family Housing: Apartment Alcohol intake: never Patient Tobacco Use Status: Never used Tobacco e-Cigarette/Vaping Use: Never Used Second Hand Smoke Exposure: No service: No Current occupational status: employed Current occupational exposures/hazards: No Gender identity: Female Cognitive needs: No Hearing needs: No Vision needs: Yes Female Reproductive History Menstrual Age of Menarche: 12 Questionnaire Thrive Questionnaire Date Thrive assessed: 06/13/23 Are you currently unemployed and looking for a job?: No DIMA-7 AMB Questionnaire DIMA-7 Date DIMA - 7 assessed: 06/13/23 Source: Developed by Drs. Sagar Ascencio, Jackelyn Dueñas, Camilo Redman and colleagues, with an educational maura from [employer]. Physical exam (Primary Care) Vital Signs: Last Vital Signs Pulse 82 02/06/24 15:56 BP 130/70 02/06/24 15:56 Pulse Ox 98 02/06/24 15:56 Oxygen Delivery Method Room Air 02/06/24 15:56 BMI result Body Mass Index 53.5 Tobacco/Smoking Status: Tobacco use Status Tobacco use date assessed 02/06/24 02/06/24 16:01 Patient Tobacco Use Status Never used Tobacco 02/06/24 16:01 e-Cigarette/Vaping Use Never Used 02/06/24 16:01 Thrive Assessment: Date of Thrive Assessment Date Thrive assessed 06/13/23 02/06/24 16:01 Const General: alert; No acute distress [facility] Throat image: 1. Postnasal drip at the back of the throat Eyes Conjunctivae: conjunctivae normal Resp Auscultation: clear to auscultation bilaterally Cardio Rate: regular rate Rhythm: regular rhythm GI Inspection: Yes normal to inspection Extrem General: Yes normal to inspection and No edema Coding Level of Care Code Est Pt Level 4 (60599) Diagnoses Uncontrolled type 1 diabetes mellitus with hyperglycemia, with long-term current use of insulin E10.65 Colon cancer screening Z12.11 Morbid obesity E66.01 Gastroesophageal reflux disease, unspecified whether esophagitis present K21.9 Esophagitis presence: esophagitis presence not specified Essential hypertension I10 Hypertension type: essential hypertension 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 (2) Colon cancer screening: Code(s): Z12.11 - Encounter for screening for malignant neoplasm of colon Category: Medical Plan: Patient is reminded about colonoscopy (3) Morbid obesity: Code(s): E66.01 - Morbid (severe) obesity due to excess calories Category: Medical Plan: Diet and exercise (4) GERD (gastroesophageal reflux disease): Code(s): K21.9 - Gastro-esophageal reflux disease without esophagitis Category: Medical Qualifiers: Esophagitis presence: esophagitis presence not specified Qualified Code(s): K21.9 - Gastro-esophageal reflux disease without esophagitis Plan: Avoid the foods that causes that usually spicy foods, tomato products, juices, coffee, soda and foods that your sensitive to. After eating do not lie down, allow 3-4 hours before in lie down. And keep the head of bed above 30 degrees to avoid the acid from going up. (5) Hypertension: Code(s): I10 - Essential (primary) hypertension Category: Medical Qualifiers: Hypertension type: essential hypertension Qualified Code(s): I10 - Essential (primary) hypertension Plan: Continue with blood pressure medication. Decrease salt intake and exercise presently on lisinopril 10 mg once a day. Concern that the coughing is from lisinopril and so will stop lisinopril and place on losartan. Meanwhile Tessalon Perles is being given to help the cough. (6) Hypothyroidism: Code(s): E03.9 - Hypothyroidism, unspecified Category: Medical Qualifiers: 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 Qualified Code(s): E03.8 - Other specified hypothyroidism; E06.3 - Autoimmune thyroiditis Plan: Continue with thyroid medication (7) Hives: Code(s): L50.9 - Urticaria, unspecified Category: Medical Plan: Patient is being seen by Allergy and immunology, allergy desensitization treatment. (8) Hypercholesterolemia: Code(s): E78.00 - Pure hypercholesterolemia, unspecified Category: Medical Plan: Avoid fried foods, chicken skin, eggs, butter margarine, pastries and meat. Be it pork or beef they have a lot of cholesterol LDL goal of less than 100 and triglyceride of less than 150. 2022 last test on atorvastatin and need to get blood work (9) Allergy: Code(s): T78.40XA - Allergy, unspecified, initial encounter Category: Medical Qualifiers: Encounter type: subsequent encounter Qualified Code(s): T78.40XD - Allergy, unspecified, subsequent encounter Plan: Continue with present allergy medication. Medications: New losartan 25 mg PO DAILY 30 tabs 3RF I10 - Essential (primary) hypertension benzonatate 200 mg PO BID-TID PRN 30 caps 0RF cough T78.40XA - Allergy, unspecified, initial encounter Discontinued lisinopril Discontinued Reason: Doctor's Order 10 mg PO DAILY 30 days 30 tabs 6RF I10 - Essential (primary) hypertension
[2024-02-06 15:56] VITALS: BP 130/70; PULSE 82; O2SAT 98; BMI 53.5
== END 2024-02-06 16:27 | disposition home or self-care (01) ==
PROVIDERS: PCP Internal Medicine; Visit Provider Internal Medicine
DX: E10.65 Type 1 diabetes mellitus with hyperglycemia (principal); K21.9 Gastro-esophageal reflux disease without esophagitis; E66.01 Morbid (severe) obesity due to excess calories; Z68.43 Body mass index [BMI] 50.0-59.9, adult; Z12.11 Encounter for screening for malignant neoplasm of colon; E03.8 Other specified hypothyroidism; I10 Essential (primary) hypertension; E06.3 Autoimmune thyroiditis; L50.9 Urticaria, unspecified; E78.00 Pure hypercholesterolemia, unspecified; T78.40XD Allergy, unspecified, subsequent encounter

== ENCOUNTER → 2024-02-06 15:34 | Outpatient (BNVA) | payer OTHER, SELFPAY | PROVIDERS: PCP Internal Medicine; Visit Provider Internal Medicine | DX: E10.65 Type 1 diabetes mellitus with hyperglycemia (principal); E66.01 Morbid (severe) obesity due to excess calories; K21.9 Gastro-esophageal reflux disease without esophagitis; I10 Essential (primary) hypertension; E03.8 Other specified hypothyroidism; E06.3 Autoimmune thyroiditis; L50.9 Urticaria, unspecified; E78.00 Pure hypercholesterolemia, unspecified; T78.40XD Allergy, unspecified, subsequent encounter | CPT/HCPCS: 99212 ==

== ENCOUNTER 2024-02-12 17:14 | Emergency (ER) | payer OTHER, SELFPAY ==
--- NOTE | ~2024-02-12 | XR_ITS ---
EXAMINATION: XR CHEST CLINICAL INFORMATION: Productive cough. COMPARISON: None available. TECHNIQUE: 2 views of the chest were obtained. FINDINGS: The lungs are well expanded. No focal consolidation. No pleural effusion. Cardiac silhouette appears prominent for patient's age. XR/XR chest 2V IMPRESSION: No acute consolidation. Prominent cardiac silhouette. Electronically signed by: Perez Carson MD 02/12/2024 05:45 PM EDT
[2024-02-12 17:23] VITALS: BP 151/87; PULSE 96; RESP 20; TEMP 36.3; O2SAT 98; BMI 62.7
--- NOTE | 2024-02-12 17:25 | ED_ITS ---
HPI - URI/Sore Throat General Chief Complaint: Upper Respiratory Symptoms Stated Complaint: Flu like symptoms Time Seen by Provider: 02/12/24 19:05 Source: patient Mode of arrival: ambulatory Limitations: no limitations History of Present Illness ED Provider: AHMET ARMSTRONG PA-C HPI Narrative: 48 year old female with pmhx significant for HTN, HDL, asthma, hypothyroid, T2DM, diabetic neuropathy, vitamin D deficiency presents to the ED today for evaluation of cough, bilateral ear ache, sore throat, sneezing x2 weeks. Cough is non productive of sputum. States her symptoms began after receiving an allergy shot on 01/26/24. 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 Denies fever, chills, chest pain, shortness of breath, hearing changes/ discharge from the ears. Related Data Home Medications ?Medication ?Instructions ?Recorded ?Confirmed pen needle, diabetic 32 gauge x #50 ea 03/06/20 02/24/24 cetirizine 10 mg tablet 10 mg PO DAILY 06/17/23 02/24/24 Previous Rx's ?Medication ?Instructions ?Recorded pen needle, diabetic 32 gauge x #150 ea 04/29/20 (1st Tier Unifine Pentips Plus) FreeStyle Lancets 28 gauge #120 ea 05/16/20 (lancets) insulin pump cart,automated,BT #5 ea 04/20/22 (Omnipod 5 G6 Pods (Gen 5) subcutaneous cartridge) insulin pump cartridge,automated #1 ea 04/20/22 dose,BT with controller subcutaneous (Omnipod 5 G6 Intro Kit (Gen 5) subcutaneous cartridge with controller) blood-glucose sensor (Dexcom G7 #3 ea 12/10/22 Sensor device) pantoprazole 40 mg tablet,delayed 40 mg PO DAILY #90 tabs 05/30/23 release pen needle, diabetic 32 gauge x #150 ea 07/03/23 (BD Aishwarya 2nd Gen Pen Needle) acetaminophen 500 mg capsule 1,000 mg (2 x 500 mg) PO Q6H PRN 07/06/23 pain #30 caps lidocaine 5 % topical patch 1 patch topical DAILY #30 ea 07/06/23 ferrous sulfate 137 mg (45 mg 137 mg PO .QD 90 days #90 tabs 09/22/23 iron) tablet,extended release (Slow Fe) sennosides 8.6 mg-docusate sodium 2 tab-cap (2 x 8.6-50 mg) PO 09/22/23 50 mg tablet (Senna Plus) BEDTIME 30 days #60 tabs bisacodyl 5 mg tablet,delayed 20 mg (4 x 5 mg) PO ONCE 1 day #4 11/30/23 release (Dulcolax (bisacodyl)) tabs polyethylene glycol 3350 17 238 g PO ONCE 1 day #238 grams 11/30/23 gram/dose oral powder (Miralax) Levoxyl 100 mcg tablet 100 mcg PO DAILY #30 tabs 12/26/23 (levothyroxine) atorvastatin 20 mg tablet 20 mg PO DAILY #30 tabs 12/26/23 insulin aspart (niacinamide) See Rx Instructions .Route 01/10/24 (U-100) 100 unit/mL subcutaneous .COMPLEX #20 mL solution (Fiasp U-100 Insulin) insulin aspart See Rx Instructions .Route 01/12/24 (niacinamide)(U-100) 100 unit/mL(3 .COMPLEX #30 mL mL) subcutaneous pen (Fiasp FlexTouch U-100 Insulin) albuterol sulfate 90 mcg/actuation 1 inh inhalation Q6H PRN shortness 01/30/24 aerosol inhaler (Ventolin HFA) of breath or wheezing #18 grams acetone (urine) test (Ketone Urine #25 ea 02/03/24 Test strips) blood sugar diagnostic (FreeStyle #200 ea 02/03/24 Lite Strips) blood-glucose meter (FreeStyle #1 ea 02/03/24 Lite Meter kit) lancets 28 gauge (FreeStyle #100 ea 02/03/24 Lancets) benzonatate 200 mg capsule 200 mg PO BID-TID PRN cough #30 02/06/24 caps losartan 25 mg tablet 25 mg PO DAILY #30 tabs 02/06/24 benzocaine 15 mg-menthol 2.6 mg 1 taya mucous membrane Q2-4H PRN 02/12/24 lozenges (Cepacol Sore Throat sore throat #16 ea (benzocaine-menthol)) codeine 10 mg-guaifenesin 100 mg/5 10 ml PO Q6H PRN cough #120 mL 02/12/24 mL oral liquid (Guaifenesin AC) doxycycline hyclate 100 mg capsule 100 mg PO BID 10 days #20 caps 02/20/24 ciprofloxacin 0.3 %-dexamethasone 4 drp otic (ears) BID 7 days #7.5 02/24/24 0.1 % ear drops,suspension mL inhalational spacing device #1 ea 02/24/24 Allergies Allergy/AdvReac Type Severity Reaction Status Date / Time aspirin [ASA] Allergy Unknown BLEEDING Verified 02/24/24 15:20 lisinopril AdvReac Intermediate Cough Verified 02/24/24 15:20 prednisone AdvReac Intermediate high Blood Verified 02/24/24 15:20 sugar grasses/pollen Allergy Mild congestion Uncoded 02/24/24 15:20 Actos Allergy Unknown nausea and Uncoded 02/24/24 15:20 vomiting Trulicity Allergy Unknown nausea and Uncoded 02/24/24 15:20 vomiting Review of Systems Review of Systems: Constitutional: No fever, chills, fatigue, night sweats, weight changes ENT/Mouth: No ear pain, hearing loss, nasal congestion, sinus pain, rhinorrhea, +sore throat, +ear ache Eyes: No eye pain, swelling, redness, vision changes, discharge Cardio: No chest pain, palpitations, WATTS, orthopnea, peripheral edema, +cough Pulm: No SOB, cough, sputum, wheezing, dyspnea, hemoptysis GI: No nausea, vomiting, hematemesis, abdominal pain, diarrhea, constipation, hematochezia, melena : No irregular bleeding, dysuria, frequency, urgency, hesitancy, hematuria, flank pain, urinary flow changes, urinary incontinence or retention MSK: No back pain, neck pain, joint pain, myalgias Skin: No lesions, rashes Neuro: No weakness, numbness, paresthesias, LOC, dizziness, headache Psych: No anxiety/panic, depression, SI/HI, AH/VH All other systems reviewed and are negative. [facility] [place] Past Medical History Attestation statement: The following information was validated with the patient. Source: old records reviewed and nursing notes reviewed Medical History Cough Uncontrolled type 1 diabetes mellitus with hyperglycemia, with long-term current use of insulin Obesity due to excess calories Viral syndrome meterman (current) use of insulin Vitamin D deficiency Diabetic nephropathy associated with type 2 diabetes mellitus Hypothyroidism Impacted cerumen of right ear Allergic rhinitis Menstrual bleeding problem Hypothyroid Asthma Hypercholesterolemia Obesity Hypertension Surgical History Hx of right breast biopsy Hx of tooth extraction Family History Family History Father Hypertension Obesity Prediabetes Mother Heart disease Glaucoma Social History Social History Household Members: Family Housing: Apartment Alcohol intake: never Patient Tobacco Use Status: Never used Tobacco e-Cigarette/Vaping Use: Never Used Second Hand Smoke Exposure: No service: No Current occupational status: employed Current occupational exposures/hazards: No Gender identity: Female Cognitive needs: No Hearing needs: No Vision needs: Yes Physical Exam Vital Signs: Vital Signs: Last Vital Signs Temp 97.3 F 02/12/24 20:06 Pulse 96 02/12/24 20:06 Resp 20 02/12/24 20:06 BP 151/87 H 02/12/24 20:06 Pulse Ox 98 02/12/24 20:06 O2 Del Method Room Air 02/12/24 20:06 BMI result Body Mass Index 62.7 hypertensive, afebrile General: Well appearing, in no acute distress. Skin: Warm, dry, intact. No rashes or lesions. Head: Normocephalic, atraumatic. EENT: Hearing is intact b/l. PERRLA. EOM intact. Moist mucous membranes.? Posterior oropharynx without erythema or edema. No tonsillar exudates. No peritonsillar masses. Uvula midline. Controlling secretions and speaking complete sentences. + No pain on manipulation of left pinna or tragus. No mastoid tenderness. Left EAC without erythema, edema or discharge. TM intact without erythema, effusion, or bulging. + pain on manipulation right pinna. No m astoid tenderness. Right EAC erythematous and edematous without noted discharge. TM intact without erythema, effusion, or bulging. Neck: Supple without LAD Cardiac: Chest wall symmetric. RRR Lungs: Normal respiratory effort without accessory muscle use. Bronchospastic cough. CTA bilaterally. No rales, rhonchi, or wheezes.? Back: No midline spinous or paraspinal tenderness. No step off deformity. Ext: Upper and lower extremities atraumatic, without tenderness, deformity, swelling or erythema. Full ROM throughout. Neuro: AOx3. Normal speech. Ambulating with steady gait. Psych: Appropriate mood and affect. Responds appropriately to questions. Course Course Course Narrative: This is a Rapid Medical Examination (RME) performed by Parviz Armstrogn PA-C in triage. Full HPI, ROS, assessment and treatment plan per primary provider in the Main ED. 48 yo female hx of asthma, allergic rhinitis, T2DM, neuropathy, HDL, HTN, hypothyroid, obesity, vitamin D deficiency here for eval of productive cough, bilateral ear ache, sore throat, and sneezing x2 wks. believes her symptoms began after receiving an allergy shot on 01/25. 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 Plan: viral/ strep swabs, CXR Reevaluation(s) Reevaluation #1: Negative COVID, flu, RSV, strep throat. Chest x-ray does not demonstrate infiltrate or consolidation to suggest pneumonia. Physical exam is consistent with right otitis externa. Will send Ciprodex to pharmacy for treatment. She likely has associated upper respiratory infection. Will send guaifenesin and Cepacol throat lozenges for symptomatic treatment. Advised to follow up with PCP this week. Patient has remained stable throughout ED visit today. Discussed worrisome signs and symptoms and when to return to the ED. All questions answered at this time. Patient is agreeable with disposition and stable for discharge. Medications Administered Discontinued Medications Generic Name Dose Route Start Last Admin Trade Name Freq PRN Reason Stop Dose Admin Albuterol Sulfate 5 mg/ 0 mg 02/12/24 19:28 02/12/24 19:30 Albuterol/Ipratropium 3 ml INHALE 02/12/24 19:29 1 each ONCE ONE Administration Methylprednisolone Sodium Succinate 60 mg 02/12/24 19:17 02/12/24 19:20 Methylprednisolone Sod Succ 125 Mg/2 Ml Vial IM 02/12/24 19:18 60 mg ONCE ONE Administration Medical Decision Making Medical Decision Making MDM Narrative: 48 year old female with pmhx significant for HTN, HDL, asthma, hypothyroid, T2DM, diabetic neuropathy, vitamin D deficiency presents to the ED today for evaluation of cough, bilateral ear ache, sore throat, sneezing x2 weeks. Hypertensive, afebrile. Not hypoxic. She is nontoxic appearing and in NAD. on exam, pain on manipulation right pinna. No mastoid tenderness. Right EAC erythematous and edematous without noted discharge. TM intact without erythema, effusion, or bulging. Posterior oropharynx without erythema or edema. No tonsillar exudates. Uvula midline. Controlling secretions and speaking complete sentences. No increased effort of breathing. No tripoding. Bronchospastic cough. Lungs are CTA bilaterally. No rales, rhonchi or wheezes. Skin is warm, dry, intact. No rashes. Differential diagnosis includes otitis media, otitis externa, viral syndrome, strep throat, bronchitis, pneumonia. lower suspicion for allergic reaction. Plan for viral/ strep swabs, CXR, re-evaluation. Differential Diagnosis Differential Diagnoses: The differential diagnosis associated with the presentation includes as above. Admission/Observation not indicated. Lab Data MDM Lab Attestation statement: I reviewed the patient's lab results. as above. Labs: Lab Results 02/12/24 Range/Units 17:48 Influenza Type A (PCR) NEGATIVE (Negative) Influenza Type B (PCR) NEGATIVE (Negative) RSV RNA Qual (PCR) NEGATIVE (Negative) SARS-CoV-2 RNA (RT-PCR) NEGATIVE (Negative) S. pyogenes GrpA MARY LOU Negative (Negative) Independent Interpretation I performed an independent interpretation of an: Plain X-Ray Interpretation: chest xray without consolidation or infiltrate. agree with radiologist's interpretation. Radiology Impression Discussion of test interpretation with radiology: I have reviewed the radiologist's reading. Radiologist Impression: EXAMINATION: XR CHEST CLINICAL INFORMATION: Productive cough. COMPARISON: None available. TECHNIQUE: 2 views of the chest were obtained. FINDINGS: The lungs are well expanded. No focal consolidation. No pleural effusion. Cardiac silhouette appears prominent for patient's age. XR/XR chest 2V IMPRESSION: No acute consolidation. Prominent cardiac silhouette. Electronically signed by: Perez Carson MD 02/12/2024 05:45 PM EDT External Record Review External record reviewed: Inpatient record, Office record, Outpatient record, Prior outpatient labs, Prior outpatient radiology, Primary care record and Outside ED record Prescription Management I considered prescription management with: Other (ciprodex, cepacol throat lozenges, guaifenesin) Chronic Conditions Patient?s care impacted by: Other (asthma) Social Determinants Patient?s care significantly limited by Social Determinants of Health including: Other Social Determinant of Health Critical Care Time Critical Care Time Critical Care Time: No Discharge Plan Discharge Clinical Impression: Otitis externa URI (upper respiratory infection) Qualifiers: URI type: unspecified viral URI Qualified Code(s): J06.9 - Acute upper respiratory infection, unspecified Patient Disposition: Home, Self-Care Instructions: Otitis Externa (ED), Viral Syndrome (ED) Additional Instructions: You tested negative for strep throat, flu, COVID, RSV. Your chest xray does not show pneumonia. It does show an enlarged heart silhouette. You likely have a viral upper respiratory infection that does not require antibiotic treatment. Guaifenesin/codeine has been sent to your pharmacy for you to take as needed for cough. Cepacol throat lozenges have been sent to your pharmacy for you to take as needed for sore throat. I have also sent Ciprodex ear drops to your pharmacy for suspected outer ear infection. Alter ibuprofen and Tylenol for fevers and body aches. Follow-up with your PCP regarding chest xray findings. If symptoms persist or worsen please return to the emergency department. The case of an emergency call 911. Prescriptions: New codeine-guaifenesin [Guaifenesin AC] 10-100 mg/5 mL liquid 10 ml PO Q6H PRN (Reason: cough) Qty: 120 0RF Cepacol Sore Throat (flora-men) 15-2.6 mg lozenge 1 taya mucous membrane Q2-4H PRN (Reason: sore throat) Qty: 16 0RF No Action (DME) pen needle, diabetic [1st Tier Unifine Pentips Plus] 32 gauge x 5/32 needle See Rx Instructions .ROUTE .MEDSUPPLY Qty: 150 6RF Rx Instructions: 4 times a day (DME) lancets [FreeStyle Lancets] 28 gauge misc See Rx Instructions topical QID Qty: 120 6RF Rx Instructions: 4 times a day (DME) Omnipod 5 G6 Intro Kit (Gen 5) Cartridge See Rx Instructions .Route Qty: 1 0RF Rx Instructions: As directed (DME) Omnipod 5 G6 Pods (Gen 5) Cartridge See Rx Instructions .Route Qty: 5 3RF Rx Instructions: As directed (DME) Dexcom G7 Sensor Device See Rx Instructions .Route Qty: 3 4RF Rx Instructions: As directed change every 10 days pantoprazole 40 mg tablet,delayed release (DR/EC) 40 mg PO DAILY Qty: 90 2RF Rx Instructions: take one tablet half an hour before breakfast (DME) pen needle, diabetic [BD Aishwarya 2nd Gen Pen Needle] 32 gauge x 5/32 needle See Rx Instructions .ROUTE .COMPLEX Qty: 150 6RF Dose Instruction: USE TO INJECT 5 TIMES A DAY Rx Instructions: USE TO INJECT 5 TIMES A DAY bisacodyl [Dulcolax (bisacodyl)] 5 mg tablet,delayed release (DR/EC) 20 mg PO ONCE 1 Days Qty: 4 0RF Rx Instructions: the day before colonoscopy take 2 pills at noon, 2 pills at 5pm with water polyethylene glycol 3350 [Miralax] 17 gram/dose powder 238 g PO ONCE 1 Days Qty: 238 0RF Rx Instructions: Take as directed by mouth the day before your procedure. atorvastatin 20 mg tablet 20 mg PO DAILY Qty: 30 6RF levothyroxine [Levoxyl] 100 mcg tablet 100 mcg PO DAILY Qty: 30 2RF Fiasp U-100 Insulin 100 unit/mL solution See Rx Instructions .ROUTE .COMPLEX Qty: 20 4RF Rx Instructions: infuse up to 60 units/day via insulin pump; Fiasp FlexTouch U-100 Insulin 100 unit/mL (3 mL) insulin pen See Rx Instructions .ROUTE .COMPLEX Qty: 30 3RF Rx Instructions: 60 units daily via pump; doxycycline hyclate 100 mg capsule 100 mg PO BID 10 Days Qty: 20 0RF (DME) pen needle, diabetic 32 gauge x 5/32 needle See Rx Instructions subcut .MEDSUPPLY Qty: 50 Rx Instructions: As directed Slow Fe 137 mg (45 mg iron) tablet extended release 137 mg PO .QD 90 Days Qty: 90 3RF sennosides-docusate sodium [Senna Plus] 8.6-50 mg tablet 2 tab-cap PO BEDTIME 30 Days Qty: 60 4RF acetaminophen 500 mg capsule 1,000 mg PO Q6H PRN (Reason: pain) Qty: 30 0RF lidocaine 5 % adhesive patch,medicated 1 patch topical DAILY Qty: 30 0RF Rx Instructions: leave on most painful area for up to 12 hrs cetirizine 10 mg tablet 10 mg PO DAILY benzonatate 200 mg capsule 200 mg PO BID-TID PRN (Reason: cough) Qty: 30 0RF losartan 25 mg tablet 25 mg PO DAILY Qty: 30 3RF albuterol sulfate [Ventolin HFA] 90 mcg/actuation HFA aerosol inhaler 1 inh inhalation Q6H PRN (Reason: shortness of breath or wheezing) Qty: 18 0RF ciprofloxacin-dexamethasone 0.3-0.1 % drops,suspension 4 drp otic (ears) BID 7 Days Qty: 7.5 0RF (DME) inhalational spacing device Spacer See Rx Instructions .Route Qty: 1 0RF Rx Instructions: As directed (DME) FreeStyle Lite Strips Strip See Rx Instructions .ROUTE .MEDSUPPLY Qty: 200 11RF Rx Instructions: As directed six times a day p.r.n. sensor failure or to confirm readings (DME) lancets [FreeStyle Lancets] 28 gauge misc See Rx Instructions .ROUTE .MEDSUPPLY Qty: 100 1RF Rx Instructions: 6 times a day prn sensor failure or to confirm glucose (DME) blood-glucose meter [FreeStyle Lite Meter] Kit See Rx Instructions .Route Qty: 1 1RF Rx Instructions: As directed (DME) Ketone Urine Test Strip See Rx Instructions .ROUTE .MEDSUPPLY Qty: 25 1RF Rx Instructions: As directed Referrals: Daksha Hernandez MD [Primary Care Provider] - Stand Alone Forms: Work/School Release Interventions: ED Discharge Assessment Last Done: 02/12/24 20:06 Discharge Date/Time: 02/12/24 20:06 Print Language: Italian
[2024-02-12 18:03] LABS: IDNOW Serial# 08D9AD1C; Strep A Nucleic Acid Negative (Negative)
[2024-02-12 18:36] LABS: Influenza A PCR NEGATIVE (Negative); Influenza B PCR NEGATIVE (Negative); Resp Syncy Virus RNA Qual PCR NEGATIVE (Negative); SARS COV2 PCR INHOUSE NEGATIVE (Negative)
[2024-02-12] MEDS: methylPREDNISolone Sod Succ 125 MG/2 ML VIAL 60 MG IM (19:20)
[2024-02-12] MEDS: Albuterol Sulfate 5 MG, Albuterol/Iprat 2.5/0.5MG 3 ML 3 ML INHALE (19:30)
[2024-02-12 20:06] VITALS: BP 151/87; PULSE 96; RESP 20; TEMP 36.3; O2SAT 98
== END 2024-02-12 20:06 | disposition home or self-care (01) ==
PROVIDERS: Physician Assistant Medical; Emergency Provider Emergency Medicine; PCP Internal Medicine
DX: J06.9 Acute upper respiratory infection, unspecified (principal); H60.93 Unspecified otitis externa, bilateral; R05.9 Cough, unspecified; H92.03 Otalgia, bilateral; J02.9 Acute pharyngitis, unspecified; Z03.818 Encounter for observation for suspected exposure to other biological agents ruled out
CPT/HCPCS: 0241U; 71046; 87651; 96372; 99282; 99284; J2919

== ENCOUNTER 2024-02-14 05:45 | Emergency (ER) | payer OTHER, SELFPAY ==
[2024-02-14 05:49] VITALS: BP 149/74; PULSE 99; RESP 20; TEMP 36.8; O2SAT 95; BMI 53.4
--- NOTE | 2024-02-14 07:04 | PC.NURSE ---
patient presents here from home via External triage, patient states she was here tuesday and diagnosed with bronchitis, states she was prescribed medications and inhalers but feels as if she is starting to cough up more phlegm and feels like 'I'm choking on it . patient denies any fevers or chills, lung sounds clear to auscultation, patient with productive cough, and points to throat and states its all coming from here . VSS, oxygenating well on room air. awaiting MD celis
[2024-02-14 07:06] VITALS: O2SAT 97
--- NOTE | 2024-02-14 07:22 | ED.URI ---
HPI - URI/Sore Throat General Chief Complaint: Upper Respiratory Symptoms Stated Complaint: coughing, asthma Time Seen by Provider: 02/14/24 07:16 Source: patient Mode of arrival: ambulatory Limitations: no limitations History of Present Illness HPI Narrative: THIS IS A 48 YEARS OLD PATIENT WITH HISTORY OF DIABETES ASTHMA PRESENTED TO THE EMERGENCY ROOM WITH COMPLAINT OF COUGH CONGESTION SHE WAS SEEN IN THE EMERGENCY ROOM 2 DAYS AGO WELL. SHE HAD AN CHEST X-RAY AND VIRAL TESTS WHICH WERE NEGATIVE FOR COVID FLU. SHE DENIES ANY FEVER OR VOMITING. MD elicited complaint: cough and sore throat Pertinent past history: asthma Onset (ago): day(s) (3) Consistency: constant Severity: moderate Description of mucous: watery Able to tolerate fluids by mouth: Yes Exacerbating factors: nothing Relieving factors: nothing Associated symptoms: cough Related Data Home Medications ?Medication ?Instructions ?Recorded ?Confirmed pen needle, diabetic 32 gauge x #50 ea 03/06/20 09/22/23 cetirizine 10 mg tablet 10 mg PO DAILY 06/17/23 09/22/23 Previous Rx's ?Medication ?Instructions ?Recorded pen needle, diabetic 32 gauge x #150 ea 04/29/20 (1st Tier Unifine Pentips Plus) FreeStyle Lancets 28 gauge #120 ea 05/16/20 (lancets) insulin pump cart,automated,BT #5 ea 04/20/22 (Omnipod 5 G6 Pods (Gen 5) subcutaneous cartridge) insulin pump cartridge,automated #1 ea 04/20/22 dose,BT with controller subcutaneous (Omnipod 5 G6 Intro Kit (Gen 5) subcutaneous cartridge with controller) blood-glucose sensor (Dexcom G7 #3 ea 12/10/22 Sensor device) pantoprazole 40 mg tablet,delayed 40 mg PO DAILY #90 tabs 05/30/23 release pen needle, diabetic 32 gauge x #150 ea 07/03/23 (BD Aishwarya 2nd Gen Pen Needle) acetaminophen 500 mg capsule 1,000 mg (2 x 500 mg) PO Q6H PRN 07/06/23 pain #30 caps lidocaine 5 % topical patch 1 patch topical DAILY #30 ea 07/06/23 ferrous sulfate 137 mg (45 mg 137 mg PO .QD 90 days #90 tabs 09/22/23 iron) tablet,extended release (Slow Fe) sennosides 8.6 mg-docusate sodium 2 tab-cap (2 x 8.6-50 mg) PO 09/22/23 50 mg tablet (Senna Plus) BEDTIME 30 days #60 tabs bisacodyl 5 mg tablet,delayed 20 mg (4 x 5 mg) PO ONCE 1 day #4 11/30/23 release (Dulcolax (bisacodyl)) tabs polyethylene glycol 3350 17 238 g PO ONCE 1 day #238 grams 11/30/23 gram/dose oral powder (Miralax) Levoxyl 100 mcg tablet 100 mcg PO DAILY #30 tabs 12/26/23 (levothyroxine) atorvastatin 20 mg tablet 20 mg PO DAILY #30 tabs 12/26/23 insulin aspart (niacinamide) See Rx Instructions .Route 01/10/24 (U-100) 100 unit/mL subcutaneous .COMPLEX #20 mL solution (Fiasp U-100 Insulin) insulin aspart See Rx Instructions .Route 01/12/24 (niacinamide)(U-100) 100 unit/mL(3 .COMPLEX #30 mL mL) subcutaneous pen (Fiasp FlexTouch U-100 Insulin) albuterol sulfate 90 mcg/actuation 1 inh inhalation Q6H PRN shortness 01/30/24 aerosol inhaler (Ventolin HFA) of breath or wheezing #18 grams acetone (urine) test (Ketone Urine #25 ea 02/03/24 Test strips) blood sugar diagnostic (FreeStyle #200 ea 02/03/24 Lite Strips) blood-glucose meter (FreeStyle #1 ea 02/03/24 Lite Meter kit) lancets 28 gauge (FreeStyle #100 ea 02/03/24 Lancets) benzonatate 200 mg capsule 200 mg PO BID-TID PRN cough #30 02/06/24 caps losartan 25 mg tablet 25 mg PO DAILY #30 tabs 02/06/24 benzocaine 15 mg-menthol 2.6 mg 1 taya mucous membrane Q2-4H PRN 02/12/24 lozenges (Cepacol Sore Throat sore throat #16 ea (benzocaine-menthol)) ciprofloxacin 0.3 %-dexamethasone 4 drp otic (ears) BID 7 days #7.5 02/12/24 0.1 % ear drops,suspension mL codeine 10 mg-guaifenesin 100 mg/5 10 ml PO Q6H PRN cough #120 mL 02/12/24 mL oral liquid (Guaifenesin AC) amoxicillin 500 mg capsule 500 mg PO TID 7 days #21 caps 02/14/24 prednisone 20 mg tablet 60 mg (3 x 20 mg) PO DAILY #12 tabs 02/14/24 Allergies Allergy/AdvReac Type Severity Reaction Status Date / Time aspirin [ASA] Allergy Unknown BLEEDING Verified 02/14/24 05:56 lisinopril AdvReac Intermediate Cough Verified 02/14/24 05:56 prednisone AdvReac Intermediate high Blood Verified 02/14/24 05:56 sugar grasses/pollen Allergy Mild congestion Uncoded 02/14/24 05:56 Actos Allergy Unknown nausea and Uncoded 02/14/24 05:56 vomiting Trulicity Allergy Unknown nausea and Uncoded 02/14/24 05:56 vomiting Review of Systems Constitutional: Constitutional: Reports no additional constitutional complaints ENT: Reports system reviewed and no additional complaints, except as documented Gastrointestinal: Gastrointestinal: Reports no additional gastrointestinal complaints PMFSH Past Medical History Attestation statement: The following information was validated with the patient. 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 Vitamin D deficiency Diabetic nephropathy associated with type 2 diabetes mellitus Hypothyroidism Cough Impacted cerumen of right ear Allergic rhinitis Menstrual bleeding problem Hypothyroid Asthma Hypercholesterolemia Obesity Hypertension Surgical History Hx of right breast biopsy Hx of tooth extraction Family History Family History Father Hypertension Obesity Prediabetes Mother Heart disease Glaucoma Social History Social History Household Members: Family Housing: Apartment Alcohol intake: never Patient Tobacco Use Status: Never used Tobacco Smoked in Last 30 Days: No e-Cigarette/Vaping Use: Never Used Second Hand Smoke Exposure: No Use of substances other than those prescribed or required for medical reasons: No Advance Directives: No Advance Directives Information Provided: No Do you have a plan to hurt others: No Plan Patient : No service: No Current occupational status: employed Current occupational exposures/hazards: No Gender identity: Female Cognitive needs: No Hearing needs: No Vision needs: Yes Physical Exam Vital Signs: Vital Signs: Last Vital Signs Temp 98.7 F 02/14/24 07:47 Pulse 91 02/14/24 07:47 Resp 16 02/14/24 07:47 BP 133/65 02/14/24 07:47 Pulse Ox 96 02/14/24 07:47 O2 Del Method Room Air 02/14/24 07:47 BMI result Body Mass Index 53.4 PATIENT IS AWAKE AND ALERT IN NOT ACUTE DISTRESS Const: General: cooperative Nutritional Appearance: well nourished HEENT: Head: Yes normal to inspection General nose exam: Normal nares present Face and sinus: Yes normal facial exam Mouth: Normal oral and palatal mucosa present Throat: Yes posterior oropharynx normal Neck: Neck: Yes normal visual inspection and Yes full ROM Resp: Effort & Inspection: normal respiratory effort and able to speak in complete sentences Auscultation: rhonchi Cardio: Jugular venous distension: no JVD Rate: regular rate GI: Inspection: Yes normal to inspection Palpation (GI): Soft to palpation Auscultation: normal bowel sounds Skin: General skin exam: no rashes or lesions noted and elasticity normal Lesions: no lesions Rashes: no rashes Trauma: no lacerations or abrasions Extrem: General: Yes normal to inspection and Yes full ROM Course Course Course Narrative: PATIENT LOOKS WELL NO TOXIC-APPEARING SATTING WELL AFEBRILE CHEST X-RAY DONE 2 DAYS AGO I THINK IT IS REASONABLE TO DISCHARGE HER I WILL TREAT BRONCHITIS WITH PREDNISONE AND ANTIBIOTIC Medical Decision Making Medical Decision Making [facility] Narrative: PATIENT PRESENTED WITH COUGH AND CONGESTION SHE WAS SEEN ALREADY 2 DAYS AGO SHE ALREADY HAD A CHEST X-RAY DONE 2 DAYS AGO SO I DO NOT THINK ANOTHER CHEST X-RAY WILL NOT BE NECESSARY, COVID TESTING WAS DONE 2 DAYS AGO SO I DO NOT THINK WE NEED TO REPEAT ANOTHER 1. Differential Diagnosis Differential Diagnoses: The differential diagnosis associated with the presentation includes BRONCHITIS/ASTHMA EXACERBATION Admission/Observation Consideration of admission/observation: Escalation of care including admission/observation considered Lab Data [facility] Lab Attestation statement: I reviewed the patient's lab results. I REVIEWED THE CHEST X-RAY OF THE LABS DONE 2 DAYS AGO Independent Historian Clinical information obtained from an independent historian. History obtained from or confirmed by: Other (SISTER) External Record Review External record reviewed: Inpatient record Prescription Management I considered prescription management with: Antibiotic Chronic Conditions Patient?s care impacted by: Diabetes Discharge Plan Discharge Clinical Impression: Bronchitis Patient Disposition: Home, Self-Care Instructions: Acute Bronchitis (ED) Prescriptions: New amoxicillin 500 mg capsule 500 mg PO TID 7 Days Qty: 21 0RF prednisone 20 mg tablet 60 mg PO DAILY Qty: 12 0RF No Action (DME) pen needle, diabetic [1st Tier Unifine Pentips Plus] 32 gauge x 5/32 needle See Rx Instructions .ROUTE .MEDSUPPLY Qty: 150 6RF Rx Instructions: 4 times a day (DME) lancets [FreeStyle Lancets] 28 gauge misc See Rx Instructions topical QID Qty: 120 6RF Rx Instructions: 4 times a day (DME) Omnipod 5 G6 Intro Kit (Gen 5) Cartridge See Rx Instructions .Route Qty: 1 0RF Rx Instructions: As directed (DME) Omnipod 5 G6 Pods (Gen 5) Cartridge See Rx Instructions .Route Qty: 5 3RF Rx Instructions: As directed (DME) Dexcom G7 Sensor Device See Rx Instructions .Route Qty: 3 4RF Rx Instructions: As directed change every 10 days pantoprazole 40 mg tablet,delayed release (DR/EC) 40 mg PO DAILY Qty: 90 2RF Rx Instructions: take one tablet half an hour before breakfast (DME) pen needle, diabetic [BD Aishwarya 2nd Gen Pen Needle] 32 gauge x 5/32 needle See Rx Instructions .ROUTE .COMPLEX Qty: 150 6RF Dose Instruction: USE TO INJECT 5 TIMES A DAY Rx Instructions: USE TO INJECT 5 TIMES A DAY bisacodyl [Dulcolax (bisacodyl)] 5 mg tablet,delayed release (DR/EC) 20 mg PO ONCE 1 Days Qty: 4 0RF Rx Instructions: the day before colonoscopy take 2 pills at noon, 2 pills at 5pm with water polyethylene glycol 3350 [Miralax] 17 gram/dose powder 238 g PO ONCE 1 Days Qty: 238 0RF Rx Instructions: Take as directed by mouth the day before your procedure. atorvastatin 20 mg tablet 20 mg PO DAILY Qty: 30 6RF levothyroxine [Levoxyl] 100 mcg tablet 100 mcg PO DAILY Qty: 30 2RF Fiasp U-100 Insulin 100 unit/mL solution See Rx Instructions .ROUTE .COMPLEX Qty: 20 4RF Rx Instructions: infuse up to 60 units/day via insulin pump; Fiasp FlexTouch U-100 Insulin 100 unit/mL (3 mL) insulin pen See Rx Instructions .ROUTE .COMPLEX Qty: 30 3RF Rx Instructions: 60 units daily via pump; codeine-guaifenesin [Guaifenesin AC] 10-100 mg/5 mL liquid 10 ml PO Q6H PRN (Reason: cough) Qty: 120 0RF Cepacol Sore Throat (flora-men) 15-2.6 mg lozenge 1 taya mucous membrane Q2-4H PRN (Reason: sore throat) Qty: 16 0RF ciprofloxacin-dexamethasone 0.3-0.1 % drops,suspension 4 drp otic (ears) BID 7 Days Qty: 7.5 0RF (DME) pen needle, diabetic 32 gauge x 5/32 needle See Rx Instructions subcut .MEDSUPPLY Qty: 50 Rx Instructions: As directed Slow Fe 137 mg (45 mg iron) tablet extended release 137 mg PO .QD 90 Days Qty: 90 3RF sennosides-docusate sodium [Senna Plus] 8.6-50 mg tablet 2 tab-cap PO BEDTIME 30 Days Qty: 60 4RF acetaminophen 500 mg capsule 1,000 mg PO Q6H PRN (Reason: pain) Qty: 30 0RF lidocaine 5 % adhesive patch,medicated 1 patch topical DAILY Qty: 30 0RF Rx Instructions: leave on most painful area for up to 12 hrs cetirizine 10 mg tablet 10 mg PO DAILY benzonatate 200 mg capsule 200 mg PO BID-TID PRN (Reason: cough) Qty: 30 0RF losartan 25 mg tablet 25 mg PO DAILY Qty: 30 3RF albuterol sulfate [Ventolin HFA] 90 mcg/actuation HFA aerosol inhaler 1 inh inhalation Q6H PRN (Reason: shortness of breath or wheezing) Qty: 18 0RF (DME) FreeStyle Lite Strips Strip See Rx Instructions .ROUTE .MEDSUPPLY Qty: 200 11RF Rx Instructions: As directed six times a day p.r.n. sensor failure or to confirm readings (DME) lancets [FreeStyle Lancets] 28 gauge misc See Rx Instructions .ROUTE .MEDSUPPLY Qty: 100 1RF Rx Instructions: 6 times a day prn sensor failure or to confirm glucose (DME) blood-glucose meter [FreeStyle Lite Meter] Kit See Rx Instructions .Route Qty: 1 1RF Rx Instructions: As directed (DME) Ketone Urine Test Strip See Rx Instructions .ROUTE .MEDSUPPLY Qty: 25 1RF Rx Instructions: As directed Stand Alone Forms: Work/School Release Interventions: ED Discharge Assessment Last Done: 02/14/24 07:47 Discharge Date/Time: 02/14/24 07:53 Print Language: Malay
[2024-02-14 07:47] VITALS: BP 133/65; PULSE 91; RESP 16; TEMP 37.1; O2SAT 96
== END 2024-02-14 07:53 | disposition home or self-care (01) ==
PROVIDERS: Emergency Provider Emergency Medicine; PCP Internal Medicine
DX: J40 Bronchitis, not specified as acute or chronic (principal); R05.9 Cough, unspecified; Z79.899 Other long term (current) drug therapy
CPT/HCPCS: 99283; 99284

== ENCOUNTER 2024-02-20 16:04 | Emergency (ER) | payer OTHER, SELFPAY ==
--- NOTE | ~2024-02-20 | XR_ITS ---
EXAMINATION: XR CHEST CLINICAL INFORMATION: Cough and shortness of breath COMPARISON: 02/12/2024 TECHNIQUE: 2 views of the chest were obtained. FINDINGS: No significant abnormality is noted involving the heart, lungs, mediastinum, bony thorax or soft tissues. XR/XR chest 2V IMPRESSION: Unremarkable examination. Electronically signed by: Karri Styles MD 02/20/2024 07:39 PM EDT RP
[2024-02-20 16:29] VITALS: BP 152/88; PULSE 90; RESP 18; TEMP 36.3; O2SAT 98; BMI 53.7
--- NOTE | 2024-02-20 16:29 | ED_ITS ---
HPI - URI/Sore Throat General Chief Complaint: Upper Respiratory Symptoms Stated Complaint: Congestion, ear ache Time Seen by Provider: 02/20/24 19:36 Source: patient and family Mode of arrival: ambulatory Limitations: no limitations History of Present Illness ED Provider: Verónica ARNETT HPI Narrative: This is a 48-year-old female history of bronchitis recently treated, uncontrolled type 1 diabetes, anemia, latent autoimmune diabetes, obesity, GERD, hives presenting with congestion, sinus pressure, bilateral ear discomfort, sore throat, fatigue, malaise, myalgias ongoing since January 25. Patient reports she was recently treated here at this facility for bronchitis about a week ago, she was given antibiotics as well as prednisone she noted some improvement in symptoms. Her cough is dry. She reports these symptoms started after receiving an allergy shot earlier this month. She reports because of the coughing she is having a hoarse voice. She denies recent travel, shortness of breath, nausea, vomiting, abdominal pain, headache, vision changes, dizziness, chest pain, smoking history. Related Data Home Medications ?Medication ?Instructions ?Recorded ?Confirmed pen needle, diabetic 32 gauge x #50 ea 03/06/20 09/22/23 cetirizine 10 mg tablet 10 mg PO DAILY 06/17/23 09/22/23 Previous Rx's ?Medication ?Instructions ?Recorded pen needle, diabetic 32 gauge x #150 ea 04/29/20 (1st Tier Unifine Pentips Plus) FreeStyle Lancets 28 gauge #120 ea 05/16/20 (lancets) insulin pump cart,automated,BT #5 ea 04/20/22 (Omnipod 5 G6 Pods (Gen 5) subcutaneous cartridge) insulin pump cartridge,automated #1 ea 04/20/22 dose,BT with controller subcutaneous (Omnipod 5 G6 Intro Kit (Gen 5) subcutaneous cartridge with controller) blood-glucose sensor (BrakeQuotes.[email or web address] G7 #3 ea 12/10/22 Sensor device) pantoprazole 40 mg tablet,delayed 40 mg PO DAILY #90 tabs 05/30/23 release pen needle, diabetic 32 gauge x #150 ea 07/03/23 (BD Aishwarya 2nd Gen Pen Needle) acetaminophen 500 mg capsule 1,000 mg (2 x 500 mg) PO Q6H PRN 07/06/23 pain #30 caps lidocaine 5 % topical patch 1 patch topical DAILY #30 ea 07/06/23 ferrous sulfate 137 mg (45 mg 137 mg PO .QD 90 days #90 tabs 09/22/23 iron) tablet,extended release (Slow Fe) sennosides 8.6 mg-docusate sodium 2 tab-cap (2 x 8.6-50 mg) PO 09/22/23 50 mg tablet (Senna Plus) BEDTIME 30 days #60 tabs bisacodyl 5 mg tablet,delayed 20 mg (4 x 5 mg) PO ONCE 1 day #4 11/30/23 release (Dulcolax (bisacodyl)) tabs polyethylene glycol 3350 17 238 g PO ONCE 1 day #238 grams 11/30/23 gram/dose oral powder (Miralax) Levoxyl 100 mcg tablet 100 mcg PO DAILY #30 tabs 12/26/23 (levothyroxine) atorvastatin 20 mg tablet 20 mg PO DAILY #30 tabs 12/26/23 insulin aspart (niacinamide) See Rx Instructions .Route 01/10/24 (U-100) 100 unit/mL subcutaneous .COMPLEX #20 mL solution (Fiasp U-100 Insulin) insulin aspart See Rx Instructions .Route 01/12/24 (niacinamide)(U-100) 100 unit/mL(3 .COMPLEX #30 mL mL) subcutaneous pen (Fiasp FlexTouch U-100 Insulin) albuterol sulfate 90 mcg/actuation 1 inh inhalation Q6H PRN shortness 01/30/24 aerosol inhaler (Ventolin HFA) of breath or wheezing #18 grams acetone (urine) test (Ketone Urine #25 ea 02/03/24 Test strips) blood sugar diagnostic (FreeStyle #200 ea 02/03/24 Lite Strips) blood-glucose meter (FreeStyle #1 ea 02/03/24 Lite Meter kit) lancets 28 gauge (FreeStyle #100 ea 02/03/24 Lancets) benzonatate 200 mg capsule 200 mg PO BID-TID PRN cough #30 02/06/24 caps losartan 25 mg tablet 25 mg PO DAILY #30 tabs 02/06/24 benzocaine 15 mg-menthol 2.6 mg 1 taya mucous membrane Q2-4H PRN 02/12/24 lozenges (Cepacol Sore Throat sore throat #16 ea (benzocaine-menthol)) ciprofloxacin 0.3 %-dexamethasone 4 drp otic (ears) BID 7 days #7.5 02/12/24 0.1 % ear drops,suspension mL codeine 10 mg-guaifenesin 100 mg/5 10 ml PO Q6H PRN cough #120 mL 02/12/24 mL oral liquid (Guaifenesin AC) amoxicillin 500 mg capsule 500 mg PO TID 7 days #21 caps 02/14/24 prednisone 20 mg tablet 60 mg (3 x 20 mg) PO DAILY #12 tabs 02/14/24 doxycycline hyclate 100 mg capsule 100 mg PO BID 10 days #20 caps 02/20/24 Allergies Allergy/AdvReac Type Severity Reaction Status Date / Time aspirin [ASA] Allergy Unknown BLEEDING Verified 02/20/24 16:31 lisinopril AdvReac Intermediate Cough Verified 02/20/24 16:31 prednisone AdvReac Intermediate high Blood Verified 02/20/24 16:31 sugar grasses/pollen Allergy Mild congestion Uncoded 02/14/24 05:56 Actos Allergy Unknown nausea and Uncoded 02/14/24 05:56 vomiting Trulicity Allergy Unknown nausea and Uncoded 02/14/24 05:56 vomiting Review of Systems Review of Systems: Yes all other systems are reviewed and are negative PMFSH Past Medical History Attestation statement: The following information was validated with the patient. 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 Vitamin D deficiency Diabetic nephropathy associated with type 2 diabetes mellitus Hypothyroidism Cough Impacted cerumen of right ear Allergic rhinitis Menstrual bleeding problem Hypothyroid Asthma Hypercholesterolemia Obesity Hypertension Surgical History Hx of right breast biopsy Hx of tooth extraction Family History Family History Father Hypertension Obesity Prediabetes Mother Heart disease Glaucoma Social History Social History Household Members: Family Housing: Apartment Alcohol intake: never Patient Tobacco Use Status: Never used Tobacco e-Cigarette/Vaping Use: Never Used Second Hand Smoke Exposure: No Advance Directives: No Advance Directives Information Provided: No Do you have a plan to hurt others: No Plan service: No Current occupational status: employed Current occupational exposures/hazards: No Gender identity: Female Cognitive needs: No Hearing needs: No Vision needs: Yes Physical Exam Vital Signs: Vital Signs: Last Vital Signs Temp 97.8 F 02/20/24 19:13 Pulse 89 02/20/24 19:13 Resp 24 H 02/20/24 19:13 BP 140/68 H 02/20/24 19:13 Pulse Ox 99 02/20/24 19:13 O2 Del Method Room Air 02/20/24 19:13 BMI result Body Mass Index 53.7 vss Appearance: Alert.? Oriented X3.? No acute distress.? Head: Normocephalic, atraumatic, no step-offs or deformities Eyes: Pupils equal, round and reactive to light.? ENT: Pharynx normal.??External ears w/ errythema. L TM w/ errythema and mild bulging, R tm errythematous hard to visualize due to cerrumen in EC. Mild discomfort w/ manipulation of b/l ears. No mastoid tenderness. Amanda hard and soft pallate. Discomfort w/ palpation of facial sinuses Neck: Normal inspection.? Neck supple.? CVS: Normal heart rate and rhythm.? Pulses normal.? Respiratory: No respiratory distress.? Breath sounds normal.? Abdomen: Soft and nontender.? Skin: Skin warm and dry.? Normal skin color.? Normal skin turgor.? Extremities: No lower extremity edema.? No calf ttp. 5/5 strength to bilateral upper and lower extremities Neuro: Oriented X 3.? No motor deficit.? No sensory deficit. CN 2-12 intact Course Course Course Narrative: This is a Rapid Medical Exam performed in triage by Ashely Parry PA-C. Full HPI, ROS and PE to be performed by primary ED provider. 48 yo F w/PMHx obesity, anemia, DM, Asthma, hypothyroidm HTN presenting to the ED c/o cough, SOB w/ cough, sore throat, b/l ear pain, sinus pressure x Occtober 10th. Was seen in our ED on 02/11 & 02/13. Finished course of Abx w/o relief. PE: Dry cough appreciated. Talking in short sentences. Raspy. Plan: Viral testing, rapid strep, CXR, ED bronch protocol Reevaluation(s) Reevaluation #1: Patient's flu, COVID, RSV and strep test negative. Chest x-ray unremarkable. Educated patient on diagnosis and treatment plan, answered all question, patient verbalizes understanding. At this time patient will be discharged home, advised to return with new or worsening symptoms. Educated on worrisome signs and symptoms and when to return. At this time I feel comfortable discharge home. Time: 20:18 Medications Administered Discontinued Medications Generic Name Dose Route Start Last Admin Trade Name Freq PRN Reason Stop Dose Admin Albuterol Sulfate 4 puff 02/20/24 16:53 02/20/24 16:56 Albuterol Sulfate 90 Mcg 8 Gm Inhaler INHALE 02/20/24 16:54 4 puff ONCE ONE Administration Medical Decision Making Medical Decision Making [facility] Narrative: 48 year old female presents w/ sinus pressure, cough, sore throat, ear pain since january 26 2024 Recently on amoxicillin 500 mg tid and prednision 60 mg po daily X 4 days this was on February 14, 2024 mild improvement PE Pharynx normal.??External ears w/ errythema. L TM w/ errythema and mild bulging, R tm errythematous hard to visualize due to cerrumen in EC. Mild discomfort w/ manipulation of b/l ears. No mastoid tenderness. Amanda hard and soft pallate. Discomfort w/ palpation of facial sinuses History and physical exam concerning for otitis media not improving and sinusitis with bronchitis. Unlikely pneumonia, PE, tuberculosis, acute respiratory distress, ACS. No signs of Alfredo's or necrotizing infection. No meningeal signs. Plan viral testing, strep testing, chest x-ray. Differential Diagnosis Differential Diagnoses: The differential diagnosis associated with the presentation includes ( History and physical exam concerning for otitis media not improving and sinusitis with bronchitis. Unlikely pneumonia, PE, tuberculosis, acute respiratory distress, ACS. No signs of Alfredo's or necrotizing infection. No meningeal signs.) Admission/Observation Consideration of admission/observation: Escalation of care including admission/observation considered Lab Data [facility] Lab Attestation statement: I reviewed the patient's lab results. Labs: Lab Results 10/28/24 Range/Units 17:22 Influenza Type A (PCR) NEGATIVE (Negative) Influenza Type B (PCR) NEGATIVE (Negative) RSV RNA Qual (PCR) NEGATIVE (Negative) SARS-CoV-2 RNA (RT-PCR) NEGATIVE (Negative) S. pyogenes GrpA MARY LOU Negative (Negative) Independent Interpretation I performed an independent interpretation of an: Plain X-Ray (XR/XR chest 2V IMPRESSION: Unremarkable examination.) Radiology Impression Discussion of test interpretation with radiology: I have reviewed the radiologist's reading. External Record Review External record reviewed: Inpatient record, Office record, Outpatient record, Prior outpatient labs, Prior outpatient radiology, Primary care record and Outside ED record Chronic Conditions Patient?s care impacted by: Other (See hpi ) Discharge Plan Discharge Clinical Impression: Impacted cerumen of right ear, Otitis media, Sinusitis, Acute bronchitis Patient Disposition: Home, Self-Care Instructions: Sinusitis (ED), Ear Infection (ED), Acute Bronchitis (ED) Additional Instructions: Take your medications as prescribed. If you were prescribed antibiotics today, it is important that you take your medication to their entirety, do not skip any doses, do not finish them early. Follow-up with your primary care provider this week. Return to the emergency department with new or worsening symptoms. Such as fevers, chills, chest pain, shortness of breath, nausea, vomiting, dizziness, headache, vision changes, lethargy In case of emergency call 911 Prescriptions: New doxycycline hyclate 100 mg capsule 100 mg PO BID 10 Days Qty: 20 0RF No Action (DME) pen needle, diabetic [1st Tier Unifine Pentips Plus] 32 gauge x 5/32 needle See Rx Instructions .ROUTE .MEDSUPPLY Qty: 150 6RF Rx Instructions: 4 times a day (DME) lancets [FreeStyle Lancets] 28 gauge misc See Rx Instructions topical QID Qty: 120 6RF Rx Instructions: 4 times a day (DME) Omnipod 5 G6 Intro Kit (Gen 5) Cartridge See Rx Instructions .Route Qty: 1 0RF Rx Instructions: As directed (DME) Omnipod 5 G6 Pods (Gen 5) Cartridge See Rx Instructions .Route Qty: 5 3RF Rx Instructions: As directed (DME) Dexcom G7 Sensor Device See Rx Instructions .Route Qty: 3 4RF Rx Instructions: As directed change every 10 days pantoprazole 40 mg tablet,delayed release (DR/EC) 40 mg PO DAILY Qty: 90 2RF Rx Instructions: take one tablet half an hour before breakfast (DME) pen needle, diabetic [BD Aishwarya 2nd Gen Pen Needle] 32 gauge x 5/32 needle See Rx Instructions .ROUTE .COMPLEX Qty: 150 6RF Dose Instruction: USE TO INJECT 5 TIMES A DAY Rx Instructions: USE TO INJECT 5 TIMES A DAY bisacodyl [Dulcolax (bisacodyl)] 5 mg tablet,delayed release (DR/EC) 20 mg PO ONCE 1 Days Qty: 4 0RF Rx Instructions: the day before colonoscopy take 2 pills at noon, 2 pills at 5pm with water polyethylene glycol 3350 [Miralax] 17 gram/dose powder 238 g PO ONCE 1 Days Qty: 238 0RF Rx Instructions: Take as directed by mouth the day before your procedure. atorvastatin 20 mg tablet 20 mg PO DAILY Qty: 30 6RF levothyroxine [Levoxyl] 100 mcg tablet 100 mcg PO DAILY Qty: 30 2RF Fiasp U-100 Insulin 100 unit/mL solution See Rx Instructions .ROUTE .COMPLEX Qty: 20 4RF Rx Instructions: infuse up to 60 units/day via insulin pump; Fiasp FlexTouch U-100 Insulin 100 unit/mL (3 mL) insulin pen See Rx Instructions .ROUTE .COMPLEX Qty: 30 3RF Rx Instructions: 60 units daily via pump; amoxicillin 500 mg capsule 500 mg PO TID 7 Days Qty: 21 0RF prednisone 20 mg tablet 60 mg PO DAILY Qty: 12 0RF codeine-guaifenesin [Guaifenesin AC] 10-100 mg/5 mL liquid 10 ml PO Q6H PRN (Reason: cough) Qty: 120 0RF Cepacol Sore Throat (flora-men) 15-2.6 mg lozenge 1 taya mucous membrane Q2-4H PRN (Reason: sore throat) Qty: 16 0RF ciprofloxacin-dexamethasone 0.3-0.1 % drops,suspension 4 drp otic (ears) BID 7 Days Qty: 7.5 0RF (DME) pen needle, diabetic 32 gauge x 5/32 needle See Rx Instructions subcut .MEDSUPPLY Qty: 50 Rx Instructions: As directed Slow Fe 137 mg (45 mg iron) tablet extended release 137 mg PO .QD 90 Days Qty: 90 3RF sennosides-docusate sodium [Senna Plus] 8.6-50 mg tablet 2 tab-cap PO BEDTIME 30 Days Qty: 60 4RF acetaminophen 500 mg capsule 1,000 mg PO Q6H PRN (Reason: pain) Qty: 30 0RF lidocaine 5 % adhesive patch,medicated 1 patch topical DAILY Qty: 30 0RF Rx Instructions: leave on most painful area for up to 12 hrs cetirizine 10 mg tablet 10 mg PO DAILY benzonatate 200 mg capsule 200 mg PO BID-TID PRN (Reason: cough) Qty: 30 0RF losartan 25 mg tablet 25 mg PO DAILY Qty: 30 3RF albuterol sulfate [Ventolin HFA] 90 mcg/actuation HFA aerosol inhaler 1 inh inhalation Q6H PRN (Reason: shortness of breath or wheezing) Qty: 18 0RF (DME) FreeStyle Lite Strips Strip See Rx Instructions .ROUTE .MEDSUPPLY Qty: 200 11RF Rx Instructions: As directed six times a day p.r.n. sensor failure or to confirm readings (DME) lancets [FreeStyle Lancets] 28 gauge misc See Rx Instructions .ROUTE .MEDSUPPLY Qty: 100 1RF Rx Instructions: 6 times a day prn sensor failure or to confirm glucose (DME) blood-glucose meter [FreeStyle Lite Meter] Kit See Rx Instructions .Route Qty: 1 1RF Rx Instructions: As directed (DME) Ketone Urine Test Strip See Rx Instructions .ROUTE .MEDSUPPLY Qty: 25 1RF Rx Instructions: As directed Referrals: ED Physician,Generic [Physician] - 2 days Stand Alone Forms: Work/School Release Print Language: Uruguayan
[2024-02-20 16:53] VITALS: PULSE 90; RESP 18; O2SAT 97
[2024-02-20] MEDS: Albuterol Sulfate 90 MCG 8 GM INHALER 4 PUFF INHALE (16:56)
[2024-02-20 17:37] LABS: IDNOW Serial# 08D9AD1C
[2024-02-20 17:38] LABS: Strep A Nucleic Acid Negative (Negative)
[2024-02-20 18:04] LABS: Influenza A PCR NEGATIVE (Negative); Influenza B PCR NEGATIVE (Negative); Resp Syncy Virus RNA Qual PCR NEGATIVE (Negative); SARS COV2 PCR INHOUSE NEGATIVE (Negative)
[2024-02-20 19:13] VITALS: BP 140/68; PULSE 89; RESP 24; TEMP 36.6; O2SAT 99
[2024-02-20] MEDS: dexAMETHasone sod phosphate 4 MG/ML VIAL 8 MG IVPUSH (20:21)
[2024-02-20 20:26] VITALS: BP 140/68; PULSE 89; RESP 24; TEMP 36.6; O2SAT 99
== END 2024-02-20 20:27 | disposition home or self-care (01) ==
PROVIDERS: Physician Assistant; Emergency Provider Internal Medicine; PCP Internal Medicine
DX: J20.9 Acute bronchitis, unspecified (principal); J32.9 Chronic sinusitis, unspecified; H61.21 Impacted cerumen, right ear; H66.93 Otitis media, unspecified, bilateral; R06.02 Shortness of breath; Z03.818 Encounter for observation for suspected exposure to other biological agents ruled out; E11.9 Type 2 diabetes mellitus without complications; I10 Essential (primary) hypertension; E78.00 Pure hypercholesterolemia, unspecified; Z79.899 Other long term (current) drug therapy
CPT/HCPCS: 0241U; 71046; 87651; 94640; 94664; 99283; 99284; J1100

== ENCOUNTER 2024-02-22 15:39 | Outpatient (AMB) | payer OTHER, SELFPAY ==
--- NOTE | 2024-02-22 16:29 | A.OFFVIS_ITS ---
Intake Intake Visit Reasons: 60 min-conf Case Management Assistant Required: No Accompanied by: Self / Same As Patient Allergies aspirin [ASA] Allergy (Unknown, Verified 02/20/24 16:31) BLEEDING lisinopril Adverse Reaction (Intermediate, Verified 02/20/24 16:31) Cough prednisone Adverse Reaction (Intermediate, Verified 02/20/24 16:31) high Blood sugar grasses/pollen Allergy (Mild, Uncoded 02/14/24 05:56) congestion Actos Allergy (Unknown, Uncoded 02/14/24 05:56) nausea and vomiting Trulicity Allergy (Unknown, Uncoded 02/14/24 05:56) nausea and vomiting HPI Comprehensive Diabetes Asmnt Most Recent Diabetes Results: Microalb/Creat Ratio 93.2 ug/mg cr (<30) H 01/15/23 Cholesterol 126 mg/dL (<200) 01/15/23 HDL Cholesterol 56 mg/dL (>40) 01/15/23 Triglycerides 62 mg/dL (<150) 01/15/23 Creatinine 0.65 mg/dL (0.5-1.4) 01/15/23 Blood Urea Nitrogen 14 mg/dL (9-16) 01/15/23 Sodium 141 mmol/L (135-145) 01/15/23 Potassium 4.2 mmol/L (3.3-5.1) 01/15/23 Chloride 106 mmol/L (96-108) 01/15/23 Carbon Dioxide 24 mmol/L (22-29) 01/15/23 Calcium 9.4 mg/dL (8.4-10.2) 01/15/23 AST 12 U/L (5-31) 10/03/21 ALT 11 U/L (0-31) 10/03/21 Total Protein 6.5 g/dL (6.5-8.0) 10/03/21 Albumin 3.9 g/dL (3.5-5.0) 10/03/21 [facility] Medical History Uncontrolled type 1 diabetes mellitus with hyperglycemia, with long-term current use of insulin Obesity due to excess calories Viral syndrome halfway (current) use of insulin Vitamin D deficiency Diabetic nephropathy associated with type 2 diabetes mellitus Hypothyroidism Cough Impacted cerumen of right ear Allergic rhinitis Menstrual bleeding problem Hypothyroid Asthma Hypercholesterolemia Obesity Hypertension Surgical History Hx of right breast biopsy Hx of tooth extraction Family History Father Hypertension Obesity Prediabetes Mother Heart disease Glaucoma Social History Household Members: Family Housing: Apartment Alcohol intake: never Patient Tobacco Use Status: Never used Tobacco e-Cigarette/Vaping Use: Never Used Second Hand Smoke Exposure: No service: No Current occupational status: employed Current occupational exposures/hazards: No Gender identity: Female Cognitive needs: No Hearing needs: No Vision needs: Yes Female Reproductive History Menstrual Age of Menarche: 12 Assessment & Plan Assessment & Plan (1) Uncontrolled type 1 diabetes mellitus with hyperglycemia, with long-term current use of insulin: Code(s): E10.65 - Type 1 diabetes mellitus with hyperglycemia Plan: Patient presents for pump training for iLet pump and CGM training today. The following topics were reviewed today: -Pump therapy basic concepts: Basal/bolus -Always dose prior to meals - Off pump backup insulin plan iLet Alerts: ??? High Alert: 300 mg/dl ??? Low Alert: 75 mg/dl CGM: Above target:28.2% At target:71.2% Below target:0.3% Patient's average glucose for the past 14 days 164 mg/dL TDD:114.5 units Basal:57.6 units Patient is being treated for bronchitis since the beginning of January, has been concerned that glucose levels have been running too high and has been selecting more than usual for over 60% of all of her meals Instructed patient that this is actually having the opposite effect, the pump will not be delivering any more insulin for greater than meals if she is continuing eating the same amount of carbohydrates Then when she is actually consuming 50% more carbohydrates than usual the pump will not know to compensate for the greater carb in take The pump continually learns from the previous meal announcements. If pump does not give enough insulin for usual breakfast, in the next day for the usual breakfast it will increase the amount of insulin until glucose levels are brought back into target. Patient stated she understands the instructions. Contact staking technician with any questions or concerns Instructed patient to only use room temperature insulin, how to load cartridge or fill pod, with insulin. Fill tubing and cannula (if applicable) Troubleshooting after starting new pod or inserting new insulin set: Occlusion, adhesive tape sensitivity, redness Check BG 2 hours after site change Reviewed Safety information: Reinforced the Importance of a backup plan, for manual injections, proper prescriptions and emergency supplies ketone strips, and rules for testing for ketones Setup Boluscalc sandra in Pt's phone in the event she has to give herself manual injection Patient understands the basic concepts of pump therapy, how to give insulin for meals and snacks, how to troubleshoot for hyper and hypoglycemia. Patient will follow up with [facility] as instructed Patient will contact [facility] with questions or concerns, patient given IT number to support in any technical issues related to insulin pump Portions of this note were created using voice recognition software, please excuse any words or phrases that may have been misinterpreted. Patient Instructions: Patient will follow-up with staking technician in 1 month Coding Level of Care Code Est Pt Level 1 (53487) Diagnoses Uncontrolled type 1 diabetes mellitus with hyperglycemia, with long-term current use of insulin E10.65
== END 2024-02-22 16:31 | disposition home or self-care (01) ==
LOC: HO.ENCR 15:40
PROVIDERS: PCP Internal Medicine; Visit Provider Registered Nurse Diabetes Educator
DX: E10.65 Type 1 diabetes mellitus with hyperglycemia (principal)

== ENCOUNTER → 2024-02-22 15:39 | Outpatient (BNVA) | payer OTHER, SELFPAY | PROVIDERS: PCP Internal Medicine; Visit Provider Registered Nurse Diabetes Educator | DX: E10.65 Type 1 diabetes mellitus with hyperglycemia (principal); Z96.41 Presence of insulin pump (external) (internal); Z79.4 Long term (current) use of insulin | CPT/HCPCS: 99211 ==

== ENCOUNTER 2024-02-24 15:13 | Outpatient (AMB) | payer OTHER, SELFPAY ==
[2024-02-24 15:20] VITALS: BP 110/60; PULSE 82; O2SAT 98; BMI 53.7
--- NOTE | 2024-02-24 15:20 | A.OFFPC_ITS ---
Vital Signs 02/24/24 15:20 Height 5 ft 5 in Weight 323 lb BMI 53.7 BP 110/60 Blood Pressure Location Lt radial Position Sitting Pulse 82 Pulse Source Pulse Oximeter Pulse Oximetry (%) 98 Oxygen Delivery Method Room Air Intake Visit Re[place] [facility] [place] Coughing Asthma Intake Note: Patient is here to follow-up after a visit the emergency department at [facility]/14/24 Pumper Gauger Required: No Allergies aspirin [ASA] Allergy (Unknown, Verified 02/24/24 15:20) BLEEDING lisinopril Adverse Reaction (Intermediate, Verified 02/24/24 15:20) Cough prednisone Adverse Reaction (Intermediate, Verified 02/24/24 15:20) high Blood sugar grasses/pollen Allergy (Mild, Uncoded 02/24/24 15:20) congestion Actos Allergy (Unknown, Uncoded 02/24/24 15:20) nausea and vomiting Trulicity Allergy (Unknown, Uncoded 02/24/24 15:20) nausea and vomiting Medication List - Last Reconciled 02/24/24 by Kylah Goins PA-C acetaminophen 1,000 mg (2 x 500 mg) PO Q6H PRN acetone (urine) test (Ketone Urine Test strips) As directed albuterol sulfate 90 mcg/actuation (Ventolin HFA) 1 inh inhalation Q6H PRN atorvastatin 20 mg PO DAILY benzocaine-menthol 15-2.6 mg (Cepacol Sore Throat (benzocaine-menthol)) 1 taya mucous membrane Q2-4H PRN benzonatate 200 mg PO BID-TID PRN bisacodyl (Dulcolax (bisacodyl)) 20 mg (4 x 5 mg) PO ONCE 1 day blood sugar diagnostic (FreeStyle Lite Strips) As directed six times a day p.r.n. sensor failure or to confirm readings blood-glucose meter (FreeStyle Lite Meter kit) As directed blood-glucose sensor (Xenon Arc G7 Sensor device) As directed change every 10 days cetirizine 10 mg PO DAILY ciprofloxacin-dexamethasone 0.3-0.1 % 4 drps otic (ears) BID 7 days codeine-guaifenesin 10-100 mg/5 mL (Guaifenesin AC) 10 mL PO Q6H PRN doxycycline hyclate 100 mg PO BID 10 days ferrous sulfate ER (Slow Fe) 137 mg PO .QD 90 days FreeStyle Lancets (lancets) 4 times a day NS insulin aspart (niacinamide) 100 unit/mL (Fiasp U-100 Insulin) infuse up to 60 units/day via insulin pump; insulin aspart (niacinamide) 100 unit/mL (3 mL) (Fiasp FlexTouch U-100 Insulin) 60 units daily via pump; insulin pump cart,auto,BT-cntr (Omnipod 5 G6 Intro Kit (Gen 5) subcutaneous cartridge with controller) As directed insulin pump cart,automated,BT (Omnipod 5 G6 Pods (Gen 5) subcutaneous cartridge) As directed lancets (FreeStyle Lancets) 6 times a day prn sensor failure or to confirm glucose Levoxyl (levothyroxine) 100 mcg PO DAILY NS lidocaine 5% 1 patch topical DAILY losartan 25 mg PO DAILY pantoprazole 40 mg PO DAILY pen needle, diabetic As directed pen needle, diabetic (1st Tier Unifine Pentips Plus) 4 times a day pen needle, diabetic (BD Aishwarya 2nd Gen Pen Needle) USE TO INJECT 5 TIMES A DAY polyethylene glycol 3350 (Miralax) 238 grams PO ONCE 1 day sennosides-docusate sodium 8.6-50 mg (Senna Plus) 2 tab-caps (2 x 8.6-50 mg) PO BEDTIME 30 days Tobacco use date assessed: 02/06/24 Dental Screening Dental Screen Date: 06/13/23 [facility] 02/13 Coughing Asthma HPI Details 48-year-old female with diabetes mellitu s, hypertension, hypercholesterolemia, hypothyroidism last seen by Dr. Hernandez 02/06/2024 [facility]. In review of the notes, patient was seen in [facility] [place]/21/2024 for ear pain and URI symptom patient's workup was unremarkable diagnosed with sinusitis and given doxycycline and discharged home. Continues to have a cough but feels her symptoms have been improving at this time. Park been having bilateral ear pain, right-sided rib pain from the cough and sore throat from the cough as well. She has been on multiple rounds of antibiotics and is currently 3 days into a 10 day course of doxycycline. She has also had prednisone but states this message with her sugars and would like to avoid using steroids at this time. 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 Vitamin D deficiency Diabetic nephropathy associated with type 2 diabetes mellitus Hypothyroidism Impacted cerumen of right ear Allergic rhinitis Menstrual bleeding problem Hypothyroid Asthma Hypercholesterolemia Obesity Hypertension Surgical History Hx of right breast biopsy Hx of tooth extraction Family History Father Hypertension Obesity Prediabetes Mother Heart disease Glaucoma Social History Household Members: Family Housing: Apartment Alcohol intake: never Patient Tobacco Use Status: Never used Tobacco e-Cigarette/Vaping Use: Never Used Second Hand Smoke Exposure: No service: No Current occupational status: employed Current occupational exposures/hazards: No Gender identity: Female Cognitive needs: No Hearing needs: No Vision needs: Yes Female Reproductive History Menstrual Age of Menarche: 12 Questionnaire Thrive Questionnaire Date Thrive assessed: 06/13/23 Are you currently unemployed and looking for a job?: No AUDIT C Alcohol Use Questionnaire (AUDIT-C) 1. How often do you have a drink containing alcohol?: Never 3. How often do you have six or more drinks on one occasion?: Never Total Score: 0 DIMA-7 AMB Questionnaire DIMA-7 Date DIMA - 7 assessed: 06/13/23 Source: Developed by Drs. Sagar Ascencio, Jackelyn Dueñas, Camilo Redman and colleagues, with an educational maura from [employer]. Review of Systems Const Denies body aches, Denies chills, Denies fatigue, Denies fever(s) and Denies headache(s) Eyes Reports no additional complaints ENT Reports otalgia, Denies facial pain, Denies headache(s), Denies sinus pain, Denies sore throat and Denies throat swelling Card Denies chest pain, Denies leg edema, Denies lightheadedness, Denies dyspnea and Reports dyspnea on exertion Resp Reports cough, Denies hemoptysis, Denies excessive phlegm production, Denies dyspnea and Reports dyspnea on exertion GI Reports no additional complaints Reports no additional complaints Musc Details: Right-sided rib pain Neuro Denies headache(s) Endo Denies fatigue Aller/Immun Denies throat swelling Physical exam (Primary Care) Vital Signs: Last Vital Signs Pulse 82 02/24/24 15:20 BP 110/60 02/24/24 15:20 Pulse Ox 98 02/24/24 15:20 Oxygen Delivery Method Room Air 02/24/24 15:20 BMI result Body Mass Index 53.7 Tobacco/Smoking Status: Tobacco use Status Tobacco use date assessed 02/06/24 02/24/24 15:21 Patient Tobacco Use Status Never used Tobacco 02/24/24 15:21 e-Cigarette/Vaping Use Never Used 02/24/24 15:21 Thrive Assessment: Date of Thrive Assessment Date Thrive assessed 06/13/23 02/24/24 15:21 Const General: cooperative, healthy appearing, comfortable and no acute distress Orientation/consciousness: patient oriented x3 HENMT Head: Yes normocephalic Ears: hearing grossly normal bilaterally, TM normal on the right, EAC's normal and TM abnormal bulging on the left General nose exam: Normal external nose present Eyes General: appearance normal, both eyes and all related structures Conjunctivae: conjunctivae normal Neck Neck: Yes full ROM and Yes no lymphadenopathy Chest Other: Tenderness to palpation over right ribs Resp Effort & Inspection: normal respiratory effort Auscultation: clear to auscultation bilaterally, no crackles, no rales, no rhonchi and no wheezes Cardio Rate: regular rate Rhythm: regular rhythm Skin General skin exam: no rashes or lesions noted Neuro General: patient oriented x3 Gait exam (Neuro): Normal gait present Extrem General: Yes normal to inspection, Yes full ROM and No edema Psych Affect: normal affect Attitude: cooperative Insight: Good insight present (Psych) Judgement: Good judgement present (Psych) Coding Level of Care Code Est Pt Level 3 (80640) Diagnoses Allergy, subsequent encounter T78.40XD Encounter type: subsequent encounter Cough R05 Otitis media H66.90 Assessment & Plan Assessment & Plan (1) Allergy: Code(s): T78.40XA - Allergy, unspecified, initial encounter Category: Medical Qualifiers: Encounter type: subsequent encounter Qualified Code(s): T78.40XD - Allergy, unspecified, subsequent encounter Plan: Patient having allergy related symptoms such as cough advised to use Jennifer daily, saline nasal sprays and Flonase. (2) Cough: Code(s): R05 - Cough Category: Medical Plan: Patient having negative imaging and lungs sound clear on exam. Advised patient to continue to use her inhaler as needed and a spacing device will be provided as this tends to work better for her. Continue on 10 day course of doxycycline for sinusitis. Patient states her symptoms have been improving and advised to follow up if symptoms worsen or do not improve. (3) Otitis media: Code(s): H66.90 - Otitis media, unspecified, unspecified ear Category: Medical Plan: Patient having left-sided otitis media without effusion currently on doxycycline which should treat this infection and patient requesting refill of Ciprodex as this helped the ear pain. Plan This note was constructed using voice recognition software. While every effort has been made to ensure accuracy and family support specialist, still areas may have been included sometimes these areas may affect the content or meeting of the given symptoms. Total time spent caring for the patient today was 30 minutes. This includes time spent before the visit reviewing the chart, time spent during the visit, and time spent after the visit and documentation. Medications: New inhalational spacing device As directed 1 ea 0RF Refilled ciprofloxacin-dexamethasone 0.3-0.1 % 4 drps otic (ears) BID 7 days 7.5 mL 0RF
== END 2024-02-24 16:48 | disposition home or self-care (01) ==
LOC: HO.HMCH 15:13
PROVIDERS: PCP Internal Medicine
DX: T78.40XD Allergy, unspecified, subsequent encounter (principal); R05.9 Cough, unspecified; H66.90 Otitis media, unspecified, unspecified ear

== ENCOUNTER → 2024-02-24 15:13 | Outpatient (BNVA) | payer OTHER, SELFPAY | PROVIDERS: PCP Internal Medicine | DX: R05.9 Cough, unspecified (principal); T78.40XD Allergy, unspecified, subsequent encounter; H66.90 Otitis media, unspecified, unspecified ear | CPT/HCPCS: 99212 ==

== ENCOUNTER 2024-03-20 16:20 | Outpatient (AMB) | payer OTHER, SELFPAY ==
--- NOTE | 2024-03-20 16:44 | A.OFFVIS_ITS ---
Intake Intake Visit Reasons: DM-confirmed User Interface Designer Required: No Accompanied by: Self / Same As Patient Allergies aspirin [ASA] Allergy (Unknown, Verified 02/24/24 15:20) BLEEDING lisinopril Adverse Reaction (Intermediate, Verified 02/24/24 15:20) Cough prednisone Adverse Reaction (Intermediate, Verified 02/24/24 15:20) high Blood sugar grasses/pollen Allergy (Mild, Uncoded 02/24/24 15:20) congestion Actos Allergy (Unknown, Uncoded 02/24/24 15:20) nausea and vomiting Trulicity Allergy (Unknown, Uncoded 02/24/24 15:20) nausea and vomiting HPI Comprehensive Diabetes Asmnt Most Recent Diabetes Results: Microalb/Creat Ratio 93.2 ug/mg cr (<30) H 01/15/23 Cholesterol 126 mg/dL (<200) 01/15/23 HDL Cholesterol 56 mg/dL (>40) 01/15/23 Triglycerides 62 mg/dL (<150) 01/15/23 Creatinine 0.65 mg/dL (0.5-1.4) 01/15/23 Blood Urea Nitrogen 14 mg/dL (9-16) 01/15/23 Sodium 141 mmol/L (135-145) 01/15/23 Potassium 4.2 mmol/L (3.3-5.1) 01/15/23 Chloride 106 mmol/L (96-108) 01/15/23 Carbon Dioxide 24 mmol/L (22-29) 01/15/23 Calcium 9.4 mg/dL (8.4-10.2) 01/15/23 AST 12 U/L (5-31) 10/03/21 ALT 11 U/L (0-31) 10/03/21 Total Protein 6.5 g/dL (6.5-8.0) 10/03/21 Albumin 3.9 g/dL (3.5-5.0) 10/03/21 [facility] Medical History Cough Uncontrolled type 1 diabetes mellitus with hyperglycemia, with long-term current use of insulin Obesity due to excess calories 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 Vitamin D deficiency Diabetic nephropathy associated with type 2 diabetes mellitus Hypothyroidism Impacted cerumen of right ear Allergic rhinitis Menstrual bleeding problem Hypothyroid Asthma Hypercholesterolemia Obesity Hypertension Surgical History Hx of right breast biopsy Hx of tooth extraction Family History Father Hypertension Obesity Prediabetes Mother Heart disease Glaucoma Social History Household Members: Family Housing: Apartment Alcohol intake: never Patient Tobacco Use Status: Never used Tobacco e-Cigarette/Vaping Use: Never Used Second Hand Smoke Exposure: No service: No Current occupational status: employed Current occupational exposures/hazards: No Gender identity: Female Cognitive needs: No Hearing needs: No Vision needs: Yes Female Reproductive History Menstrual Age of Menarche: 12 Assessment & Plan Assessment & Plan (1) 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 The following topics were reviewed today: -Pump therapy basic concepts: Basal/bolus -For most effective glucose control bolus prior to meals - Off pump backup insulin plan iLet Alerts: ??? High Alert: 300 mg/dl ??? Low Alert: 75 mg/dl CGM: Above target:13.8% At target:85.7% Below target:0.4% Patient's average glucose for the past 14 days 141 mg/dL Patient has started announcing usual meal more frequently, this has improved average glucose. Patient is still waiting for vials that are on back order Instructed patient if she needs new prescription because insulin demand has gone up she needs to contact clinic for new prescriptions Patient will be due for next A1c in 05/14/2024 TDD:86.8 units Basal:48.6 units Instructed patient to only use room temperature insulin, how to load cartridge or fill pod, with insulin. Fill tubing and cannula (if applicable) Troubleshooting after starting new pod or inserting new insulin set: Occlusion, adhesive tape sensitivity, redness Check BG 2 hours after site change Reviewed Safety information: Importance of a backup plan, for manual injections, proper prescriptions and emergency supplies ketone strips, and rules for testing for ketones Patient understands the basic concepts of pump therapy, how to give insulin for meals and snacks, how to troubleshoot for hyper and hypoglycemia. Patient will follow up with [facility] as instructed Patient will contact [facility] with questions or concerns, patient given IT number to support in any technical issues related to insulin pump Portions of this note were created using voice recognition software, please excuse any words or phrases that may have been misinterpreted. 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
== END 2024-03-20 16:52 | disposition home or self-care (01) ==
PROVIDERS: PCP Internal Medicine; Visit Provider Registered Nurse Diabetes Educator
DX: E13.9 Other specified diabetes mellitus without complications (principal)

== ENCOUNTER → 2024-03-20 16:20 | Outpatient (BNVA) | payer OTHER, SELFPAY | PROVIDERS: PCP Internal Medicine; Visit Provider Registered Nurse Diabetes Educator | DX: E10.65 Type 1 diabetes mellitus with hyperglycemia (principal); E10.21 Type 1 diabetes mellitus with diabetic nephropathy; Z79.4 Long term (current) use of insulin; Z46.81 Encounter for fitting and adjustment of insulin pump | CPT/HCPCS: 99211 ==

== ENCOUNTER 2024-04-09 12:09 | Outpatient (REF) | payer OTHER, SELFPAY ==
--- NOTE | ~2024-04-09 | MM_ITS ---
EXAMINATION: MM DIAGNOSTIC DIGITAL BREAST TOMOSYNTHESIS, BILATERAL CLINICAL INFORMATION: Two-year follow-up for left breast asymmetry retroareolar region on cc view without prior sonographic correlate. COMPARISON: Mammography: Comparison is made with relevant prior exams. TECHNIQUE: Digital breast mammography with tomosynthesis is performed in both the craniocaudal and mediolateral oblique views along with computer-aided detection (CAD). FINDINGS: There are scattered areas of fibroglandular density (ACR BI-RADS breast composition Category b). Left: Previously seen asymmetry in the retroareolar region anterior depth on CC view is not significantly changed from prior mammograms dating back for 2 years, no prior sonographic correlate was seen. No suspicious calcifications or other abnormal findings. Right: Marker clip from previous benign needle core biopsy. No suspicious masses calcifications or other abnormal findings. Results are provided to the patient at time of visit by the technologist. MM/MM tomosynthesis diagnostic BI IMPRESSION: Left: Benign. Right: Benign. ASSESSMENT: BI-RADS BI-RADS 2 - Benign Findings RECOMMENDATION: 1 year F/U This patient's information was entered into a reminder system with a target due date for their next mammogram. Electronically signed by: Lin Santana DO 04/09/2024 12:50 PM NIKKI
== END 2024-04-09 12:10 | disposition home or self-care (01) ==
LOC: HO.MAMMO 12:09
PROVIDERS: PCP Internal Medicine; Visit Provider Internal Medicine
DX: R92.2 Inconclusive mammogram (principal)
CPT/HCPCS: 77062; 77066

== ENCOUNTER → 2024-04-09 12:30 | Outpatient (BNV) | payer OTHER, SELFPAY | PROVIDERS: PCP Internal Medicine; Visit Provider Internal Medicine | DX: N63.10 Unspecified lump in the right breast, unspecified quadrant (principal) | CPT/HCPCS: 77065 ==

== ENCOUNTER 2024-05-04 15:19 | Outpatient (AMB) | payer OTHER, SELFPAY ==
--- NOTE | 2024-05-04 15:25 | A.OFFVIS_ITS ---
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 Most recent HbA1c: 5.6%, 05/04/2024 Random Glucose- 87 mg/dL, Today Admitting Clerk Required: No Accompanied by: Self / Same As Patient Allergies aspirin [ASA] Allergy (Unknown, Verified 05/04/24 15:30) BLEEDING lisinopril Adverse Reaction (Intermediate, Verified 05/04/24 15:30) Cough prednisone Adverse Reaction (Intermediate, Verified 05/04/24 15:30) high Blood sugar grasses/pollen Allergy (Mild, Uncoded 05/04/24 15:30) congestion Actos Allergy (Unknown, Uncoded 05/04/24 15:30) nausea and vomiting Trulicity Allergy (Unknown, Uncoded 05/04/24 15:30) nausea and vomiting HPI Comments Details: Patient is 48-year-old female who presents for management of diabetes type 1 and hypothyroidism. She was last seen by by myself 02/02/24 and by Glory SILVA on 03/17/24 for follow up islet insulin pump. Continuous glucose sensing at that time was in excellent control. HgbA1C 05/04/24 02/02/24 7% 09/22/23 7.2% Past medical history: Diabetes type 2 hypothyroidism, HTN, dyslipidemia, obesity 1) Diabetes Diabetes type 2 diagnosed and 2015. She also had hypoglycemic unawareness. Micro and macrovascular complications: Nephropathy (+ microalbumin) Diabetes medications: Back up pump failure plan: Lantus 30 units daily, Fiasp via I:C ratio 1:10, and sensitivity 1:10 begin correction at 120mg/dl Dexcom average glucose: [ ] 14 day continuous glucose monitor report reviewed Glucose Managment indicator [ ] % Days with CGM data [ ] % TIme in ranges: [ ] % very high (above 250) [ ] % high ?(181-250) [ ] % in range ?(70-180] [ ] % low (69-55) [ ] % ?very low (below 54) [ ] Standard Deviation Interpretation [ ] Symptoms reported: denies numbness, tingling, cramping in lower extremities Hypoglycemia: No Exercise: denies 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 Medications: Levoxyl 100 mcg eats and takes other medications at least one hour later. TSH has been in good range. 09/21/23 2.71 Symptoms: Reports some fatigue, dry skin. Denies dysphagia, dyspnea, dysphonia, Denies radiation to head or neck, thyroid surgery or biopsy. Denies biotin use. 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 Vitamin D deficiency Diabetic nephropathy associated with type 2 diabetes mellitus Hypothyroidism Impacted cerumen of right ear Allergic rhinitis Menstrual bleeding problem Hypothyroid Asthma Hypercholesterolemia Obesity Hypertension Surgical History Hx of right breast biopsy Hx of tooth extraction Family History Father Hypertension Obesity Prediabetes Mother Heart disease Glaucoma Social History Household Members: Family Housing: Apartment Alcohol intake: never Patient Tobacco Use Status: Never used Tobacco e-Cigarette/Vaping Use: Never Used Second Hand Smoke Exposure: No service: No Current occupational status: employed Current occupational exposures/hazards: No Gender identity: Female Cognitive needs: No Hearing needs: No Vision needs: Yes Female Reproductive History Menstrual Age of Menarche: 12 Physical Exam Vital Signs: Last Vital Signs BP 118/76 05/04/24 15:29 BMI result Body Mass Index 55.4 Results AMB Hemoglobin A1c AMB Hemoglobin A1c 5.6 % Last Edit by AB Henriquez on 05/04/24 15:46 Assessment & Plan Assessment & Plan Orders: Orders AMB Hemoglobin A1c Today E13.9 - Other specified diabetes mellitus without complications Medications: Refilled insulin aspart (niacinamide) 100 unit/mL infuse up to 60 units/day via insulin pump; 20 mL 4RF Coding
[2024-05-04 15:29] VITALS: BP 118/76; BMI 55.4
[2024-05-04 15:39] LABS: Glucose, Whole Blood 87 mg/dL (60-115)
== END 2024-05-04 16:03 | disposition home or self-care (01) ==
PROVIDERS: PCP Internal Medicine; Visit Provider Nurse Practitioner Adult Health
DX: E13.9 Other specified diabetes mellitus without complications (principal)

== ENCOUNTER → 2024-05-04 15:19 | Outpatient (BNVA) | payer OTHER, SELFPAY | PROVIDERS: PCP Internal Medicine; Visit Provider Nurse Practitioner Adult Health | DX: E13.9 Other specified diabetes mellitus without complications (principal) | CPT/HCPCS: 82947; 83036; 99212 ==

== ENCOUNTER 2024-05-08 14:43 | Outpatient (AMB) | payer OTHER, SELFPAY ==
--- NOTE | 2024-05-09 07:53 | A.OFFVIS_ITS ---
Intake Intake Visit Reasons: DM Binding Bench Worker Required: No Accompanied by: Self / Same As Patient Allergies aspirin [ASA] Allergy (Unknown, Verified 05/04/24 15:30) BLEEDING lisinopril Adverse Reaction (Intermediate, Verified 05/04/24 15:30) Cough prednisone Adverse Reaction (Intermediate, Verified 05/04/24 15:30) high Blood sugar grasses/pollen Allergy (Mild, Uncoded 05/04/24 15:30) congestion Actos Allergy (Unknown, Uncoded 05/04/24 15:30) nausea and vomiting Trulicity Allergy (Unknown, Uncoded 05/04/24 15:30) nausea and vomiting HPI Comprehensive Diabetes Asmnt Most Recent Diabetes Results: No Data to Display [facility] Medical History Cough Uncontrolled type 1 diabetes mellitus with hyperglycemia, with long-term current use of insulin Obesity due to excess calories Viral syndrome long-term (current) use of insulin Vitamin D deficiency Diabetic nephropathy associated with type 2 diabetes mellitus Hypothyroidism Impacted cerumen of right ear Allergic rhinitis Menstrual bleeding problem Hypothyroid Asthma Hypercholesterolemia Obesity Hypertension Surgical History Hx of right breast biopsy Hx of tooth extraction Family History Father Hypertension Obesity Prediabetes Mother Heart disease Glaucoma Social History Household Members: Family Housing: Apartment Alcohol intake: never Patient Tobacco Use Status: Never used Tobacco e-Cigarette/Vaping Use: Never Used Second Hand Smoke Exposure: No service: No Current occupational status: employed Current occupational exposures/hazards: No Gender identity: Female Cognitive needs: No Hearing needs: No Vision needs: Yes Female Reproductive History Menstrual Age of Menarche: 12 Assessment & Plan Assessment & Plan (1) 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 The following topics were reviewed today: -Pump therapy basic concepts: Basal/bolus -For most effective glucose control bolus prior to meals Patient concerned regarding significant hypoglycemic event on 1/13/25 after supper. Patient reports that since the holidays are over her eating habits have changed significantly. Patient requested factory reset at today's visit. Reviewed the following: Patient instructed to only announce meals that have carbohydrates For the 1st few days: Eat meals that have usual amount of carbs for you in announce them as usual Wait at least 4 hours between eating meals with carbs and announcing again If you are eating between meals, low carb snacks are the best option. Announce meal right away when you start eating If you forget and is more than 30 minutes since started eating do not announce Avoid over treating lows that occur after meals Always have extra supplies: CGM sensor Supply to refill your insulin cartridge and replace your infusion set Blood glucose and ketone testing supplies Extra insulin Treatment for low blood glucose Emergency contact information Ketone action plan Keep sandra open on your phone, keep your ilet paired with the sandra Always sink her data before appointments with your healthcare provider BG run mode: The iLet will go into BG mode if not receiving CGM glucose readings You will be required to enter BG into pump every 4 hours. After 72 hours insulin delivery will stop, if a new CGM is not initiated. In the 1st week of pump therapy you will need to enter BG every hour. After 48 hours without CGM in the 1st week insulin delivery will stop Instructed patient to only use room temperature insulin, how to load cartridge or fill pod, with insulin. Fill tubing and cannula (if applicable) iLet Alerts: ??? High Alert: 300 mg/dl ??? Low Alert: 75 mg/dl CGM: Above target:12.8% At target:84.7% Below target:1.0% Patient's average glucose for the past 14 days 137 mg/dL TDD:72.2 units Basal:22.8 units Instructed patient to only use room temperature insulin, how to load cartridge or fill pod, with insulin. Fill tubing and cannula (if applicable) Troubleshooting after starting new pod or inserting new insulin set: Occlusion, adhesive tape sensitivity, redness Check BG 2 hours after site change Reviewed Safety information: Importance of a backup plan, for manual injections, proper prescriptions and emergency supplies ketone strips, and rules for testing for ketones Patient understands the basic concepts of pump therapy, how to give insulin for meals and snacks, how to troubleshoot for hyper and hypoglycemia. Patient will follow up with [facility] as instructed Patient will contact [facility] with questions or concerns, patient given IT number to support in any technical issues related to insulin pump Portions of this note were created using voice recognition software, please excuse any words or phrases that may have been misinterpreted. 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
== END 2024-05-08 16:08 | disposition home or self-care (01) ==
PROVIDERS: PCP Internal Medicine; Visit Provider Registered Nurse Diabetes Educator
DX: E13.9 Other specified diabetes mellitus without complications (principal)

== ENCOUNTER → 2024-05-08 14:43 | Outpatient (BNVA) | payer OTHER, SELFPAY | PROVIDERS: PCP Internal Medicine; Visit Provider Registered Nurse Diabetes Educator | DX: E13.9 Other specified diabetes mellitus without complications (principal) | CPT/HCPCS: 99211 ==

== ENCOUNTER 2024-05-15 15:47 | Outpatient (AMB) | payer OTHER, SELFPAY ==
--- NOTE | 2024-05-15 16:07 | MHC.AMDMED ---
Intake Intake Visit Reasons: 60 min Patient Registration Supervisor Required: No Accompanied by: Self / Same As Patient Allergies aspirin [ASA] Allergy (Unknown, Verified 05/04/24 15:30) BLEEDING lisinopril Adverse Reaction (Intermediate, Verified 05/04/24 15:30) Cough prednisone Adverse Reaction (Intermediate, Verified 05/04/24 15:30) high Blood sugar grasses/pollen Allergy (Mild, Uncoded 05/04/24 15:30) congestion Actos Allergy (Unknown, Uncoded 05/04/24 15:30) nausea and vomiting Trulicity Allergy (Unknown, Uncoded 05/04/24 15:30) nausea and vomiting HPI Comprehensive Diabetes Asmnt Most Recent Diabetes Results: Microalb/Creat Ratio 93.2 ug/mg cr (<30) H 01/15/23 Cholesterol 126 mg/dL (<200) 01/15/23 HDL Cholesterol 56 mg/dL (>40) 01/15/23 Triglycerides 62 mg/dL (<150) 01/15/23 Creatinine 0.65 mg/dL (0.5-1.4) 01/15/23 Blood Urea Nitrogen 14 mg/dL (9-16) 01/15/23 Sodium 141 mmol/L (135-145) 01/15/23 Potassium 4.2 mmol/L (3.3-5.1) 01/15/23 Chloride 106 mmol/L (96-108) 01/15/23 Carbon Dioxide 24 mmol/L (22-29) 01/15/23 Calcium 9.4 mg/dL (8.4-10.2) 01/15/23 AST 12 U/L (5-31) 10/03/21 ALT 11 U/L (0-31) 10/03/21 Total Protein 6.5 g/dL (6.5-8.0) 10/03/21 Albumin 3.9 g/dL (3.5-5.0) 10/03/21 [facility] Medical History Cough Uncontrolled type 1 diabetes mellitus with hyperglycemia, with long-term current use of insulin Obesity due to excess calories Viral syndrome 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 Vitamin D deficiency Diabetic nephropathy associated with type 2 diabetes mellitus Hypothyroidism Impacted cerumen of right ear Allergic rhinitis Menstrual bleeding problem Hypothyroid Asthma Hypercholesterolemia Obesity Hypertension Surgical History Hx of right breast biopsy Hx of tooth extraction Family History Father Hypertension Obesity Prediabetes Mother Heart disease Glaucoma Social History Household Members: Family Housing: Apartment Alcohol intake: never Patient Tobacco Use Status: Never used Tobacco e-Cigarette/Vaping Use: Never Used Second Hand Smoke Exposure: No service: No Current occupational status: employed Current occupational exposures/hazards: No Gender identity: Female Cognitive needs: No Hearing needs: No Vision needs: Yes Female Reproductive History Menstrual Age of Menarche: 12 Assessment & Plan Assessment & Plan (1) Uncontrolled type 1 diabetes mellitus with hyperglycemia, with long-term current use of insulin: Code(s): E10.65 - Type 1 diabetes mellitus with hyperglycemia Plan: Patient presents for pump training for iLet pump and CGM training today. The following topics were reviewed today: -Pump therapy basic concepts: Basal/bolus -For most effective glucose control bolus prior to meals - Off pump backup insulin plan iLet Alerts: ??? High Alert: 300 mg/dl ??? Low Alert: 75 mg/dl CGM: Above target:9% At target:90% Below target:1% Patient's average glucose for the past 14 days 140 mg/dL TDD:64.5 units Basal:41 units Since factory reset on 05/09/2024 hypoglycemic episodes have decreased. Patient has consistently use usual meal with the last 7 days. Discussed with patient using larger than usual on weekends when she tends to eat larger meals Instructed patient to only use room temperature insulin, how to load cartridge or fill pod, with insulin. Fill tubing and cannula (if applicable) Troubleshooting after starting new pod or inserting new insulin set: Occlusion, adhesive tape sensitivity, redness Check BG 2 hours after site change Reviewed Safety information: Importance of a backup plan, for manual injections, proper prescriptions and emergency supplies ketone strips, and rules for testing for ketones Patient understands the basic concepts of pump therapy, how to give insulin for meals and snacks, how to troubleshoot for hyper and hypoglycemia. Patient will follow up with [facility] as instructed Patient will contact [facility] with questions or concerns, patient given IT number to support in any technical issues related to insulin pump Portions of this note were created using voice recognition software, please excuse any words or phrases that may have been misinterpreted. Patient Instructions: Patient will contact special education paraeducator with questions or concerns Patient will follow-up with special education paraeducator in 5 months Coding Level of Care Code Est Pt Level 1 (58470) Diagnoses Uncontrolled type 1 diabetes mellitus with hyperglycemia, with long-term current use of insulin E10.65
--- OUTSIDE RECORDS SUMMARY | 2024-05-15 17:37 | XMS_ITS | Clinical Summary ---
Author Organization [employer] Address [address] [facility] [address] [place] [address] Care Team Providers Care Liquor Gallery Operator Name Role Phone Unavailable Primary Care Provider Unavailabl e Allergies Active Allergy Reactions Criticality Noted Date Comments Aspirin Hives 06/27/2018 Medications atorvastatin (Lipitor) 20 MG tablet Take 20 mg by mouth Once per day. 4 Active Ventolin HFA 108 (90 Base) MCG/ACT inhaler INHALE ONE PUFF BY MOUTH EVERY 6 HOURS NEEDED FOR SHORTNESS OF BREATH OR WHEEZING 4 Active Fiasp FlexTouch 100 UNIT/ML injection INJECT UP TO 70 UNITS UNDER THE SKIN DAILY SPLIT 4 TIMES A DAY) 4 Active Lantus SoloStar 100 UNIT/ML pen Inject under the skin. Active Levoxyl 100 MCG tablet Take 100 mcg by mouth Once per day. Active BD Pen Needle Aishwarya 2nd Gen 32G X 4 MM misc 4 Active lisinopril 10 MG tablet Take 10 mg by mouth Once per day. 4 Active pantoprazole (ProtoNix) 40 MG EC tablet TAKE ONE TABLET BY MOUTH EVERY DAY 1/2 HOUR BEFORE BREAKFAST 4 Active clonazePAM (KlonoPIN) 0.5 MG tablet Take 0.5 tablets (0.25 mg) by mouth 2 times daily. 30 tablet 4 Active Active Problems Problem Noted Date Diagnosed Date Dental plaque 10/14/2023 Chronic TMJ pain 10/14/2023 Localized gingival recession 10/14/2023 MPDS (myofascial pain dysfunction syndrome) 09/24 Encounters Date Type Department Care Team Description 04/16/2024 Telephone [facility] ADULT D[facility] [address] [place] [address] Sonali Álvarez from Last 3 Months Social History Tobacco Use Types Packs/Day Years Used Date Smoking Tobacco: Never Smokeless Tobacco: Never Tobacco Cessation:Counseling Given: Not Answered Comments Unknown Sex and Gender Information Value Date Recorded Sex Assigned at Female 02/22/2022 10:17 AM EDT Legal Sex Female 10:17 AM EDT Gender Identity Female 02/22/2022 10:17 AM EDT Sexual Orientation Choose not to disclose 2021 10:17 AM EDT Last Filed Vital Signs Vital Sign Reading Time Taken Comments Blood Pressure 122/74 10/14/2023 10:57 AM EDT Pulse 76 10/14/2023 10:57 AM EDT Temperature - - Respiratory Rate - - Oxygen Saturation - - Inhaled Oxygen Concentration - - Weight - - Height - - Body Mass Index - - Plan of Treatment Upcoming Encounters Date Type Department Care Team (Late st Contact Info) Description 06/14/2024 2:00 PM EST Office Visit [facility]ULT [facility] [address] [place] [address] Sonali Álvarez [address] [place] [address] Health Maintenance Due Date Last Done Comments CT Colonography 1976 Colonoscopy 1976 Colorectal Cancer Screening 1976 Depression Screening 1976 FIT DNA/Cologuard 1976 FIT 1976 FOBT 1976 HIV Screening 1976 SDOH Screening 1976 Sigmoidoscopy 1976 Alcohol/Substance Use Screening 1988 Hepatitis C Screening 1994 Hepatitis B Vaccines (1 of 3 - 19+ 3-dose series) 12/01/1995 Pap Smear 1997 Cervical Cancer Screening 2006 HPV/Cotest 2006 Mammogram 2016 Dental X-Ray: Full Mouth 11/20/2023 11/18/2020, 02/24 COVID-19 Vaccine ( season) 2023 03/28/2021, 07/29/2020, 07/08/2020 Influenza Vaccine (#1) 2023 , 03/15/2022, 02/20/2021, Additional history exists Dental Oral Exam 04/15/2024 10/14/2023, , 11/18/2020, Additional history exists Dental Prophylaxis 04/15/2024 10/14/2023, 0 11/27/2021, 11/18/2020, Additional history exists Tobacco Screening 10/13/2024 10/14/2023 Dental X-Ray: Bitewings 10/14/2024 10/14/19 24, 11/27/2021, 11/18/2020, Additional history exists DTaP/Tdap/Td Vaccines (2 - Td or Tdap) 02/26/2026 02/27/2016 Zoster Vaccines (1 of 2) 2026 RSV Patients and Patients Aged 60 years or older (1 - 1-dose 75+ series) 12/01/2051 HIB Vaccines Aged Out No longer eligi ble based on patient's age to complete this topic HPV Vaccines Aged Out No longer eligi ble based on patient's age to complete this topic Hepatitis A Vaccines Aged Out No long er eligible based on patient's age to complete this topic IPV Vaccines Aged Out No longer eligi ble based on patient's age to complete this topic Meningococcal Vaccine Aged Out No garret ricardo eligible based on patient's age to complete this topic Pneumococcal Vaccine: Pediatrics (0 to 5 Years) and At-Risk Patients (6 to 64 Years) Aged Out No longer eligible based on patient's age to complete this topic RSV under 20 months Aged Out No longe r eligible based on patient's age to complete this topic Rotavirus Vaccines Aged Out No longer eligible based on patient's age to complete this topic Procedures Procedure Name Priority Date/Time Associated Diagnosis Comments Full PROPHYLAXIS - ADULT Routine 024 11:00 AM EDT Dental plaque BITEWINGS - 4 RADIOGRAPHIC IMAGES Routine 10/14/2023 11:00 AM EDT Dental plaque Chronic TMJ pain Localized gingival recession PERIODIC ORAL EVALUATION - ESTABLISHED PATIENT Routine 10/14/2023 11:00 AM EDT DIAGNOSTIC - DIAGNOSTIC IMAGING - INTRAORAL - COMPREHENSIVE SERIES OF RADIOGRAPHIC IMAGES Routine 11/18/2020 12:00 AM EDT from Last 3 Months or Most Recently Relevant to Health Maintenance Insurance DENTAL - HSN PARTIAL (MEDICAID)
--- OUTSIDE RECORDS SUMMARY | 2024-05-15 17:37 | XMS_ITS | Encounter Summary ---
Author Organization [employer] Address [address] [facility] [address] [place] [address] Care Team Providers Care Area Captain Name Role Phone Unavailable Primary Care Provider Unavailabl e Encounter Details Date Type Department Care Team (Late st Contact Info) Description 04/16/2024 Telephone [facility] ADULT D[facility] [address] [place] [address] Henri, Sonali [address] [place] [address] Social History Tobacco Use Types Packs/Day Years Used Date Smoking Tobacco: Never Smokeless Tobacco: Never Comments Unknown Sex and Gender Information Value Date Recorded Sex Assigned at Female 02/22/2022 10:17 AM EDT Legal Sex Female 10:17 AM EDT Gender Identity Female 02/22/2022 10:17 AM EDT Sexual Orientation Choose not to disclose 2021 10:17 AM EDT documented as of this encounter Miscellaneous Notes * Telephone Encounter - Savana Francisco - 04/16/2024 10:54 AM EST Called to schedule a cleaning appointment but patient is going to travel and she prefers to call uswhen she comes back to schedule this appointment. documented in this encounter Plan of Treatment Upcoming Encounters Date Type Department Care Team (Late st Contact Info) Description 06/14/2024 2:00 PM EST Office Visit [facility]ULT [facility] [address] [place] [address] Sonali Álvarez [address] [place] [id number] documented as of this encounter Visit Diagnoses Not on filedocumented in this encounter
--- OUTSIDE RECORDS SUMMARY | 2024-05-15 17:37 | XMS_ITS | Encounter Summary ---
Author Organization [employer] Address [address] [facility] [address] [place] [address] Care Team Providers Care Aircraft Armorer Name Role Phone Unavailable Primary Care Provider Unavailabl e Encounter Details Date Type Department Care Team (Latest Contact Info) Description 11/18/2020 Abstract [facility] CONVERSIONS Dental, Provider, DDS Social History Tobacco Use Types Packs/Day Years Used Date Smoking Tobacco: Never Assessed Comments Unknown Sex and Gender Information Value Date Recorded Sex Assigned at Female 02/22/2022 10:17 AM EDT Legal Sex Female 10:17 AM EDT Gender Identity Female 02/22/2022 10:17 AM EDT Sexual Orientation Choose not to disclose 2021 10:17 AM EDT documented as of this encounter Plan of Treatment Upcoming Encounters Date Type Department Care Team (Late st Contact Info) Description 06/14/2024 2:00 PM EST Office Visit [facility] ADULT DENTAL [address] [place] [address] Henri, Sonali [address] [place] [address] documented as of this encounter Visit Diagnoses Not on filedocumented in this encounter
--- OUTSIDE RECORDS SUMMARY | 2024-05-15 17:37 | XMS_ITS | Encounter Summary ---
Author Organization [employer] Address [address] [facility] [address] [place] [address] Care Team Providers Care Attendant Child Activity Name Role Phone Unavailable Primary Care Provider Unavailabl e Encounter Details Date Type Department Care Team (Latest Contact Info) Description 11/27/2021 Abstract [facility] CONVERSIONS Dental, Provider, DDS Social History Tobacco [...] Description 06/14/2024 2:00 PM EST Office Visit [facility] ADULT DENT[facility] [address] [place] [address] Henri, Sonali [address] [place] [address] documented as of this encounter Visit Diagnoses Not on filedocumented in this encounter
--- OUTSIDE RECORDS SUMMARY | 2024-05-15 17:37 | XMS_ITS | Encounter Summary ---
Author Organization [employer] Address [address] [facility] [address] [place] [address] Care Team Providers Care Tong Setter Name Role Phone Unavailable Primary Care Provider Unavailabl e Encounter Details Date Type Department Care Team (Latest Contact Info) Description 04/24/2019 Abstract [facility] Dental, Provider, DDS Social History [...] Description 06/14/2024 2:00 PM EST Office Visit [facility] [address] [place] [address] Henri, Sonali [address] [place] [address] documented as of this encounter Visit Diagnoses Not on filedocumented in this encounter
== END 2024-05-15 16:10 | disposition home or self-care (01) ==
PROVIDERS: PCP Internal Medicine; Visit Provider Registered Nurse Diabetes Educator
DX: E10.65 Type 1 diabetes mellitus with hyperglycemia (principal)

== ENCOUNTER → 2024-05-15 15:47 | Outpatient (BNVA) | payer OTHER, SELFPAY | PROVIDERS: PCP Internal Medicine; Visit Provider Registered Nurse Diabetes Educator | DX: E10.65 Type 1 diabetes mellitus with hyperglycemia (principal) | CPT/HCPCS: 99211 ==

== ENCOUNTER 2024-05-26 09:47 | Outpatient (REF) | payer OTHER, SELFPAY ==
[2024-05-26 10:09] LABS: MANUAL DIFF FLAG NO
[2024-05-26 10:35] LABS: Basophils Absolute Auto 0.1 X10*3/uL (0.0-0.2); Basophils Percent Auto 0.9 % (0-2); Eosinophils Absolute Auto 0.2 X10*3/uL (0.0-0.4); Eosinophils Percent Auto 2.8 % (0-4); Hematocrit 37.2 % (37.0-47.0); Hemoglobin 12.1 g/dl (12.0-16.0); Imm Gran Abs Auto 0.02 X10*3/uL (0.00-0.03); Imm Gran Pct Auto 0.3 % (0.0-0.4); Lymphocytes Absolute Auto 1.9 X10*3/uL (1.2-4.9); Lymphocytes Percent Auto 24.3 % (20-40); Mean Corpuscular HGB Conc 32.5 g/dl (31.0-35.0); Mean Corpuscular Hemoglobin 28.3 pg (27.0-33.0); Mean Corpuscular Volume 86.9 fL (80.0-98.0); Mean Platelet Volume 10.4 fL (9.4-12.3); Monocytes Absolute Auto 0.6 X10*3/uL (0.1-1.2); Monocytes Percent Auto 7.5 % (2-11); Neutrophils Absolute Auto 4.9 x10*3/uL (2.0-8.3); Neutrophils Percent Auto 64.2 % (45-73); Platelet Count 316 X10*3/uL (160-400); Red Blood Count 4.28 X10*6/uL (4.20-5.50); Red Cell Distribution Width 13.5 % (11.0-16.0); White Blood Count 7.6 X10*3/uL (4.8-10.8)
[2024-05-26 10:58] LABS: Creatinine Urine 200.84 mg/dL; Microalbum/Creatinine Ratio Ur 54.2 ug/mg cr (<30)
[2024-05-26 11:08] LABS: Alanine Aminotransferase 23 U/L (0-31); Alkaline Phosphatase 88 U/L (39-117); Anion Gap 11 (12-20); Aspartate Amino Transferase 24 U/L (5-31); Bilirubin Total 0.5 mg/dL (0.0-1.0); Blood Urea Nitrogen 14 mg/dL (9-16); Calcium 9.4 mg/dL (8.4-10.2); Carbon Dioxide 25 mmol/L (22-29); Chloride 110 mmol/L (96-108); Cholesterol 153 mg/dL (<200); Estimated Glomerular Filt Rate > 60; Glucose Random 88 mg/dL (60-115); HDL Cholesterol 63 mg/dL (>40); LDL Cholesterol Calculated 79 mg/dL (<100); Potassium 3.9 mmol/L (3.3-5.1); Sodium 142 mmol/L (135-145); Total Protein 7.5 g/dL (6.5-8.0); Triglycerides 56 mg/dL (<150)
[2024-05-26 11:32] LABS: Free T4 (Free Thyroxine) 1.21 ng/dL (0.71-1.85); Thyroid Stimulating Hormone 2.02 uIU/mL (0.32-4.0); Vitamin D 25-OH Total 75.2 ng/mL (>30)
[2024-05-26 11:34] LABS: Folate 14.5 ng/mL (> or = 4.0); Vitamin B12 810 pg/mL (200-900)
[2024-05-26 14:51] LABS: Creatinine Urine 199.53 mg/dL
== END 2024-05-26 09:48 | disposition home or self-care (01) ==
LOC: HO.LAB 09:47
PROVIDERS: PCP Internal Medicine; Visit Provider Internal Medicine
DX: E78.00 Pure hypercholesterolemia, unspecified (principal); E10.65 Type 1 diabetes mellitus with hyperglycemia
CPT/HCPCS: 36415; 80053; 80061; 82043; 82306; 82570; 82607; 82746; 84439; 84443; 85025

== ENCOUNTER 2024-05-29 15:31 | Outpatient (AMB) | payer OTHER, SELFPAY ==
--- OUTSIDE RECORDS SUMMARY | 2024-05-29 15:36 | XMS_ITS | Encounter Summary ---
Author Organization [employer] Address [address] [facility] [address] [place] [address] Care Team Providers Care Matrix Supervisor Name Role Phone Unavailable Primary Care Provider Unavailabl e Encounter Details Date Type Department Care Team (Latest Contact Info) Description 11/27/2021 Abstract [facility] CONVERSIONS Dental, Provider, DDS Social History Tobacco [...] Description 06/14/2024 2:00 PM EST Office Visit [facility] ADULT DENTAL [address] [place] [address] Henri, Sonali [address] [place] [address] documented as of this encounter Visit Diagnoses Not on filedocumented in this encounter
--- OUTSIDE RECORDS SUMMARY | 2024-05-29 15:36 | XMS_ITS | Encounter Summary ---
Author Organization [employer] Address [address] [facility] [address] [place] [address] Care Team Providers Care Hospital Insurance Clerk Name Role Phone Unavailable Primary Care Provider Unavailabl e Encounter Details Date Type Department Care Team (Latest Contact Info) Description 11/18/2020 Abstract [facility] CONVERSIONS Dental, Provider, DDS Social [...] Description 06/14/2024 2:00 PM EST Office Visit [facility] ADULT DENTAL [address] [place] [address] Henri, Sonali [address] [place] [address] documented as of this encounter Visit Diagnoses Not on filedocumented in this encounter
--- OUTSIDE RECORDS SUMMARY | 2024-05-29 15:36 | XMS_ITS | Clinical Summary ---
Author Organization [employer] Address [address] [facility] [address] [place] [address] Care Team Providers Care Checker Product Design Name Role Phone Unavailable Primary Care Provider [...] Type Department Care Team Description 04/16/2024 Telephone [facility] ADULT DENTAL [address] [place] [address] Sonali Álvarez from Last 3 Months Social [...] Description 06/14/2024 2:00 PM EST Office Visit [facility] ADULT DENTAL [address] [place] [address] Sonali Álvarez [address] [place] [address] Health Maintenance Due Date Last Done Comments CT Colonography 1976 Colonoscopy 1976 Colorectal Cancer Screening 1976 Depression Screening 1976 FIT DNA/Cologuard 1976 FIT 1976 FOBT 1976 HIV Screening 1976 SDOH Screening 1976 Sigmoidoscopy 1976 Alcohol/Substance Use Screening 1988 Family Planning (PISQ) 12/01/1991 Hepatitis C Screening 1994 Hepatitis B Vaccines [...] 5 Years) and At-Risk Patients (6 to 49) Years) Aged Out No longer eligible based [...]
--- OUTSIDE RECORDS SUMMARY | 2024-05-29 15:36 | XMS_ITS | Encounter Summary ---
Author Organization [employer] Address [address] [facility] [address] [place] [address] Care Team Providers Care Library Supervisor Name Role Phone Unavailable Primary Care Provider Unavailabl e Encounter Details Date Type Department Care Team (Latest Contact Info) Description 04/24/2019 Abstract [facility] CONVERSIONS Dental, Provider, DDS Social History [...] Description 06/14/2024 2:00 PM EST Office Visit [facility] ADULT DENTAL [address] [place] [address] Henri, Sonali [address] [place] [address] documented as of this encounter Visit Diagnoses Not on filedocumented in this encounter
[2024-05-29 15:42] VITALS: BP 136/72; PULSE 87; O2SAT 98; BMI 56.1
--- NOTE | 2024-05-29 15:42 | MHC.PC.OV ---
Vital Signs 05/29/24 15:42 Height 5 ft 5 in Weight 337 lb 1.388 oz BMI 56.1 BP 136/72 Blood Pressure Location Lt brachial Position Sitting Pulse 87 Pulse Source Pulse Oximeter Pulse Oximetry (%) 98 Oxygen Delivery Method Room Air Intake Visit Reasons: DM, HTN, cough Intake Note: Believes she is dealing with sciatic nerve pain periodically since Feb. Allergies aspirin [ASA] Allergy (Unknown, Verified 05/29/24 15:43) BLEEDING lisinopril Adverse Reaction (Intermediate, Verified 05/29/24 15:43) Cough prednisone Adverse Reaction (Intermediate, Verified 05/29/24 15:43) high Blood sugar grasses/pollen Allergy (Mild, Uncoded 05/29/24 15:43) congestion Actos Allergy (Unknown, Uncoded 05/29/24 15:43) nausea and vomiting Trulicity Allergy (Unknown, Uncoded 05/29/24 15:43) nausea and vomiting Tobacco use date assessed: 05/29/24 Dental Screening Dental Screen Date: 05/29/24 Did you have a dental visit in the last 12 months?: Yes Did you have a dental problem in the last 6 months where you did not have access to dental care?: No Was dental information given to patient?: Patient has dentist HPI DM, HTN, cough HPI Details The patient is a 48-year-old female presenting with a follow-up for type 1 diabetes mellitus, sciatica, and sinusitis. The patient has a known history of type 1 diabetes and is currently managed with an insulin pump. The hemoglobin A1c was 7.0% in January, which improved to 5.6% by April following adjustments to her insulin regimen. The patient mentioned episodes of hypoglycemia previously, which prompted a recalibration of her insulin pump. The patient reports experiencing pain and discomfort suggesting sciatica since February, coinciding with physical activities like moving heavy objects. The pain radiates from the lower back to the legs and occurs intermittently but is significant during episodes. The patient describes the pain as severe enough to consider pharmacologic intervention. Sinusitis symptoms began in January, following a severe illness compared to bronchitis. The patient reports a sensation of fullness in both ears, with the right being more pronounced and occasional pressure, suggesting sinus congestion. She has been treating allergy symptoms with Jennifer and Cetirizine but continues to experience discomfort. 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 Vitamin D deficiency Diabetic nephropathy associated with type 2 diabetes mellitus Hypothyroidism Impacted cerumen of right ear Allergic rhinitis Menstrual bleeding problem Hypothyroid Asthma Hypercholesterolemia Hypertension Surgical History Hx of right breast biopsy Hx of tooth extraction Family History Father Hypertension Obesity Prediabetes Mother Heart disease Glaucoma Social History Household Members: Family Housing: Apartment Alcohol intake: never Patient Tobacco Use Status: Never used Tobacco Tobacco use type: Cigarette e-Cigarette/Vaping Use: Never Used Second Hand Smoke Exposure: No service: No Current occupational status: employed Current occupational exposures/hazards: No Gender identity: Female Cognitive needs: No Hearing needs: No Vision needs: Yes Female Reproductive History Menstrual Age of Menarche: 12 Questionnaire PHQ-9 Over the last 2 weeks, how often have you been bothered by any of the following problems? 1. Little interest or pleasure in doing things: not at all 2. Feeling down, depressed, or hopeless: not at all 3. Trouble falling or staying asleep, or sleeping too much: not at all 4. Feeling tired or having little energy: not at all 5. Poor appetite or overeating: not at all 6. Feeling bad about yourself - or that you are a failure or have let yourself or your family down: not at all 7. Trouble concentrating on things, such as reading the newspaper or watching television: not at all 8. Moving or speaking so slowly that other people could have noticed. Or the opposite - being so fidgety or restless that you have been moving around a lot more than usual: not at all 9. Thoughts that you would be better off or of hurting yourself in some way: not at all Total score: 0 Depression Screening Interpretation: Negative Depression Screening Done: Yes Source: Developed by Drs. Sagar Ascencio, Jackelyn B.W. Camilo Dueñas and colleagues, with an educational maura from [employer]. Thrive Questionnaire Date Thrive assessed: 05/29/24 I am a: Patient What is your living situation today?: I have a steady place to live Within the past 12 months, did the food you bought not last and you didn't have the money to get more?: Never true Within the past 12 months, did you worry whether your food would run out before you got money to buy more?: Never true Do you have trouble paying for medicines?: No Do you have trouble getting transportation to medical appointments?: No Do you have trouble paying your heating and electricity bill?: No Do you have trouble taking care of your child, family member or friend?: No Do you have trouble with day-to-day activities such as bathing, preparing meals, shopping, managing finances, etc.?: No Are you currently unemployed and looking for a job?: No Are you interested in more education?: No Currently or been in a relationship where the following occur: No concerns reported THRIVE Score: 0 AUDIT C Alcohol Use Questionnaire (AUDIT-C) 1. How often do you have a drink containing alcohol?: Never 3. How often do you have six or more drinks on one occasion?: Never Total Score: 0 DIMA-7 AMB Questionnaire DIMA-7 Date DIMA - 7 assessed: 05/29/24 Feeling nervous, anxious, or on edge: 0 = Not at all Not being able to stop or control worryin = Not at all Worrying too much about different things: 0 = Not at all Trouble relaxin = Not at all Being so restless that it is hard to sit still: 0 = Not at all Becoming easily annoyed or irritable: 0 = Not at all Feeling afraid as if something awful might happen: 0 = Not at all Total DIMA-7 score (0-4 normal; 5-9 mild; 10-14 moderate; 15-21 severe): 0 Source: Developed by Drs. Sagar Ascencio, Camilo Pereira and colleagues, with an educational maura from [employer]. Physical exam (Primary Care) Vital Signs: Last Vital Signs Pulse 87 05/29/24 15:42 BP 136/72 05/29/24 15:42 Pulse Ox 98 05/29/24 15:42 Oxygen Delivery Method Room Air 05/29/24 15:42 BMI result Body Mass Index 56.1 Tobacco/Smoking Status: Tobacco use Status Tobacco use date assessed 05/29/24 05/29/24 15:53 Patient Tobacco Use Status Never used Tobacco 05/29/24 15:53 Tobacco use type Cigarette 05/29/24 15:53 e-Cigarette/Vaping Use Never Used 05/29/24 15:53 PHQ-9: PHQ-9 Score PHQ-9: Total score 0 05/29/24 15:53 Depression Screening Interpretation: Negative Thrive Assessment: Date of Thrive Assessment Date Thrive assessed 05/29/24 05/29/24 15:53 Currently or been in a relationship where the following occur: No concerns reported Const General: alert; No acute distress Eyes Conjunctivae: conjunctivae normal Resp Auscultation: clear to auscultation bilaterally Cardio Rate: regular rate Rhythm: regular rhythm GI Inspection: Yes normal to inspection Extrem General: Yes normal to inspection and No edema Coding Level of Care Code Est Pt Level 4 (01774) Complex EM visit Add On G2211 Diagnoses 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), managed as type 1 E13.9 Gastroesophageal reflux disease, unspecified whether esophagitis present K21.9 Esophagitis presence: esophagitis presence not specified 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; E06.3 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 Hypercholesterolemia E78.00 Essential hypertension I10 Hypertension type: essential hypertension Morbid obesity E66.01 Proteinuria R80.9 Generalized anxiety disorder F41.1 Sinusitis J32.9 Assessment & Plan Assessment & Plan (1) 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), managed as type 1: Comment: Eye and Lasix Code(s): E13.9 - Other specified diabetes mellitus without complications Category: Medical (2) GERD (gastroesophageal reflux disease): Code(s): K21.9 - Gastro-esophageal reflux disease without esophagitis Category: Medical Qualifiers: Esophagitis presence: esophagitis presence not specified Qualified Code(s): K21.9 - Gastro-esophageal reflux disease without esophagitis (3) Hypothyroidism: Code(s): E03.9 - Hypothyroidism, unspecified Category: Medical Qualifiers: 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 Qualified Code(s): E03.8 - Other specified hypothyroidism; E06.3 - Autoimmune thyroiditis (4) Hypercholesterolemia: Code(s): E78.00 - Pure hypercholesterolemia, unspecified Category: Medical (5) Hypertension: Code(s): I10 - Essential (primary) hypertension Category: Medical Qualifiers: Hypertension type: essential hypertension Qualified Code(s): I10 - Essential (primary) hypertension (6) Morbid obesity: Code(s): E66.01 - Morbid (severe) obesity due to excess calories Category: Medical (7) Proteinuria: Code(s): R80.9 - Proteinuria, unspecified Category: Medical (8) Generalized anxiety disorder: Code(s): F41.1 - Generalized anxiety disorder Category: Medical (9) Sinusitis: Code(s): J32.9 - Chronic sinusitis, unspecified Category: Medical Plan - Type 1 Diabetes Mellitus: Continue management with insulin pump basal-bolus regimen. Maintain regular follow-ups with endocrinology. Ensure the glucose monitoring targets avoid hypoglycemia. - Sciatica: Prescribe muscle relaxants for symptomatic relief. Instruct the patient to take medication at night due to potential sedative effects. - Sinusitis: Initiate antibiotic therapy with penicillin for 7 days. Continue with allergy medication and monitor symptom resolution. - Essential Hypertension: Continue losartan 25 mg daily, monitor blood pressure. - Dyslipidemia: Continue atorvastatin 20 mg daily, monitor lipid levels. - Hypothyroidism: Maintain levothyroxine 100 mcg daily, with routine thyroid function tests. - Gastroesophageal Reflux Disease: Continue pantoprazole, monitor for symptom control. - Proteinuria: Arrange nephrology consultation for evaluation of proteinuria. - Obesity: Offer referral to weight management services. - Allergies: Continue current allergy medications; consider adjusting based on symptom severity. - Psychiatric Concerns: Referral to a psychiatric nurse practitioner for mental health evaluation and treatment initiation. - Preventive: Encourage vaccinations, discussing seasonal flu, RSV, and COVID-19 precautions. Orders: Orders PT Evaluation and Treatment Today M54.30 - Sciatica, unspecified side Referrals Medical Weight Management Referral E66.01 - Morbid (severe) obesity due to excess calories Nephrology Referral R80.9 - Proteinuria, unspecified Psychiatry Outpatient Consultation Service F41.1 - Generalized anxiety disorder Medications: New cyclobenzaprine 5 mg PO BEDTIME PRN 30 tabs 0RF muscle spasm M54.30 - Sciatica, unspecified side amoxicillin-pot clavulanate 500-125 mg 1 tab PO TID 21 tabs 0RF J32.9 - Chronic sinusitis, unspecified
== END 2024-05-29 16:24 | disposition home or self-care (01) ==
PROVIDERS: PCP Internal Medicine; Visit Provider Internal Medicine
DX: E78.00 Pure hypercholesterolemia, unspecified (principal); E13.9 Other specified diabetes mellitus without complications; E66.01 Morbid (severe) obesity due to excess calories; Z68.43 Body mass index [BMI] 50.0-59.9, adult; K21.9 Gastro-esophageal reflux disease without esophagitis; E03.8 Other specified hypothyroidism; E06.3 Autoimmune thyroiditis; I10 Essential (primary) hypertension; R80.9 Proteinuria, unspecified; F41.1 Generalized anxiety disorder; J32.9 Chronic sinusitis, unspecified

== ENCOUNTER → 2024-05-29 15:31 | Outpatient (BNVA) | payer OTHER, SELFPAY | PROVIDERS: PCP Internal Medicine; Visit Provider Internal Medicine | DX: E13.9 Other specified diabetes mellitus without complications (principal); K21.9 Gastro-esophageal reflux disease without esophagitis; E03.8 Other specified hypothyroidism; E06.3 Autoimmune thyroiditis; E78.00 Pure hypercholesterolemia, unspecified; E66.01 Morbid (severe) obesity due to excess calories; R80.9 Proteinuria, unspecified; I10 Essential (primary) hypertension; F41.1 Generalized anxiety disorder; J32.9 Chronic sinusitis, unspecified | CPT/HCPCS: 99212 ==

== ENCOUNTER → 2024-06-12 13:43 | Outpatient (BNVA) | payer OTHER, SELFPAY | PROVIDERS: PCP Internal Medicine; Visit Provider Surgery ==

== ENCOUNTER 2024-06-13 14:15 | Outpatient (AMB) | payer OTHER, SELFPAY ==
--- NOTE | 2024-06-13 14:20 | HO.NEPHOV_ITS ---
Vital Signs 06/13/24 14:24 Height 5 ft 5 in Weight 333 lb 4 oz BMI 55.4 BP 110/80 Blood Pressure Location Lt radial Position Sitting Pulse 82 Pulse Source Pulse Oximeter Pulse Oximetry (%) 98 Oxygen Delivery Method Room Air Intake Visit Reasons: INP: Proteinuria/ Conf Tableau Developer Required: No Accompanied by: Self / Same As Patient Allergies aspirin [ASA] Allergy (Unknown, Verified 06/13/24 14:24) BLEEDING lisinopril Adverse Reaction (Intermediate, Verified 06/13/24 14:24) Cough prednisone Adverse Reaction (Intermediate, Verified 06/13/24 14:24) high Blood sugar grasses/pollen Allergy (Mild, Uncoded 05/29/24 15:43) congestion Actos Allergy (Unknown, Uncoded 05/29/24 15:43) nausea and vomiting Trulicity Allergy (Unknown, Uncoded 05/29/24 15:43) nausea and vomiting HPI Comments Details: 48-year-old female with type 1 diabetes mellitus was seen in consultation for proteinuria. She is currently managed with an insulin pump. The hemoglobin A1c was 7.0% in January, which improved to 5.6% by April following adjustments to her insulin regimen. The patient mentioned episodes of hypoglycemia previously, which prompted a recalibration of her insulin pump. She has history of pain and discomfort suggesting sciatica since February, coinciding with physical a ctivities like moving heavy objects but denied taking excessive nonsteroidal anti-inflammatories. She has no history of flank pain, hematuria or edema. She has no family history of renal dysfunction, ESRD or renal transplantation. She has no history of retinopathy, neuropathy, coronary artery disease ,carotid stenosis, CVA, peripheral arterial disease or renal artery stenosis. She has been on losartan. She has hypothyroidism and is on levothyroxine. She also takes PPI for acid reflux. She maintains good hydration. She feels well. 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 Vitamin D deficiency Diabetic nephropathy associated with type 2 diabetes mellitus Hypothyroidism Impacted cerumen of right ear Allergic rhinitis Menstrual bleeding problem Hypothyroid Asthma Hypercholesterolemia Hypertension Surgical History History of hysteroscopy Hx of right breast biopsy Hx of tooth extraction Family History Father Hypertension Obesity Prediabetes Mother Heart disease Glaucoma Social History Household Members: Family Housing: Apartment Alcohol intake: never Patient Tobacco Use Status: Never used Tobacco Tobacco use type: Cigarette e-Cigarette/Vaping Use: Never Used Second Hand Smoke Exposure: No service: No Current occupational status: employed Current occupational exposures/hazards: No Gender identity: Female Cognitive needs: No Hearing needs: No Vision needs: Yes Female Reproductive History Menstrual Age of Menarche: 12 Review of Systems Const All systems reviewed & are unremarkable except as noted in HPI and below Physical Exam Vital Signs: Last Vital Signs Pulse 82 06/13/24 14:24 BP 110/80 06/13/24 14:24 Pulse Ox 98 06/13/24 14:24 Oxygen Delivery Method Room Air 06/13/24 14:24 BMI result Body Mass Index 55.4 Const General: comfortable and no acute distress Orientation/consciousness: patient oriented x3 HEENT Head: Yes normocephalic Mouth: Normal oral and palatal mucosa present Eyes EOM: EOMs intact bilaterally Neck Neck: Yes supple Resp Auscultation: clear to auscultation bilaterally Cardio Jugular venous distension: no JVD Rate: regular rate GI Palpation (GI): Soft to palpation Auscultation: normal bowel sounds General: Yes no CVA tenderness Back/Spine/Pelvis Back: no CVA tenderness Skin General skin exam: no rashes or lesions noted Neuro General: patient oriented x3 and moves all extremities Extrem General: Yes no pedal edema Results Reviewed Nephrology Results: Hgb 12.1 g/dl (12.0-16.0) 05/26/24 WBC 7.6 X10*3/uL (4.8-10.8) 05/26/24 Plt Count 316 X10*3/uL (160-400) 05/26/24 Sodium 142 mmol/L (135-145) 05/26/24 Potassium 3.9 mmol/L (3.3-5.1) 05/26/24 Chloride 110 mmol/L (96-108) H 05/26/24 Carbon Dioxide 25 mmol/L (22-29) 05/26/24 BUN 14 mg/dL (9-16) 05/26/24 Creatinine 0.61 mg/dL (0.5-1.4) 05/26/24 Calcium 9.4 mg/dL (8.4-10.2) 05/26/24 Urine Creatinine 199.53 mg/dL 05/26/24 Assessment & Plan Assessment & Plan (1) Hypertension: Code(s): I10 - Essential (primary) hypertension Category: Medical Qualifiers: Hypertension type: essential hypertension Qualified Code(s): I10 - Essential (primary) hypertension (2) Proteinuria: Code(s): R80.9 - Proteinuria, unspecified Category: Medical Qualifiers: Proteinuria type: other Qualified Code(s): R80.8 - Other proteinuria Plan Juan has proteinuria most likely due to her diabetes mellitus. Her high BMI is putting her at risk for secondary FSGS. She also had been on PPI for a long time which also can cause intrarenal nephritis leading to proteinuria. Her renal functions are normal. Her blood pressure is at goal. I increased her losartan to 25 mg twice daily. I ordered follow-up lab work and urine studies. After the next visit I intend to do a 24 hour urine collection for protein. Answered all questions. Follow-up appointment given. Orders: Orders Blood Urea Nitrogen 2 Months I10 - Essential (primary) hypertension, R80.9 - Proteinuria, unspecified Immunofixation Pnl, Serum 2 Months I10 - Essential (primary) hypertension, R80.9 - Proteinuria, unspecified Electrolytes 2 Months I10 - Essential (primary) hypertension, R80.9 - Proteinuria, unspecified Creatinine 2 Months I10 - Essential (primary) hypertension, R80.9 - Proteinuria, unspecified Protein Creatinine Ratio, Ur 2 Months I10 - Essential (primary) hypertension, R80.9 - Proteinuria, unspecified Immunofixation, Random Urine 2 Months I10 - Essential (primary) hypertension, R80.9 - Proteinuria, unspecified Medications: Changed From losartan 25 mg PO DAILY 30 tabs 3RF I10 - Essential (primary) hypertension To losartan 25 mg PO BID 30 days 60 tabs 6RF I10 - Essential (primary) hypertension Coding Level of Care Code New Pt Level 4 (18687) Diagnoses Essential hypertension I10 Hypertension type: essential hypertension Other proteinuria R80.8 Proteinuria type: other
[2024-06-13 14:24] VITALS: BP 110/80; PULSE 82; O2SAT 98; BMI 55.4
--- OUTSIDE RECORDS SUMMARY | 2024-06-13 14:28 | XMS_ITS | Clinical Summary ---
Author Organization [employer] Address [address] [place] [address] Care Team Providers Care Union Organizer Name Role Phone Unavailable Primary Care Provider [...] Type Department Care Team Description 04/16/2024 Telephone [facility] [address] [place] [address] Sonali Álvarez from Last 3 Months Social [...] Description 06/14/2024 2:00 PM EST Office Visit [facility] [address] [place] [address] Sonali Álvarez [address] [place] [address] Health Maintenance Due Date Last Done Comments [...] ESTABLISHED PATIENT Routine 10/14/2023 11:00 AM EDT INTRAORAL - COMPLETE SERIES OF RADIOGRAPHIC IMAGES Routine 11/18/2020 12:00 AM EDT from Last 3 Months or Most Recently Relevant to Health Maintenance Insurance DENTAL - HSN PARTIAL (MEDICAID)
--- OUTSIDE RECORDS SUMMARY | 2024-06-13 14:28 | XMS_ITS | Encounter Summary ---
Author Organization [employer] Address [address] [place] [address] Care Team Providers Care District Sales Coordinator Name Role Phone Unavailable Primary Care Provider Unavailabl e Encounter Details Date Type Department Care Team (Latest Contact Info) Description 11/27/2021 Abstract [facility] CONVERSIONS Dental, Provider, DDS Social History Tobacco [...] Description 06/14/2024 2:00 PM EST Office Visit [facility] [address] [place] [address] Henri, Sonali [address] [place] [address] documented as of this encounter Visit Diagnoses Not on filedocumented in this encounter
--- OUTSIDE RECORDS SUMMARY | 2024-06-13 14:28 | XMS_ITS | Encounter Summary ---
Author Organization [employer] Address [address] [place] [address] Care Team Providers Care Heel Coverer Machine Operator Name Role Phone Unavailable Primary Care Provider Unavailabl e Encounter Details Date Type Department Care Team (Latest Contact Info) Description 11/18/2020 Abstract [facility] CONVERSIONS Dental, Provider, DDS Social [...] Description 06/14/2024 2:00 PM EST Office Visit [facility] [address] [place] [address] Henri, Sonali [address] [place] [address] documented as of this encounter Visit Diagnoses Not on filedocumented in this encounter
--- OUTSIDE RECORDS SUMMARY | 2024-06-13 14:28 | XMS_ITS | Encounter Summary ---
Author Organization [employer] Address [address] [place] [address] Care Team Providers Care Rental Sales Associate Name Role Phone Unavailable Primary Care Provider Unavailabl e Encounter Details Date Type Department Care Team (Latest Contact Info) Description 04/24/[address] [facility] CONVERSIONS Dental, Provider, DDS Social History [...] Description 06/14/2024 2:00 PM EST Office Visit [facility] [address] [place] [address] Henri, Sonali [address] [place] [address] documented as of this encounter Visit Diagnoses Not on filedocumented in this encounter
== END 2024-06-13 14:54 | disposition home or self-care (01) ==
PROVIDERS: PCP Internal Medicine; Referring Provider Internal Medicine; Visit Provider Internal Medicine Nephrology
DX: I10 Essential (primary) hypertension (principal); R80.8 Other proteinuria
CPT/HCPCS: 99204

== ENCOUNTER → 2024-06-13 14:15 | Outpatient (BNVA) | payer OTHER, SELFPAY | PROVIDERS: PCP Internal Medicine; Referring Provider Internal Medicine; Visit Provider Internal Medicine Nephrology | DX: E10.9 Type 1 diabetes mellitus without complications (principal); R80.8 Other proteinuria; I10 Essential (primary) hypertension; Z79.4 Long term (current) use of insulin; Z96.41 Presence of insulin pump (external) (internal) | CPT/HCPCS: 99202 ==

== ENCOUNTER 2024-06-15 08:02 | Outpatient (AMB) | payer OTHER, SELFPAY ==
--- OUTSIDE RECORDS SUMMARY | 2024-06-15 08:05 | XMS_ITS | Encounter Summary ---
Demographics Address [address] [place] [address] Mobile Phone Home Phone Work Phone Email Address [email or web address] Preferred Language en Marital Status Single Methodist Affiliation Unknown Race Other Race Ethnic Group or Author Organization [employer] Address [address] [place] [address] Care Team Providers Care Enrollment Advisor Name Role Phone Unavailable Primary Care Provider Unavailabl e Encounter Details Date Type Department Care Team (Latest Contact Info) Description 04/24/2019 Abstract [facility] CONVERSIONS Dental, Provider, DDS Social History Tobacco [...] as of this encounter Plan of Treatment Not on file documented as of this encounter Visit Diagnoses Not on filedocumented in this encounter
--- OUTSIDE RECORDS SUMMARY | 2024-06-15 08:05 | XMS_ITS | Encounter Summary ---
Demographics Address [address] [place] [address] Mobile Phone Home Phone Work Phone Email Address Preferred Language en Marital Status Single Yarsani Affiliation Unknown Race Other Race Ethnic Group or Author Organization [employer] Address [address] [place] [address] Care Team Providers Care Dicer Operator Name Role Phone Unavailable Primary Care Provider Unavailabl e Encounter Details Date Type Department Care Team (Latest Contact Info) Description 11/27/2021 Abstract [facility] CONVERSION[facility] Dental, Provider, DDS Social [...]
--- OUTSIDE RECORDS SUMMARY | 2024-06-15 08:05 | XMS_ITS | Encounter Summary ---
Demographics Address [address] [place] [address] Mobile Phone Home Phone Work Phone Email Address Preferred Language en Marital Status Single Mandaeism Affiliation Unknown Race Other Race Ethnic Group or Author Organization [employer] Address [address] [place] [address] Care Team Providers Care Handy Worker Name Role Phone Unavailable Primary Care Provider Unavailabl e Encounter Details Date Type Department Care Team (Latest Contact Info) Description 11/18/2020 Abstract [facility] CONVERSION[facility] Dental, Provider, DDS Social [...]
--- OUTSIDE RECORDS SUMMARY | 2024-06-15 08:05 | XMS_ITS | Encounter Summary ---
Author Organization [employer] Address [address] [facility] [address] [place] [address] Care Team Providers Care Registration Specialist Name Role Phone Unavailable Primary Care Provider Unavailabl e Reason for Visit * Reason Comments Routine Cleaning Encounter Details Date Type Department Care Team ([facility] st Contact Info) Description 06/14/2024 2:00 PM EST Office Visit [facility] ADULT DENTAL [address] [place] [address] Henri, Sonali [address] [place] [address] Dental plaque (Primary Dx) Social History Tobacco Use Types Packs/Day Years Used Date Smoking Tobacco: Never Smokeless Tobacco: Never Comments Unknown Sex and Gender Information Value Date Recorded Sex Assigned at Female 02/22/2022 10:17 AM EDT Legal Sex Female 10:17 AM EDT Gender Identity Female 02/22/2022 10:17 AM EDT Sexual Orientation Choose not to disclose 2021 10:17 AM EDT documented as of this encounter Last Filed Vital Signs Vital Sign Reading Time Taken Comments Blood Pressure 144/82 06/14/2024 1:38 PM EST Pulse - - Temperature - - Respiratory Rate - - Oxygen Saturation - - Inhaled Oxygen Concentration - - Weight - - Height - - Body Mass Index - - documented in this encounter Progress Notes * Sonali Álvarez - 06/14/2024 2:00 PM EST Patient ID: Juan Estrada is a 48 y.o. female. 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 Confirmed via patient's chart, intraorally and by radiographs. Party Director: not applicable Medical Hx: Vitals: Blood pressure (!) 144/82. Pt reports she is taking her HTN Medication Medications, Med Hx reviewed with patient and updated in chart. Treatment Provided Dental procedures in this visit D1110 - PROPHYLAXIS - ADULT (Completed) Service provider: Sonali Álvarez Billing provider: Ramiro Ariza DDS [id number] - ORAL HYGIENE INSTRUCTIONS (Completed) Service provider: Sonali Álvarez Billing provider: Ramiro Ariza DDS [id number] - CASE PRESENTATION, DETAILED AND EXTENSIVE TREATMENT PLANNING (Completed) Service provider: Sonali Álvarez Billing provider: Ramiro Ariza DDS Instruments Used: Ultrasonic Scalers and Prophy angle Fluoride: N/A Oral Cancer Screening: No lesions Head/Neck Exam: No Lesions Calculus: None Plaque: Light Stain: trace Bleeding: trace Gingiva: pink OH: Good Perio Chart: Not due yet Oral hygiene instructions provided to patient including brushing technique and flossing. Recommendations: [place] two times daily, modified bernal technique, Floss daily, Electric toothbrush, Soft bristle toothbrush, [place] Tongue, Anti-sensitivity toothpaste Recall Frequency: 6 mo NV: 6 months for P. Exam , Prophy, Perio chart, FMX Hygienist: Sonali Álvarez RDH documented in this encounter Plan of Treatment Scheduled Orders Name Type Priority Associated Diagnoses Orde r Schedule PERIODIC ORAL EVALUATION - ESTABLISHED PATIENT Dental Routine 1 Occurren tacho starting 06/14/2024 INTRAORAL - COMPLETE SERIES OF RADIOGRAPHIC IMAGES Dental Routine [address] arting 06/14/2024 PROPHYLAXIS - ADULT Dental Routine 1 Occ urrences starting 06/14/2024 COMPREHENSIVE PERIODONTAL EVALUATION - NEW OR ESTABLISHED PATIENT Dental Routine 1 Occurrence s starting 06/14/2024 ORAL HYGIENE INSTRUCTIONS Dental Routine 1 Occurrences starting 06/14/2024 CASE PRESENTATION, DETAILED AND EXTENSIVE TREATMENT PLANNING Dental Routine 1 Occurrences starting 06/14/2024 documented as of this encounter Procedures Procedure Name Priority Date/Time Associated Diagnosis Comments PROPHYLAXIS - ADULT Routine 06/14/2024 2 :00 PM EST Dental plaque ORAL HYGIENE INSTRUCTIONS Routine 2024 2:00 PM EST Dental plaque CASE PRESENTATION, DETAILED AND EXTENSIVE TREATMENT PLANNING Routine 06/14/2024 2:00 PM EST Dental plaque documented in this encounter Visit Diagnoses Diagnosis Dental plaque- Primary Accretions on teeth documented in this encounter
--- OUTSIDE RECORDS SUMMARY | 2024-06-15 08:05 | XMS_ITS | Clinical Summary ---
Author Organization [employer] Address [address] [facility] [address] [place] [address] Care Team Providers Care Branch Operations Coordinator Name Role Phone Unavailable Primary Care [...] 2 times daily. 30 tablet 4 Active Acetone, Urine, Test (Ketone Test) strip use as directed 4 Active cyclobenzaprine (Flexeril) 5 MG tablet TAKE ONE TABLET BY MOUTH DAILY AT BEDTIME NEEDED FOR MUSCLE SPASM 5 Active losartan (Cozaar) 25 MG tablet 5 Active Spacer/Aero-Hol ding Chambers (EasiVent) inhaler use as directed 4 Active Active Problems Problem Noted Date Diagnosed Date Dental plaque 10/14/2023 Chronic TMJ pain 10/14/2023 Localized gingival recession 10/14/2023 MPDS (myofascial pain dysfunction syndrome) 09/24 Encounters Date Type Department Care Team Description 06/14/2024 2:00 PM EST Office Visit [facility] ADULT D[facility] [address] [place] [address] Sonali Álvarez Dental plaque (Primary Dx) 04/16/2024 Telephone [facility] [address] [place] [address] Sonali Álvarez from Last 3 Months Social [...] Pressure 144/82 06/14/2024 1:38 PM EST Pulse 76 10/14/2023 10:57 AM EDT Temperature - - Respiratory Rate - - Oxygen Saturation - - Inhaled Oxygen Concentration - - Weight - - Height - - Body Mass Index - - Plan of Treatment Health Maintenance Due Date Last Done Comments [...] 10/14/2023, , 11/18/2020, Additional history exists Dental X-Ray: Bitewings 10/14/2024 10/14/19 24, 11/27/2021, 11/18/2020, Additional history exists Dental Prophylaxis 12/13/2024 06/14/2024, 0 10/14/2023, 11/27/2021, Additional history exists Tobacco Screening 06/14/2025 06/14/2024 DTaP/Tdap/Td Vaccines (2 - Td or Tdap) [...] Procedure Name Priority Date/Time Associated Diagnosis Comments CASE PRESENTATION, DETAILED AND EXTENSIVE TREATMENT PLANNING Routine 06/14/2024 2:00 PM EST Dental plaque ORAL HYGIENE INSTRUCTIONS Routine 06/14/2024 2:00 PM EST Dental plaque PROPHYLAXIS - ADULT Routine 06/14/2024 2 :00 PM EST Dental plaque BITEWINGS - 4 RADIOGRAPHIC IMAGES [...]
--- NOTE | 2024-06-15 12:47 | MHC.OFFVISWM ---
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 54.5 Allergies aspirin [ASA] Allergy (Unknown, Verified 06/15/24 12:47) BLEEDING lisinopril Adverse Reaction (Intermediate, Verified 06/15/24 12:47) Cough prednisone Adverse Reaction (Intermediate, Verified 06/15/24 12:47) high Blood sugar grasses/pollen Allergy (Mild, Uncoded 06/15/24 12:47) congestion Actos Allergy (Unknown, Uncoded 06/15/24 12:47) nausea and vomiting Trulicity Allergy (Unknown, Uncoded 06/15/24 12:47) nausea and vomiting Medication List - Last Reconciled 06/15/24 by Jayme Loja MD acetaminophen 1,000 mg (2 x 500 mg) PO Q6H PRN acetone (urine) test (Ketone Urine Test strips) As directed albuterol sulfate 90 mcg/actuation (Ventolin HFA) 1 inh inhalation Q6H PRN atorvastatin 20 mg PO DAILY blood sugar diagnostic (FreeStyle Lite Strips) As directed six times a day p.r.n. sensor failure or to confirm readings blood-glucose meter (FreeStyle Lite Meter kit) As directed blood-glucose sensor (DexPortea Medical G7 Sensor device) As directed change every 10 days cetirizine 10 mg PO DAILY PRN cholecalciferol (vitamin D3) 250 mcg PO DAILY cyclobenzaprine 5 mg PO BEDTIME PRN FreeStyle Lancets (lancets) 4 times a day NS inhalational spacing device As directed insulin aspart (niacinamide) 100 unit/mL (Fiasp U-100 Insulin) subcutaneously; Infuse up to 120 units via insulin pen per day subcutaneously; insulin pump cart,auto,BT-cntr (Omnipod 5 G6 Intro Kit (Gen 5) subcutaneous cartridge with controller) As directed insulin pump cart,automated,BT (Omnipod 5 G6 Pods (Gen 5) subcutaneous cartridge) As directed lancets (FreeStyle Lancets) 6 times a day prn sensor failure or to confirm glucose Levoxyl (levothyroxine) 100 mcg PO DAILY 30 days NS losartan 25 mg PO BID 30 days magnesium oxide 800 mg PO DAILY pantoprazole 40 mg PO DAILY pen needle, diabetic As directed pen needle, diabetic (1st Tier Unifine Pentips Plus) 4 times a day pen needle, diabetic (BD Aishwarya 2nd Gen Pen Needle) USE TO INJECT 5 TIMES A DAY polyethylene glycol 3350 (Miralax) 238 grams PO ONCE PRN vitamin K2 200 mcg PO DAILY HPI HPI 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 BMI 54.5: Details: Start time: 12.43pm, End time: 1.26pm ?I spent 48 minutes speaking with the patient on the phone plus an additional 5 minutes reviewing and updating records for a total of 53 minutes HPI Comments Details: Previous weight loss efforts: [place] [facility] [place] [facility], [facility] Wakes up: 4am (weekends at 8am), Sleeps: 9pm (weekends at 11pm) Breakfast: 5am (scrambled eggs, white) Lunch: not always (sandwich, chicken, peppers) Dinner: 4pm-5pm (chicken, rice, pasta) Snacks: none Exercise: has stationary bike Fluids: Coffee: (2-3 cups/day, with extra creamy almond milk), tea: none, soda: apple juice with hypoglycemia, ETOH: 1/wk (Yulisa 1-2/occasion) [facility] Medical History (Updated 06/15/24 @ 12:53 by Jayme Loja MD) Back pain Obesity Cough Uncontrolled type 1 diabetes mellitus with hyperglycemia, with long-term current use of insulin Obesity due to excess calories Viral 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 Vitamin D deficiency Diabetic nephropathy associated with type 2 diabetes mellitus Hypothyroidism Impacted cerumen of right ear Allergic rhinitis Menstrual bleeding problem Hypothyroid Asthma Hypercholesterolemia Hypertension Surgical History History of hysteroscopy Hx of right breast biopsy Hx of tooth extraction Family History Father Hypertension Obesity Prediabetes Mother Heart disease Glaucoma Social History Household Members: Family Housing: Apartment Alcohol intake: never Patient Tobacco Use Status: Never used Tobacco Tobacco use type: Cigarette e-Cigarette/Vaping Use: Never Used Second Hand Smoke Exposure: No service: No Current occupational status: employed Current occupational exposures/hazards: No Gender identity: Female Cognitive needs: No Hearing needs: No Vision needs: Yes Female Reproductive History Menstrual Age of Menarche: 12 Telehealth Telehealth Telehealth Platform: Telephone Location of provider rendering services: practice address Location of patient: address on file Patient Identification confirmed using: Name, : Yes Telehealth method: voice only Patient verbally consented to treatment: Yes Patient verbally consented to billing insurance company: Yes Patient informed of any privacy concerns related to visit: Yes Minutes spent on Phone/Video with Pt.: 53 Assessment & Plan Assessment & Plan (1) Morbid obesity: Code(s): E66.01 - Morbid (severe) obesity due to excess calories Category: Medical Plan: We discussed in detail the available therapeutic options: 1) her insurance requires participation in our lifestyle intervention program for 3 months before use of anti-obesity medications is considered. However because of the type I diabetes these medications are not indicated. 2) We also discussed about the?? lap sleeve gastrectomy. I emphasized the importance of close follow-up, adherence to instructions and good communication. The surgery does not replace the need to change your lifestlyle which is the cause of the obesity problem. The surgery provides the motivation to try again to change your lifestyle, it reduces the appetite and make the transition to a better lifestyle easier and doubles the amount of weight you would lose compared to doing the lifestyle change without the surgery. You will need to be on a liquid diet with protein shakes for 2 weeks before surgery to maximize weight loss and boost your nutritional status to recover better from surgery and also for the first two weeks after surgery to let the stomach heal before we introduce other foods. After the first 2 weeks we will introduce protein bars and soft foods like scrambled eggs, cottage cheese and yogurt and after the 6th week will introduce meat, fish and cooked vegetables in small amounts. Over time you should be able to eat everything in small amounts. Side effects like nausea, vomiting, heartburn or abdominal pain are not common in the practice unless you are not following in the practice. This operation requires lifetime commitment to following in our practice and communication with me. You will much less weight and experience side effects if you don?t communicate or not following in the practice. Complications are rare and in our practice is about 1/10 of the national average. 3) She can do our lifestyle program alone but given the amount of weight she needs to lose (160-170lbs) I don't think that this is a realistic option long-term.
[2024-06-15 13:01] VITALS: BMI 54.5
== END 2024-06-15 13:27 | disposition home or self-care (01) ==
LOC: HO.HBS 08:02
PROVIDERS: PCP Internal Medicine; Visit Provider Surgery
DX: E66.01 Morbid (severe) obesity due to excess calories (principal); E66.813 Obesity, class 3; Z68.43 Body mass index [BMI] 50.0-59.9, adult
CPT/HCPCS: 99204

== ENCOUNTER 2024-08-30 15:39 | Outpatient (AMB) | payer OTHER, SELFPAY ==
--- NOTE | 2024-08-30 15:54 | A.OFFPC_ITS ---
Vital Signs 08/30/24 15:55 Height 5 ft 5 in Weight 321 lb BMI 53.4 BP 116/84 Blood Pressure Location Lt brachial Position Sitting Pulse 76 Pulse Source Pulse Oximeter Pulse Oximetry (%) 97 Oxygen Delivery Method Room Air Intake Visit Reasons: DM [employer] And Employment Paralegal Required: No Accompanied by: Self / Same As Patient Allergies aspirin [ASA] Allergy (Unknown, Verified 08/30/24 15:55) BLEEDING lisinopril Adverse Reaction (Intermediate, Verified 08/30/24 15:55) Cough prednisone Adverse Reaction (Intermediate, Verified 08/30/24 15:55) high Blood sugar grasses/pollen Allergy (Mild, Uncoded 08/30/24 15:55) congestion Actos Allergy (Unknown, Uncoded 08/30/24 15:55) nausea and vomiting Trulicity Allergy (Unknown, Uncoded 08/30/24 15:55) nausea and vomiting Tobacco use date assessed: 08/30/24 Dental Screening Dental Screen Date: 08/30/24 Did you have a dental visit in the last 12 months?: Yes Did you have a dental problem in the last 6 months where you did not have access to dental care?: No Was dental information given to patient?: Patient has dentist HPI DM HPI Details complains of anxiety attacks PFSH Medical History (Updated 08/30/24 @ 16:29 by Daksha Hernandez MD) Allergic rhinitis Back pain Obesity Cough Uncontrolled type 1 diabetes mellitus with hyperglycemia, with long-term current use of insulin Obesity due to excess calories Viral syndrome [facility] (current) use of insulin Vitamin D deficiency Diabetic nephropathy associated with type 2 diabetes mellitus Hypothyroidism Impacted cerumen of right ear Menstrual bleeding problem Hypothyroid Asthma Hypercholesterolemia Hypertension Surgical History History of hysteroscopy Hx of right breast biopsy Hx of tooth extraction Family History Father Hypertension Obesity Prediabetes Mother Heart disease Glaucoma Social History Household Members: Family Housing: Apartment Alcohol intake: never Patient Tobacco Use Status: Never used Tobacco Tobacco use type: Cigarette e-Cigarette/Vaping Use: Never Used Second Hand Smoke Exposure: No service: No Current occupational status: employed Current occupational exposures/hazards: No Gender identity: Female Cognitive needs: No Hearing needs: No Vision needs: Yes Female Reproductive History Menstrual Age of Menarche: 12 Questionnaire PHQ-9 Over the last 2 weeks, how often have you been bothered by any of the following problems? 1. Little interest or pleasure in doing things: not at all 2. Feeling down, depressed, or hopeless: not at all 3. Trouble falling or staying asleep, or sleeping too much: not at all 4. Feeling tired or having little energy: not at all 5. Poor appetite or overeating: not at all 6. Feeling bad about yourself - or that you are a failure or have let yourself or your family down: not at all 7. Trouble concentrating on things, such as reading the newspaper or watching television: not at all 8. Moving or speaking so slowly that other people could have noticed. Or the opposite - being so fidgety or restless that you have been moving around a lot more than usual: not at all 9. Thoughts that you would be better off or of hurting yourself in some way: not at all Total score: 0 Source: Developed by Drs. Sagar Ascencio, Jackelyn Dueñas, Camilo Redman and colleagues, with an educational maura from [employer]. Thrive Questionnaire Date Thrive assessed: 08/30/24 I am a: Patient What is your living situation today?: I have a steady place to live Within the past 12 months, did the food you bought not last and you didn't have the money to get more?: Never true Within the past 12 months, did you worry whether your food would run out before you got money to buy more?: Never true Do you have trouble paying for medicines?: No Do you have trouble getting transportation to medical appointments?: No Do you have trouble paying your heating and electricity bill?: No Do you have trouble taking care of your child, family member or friend?: No Do you have trouble with day-to-day activities such as bathing, preparing meals, shopping, managing finances, etc.?: No Are you currently unemployed and looking for a job?: No Are you interested in more education?: No Please select the resources that you would like help with: None Currently or been in a relationship where the following occur: No concerns reported THRIVE Score: 0 AUDIT C Alcohol Use Questionnaire (AUDIT-C) 1. How often do you have a drink containing alcohol?: 2-4 times a month 2. How many drinks containing alcohol do you have on a typical day when you are drinking?: 1 or 2 3. How often do you have six or more drinks on one occasion?: Never Total Score: 2 DIMA-7 AMB Questionnaire DIMA-7 Date DIMA - 7 assessed: 08/30/24 Feeling nervous, anxious, or on edge: 0 = Not at all Not being able to stop or control worryin = Not at all Worrying too much about different things: 0 = Not at all Trouble relaxin = Not at all Being so restless that it is hard to sit still: 0 = Not at all Becoming easily annoyed or irritable: 0 = Not at all Feeling afraid as if something awful might happen: 0 = Not at all Total DIMA-7 score (0-4 normal; 5-9 mild; 10-14 moderate; 15-21 severe): 0 Source: Developed by Drs. Sagar Ascencio, Jackelyn Dueñas, aCmilo Redman and colleagues, with an educational maura from [employer]. Physical exam (Primary Care) Vital Signs: Last Vital Signs Pulse 76 08/30/24 15:55 BP 116/84 08/30/24 15:55 Pulse Ox 97 08/30/24 15:55 Oxygen Delivery Method Room Air 08/30/24 15:55 BMI result Body Mass Index 53.4 Tobacco/Smoking Status: Tobacco use Status Tobacco use date assessed 08/30/24 08/30/24 15:56 Patient Tobacco Use Status Never used Tobacco 08/30/24 15:56 Tobacco use type Cigarette 08/30/24 15:56 e-Cigarette/Vaping Use Never Used 08/30/24 15:56 PHQ-9: PHQ-9 Score PHQ-9: Total score 0 08/30/24 16:23 Thrive Assessment: Date of Thrive Assessment Date Thrive assessed 08/30/24 08/30/24 15:56 Currently or been in a relationship where the following occur: No concerns reported Const General: alert; No acute distress Eyes Conjunctivae: conjunctivae normal Resp Auscultation: clear to auscultation bilaterally Cardio Rate: regular rate Rhythm: regular rhythm GI Inspection: Yes normal to inspection Extrem General: Yes normal to inspection and No edema Results AMB Hemoglobin A1c 2 AMB Hemoglobin A1c 6.3 % Last Edit by AB Aguiar on 08/30/24 16 :25 Results Reviewed Results Reviewed: Laboratory Last Values Hgb A1c (Clinic) 6.3 % (4.0-6.0) H 08/30/24 16:24 Coding Level of Care Code Est Pt Level 4 (98107) Complex EM visit Add On G2211 Diagnoses 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), managed as type 1 E13.9 Essential hypertension I10 Hypertension type: essential hypertension Hypercholesterolemia E78.00 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 Last blood sugar was not that bad. Patient is on insulin pump. Patient is up-to-date with eye exam and Podiatry (2) Hypertension: Code(s): I10 - Essential (primary) hypertension Category: Medical Qualifiers: Hypertension type: essential hypertension Qualified Code(s): I10 - Essential (primary) hypertension Plan: Continue with blood pressure medication. Decrease salt intake and exercise (3) Hypercholesterolemia: Code(s): E78.00 - Pure hypercholesterolemia, unspecified Category: Medical Plan: Avoid fried foods, chicken skin, eggs, butter margarine, pastries and meat. Be it pork or beef they have a lot of cholesterol LDL goal of less than 100 and triglyceride of less than 150 on atorvastatin 20 mg once a day May last blood work (4) Hypothyroidism: Code(s): E03.9 - Hypothyroidism, unspecified Category: Medical Qualifiers: 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 Qualified Code(s): E03.8 - Other specified hypothyroidism; E06.3 - Autoimmune thyroiditis Plan: Continue with thyroid medication (5) GERD (gastroesophageal reflux disease): Code(s): K21.9 - Gastro-esophageal reflux disease without esophagitis Category: Medical Qualifiers: Esophagitis presence: esophagitis presence not specified Qualified Code(s): K21.9 - Gastro-esophageal reflux disease without esophagitis Plan: Avoid the foods that causes that usually spicy foods, tomato products, juices, coffee, soda and foods that your sensitive to. After eating do not lie down, allow 3-4 hours before in lie down. And keep the head of bed above 30 degrees to avoid the acid from going up. (6) Morbid obesity: Code(s): E66.01 - Morbid (severe) obesity due to excess calories Category: Medical Plan: Patient has met with the weight management continue with keeping active and eating healthy. (7) Asthma: Code(s): J45.909 - Unspecified asthma, uncomplicated Category: Medical Plan: Continue with the inhalers albuterol as needed (8) Generalized anxiety disorder: Code(s): F41.1 - Generalized anxiety disorder Category: Medical (9) Allergic rhinitis: Code(s): J30.9 - Allergic rhinitis, unspecified Category: Medical Plan History of Present Illness The patient is a 48-year-old female presenting for follow-up of her chronic health conditions including obesity, diabetes mellitus, and hypertension. She reports a recent 6-pound weight loss since May and is actively managing her weight with dietary changes, including a low-carb diet, due to intolerance of protein supplements. The diabetes continues to be managed with an insulin pump, though she reports a recent increase in blood sugar levels. The patient's last Hemoglobin A1c was at goal but recent fluctuations in glucose levels were noted. She is also experiencing new onset generalized anxiety symptoms, confirmed by panic-like episodes. For her allergic symptoms, she reports seasonal allergies exacerbating and affecting her ears and nasal passages, for which allergy medications like Jennifer and Zyrtec have provided minimal relief. Her current antihypertensive regimen includes Losartan, and she takes atorvastatin for cholesterol management. Health Maintenance - Discussed ongoing management of diabetes focusing on sugar control to prevent complications such as cataracts. - LDL cholesterol currently at 79 with a target goal of less than 100; triglycerides target goal is less than 150, managed with Atorvastatin 20 mg once daily. - Patient up to date with mammogram and eye examination. - Considered bariatric surgery for weight management and discussed the potential benefits and contraindications related to her conditions. - Advised maintaining physical activity and a healthy diet. - Discussed potential continuation of thyroid medication and reflux management. - No new concerns with blood pressure medication regimen, Losartan, which provides renal protection. Social History - Actively engaged in weight management and discussing potential bariatric surgery. - Maintains physical activity. - Working towards adopting healthy nutritional habits but struggles with protein supplement tolerance. - Experiencing episodes of anxiety and stress. Review of Systems - Constitutional: Reports weight loss, recent blood sugar fluctuation. - Eyes: Reports some starting cataracts, denies significant vision changes. - Respiratory: Reports asthma management with albuterol inhaler. - Cardiovascular: Denies new chest pain or palpitations. - Gastrointestinal: GERD present, managed with medication. - Endocrine: Diabetes managed with insulin pump, reports fluctuations in blood sugar levels. - Psychiatric: Reports episodes of anxiety. - Allergic/Immunologic: Reports seasonal allergies with congestion and sneezing. Physical Exam - Ears- Both clear on examination, especially the left ear, which patient notes discomfort. Results - Labs: Last Hemoglobin A1c in April was 5.6%. LDL measured at 79. - No ocular complications noted, minimal cataracts. Plan The management of the patient's chronic conditions such as diabetes, hypertension, and hypercholesterolemia will continue with emphasis on maintaining current medications and lifestyle modifications. Continued strict glucose monitoring and follow-up with endocrinology are necessary due to recent fluctuations. We discussed the potential for bariatric surgery as an option for weight management, alongside lifestyle adjustments due to current bariatric therapy intolerance. Use of antihistamines and nasal spray will address allergic symptoms. Entry into mental health support services remains vital to manage anxiety. Patient was informed and verbally consented to the use of an ambient scribe for clinic note documentation during this visit. Discussion Notes During our discussion, I explained the significance of maintaining strict blood glucose control, especially to prevent further progression of cataracts and other complications. We discussed medication regimens, dosage, and side effects, particularly focusing on the benefits of Losartan for hypertension and atorvastatin for hypercholesterolemia. For weight management, we talked about potential surgical interventions, given poor tolerance of diet supplements, delineating alternative lifestyle strategies due to the overlap of type 1 diabetes. The psychological aspect regarding anxiety and its sudden panic-like episodes was acknowledged, and plans to involve mental health services were concluded. Patient Instructions - Continue using insulin pump and monitor blood glucose regularly. - Take prescribed medications, including atorvastatin, losartan, and thyroid medication. - Maintain a low-carb diet and remain active. - Use Jennifer daily, and add nasal spray as directed for allergies. - Reach out to mental health services for managing anxiety. - Schedule follow-ups as necessary and inform about new symptoms. Orders: Orders AMB Hemoglobin A1c Today Z13.9 - Encounter for screening, unspecified Referrals Psychiatry Outpatient Consultation Service F41.1 - Generalized anxiety disorder Medications: New fluticasone propionate 50 mcg/actuation (Flonase Allergy Relief) administer into each nostril 2 sprays intranasal DAILY 16 grams 1RF J30.9 - Allergic rhinitis, unspecified
[2024-08-30 15:55] VITALS: BP 116/84; PULSE 76; O2SAT 97; BMI 53.4
--- OUTSIDE RECORDS SUMMARY | 2024-08-30 16:06 | XMS_ITS | Encounter Summary ---
Author Organization [employer] Address [address] [place] [address] Care Team Providers Care Trains Service Conductor Name Role Phone Unavailable Primary Care Provider [...]
--- OUTSIDE RECORDS SUMMARY | 2024-08-30 16:06 | XMS_ITS | Encounter Summary ---
Author Organization [employer] Address [address] [place] [address] Care Team Providers Care Senior Counsel Name Role Phone Unavailable Primary Care Provider [...]
--- OUTSIDE RECORDS SUMMARY | 2024-08-30 16:06 | XMS_ITS | Clinical Summary ---
Author Organization [employer] Address [address] [place] [address] Care Team Providers Care Wool Hat Finisher Name Role Phone Unavailable Primary Care Provider [...] Description 06/14/2024 2:00 PM EST Office Visit [facility] [address] [place] [address] Sonali Álvarez Dental plaque (Primary Dx) from Last 3 Months Social History Tobacco [...]
--- OUTSIDE RECORDS SUMMARY | 2024-08-30 16:06 | XMS_ITS | Encounter Summary ---
Author Organization [employer] Address [address] [facility] [address] [place] [address] Care Team Providers Care Sumatra Opener Name Role Phone Unavailable Primary Care Provider [...]
== END 2024-08-30 16:32 | disposition home or self-care (01) ==
LOC: HO.HMCH 15:40
PROVIDERS: PCP Internal Medicine; Visit Provider Internal Medicine
DX: E13.9 Other specified diabetes mellitus without complications (principal); E66.01 Morbid (severe) obesity due to excess calories; Z68.43 Body mass index [BMI] 50.0-59.9, adult; I10 Essential (primary) hypertension; E78.00 Pure hypercholesterolemia, unspecified; E03.8 Other specified hypothyroidism; E06.3 Autoimmune thyroiditis; K21.9 Gastro-esophageal reflux disease without esophagitis; J45.909 Unspecified asthma, uncomplicated; F41.1 Generalized anxiety disorder; J30.9 Allergic rhinitis, unspecified

== ENCOUNTER → 2024-08-30 15:39 | Outpatient (BNVA) | payer OTHER, SELFPAY | PROVIDERS: PCP Internal Medicine; Visit Provider Internal Medicine | DX: E13.9 Other specified diabetes mellitus without complications (principal); F41.1 Generalized anxiety disorder; I10 Essential (primary) hypertension; E78.00 Pure hypercholesterolemia, unspecified; E03.8 Other specified hypothyroidism; E06.3 Autoimmune thyroiditis; K21.9 Gastro-esophageal reflux disease without esophagitis; E66.01 Morbid (severe) obesity due to excess calories; J30.9 Allergic rhinitis, unspecified | CPT/HCPCS: 83036; 99212 ==

== ENCOUNTER 2024-08-31 15:41 | Outpatient (AMB) | payer OTHER, SELFPAY ==
--- NOTE | 2024-08-31 15:44 | A.OFFVIS_ITS ---
Vital Signs 08/31/24 15:46 Height 5 ft 5 in Weight 324 lb 1.272 oz BMI 53.9 BP 124/82 Blood Pressure Location Rt brachial Position Sitting Pulse 72 Pulse Source Pulse Oximeter Intake Visit Reasons: T2DM Intake Note: Patient presents today for a follow-up on (DIEGO), managed as Type 1 Diabetes Mellitus: Last Diabetic eye exam was on: 05/2023 Last Podiatry exam was on: Does not see a Marker Hand Most recent HbA1c: 6.3%, 08/30/2024 Random Glucose- 71 mg/dL, Today, re-checked after 4oz of orange juice 82 mg/dL. It Integration Architect Required: No Accompanied by: Self / Same As Patient Allergies aspirin [ASA] Allergy (Unknown, Verified 08/30/24 15:55) BLEEDING lisinopril Adverse Reaction (Intermediate, Verified 08/30/24 15:55) Cough prednisone Adverse Reaction (Intermediate, Verified 08/30/24 15:55) high Blood sugar grasses/pollen Allergy (Mild, Uncoded 08/30/24 15:55) congestion Actos Allergy (Unknown, Uncoded 08/30/24 15:55) nausea and vomiting Trulicity Allergy (Unknown, Uncoded 08/30/24 15:55) nausea and vomiting HPI Comments Details: Patient is 48-year-old female who presents for management of diabetes type 1 and hypothyroidism. She was last seen by by myself 05/04/24. Continuous glucose sensing at that time and at today's visit was in excellent control. HgbA1C today in the office 6.3%. 02/02/24 7% 09/22/23 7.2% Past medical history: Diabetes type 2 hypothyroidism, HTN, dyslipidemia, obesity 1) Diabetes Diabetes type 2 diagnosed and 2015. She also had hypoglycemic unawareness. Micro and macrovascular complications: Nephropathy (+ microalbumin) Diabetes medications: Back up pump failure plan: Lantus 30 units daily, Fiasp via I:C ratio 1:10, and sensitivity 1:10 begin correction at 120mg/dl Dexcom average glucose: 118 14 day continuous glucose monitor report reviewed Glucose Managment indicator [ ] % Days with CGM data 0.6 % TIme in ranges: 0,6 % very high (above 250) 17.8 % high ?(181-250) 81.6 in range ?(70-180] 0 % low (69-55) [0 ] % ?very low (below 54) Interpretation excellent control with minimal postprandial increases She does not announce all of her meals as this has caused lows in the past Symptoms reported: denies numbness, tingling, cramping in lower extremities Hypoglycemia: No Exercise: denies 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 Medications: Levoxyl 100 mcg eats and takes other medications at least one hour later. Symptoms: Reports some fatigue, dry skin. Denies dysphagia, dyspnea, dysphonia, Denies radiation to head or neck, thyroid surgery or biopsy. Denies biotin use. 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 Vitamin D deficiency Diabetic nephropathy associated with type 2 diabetes mellitus Hypothyroidism Impacted cerumen of right ear Menstrual bleeding problem Hypothyroid Asthma Hypercholesterolemia Hypertension Surgical History History of hysteroscopy Hx of right breast biopsy Hx of tooth extraction Family History Father Hypertension Obesity Prediabetes Mother Heart disease Glaucoma Social History Household Members: Family Housing: Apartment Alcohol intake: never Patient Tobacco Use Status: Never used Tobacco Tobacco use type: Cigarette e-Cigarette/Vaping Use: Never Used Second Hand Smoke Exposure: No service: No Current occupational status: employed Current occupational exposures/hazards: No Gender identity: Female Cognitive needs: No Hearing needs: No Vision needs: Yes Female Reproductive History Menstrual Age of Menarche: 12 Physical Exam Vital Signs: Last Vital Signs Pulse 72 08/31/24 15:46 BP 124/82 08/31/24 15:46 BMI result Body Mass Index 53.9 Const Other: Absence of Cushingoid features. Absence of acromegalic features. Neck exam reveals nl size thyroid about 15 gms. No thyroid nodules palpable. Heart S1 S2, Reg R/R. No M/R G. Skin exam reveals absence of vitiligo or acanthosis nigricans. Visual exam of foot performed. No ulcerations or open lesions. No inter digit maceration or fissuring. No onychomycosis, no callouses. Sensation intact to monofilament exam. Vibratory sensation is normal with 128 Hz tuning fork. 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 Her previous A1c was too low at 5.6% in represented multiple lows. Now when she has a lows they are very transient and only on occasion. She does carry a sugar source with her The patient had an opportunity to ask questions regarding treatment plan. The patient expressed understanding and agreement with the above treatment plan. The patient is aware they should contact our office by phone for worsening glucose readings or for any low blood sugars which may warrant a change in diabetes medication. Compliance is encouraged with medications and any followup testing/consults which may have been ordered. Medications: New insulin glargine (Lantus Solostar U-100 Insulin) 30 units (0.3 mL) subcut QPM 30 days PRN 6 mL 3RF pump failure MDD 30 Baqsimi 3 mg/actuation (glucagon) may repeat in 15 min 3 mg intranasal ONCE 30 days PRN 2 ea 1RF severe low MDD 6mg NS Changed From pen needle, diabetic (BD Aishwarya 2nd Gen Pen Needle) USE TO INJECT 5 TIMES A DAY 150 ea 6RF E11.65 - Type 2 diabetes mellitus with hyperglycemia To pen needle, diabetic USE TO INJECT 5 TIMES A DAY if pump is not operating 100 ea 6RF E11.65 - Type 2 diabetes mellitus with hyperglycemia Patient Instructions: Troubleshooting after starting new pod or inserting new insulin set: Occlusion, adhesive tape sensitivity, redness Check BG 2 hours after site change Safety information: Importance of a backup plan, for manual injections, proper prescriptions and emergency supplies ketone strips, and rules for testing for ketones Symptoms of DKA (diabetic ketoacidosis): early: frequent urination, dry mouth, fatigue, feeling ill, severe symptoms: ketones in the urine, abdominal pain, nausea, vomiting and weakness. It is important to hydrate with sugar free liquids every 15-30 minutes and bring the sugars down to normal levels. If you are moderate or severe with ketones or unable to bring glucose to less than 200, go to the emergency room. Patient is aware that she must always have a backup glucometer. If her sensor is not paired to her pump she must manually enter glucose readings with the pump will not operate Take 15 carb carbohydrate grams to treat a low sugar (3-4 glucose tablets, half a glass of juice or 15 carbohydrate grams of soft candy such as gummie snacks). Recheck your sugar in 15 minutes and re-treat again with 15 carbohydrate grams if low or still with symptoms. Do not drive a car or operate machinery if you do not know what your blood sugar is, if it is low or in excess of 300. 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
--- OUTSIDE RECORDS SUMMARY | 2024-08-31 15:44 | XMS_ITS | Encounter Summary ---
Author Organization [employer] Address [address] [facility] [address] [place] [address] Care Team Providers Care Gill Tender Name Role Phone Unavailable Primary Care Provider [...]
--- OUTSIDE RECORDS SUMMARY | 2024-08-31 15:44 | XMS_ITS | Clinical Summary ---
Author Organization [employer] Address [address] [place] [address] Care Team Providers Care Gang Supervisor Pipe Lines Name Role Phone Unavailable Primary Care Provider [...] Description 06/14/2024 2:00 PM EST Office Visit [facility] [address] [place] [address] Sonali Álvarez Dental plaque (Primary Dx) from [...]
--- OUTSIDE RECORDS SUMMARY | 2024-08-31 15:44 | XMS_ITS | Encounter Summary ---
Author Organization [employer] Address [address] [facility] [address] [place] [address] Care Team Providers Care Analysis Mgr Name Role Phone Unavailable Primary Care Provider [...]
--- OUTSIDE RECORDS SUMMARY | 2024-08-31 15:44 | XMS_ITS | Encounter Summary ---
Author Organization [employer] Address [address] [place] [address] Care Team Providers Care Doll Wigs Hackler Name Role Phone Unavailable Primary Care Provider [...]
[2024-08-31 15:46] VITALS: BP 124/82; PULSE 72; BMI 53.9
[2024-08-31 16:01] LABS: Glucose, Whole Blood 71 mg/dL (60-115)
[2024-08-31 16:25] LABS: Glucose, Whole Blood 82 mg/dL (60-115)
== END 2024-08-31 16:28 | disposition home or self-care (01) ==
LOC: HO.ENCR 15:42
PROVIDERS: PCP Internal Medicine; Visit Provider Nurse Practitioner Adult Health
DX: E13.9 Other specified diabetes mellitus without complications (principal)
CPT/HCPCS: 99214; G2211

== ENCOUNTER → 2024-08-31 15:41 | Outpatient (BNVA) | payer OTHER, SELFPAY | PROVIDERS: PCP Internal Medicine; Visit Provider Nurse Practitioner Adult Health | DX: E13.65 Other specified diabetes mellitus with hyperglycemia (principal); E03.9 Hypothyroidism, unspecified; E66.9 Obesity, unspecified; Z79.4 Long term (current) use of insulin; Z68.43 Body mass index [BMI] 50.0-59.9, adult | CPT/HCPCS: 82947; 99212 ==

== ENCOUNTER 2024-10-11 15:14 | Outpatient (AMB) | payer OTHER, SELFPAY ==
--- NOTE | 2024-10-11 15:58 | MHC.AMDMED ---
Intake Intake Visit Reasons: DM Chief Controller Required: No Accompanied by: Self / Same As Patient Allergies aspirin (ASA) Allergy (Unknown, Verified 08/30/24 15:55) BLEEDING lisinopril Adverse Reaction (Intermediate, Verified 08/30/24 15:55) Cough prednisone Adverse Reaction (Intermediate, Verified 08/30/24 15:55) high Blood sugar grasses/pollen Allergy (Mild, Uncoded 08/30/24 15:55) congestion Actos Allergy (Unknown, Uncoded 08/30/24 15:55) nausea and vomiting Trulicity Allergy (Unknown, Uncoded 08/30/24 15:55) nausea and vomiting PFSH Medical History Allergic rhinitis Back pain Obesity Cough Uncontrolled type 1 diabetes mellitus with hyperglycemia, with long-term current use of insulin Obesity due to excess calories Viral syndrome USP (current) use of insulin Vitamin D deficiency Diabetic nephropathy associated with type 2 diabetes mellitus Hypothyroidism Impacted cerumen of right ear Menstrual bleeding problem Hypothyroid Asthma Hypercholesterolemia Hypertension Surgical History History of hysteroscopy Hx of right breast biopsy Hx of tooth extraction Family History Father Hypertension Obesity Prediabetes Mother Heart disease Glaucoma Social History Household Members: Family Housing: Apartment Alcohol intake: never Patient Tobacco Use Status: Never used Tobacco Tobacco use type: Cigarette e-Cigarette/Vaping Use: Never Used Second Hand Smoke Exposure: No service: No Current occupational status: employed Current occupational exposures/hazards: No Gender identity: Female Cognitive needs: No Hearing needs: No Vision needs: Yes Female Reproductive History Menstrual Age of Menarche: 12 Assessment & Plan Assessment & Plan (1) 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 The following topics were reviewed today: -Pump therapy basic concepts: Basal/bolus -For most effective glucose control bolus prior to meals - Off pump backup insulin plan iLet Alerts: ??? High Alert: 300 mg/dl ??? Low Alert: 75 mg/dl Patient reports that since starting to announce meals she is having less episodes of hypoglycemia. Patient's last A1c on 08/29/2024 6.3% At today's visit patient declined to change target level leave at usual Reviewed the importance of announcing meals. Troubleshooting after starting new pod or inserting new insulin set: Occlusion, adhesive tape sensitivity, redness Check BG 2 hours after site change Reviewed Safety information: Importance of a backup plan, for manual injections, proper prescriptions and emergency supplies ketone strips, and rules for testing for ketones Patient understands the basic concepts of pump therapy, how to give insulin for meals and snacks, how to troubleshoot for hyper and hypoglycemia. Patient will follow up with [facility] as instructed Patient will contact [facility] with questions or concerns, patient given IT number to support in any technical issues related to insulin pump Portions of this note were created using voice recognition software, please excuse any words or phrases that may have been misinterpreted. 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
--- OUTSIDE RECORDS SUMMARY | 2024-10-11 16:32 | XMS_ITS | Encounter Summary ---
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
== END 2024-10-11 16:03 | disposition home or self-care (01) ==
LOC: HO.ENCR 15:15
PROVIDERS: PCP Internal Medicine; Visit Provider Registered Nurse Diabetes Educator
DX: E13.9 Other specified diabetes mellitus without complications (principal)

== ENCOUNTER → 2024-10-11 15:14 | Outpatient (BNVA) | payer OTHER, SELFPAY | PROVIDERS: PCP Internal Medicine; Visit Provider Registered Nurse Diabetes Educator | DX: E13.65 Other specified diabetes mellitus with hyperglycemia (principal); Z96.41 Presence of insulin pump (external) (internal) | CPT/HCPCS: 99211 ==

== ENCOUNTER 2024-11-25 10:11 | Emergency (ER) | payer OTHER, SELFPAY ==
--- NOTE | ~2024-11-25 | XR_ITS ---
CLINICAL HISTORY: low back pain after cleaning 3 views lumbar spine Comparison: None provided Findings: Straightening of the normal lumbar lordosis. Mild and moderate multilevel degenerative changes without fracture or malalignment. Impression: Degenerative changes without fracture or malalignment. This document has been electronically signed by: David Parrish MD on 11/25/2024 12:33:03
[2024-11-25 10:17] VITALS: BP 170/83; PULSE 78; RESP 18; TEMP 36.4; O2SAT 98; BMI 54.3
--- NOTE | 2024-11-25 11:37 | ED.BACK ---
HPI - Back Pain/Injury General Chief Complaint: Back Pain/Injury Stated Complaint: Lower back pain Time Seen by Provider: 11/25/24 11:23 Source: patient Mode of arrival: ambulatory Limitations: no limitations History of Present Illness ED Provider: WENDY ARMSTRONG PA-C HPI Narrative: 48 year old female with pmhx significant for HTN, HLD, hypothyroidism, T1DM, neuropathy, GERD, anemia, morbid obesity, asthma presents to the ED today for evaluation of lower back pain x 1.5 weeks. Pain began after she was overexerting herself, cleaning around her house. Pain now radiates down her left buttock and posterior thigh. Pain is worse with movement/ ambulation. She has been trialing Tylenol with temporary improvement in pain. No blunt injury/trauma/falls. Denies IVDU. Denies fever, chills, neck pain, bowel or bladder incontinence or retention, numbness/tingling/weakness in the lower extremities, dysuria, hematuria, saddle anesthesia. Related Data Home Medications ?Medication ?Instructions ?Recorded ?Confirmed pen needle, diabetic 32 gauge x #50 ea 03/06/20 06/15/24 cetirizine 10 mg tablet 10 mg PO DAILY PRN 06/13/24 06/15/24 polyethylene glycol 3350 17 238 g PO ONCE PRN 06/13/24 06/15/24 gram/dose oral powder (Miralax) cholecalciferol (vitamin D3) 250 250 mcg PO DAILY 06/14/24 06/15/24 mcg (10,000 unit) capsule magnesium oxide 800 mg PO DAILY 06/14/24 06/15/24 vitamin K2 100 mcg capsule 200 mcg PO DAILY 06/14/24 06/15/24 Previous Rx's ?Medication ?Instructions ?Recorded pen needle, diabetic 32 gauge x #150 ea 04/29/20 (1st Tier Unifine Pentips Plus) FreeStyle Lancets 28 gauge #120 ea 05/16/20 (lancets) insulin pump cart,automated,BT #5 ea 04/20/22 (Omnipod 5 G6 Pods (Gen 5) subcutaneous cartridge) insulin pump cartridge,automated #1 ea 04/20/22 dose,BT with controller subcutaneous (Omnipod 5 G6 Intro Kit (Gen 5) subcutaneous cartridge with controller) blood-glucose sensor (Dexcom G7 #3 ea 12/10/22 Sensor device) acetaminophen 500 mg capsule 1,000 mg (2 x 500 mg) PO Q6H PRN 07/06/23 pain #30 caps albuterol sulfate 90 mcg/actuation 1 inh inhalation Q6H PRN shortness 01/30/24 aerosol inhaler (Ventolin HFA) of breath or wheezing #18 grams acetone (urine) test (Ketone Urine #25 ea 02/03/24 Test strips) blood sugar diagnostic (FreeStyle #200 ea 02/03/24 Lite Strips) blood-glucose meter (FreeStyle #1 ea 02/03/24 Lite Meter kit) lancets 28 gauge (FreeStyle #100 ea 02/03/24 Lancets) inhalational spacing device #1 ea 02/24/24 insulin aspart (niacinamide) See Rx Instructions subcut 04/04/24 (U-100) 100 unit/mL subcutaneous .COMPLEX #40 mL solution (Fiasp U-100 Insulin) losartan 25 mg tablet 25 mg PO BID 30 days #60 tabs 06/13/24 Levoxyl 100 mcg tablet 100 mcg PO DAILY 30 days #30 tabs 06/26/24 (levothyroxine) fluticasone propionate 50 2 spray intranasal DAILY #16 grams 08/30/24 mcg/actuation nasal spray,suspension (Flonase Allergy Relief) Baqsimi 3 mg/actuation nasal spray 3 mg intranasal ONCE PRN severe 09/04/24 (glucagon) low 30 days #2 ea insulin glargine 100 unit/mL (3 30 unit (0.3 mL) subcut QPM PRN 09/04/24 mL) subcutaneous pen (Lantus pump failure 30 days #6 mL Solostar U-100 Insulin) pen needle, diabetic 32 gauge x #100 ea 09/04/24 insulin syringe-needle U-100 0.3 #100 ea 10/12/24 mL 31 gauge x 09/07 atorvastatin 20 mg tablet 20 mg PO DAILY #30 tabs 11/19/24 pantoprazole 40 mg tablet,delayed 40 mg PO QAM #90 tabs 11/20/24 release cyclobenzaprine 5 mg tablet 5 mg PO BEDTIME PRN muscle spasm 11/23/24 #30 tabs lidocaine 5 % topical patch 1 patch topical DAILY #15 ea 08/03/25 (Lidoderm) methocarbamol 500 mg tablet 500 mg PO TID PRN back pain #9 tabs 11/25/24 Allergies Allergy/AdvReac Type Severity Reaction Status Date / Time aspirin (ASA) Allergy Unknown BLEEDING Verified 11/25/24 10:19 lisinopril AdvReac Intermediate Cough Verified 11/25/24 10:19 prednisone AdvReac Intermediate high Blood Verified 11/25/24 10:19 sugar grasses/pollen Allergy Mild congestion Uncoded 11/25/24 10:19 Actos Allergy Unknown nausea and Uncoded 11/25/24 10:19 vomiting Trulicity Allergy Unknown nausea and Uncoded 11/25/24 10:19 vomiting Review of Systems Review of Systems: Constitutional: No fever, chills, fatigue, night sweats, weight changes ENT/Mouth: No ear pain, hearing loss, nasal congestion, sinus pain, rhinorrhea, sore throat Eyes: No eye pain, swelling, redness, vision changes, discharge Cardio: No chest pain, palpitations, WATTS, orthopnea, peripheral edema Pulm: No SOB, cough, sputum, wheezing, dyspnea, hemoptysis GI: No nausea, vomiting, hematemesis, abdominal pain, diarrhea, constipation, hematochezia, melena : No irregular bleeding, dysuria, frequency, urgency, hesitancy, hematuria, flank pain, urinary flow changes, urinary incontinence or retention MSK: +back pain, No neck pain, joint pain, myalgias Skin: No lesions, rashes Neuro: No weakness, numbness, paresthesias, LOC, dizziness, headache All other systems reviewed and are negative. FOR[facility]LY [facility] Past Medical History Attestation statement: The following information was validated with the patient. 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 Vitamin D deficiency Diabetic nephropathy associated with type 2 diabetes mellitus Hypothyroidism Impacted cerumen of right ear Menstrual bleeding problem Hypothyroid Asthma Hypercholesterolemia Hypertension Surgical History History of hysteroscopy Hx of right breast biopsy Hx of tooth extraction Family History Family History Father Hypertension Obesity Prediabetes Mother Heart disease Glaucoma Social History Social History Household Members: Family Housing: Apartment Alcohol intake: never Patient Tobacco Use Status: Never used Tobacco Tobacco use type: Cigarette e-Cigarette/Vaping Use: Never Used Second Hand Smoke Exposure: No service: No Current occupational status: employed Current occupational exposures/hazards: No Gender identity: Female Cognitive needs: No Hearing needs: No Vision needs: Yes Physical Exam Vital Signs: Vital Signs: Last Vital Signs Temp 98.1 F 11/25/24 14:59 Pulse 68 11/25/24 14:59 Resp 18 11/25/24 14:59 BP 130/60 11/25/24 14:59 Pulse Ox 100 11/25/24 14:59 O2 Del Method Room Air 11/25/24 14:59 BMI result Body Mass Index 54.3 Vital signs stable, afebrile Const: General: cooperative, healthy appearing, comfortable, no acute distress, alert, awake and Physically active Orientation/consciousness: patient oriented x3 HEENT: Head: Yes normal to inspection, Yes normocephalic and Yes atraumatic Eyes: General: appearance normal, both eyes and all related structures Pupils: Equal, round and reactive pupils present EOM: EOMs intact bilaterally Neck: Other: + no cervical midline spinous tenderness or step-off deformity. Neck: Yes normal visual inspection, Yes full ROM and Yes no meningeal signs Resp: Effort & Inspection: normal respiratory effort Auscultation: clear to auscultation bilaterally Cardio: Rate: regular rate Rhythm: regular rhythm GI: Inspection: Yes normal to inspection Palpation (GI): Soft to palpation and nontender : General: Yes no CVA tenderness Back/Spine/Pelvis: Other: No midline spinous tenderness. No paraspinal muscle tenderness. No step off deformity. positive straight leg raise on left. Back: no CVA tenderness Neuro: Other: Strength 5/5 intact throughout.? No saddle anesthesia.? Sensation intact to light touch.? Neurovascular intact distally.? General: patient oriented x3, gait normal and no meningeal signs Cranial nerves: Yes Equal, round and reactive pupils present Gait exam (Neuro): Normal gait present Course Course Course Narrative: xr lumbar spine unremarkable. patient was treated with toradol + lido patch + robaxin with improvement in pain. likely lumbar radiculopathy. will send patient home w/ pain control. advised to f/u with PCP as she may require physical therapy. Patient has remained stable throughout ED visit today. Discussed worrisome signs and symptoms and when to return to the ED. All questions answered at this time. Patient is agreeable with disposition and stable for discharge. Medications Administered Discontinued Medications Generic Name Dose Route Start Last Admin Trade Name Urszula PRN Reason Stop Dose Admin Ketorolac Tromethamine 30 mg 11/25/24 12:32 11/25/24 12:54 Ketorolac Tromethamine 30 Mg/Ml Vial IM 11/25/24 12:33 30 mg ONCE ONE Administration Lidocaine 1 patch 11/25/24 12:34 11/25/24 12:53 Lidocaine 4 % Patch Adh..Patch TRANSDERMA 11/25/24 12:35 1 patch ONCE ONE Administration Protocol Methocarbamol 500 mg 11/25/24 12:29 11/25/24 12:44 Methocarbamol 500 Mg Tablet PO 11/25/24 12:30 500 mg ONCE ONE Administration Medical Decision Making Medical Decision Making MDM Narrative: 48 year old female with pmhx significant for HTN, HLD, hypothyroidism, T1DM, neuropathy, GERD, anemia, morbid obesity, asthma presents to the ED today for evaluation of lower back pain x 1.5 weeks. hypertensive, afebrile. she is well appearing and in NAD. on exam, No midline spinous tenderness. No paraspinal muscle tenderness. No step off deformity. positive straight leg raise on left. positive straight leg raise on left. no neuro deficits. ambulating with slow but steady gait. Concern for MSK sprain/strain, fracture, subluxation, disc herniation, sciatica. Presentation not consistent with UTI, renal colic, nephrolithiasis. Unlikely cord compression, cauda equina, Guillain-[place], epidural abscess. Plan for imaging, pain control and re-evaluation. Differential Diagnosis Differential Diagnoses: The differential diagnosis associated with the presentation includes as above Admission/Observation Not indicated. Independent Interpretation I performed an independent interpretation of an: Plain X-Ray Interpretation: xr lumbar spine without acute fracture Radiology Impression Discussion of test interpretation with radiology: I have reviewed the radiologist's reading. Radiologist Impression: Date of Service: 11/25/24 Procedure(s): XR lumbar spine 2-3V Accession Number(s): [id number] cc: Daksha Hernandez MD; Wendy Armstrong~ CLINICAL HISTORY: low back pain after cleaning 3 views lumbar spine Comparison: None provided Findings: Straightening of the normal lumbar lordosis. Mild and moderate multilevel degenerative changes without fracture or malalignment. Impression: Degenerative changes without fracture or malalignment. This document has been electronically signed by: David Parrish MD on 11/25/2024 12:33:03 External Record Review External record reviewed: Inpatient record Prescription Management I considered prescription management with: Pain Medication and Other (Muscle relaxer) Chronic Conditions Patient?s care impacted by: Diabetes Social Determinants Patient?s care significantly limited by Social Determinants of Health including: Other Social Determinant of Health Critical Care Time Critical Care Time Critical Care Time: No Discharge Plan Discharge Clinical Impression: Lumbar radiculopathy Patient Disposition: Home, Self-Care Instructions: Lumbar Radiculopathy (ED), Lower Back Exercises (ED) Additional Instructions: You were evaluated in the Emergency Department today for your back pain.? Your evaluation did not show signs of medical conditions requiring emergent intervention at this time. Avoid bending, lifting, or twisting. Use ice several times per day for 20 minutes at a time for the next 48 hours and then change to heat. I recommend you take 600mg ibuprofen every 6 hours or tylenol 650mg every 6 hours as needed for pain. If needed, you can alternate these medications so that you take one medication every 3 hours. For example, at noon take ibuprofen, then at 3pm take tylenol, then at 6pm take ibuprofen. Robaxin is a muscle relaxer. Take this at night as it might make you drowsy. Do not drive, drink alcohol, or operate machinery while taking it. Lidoderm patches are numbing patches. Apply to painful areas. Please schedule an appointment for follow-up with your primary care provider this week for further evaluation of your symptoms. Return to the Emergency Department if you experience worsening back pain, difficulty walking, fevers, numbness, tingling, incontinence, or any other concerning symptoms. In the case of an emergency call 911. Prescriptions: New methocarbamol 500 mg tablet 500 mg PO TID PRN (Reason: back pain) Qty: 9 0RF lidocaine [Lidoderm] 5 % adhesive patch,medicated 1 patch topical DAILY Qty: 15 0RF Rx Instructions: leave on most painful area for up to 12 hrs No Action (DME) pen needle, diabetic [1st Tier Unifine Pentips Plus] 32 gauge x 5/32 needle See Rx Instructions .ROUTE .MEDSUPPLY Qty: 150 6RF Rx Instructions: 4 times a day (DME) lancets [FreeStyle Lancets] 28 gauge misc See Rx Instructions topical QID Qty: 120 6RF Rx Instructions: 4 times a day (DME) Omnipod 5 G6 Intro Kit (Gen 5) Cartridge See Rx Instructions .Route Qty: 1 0RF Rx Instructions: As directed (DME) Omnipod 5 G6 Pods (Gen 5) Cartridge See Rx Instructions .Route Qty: 5 3RF Rx Instructions: As directed (DME) Dexcom G7 Sensor Device See Rx Instructions .Route Qty: 3 4RF Rx Instructions: As directed change every 10 days Fiasp U-100 Insulin 100 unit/mL solution See Rx Instructions subcut .COMPLEX Qty: 40 4RF Rx Instructions: subcutaneously; Infuse up to 120 units via insulin pen per day subcutaneously; levothyroxine [Levoxyl] 100 mcg tablet 100 mcg PO DAILY 30 Days Qty: 30 11RF (DME) insulin syringe-needle U-100 0.3 mL 31 gauge x 5/16 syringe See Rx Instructions .ROUTE .MEDSUPPLY Qty: 100 1RF Rx Instructions: As directed up to qid for pump failure or glucose correction atorvastatin 20 mg tablet 20 mg PO DAILY Qty: 30 3RF pantoprazole 40 mg tablet,delayed release (DR/EC) 40 mg PO QAM Qty: 90 2RF cyclobenzaprine 5 mg tablet 5 mg PO BEDTIME PRN (Reason: muscle spasm) Qty: 30 0RF (DME) pen needle, diabetic 32 gauge x 5/32 needle See Rx Instructions subcut .MEDSUPPLY Qty: 50 Rx Instructions: As directed acetaminophen 500 mg capsule 1,000 mg PO Q6H PRN (Reason: pain) Qty: 30 0RF albuterol sulfate [Ventolin HFA] 90 mcg/actuation HFA aerosol inhaler 1 inh inhalation Q6H PRN (Reason: shortness of breath or wheezing) Qty: 18 0RF (DME) inhalational spacing device Spacer See Rx Instructions .Route Qty: 1 0RF Rx Instructions: As directed cetirizine 10 mg tablet 10 mg PO DAILY PRN polyethylene glycol 3350 [Miralax] 17 gram/dose powder 238 g PO ONCE PRN losartan 25 mg tablet 25 mg PO BID 30 Days Qty: 60 6RF cholecalciferol (vitamin D3) 250 mcg (10,000 unit) capsule 250 mcg PO DAILY magnesium oxide 400 mg magnesium tablet 800 mg PO DAILY vitamin K2 100 mcg capsule 200 mcg PO DAILY (DME) FreeStyle Lite Strips Strip See Rx Instructions .ROUTE .MEDSUPPLY Qty: 200 11RF Rx Instructions: As directed six times a day p.r.n. sensor failure or to confirm readings (DME) lancets [FreeStyle Lancets] 28 gauge misc See Rx Instructions .ROUTE .MEDSUPPLY Qty: 100 1RF Rx Instructions: 6 times a day prn sensor failure or to confirm glucose (DME) blood-glucose meter [FreeStyle Lite Meter] Kit See Rx Instructions .Route Qty: 1 1RF Rx Instructions: As directed (DME) Ketone Urine Test Strip See Rx Instructions .ROUTE .MEDSUPPLY Qty: 25 1RF Rx Instructions: As directed (DME) pen needle, diabetic 32 gauge x 5/32 needle See Rx Instructions .ROUTE .COMPLEX Qty: 100 6RF Dose Instruction: USE TO INJECT 5 TIMES A DAY Rx Instructions: USE TO INJECT 5 TIMES A DAY if pump is not operating insulin glargine [Lantus Solostar U-100 Insulin] 100 unit/mL (3 mL) insulin pen 30 unit subcut QPM MDD 30 PRN (Reason: pump failure) 30 Days Qty: 6 3RF Baqsimi 3 mg/actuation spray,non-aerosol 3 mg intranasal ONCE MDD 6mg PRN (Reason: severe low) 30 Days Qty: 2 1RF Rx Instructions: may repeat in 15 min fluticasone propionate [Flonase Allergy Relief] 50 mcg/actuation spray,suspension 2 spray intranasal DAILY Qty: 16 1RF Rx Instructions: administer into each nostril Referrals: Daksha Hernandez MD [Primary Care Provider, Internal Medicine] Interventions: ED Discharge Assessment Last Done: 11/25/24 14:59 Discharge Date/Time: 11/25/24 15:13 Print Language: [place]
[2024-11-25] MEDS: Lidocaine 4 % Patch ADH..PATCH 1 PATCH TRANSDERMA (12:53)
[2024-11-25 13:29] VITALS: BP 127/56; PULSE 68; RESP 18; TEMP 36.7; O2SAT 100
[2024-11-25 14:59] VITALS: BP 130/60; PULSE 68; RESP 18; TEMP 36.7; O2SAT 100
== END 2024-11-25 15:13 | disposition home or self-care (01) ==
PROVIDERS: Emergency Provider Emergency Medicine Emergency Medical Services; PCP Internal Medicine
DX: M54.16 Radiculopathy, lumbar region (principal); M54.50 Low back pain, unspecified; I10 Essential (primary) hypertension; E10.40 Type 1 diabetes mellitus with diabetic neuropathy, unspecified; Z79.4 Long term (current) use of insulin; E78.5 Hyperlipidemia, unspecified; K21.9 Gastro-esophageal reflux disease without esophagitis; J45.909 Unspecified asthma, uncomplicated
CPT/HCPCS: 72100; 96372; 99283; 99284; J1885

== ENCOUNTER → 2024-11-25 11:37 | Outpatient (BNV) | payer OTHER, SELFPAY | PROVIDERS: Emergency Provider Emergency Medicine Emergency Medical Services; PCP Internal Medicine; Visit Provider Radiology Vascular & Interventional Radiology | DX: M51.360 Other intervertebral disc degeneration, lumbar region with discogenic back pain only (principal) | CPT/HCPCS: 72100 ==

== ENCOUNTER 2024-12-04 10:31 | Outpatient (AMB) | payer OTHER, SELFPAY ==
--- NOTE | 2024-12-04 10:38 | A.OFFPC_ITS ---
Vital Signs 12/04/24 10:39 Height 5 ft 5 in Weight 330 lb 8 oz BMI 55.0 BP 120/80 Blood Pressure Location Lt brachial Position Sitting Pulse 83 Pulse Source Pulse Oximeter Temp 97.1 F Temp Source Temporal Artery Scan Pulse Oximetry (%) 98 Oxygen Delivery Method Room Air Intake Visit Reasons: Lower back pain Intake Note: Patient is here to follow up on Lower back pain. Social Insurance Analyst Required: No Insulation Blower: Not Required per policy Accompanied by: Self / Same As Patient Allergies aspirin (ASA) Allergy (Unknown, Verified 12/04/24 10:39) BLEEDING lisinopril Adverse Reaction (Intermediate, Verified 12/04/24 10:39) Cough prednisone Adverse Reaction (Intermediate, Verified 12/04/24 10:39) high Blood sugar grasses/pollen Allergy (Mild, Uncoded 12/04/24 10:39) congestion Actos Allergy (Unknown, Uncoded 12/04/24 10:39) nausea and vomiting Trulicity Allergy (Unknown, Uncoded 12/04/24 10:39) nausea and vomiting Tobacco use date assessed: 12/04/24 Dental Screening Dental Screen Date: 08/30/24 FOR[facility]LY [facility], [facility] Medical History Allergic rhinitis Back pain Obesity Cough Uncontrolled type 1 diabetes mellitus with hyperglycemia, with long-term current use of insulin Obesity due to excess calories Viral syndrome 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 Vitamin D deficiency Diabetic nephropathy associated with type 2 diabetes mellitus Hypothyroidism Impacted cerumen of right ear Menstrual bleeding problem Hypothyroid Asthma Hypercholesterolemia Hypertension Surgical History History of hysteroscopy Hx of right breast biopsy Hx of tooth extraction Family History Father Hypertension Obesity Prediabetes Mother Heart disease Glaucoma Social History Household Members: Family Housing: Apartment Alcohol intake: never Patient Tobacco Use Status: Never used Tobacco Tobacco use type: Cigarette e-Cigarette/Vaping Use: Never Used Second Hand Smoke Exposure: No service: No Current occupational status: employed Current occupational exposures/hazards: No Gender identity: Female Cognitive needs: No Hearing needs: No Vision needs: Yes Female Reproductive History Menstrual Age of Menarche: 12 Questionnaire Thrive Questionnaire Date Thrive assessed: 08/30/24 I am a: Patient What is your living situation today?: I have a steady place to live Within the past 12 months, did the food you bought not last and you didn't have the money to get more?: Never true Within the past 12 months, did you worry whether your food would run out before you got money to buy more?: Never true Do you have trouble paying for medicines?: No Do you have trouble getting transportation to medical appointments?: No Do you have trouble paying your heating and electricity bill?: No Do you have trouble taking care of your child, family member or friend?: No Do you have trouble with day-to-day activities such as bathing, preparing meals, shopping, managing finances, etc.?: No Are you currently unemployed and looking for a job?: No Are you interested in more education?: No Please select the resources that you would like help with: None Currently or been in a relationship where the following occur: No concerns reported THRIVE Score: 0 IDMA-7 AMB Questionnaire DIMA-7 Date DIMA - 7 assessed: 08/30/24 Source: Developed by Drs. Sagar Ascencio, Jackelyn Dueñas, Camilo Redman and colleagues, with an educational maura from [employer]. Physical exam (Primary Care) Vital Signs: Last Vital Signs Temp 97.1 F 12/04/24 10:39 Oxygen Delivery Method Room Air 12/04/24 10:39 BMI result Body Mass Index 55.0 Tobacco/Smoking Status: Tobacco use Status Tobacco use date assessed 08/30/24 10/11/24 16:04 Patient Tobacco Use Status Never used Tobacco 10/11/24 16:04 Tobacco use type Cigarette 10/11/24 16:04 e-Cigarette/Vaping Use Never Used 10/11/24 16:04 Thrive Assessment: Date of Thrive Assessment Date Thrive assessed 08/30/24 10/11/24 16:04 Currently or been in a relationship where the following occur: No concerns reported Const General: alert; No acute distress Eyes Conjunctivae: conjunctivae normal Resp Auscultation: clear to auscultation bilaterally Cardio Rate: regular rate Rhythm: regular rhythm GI Inspection: Yes normal to inspection Extrem General: Yes normal to inspection and No edema Results AMB Hemoglobin A1c AMB Hemoglobin A1c 6.4 % Last Edit by AB Payne on 12/04/24 10:54 Coding Level of Care Code Est Pt Level 4 (74630) Complex EM visit Add On G2211 Diagnoses 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), managed as type 1 E13.9 Essential hypertension I10 Hypertension type: essential hypertension Hypercholesterolemia E78.00 Generalized anxiety disorder F41.1 Morbid obesity E66.01 Gastroesophageal reflux disease, unspecified whether esophagitis present K21.9 Esophagitis presence: esophagitis presence not specified Sciatic nerve pain M54.30 Chronic midline low back pain without sciatica M54.50; G89.29 Chronicity: chronic Back pain laterality: midline Sciatica presence: without sciatica Colon cancer screening Z12.11 Assessment & Plan Assessment & Plan (1) 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 Patient on insulin pump (2) Hypertension: Code(s): I10 - Essential (primary) hypertension Category: Medical Qualifiers: Hypertension type: essential hypertension Qualified Code(s): I10 - Essential (primary) hypertension Plan: Continue with blood pressure medication. Decrease salt intake and exercise patient is on losartan 25 mg twice a day (3) Hypercholesterolemia: Code(s): E78.00 - Pure hypercholesterolemia, unspecified Category: Medical Plan: Avoid fried foods, chicken skin, eggs, butter margarine, pastries and meat. Be it pork or beef they have a lot of cholesterol February last blood work LDL goal of less than 100 and triglyceride of less than 150. Patient is on atorvastatin 20 mg once a day (4) Generalized anxiety disorder: Code(s): F41.1 - Generalized anxiety disorder Category: Medical Plan: Continue with therapy. (5) Morbid obesity: Code(s): E66.01 - Morbid (severe) obesity due to excess calories Category: Medical Plan: Diet and exercise (6) GERD (gastroesophageal reflux disease): Code(s): K21.9 - Gastro-esophageal reflux disease without esophagitis Category: Medical Qualifiers: Esophagitis presence: esophagitis presence not specified Qualified Code(s): K21.9 - Gastro-esophageal reflux disease without esophagitis Plan: Avoid the foods that causes that usually spicy foods, tomato products, juices, coffee, soda and foods that your sensitive to. After eating do not lie down, allow 3-4 hours before in lie down. And keep the head of bed above 30 degrees to avoid the acid from going up. (7) Sciatic nerve pain: Comment: left side Code(s): M54.30 - Sciatica, unspecified side Category: Medical Plan: Discussed about physical therapy (8) Low back pain: Code(s): M54.50 - Low back pain, unspecified Category: Medical Qualifiers: Chronicity: chronic Back pain laterality: midline Sciatica presence: without sciatica Qualified Code(s): M54.50 - Low back pain, unspecified; G89.29 - Other chronic pain (9) Colon cancer screening: Code(s): Z12.11 - Encounter for screening for malignant neoplasm of colon Category: Medical Plan History of Present Illness The patient is a 49-year-old female presenting for a follow-up visit. She has a history of morbid obesity, hypertension, type 2 diabetes mellitus, hypercholesterolemia, and hypothyroidism. Her diabetes is managed with an insulin pump, and her last hemoglobin A1c was 6.4%. The patient is also on atorvastatin for hypercholesterolemia and losartan for hypertension. In November, she visited the emergency room due to back pain radiating to the left gluteal area and posterior thigh, without any history of trauma or fall. She was treated with Toradol, a lidocaine patch, and Robaxin, and an X-ray showed deg enerative changes without fracture. The pain persists, and physical therapy has been recommended. The patient has proteinuria and is advised to use Tylenol for pain management due to kidney concerns. She is up to date with her mammogram and has an upcoming appointment with ophthalmology. Health Maintenance - Mammogram up to date - Appointment with ophthalmology scheduled Social History Review of Systems - Musculoskeletal: Reports low back pain radiating to the left gluteal area and posterior thigh. Denies any fall or trauma. Physical Exam Results - X-ray: Degenerative changes without fracture or malalignment - Hemoglobin A1c: 6.4% - LDL: 79 mg/dL - Proteinuria: Present Plan For diabetes management, the patient will continue using the insulin pump, aiming for a hemoglobin A1c below 6.5%. She should continue monitoring her blood glucose levels and follow up with endocrinology as needed. The patient will maintain her current regimen of losartan for hypertension and atorvastatin for hypercholesterolemia, with specific lipid goals in mind. Physical therapy is recommended for her low back pain, and she should use Tylenol for pain management to protect kidney function. Preventative care measures include ensuring mammograms are up to date and scheduling a colonoscopy. Patient was informed and verbally consented to the use of an ambient scribe for clinic note documentation during this visit. Discussion Notes I discussed with the patient the importance of maintaining her current diabetes management plan, including the use of the insulin pump and regular monitoring of blood glucose levels. We reviewed her hypertension and hypercholesterolemia management, emphasizing the continuation of losartan and atorvastatin. I recommended physical therapy for her back pain and advised using Tylenol for pain management due to kidney concerns. We also discussed the need for up-to-date mammograms and the scheduling of a colonoscopy. Patient Instructions - Continue using your insulin pump and monitor blood glucose levels regularly. - Take losartan 25 mg twice daily for blood pressure management. - Continue atorvastatin 20 mg daily for cholesterol management. - Attend physical therapy sessions for back pain relief. - Use Tylenol for pain management and avoid NSAIDs to protect kidney health. - Ensure mammograms are up to date and schedule a colonoscopy. Orders: Orders AMB Hemoglobin A1c Today E10.65 - Type 1 diabetes mellitus with hyperglycemia PT Evaluation and Treatment Today G89.29 - Other chronic pain, M54.30 - Sciatica, unspecified side, M54.50 - Low back pain, unspecified Referrals Gastroenterology Referral Z12.11 - Encounter for screening for malignant neoplasm of colon Medications: New 2 ketorolac maximum total duration of 5 days from all oral, intranasal, or parenteral formulations 10 mg PO Q8H PRN 10 tabs 0RF pain G89.29 - Other chronic pain, M54.50 - Low back pain, unspecified Changed From cyclobenzaprine 5 mg PO BEDTIME PRN 30 tabs 0RF muscle spasm M54.30 - Sciatica, unspecified side To cyclobenzaprine 5 mg PO BID PRN 30 tabs 0RF muscle spasm M54.30 - Sciatica, unspecified side
[2024-12-04 10:39] VITALS: BP 120/80; PULSE 83; TEMP 36.2; O2SAT 98; BMI 55.0
== END 2024-12-04 11:23 | disposition home or self-care (01) ==
PROVIDERS: PCP Internal Medicine; Visit Provider Internal Medicine
DX: E10.65 Type 1 diabetes mellitus with hyperglycemia (principal); E66.01 Morbid (severe) obesity due to excess calories; Z68.43 Body mass index [BMI] 50.0-59.9, adult; I10 Essential (primary) hypertension; E78.00 Pure hypercholesterolemia, unspecified; F41.1 Generalized anxiety disorder; K21.9 Gastro-esophageal reflux disease without esophagitis; M54.30 Sciatica, unspecified side; M54.50 Low back pain, unspecified; G89.29 Other chronic pain; Z12.11 Encounter for screening for malignant neoplasm of colon

== ENCOUNTER → 2024-12-04 10:31 | Outpatient (BNVA) | payer OTHER, SELFPAY | PROVIDERS: PCP Internal Medicine; Visit Provider Internal Medicine | DX: I10 Essential (primary) hypertension (principal); E06.3 Autoimmune thyroiditis; E13.65 Other specified diabetes mellitus with hyperglycemia; E03.8 Other specified hypothyroidism; E78.00 Pure hypercholesterolemia, unspecified; M54.30 Sciatica, unspecified side; G89.29 Other chronic pain | CPT/HCPCS: 82947; 83036; 99212 ==

== ENCOUNTER 2024-12-04 15:24 | Outpatient (AMB) | payer OTHER, SELFPAY ==
--- NOTE | 2024-12-04 15:27 | MHC.OFFVIS ---
Vital Signs 12/04/24 15:28 Height 5 ft 5 in Weight 335 lb 5.169 oz BMI 55.8 BP 132/90 H Blood Pressure Location Lt brachial Position Sitting Pulse 89 Pulse Source Pulse Oximeter Pulse Oximetry (%) 100 Oxygen Delivery Method Room Air Intake Visit Reasons: T2DM Intake Note: Patient present today for Type 2 Diabetes Mellitus Last Diabetic eye exam: 08/2024 Last Podiatry Visit: Patient would like a referral to see a outpatient physical therapist assistant. Random Glucose: 121 mg/dl HgA1C: 6.4% Die Assembler Required: No Accompanied by: Self / Same As Patient Allergies aspirin (ASA) Allergy (Unknown, Verified 12/04/24 15:33) BLEEDING lisinopril Adverse Reaction (Intermediate, Verified 12/04/24 15:33) Cough prednisone Adverse Reaction (Intermediate, Verified 12/04/24 15:33) high Blood sugar grasses/pollen Allergy (Mild, Uncoded 12/04/24 15:33) congestion Actos Allergy (Unknown, Uncoded 12/04/24 15:33) nausea and vomiting Trulicity Allergy (Unknown, Uncoded 12/04/24 15:33) nausea and vomiting HPI Comments Details: 48-year-old female who presents for management of diabetes type 1 and hypothyroidism. Last seen August 2024 by Roselyn Gutierrez APRN 1) Diabetes Diabetes type 2 diagnosed and 2015. However then found to have dima antibodies, concern for DIEGO She also has hypoglycemic unawareness. HgbA1C today in the office 04/18 6.4%. 02/02/24 7% 09/22/23 7.2% Past medical history: Diabetes type 2 hypothyroidism, HTN, dyslipidemia, obesity Micro and macrovascular complications: Nephropathy (+ microalbumin) Diabetes medications: Back up pump failure plan: Lantus 30 units daily, Fiasp via I:C ratio 1:10, and sensitivity 1:10 begin correction at 120mg/dl Dexcom G7 data downloaded from November 20 to 12/04/2024 Time CGM active 96.8% G SD 6.9% Average glucose 151 mg/dL Coefficient of variation 27.1% Within target range 79.4% High sublingually 6% Very high 2.7% Low 0.3% Interpretation: Blood sugars better control overnight and fasting, during the day she does have postprandial hyperglycemia, no more hypoglycemic issues She does not announce all of her meals as this has caused lows in the past Symptoms reported: denies numbness, tingling, cramping in lower extremities Hypoglycemia: No Exercise: denies Home Care Scheduler - CDE education: currently Development Associate: charley , referral placed 12/04/2024 Dental exam: goes every 6 month Ophthalmology evaluation: 09/16 2) Hypothyroidism Has had Hypothyroidism since around 2014. Medications: Levoxyl 100 mcg eats and takes other medications at least one hour later. Symptoms: Reports some fatigue, dry skin. Denies dysphagia, dyspnea, dysphonia, Denies radiation to head or neck, thyroid surgery or biopsy. Denies biotin use. Family History: unknown if any hypothyroidism in family recent Tsh 2.02 06/19 Physical exam General: sitting comfortably in no acute distress HEENT: normocephalic/atraumatic, Neck: supple, Cardiac: normal heart sounds Pulm: normal breath sounds B/L, no added breath sounds Abd: not distended, no tenderness Extremities: no edema, no signs of myxedema Neuro: AAO x3, Speech: normal, no facial droop, moving all 4 extremities Laboratory Tests 01/26/23 05/26/24 05/26/24 15:38 10:00 10:08 Hgb 12.1 Hct 37.2 Plt Count 316 Glucose (Clinic) Hgb A1c (Clinic) Triglycerides 56 Cholesterol 153 LDL Cholesterol, Calc 79 HDL Cholesterol 63 TSH 2.02 Free T4 1.21 Urine Creatinine 199.53 Urine Microalbumin 109.0 Microalb/Creat Ratio 54.2 H DIMA Antibody >250 H 12/04/24 12/04/24 10:37 15:34 Hgb Hct Plt Count Glucose (Clinic) 121 H Hgb A1c (Clinic) 6.4 H Triglycerides Cholesterol LDL Cholesterol, Calc HDL Cholesterol TSH Free T4 Urine Creatinine Urine Microalbumin Microalb/Creat Ratio DIMA Antibody [facility] Medical History (Updated 12/04/24 @ 10:59 by Daksha Hernandez MD) Obesity, morbid, BMI 40.0-49.9 Allergic rhinitis Back pain Obesity Cough Uncontrolled type 1 diabetes mellitus with hyperglycemia, with long-term current use of insulin Viral syndrome [facility] (current) use of insulin Vitamin D deficiency Diabetic nephropathy associated with type 2 diabetes mellitus Hypothyroidism Impacted cerumen of right ear Menstrual bleeding problem Hypothyroid Asthma Hypercholesterolemia Hypertension Surgical History History of hysteroscopy Hx of right breast biopsy Hx of tooth extraction Family History Father Hypertension Obesity Prediabetes Mother Heart disease Glaucoma Social History Household Members: Family Housing: Apartment Alcohol intake: never Patient Tobacco Use Status: Never used Tobacco Tobacco use type: Cigarette e-Cigarette/Vaping Use: Never Used Second Hand Smoke Exposure: No service: No Current occupational status: employed Current occupational exposures/hazards: No Gender identity: Female Cognitive needs: No Hearing needs: No Vision needs: Yes Female Reproductive History Menstrual Age of Menarche: 12 Physical Exam Vital Signs: Last Vital Signs Pulse 89 12/04/24 15:28 BP 132/90 H 12/04/24 15:28 Pulse Ox 100 12/04/24 15:28 Oxygen Delivery Method Room Air 12/04/24 15:28 BMI result Body Mass Index 55.8 Office Procedures Glucose Monitoring Details Details: See [facility] [address] - Glucose monitoring, continuous-physician I&R Procedure code (CPT) selection complete Results AMB Hemoglobin A1c AMB Hemoglobin A1c 6.4 % Last Edit by AB Payne on 12/04/24 10:54 Results Reviewed Results Reviewed: Laboratory Last Values Glucose (Clinic) 121 mg/dL (60-115) H 12/04/24 15:34 Assessment & Plan Assessment & Plan (1) 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 Her previous A1c was too low at 5.6% in represented multiple lows. A1c 12/04/2024 improved today to 6.4%. Now when she has a lows they are very transient and only on occasion. She does carry a sugar source with her We will continue her with the beta bionics pump. Podiatry referral placed. Up-to-date with eye visit The patient had an opportunity to ask questions regarding treatment plan. The patient expressed understanding and agreement with the above treatment plan. The patient is aware they should contact our office by phone for worsening glucose readings or for any low blood sugars which may warrant a change in diabetes medication. Compliance is encouraged with medications and any followup testing/consults which may have been ordered. 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 Labs from May 2024 showed normal TSH. Plan: -continue Levoxyl 100 mcg daily Plan I spent 30 minutes in reviewing the record, seeing the patient and documenting in the medical record. 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
[2024-12-04 15:28] VITALS: BP 132/90; PULSE 89; O2SAT 100; BMI 55.8
[2024-12-04 15:38] LABS: Glucose, Whole Blood 121 mg/dL (60-115)
--- OUTSIDE RECORDS SUMMARY | 2024-12-04 16:14 | XMS_ITS | Encounter Summary ---
Author Organization [employer] Address [address] [place] [address] Care Team Providers Care Claims Adjuster Crop Name Role Phone Unavailable Primary Care Provider [...]
== END 2024-12-04 16:07 | disposition home or self-care (01) ==
LOC: HO.ENCR 15:25
PROVIDERS: PCP Internal Medicine; Visit Provider Student in an Organized Health Care Education/Training Program
DX: E13.9 Other specified diabetes mellitus without complications (principal); E03.8 Other specified hypothyroidism; E06.3 Autoimmune thyroiditis
CPT/HCPCS: 95251; 99214

== ENCOUNTER 2024-12-12 15:22 | Outpatient (AMB) | payer OTHER, SELFPAY ==
--- NOTE | 2024-12-12 15:32 | MHC.OFFVISPS ---
Intake Intake Visit Reasons: consultation Intake Note: 12/12/24 PHQ-9 14 DIMA-7 12 Ibm Bpm Architect Required: No Allergies aspirin (ASA) Allergy (Unknown, Verified 12/17/24 10:27) BLEEDING lisinopril Adverse Reaction (Intermediate, Verified 12/17/24 10:27) Cough prednisone Adverse Reaction (Intermediate, Verified 12/17/24 10:27) high Blood sugar grasses/pollen Allergy (Mild, Uncoded 12/17/24 10:27) congestion Actos Allergy (Unknown, Uncoded 12/17/24 10:27) nausea and vomiting Trulicity Allergy (Unknown, Uncoded 12/17/24 10:27) nausea and vomiting Medication List - Last Reconciled 12/12/24 by Stefani Cooney APRN acetaminophen 1,000 mg (2 x 500 mg) PO Q6H PRN acetone (urine) test (Ketone Urine Test strips) As directed albuterol sulfate 90 mcg/actuation (Ventolin HFA) 1 inh inhalation Q6H PRN atorvastatin 20 mg PO DAILY Baqsimi 3 mg/actuation (glucagon) 3 mg intranasal ONCE PRN 30 days MDD 6mg NS blood sugar diagnostic (FreeStyle Lite Strips) As directed six times a day p.r.n. sensor failure or to confirm readings blood-glucose meter (FreeStyle Lite Meter kit) As directed blood-glucose sensor (Anystream G7 Sensor device) As directed change every 10 days cetirizine 10 mg PO DAILY PRN cyclobenzaprine 5 mg PO BID PRN fluticasone propionate 50 mcg/actuation (Flonase Allergy Relief) 2 sprays intranasal DAILY FreeStyle Lancets (lancets) 4 times a day NS inhalational spacing device As directed insulin aspart (niacinamide) 100 unit/mL (Fiasp U-100 Insulin) subcutaneously; Infuse up to 120 units via insulin pen per day subcutaneously; insulin glargine (Lantus Solostar U-100 Insulin) 30 units (0.3 mL) subcut QPM PRN 30 days MDD 30 insulin pump cart,auto,BT-cntr (Omnipod 5 G6 Intro Kit (Gen 5) subcutaneous cartridge with controller) As directed insulin pump cart,automated,BT (Omnipod 5 G6 Pods (Gen 5) subcutaneous cartridge) As directed insulin syringe-needle U-100 As directed up to qid for pump failure or glucose correction ketorolac 10 mg PO Q8H PRN lancets (FreeStyle Lancets) 6 times a day prn sensor failure or to confirm glucose Levoxyl (levothyroxine) 100 mcg PO DAILY 30 days NS lidocaine 5% (Lidoderm) 1 patch topical DAILY losartan 25 mg PO BID 30 days magnesium oxide 800 mg PO DAILY pantoprazole 40 mg PO QAM pen needle, diabetic As directed pen needle, diabetic (1st Tier Unifine Pentips Plus) 4 times a day pen needle, diabetic USE TO INJECT 5 TIMES A DAY if pump is not operating polyethylene glycol 3350 (Miralax) 238 grams PO ONCE PRN HPI- Psychiatric Chief Complaint: consultation Intake Note: Pt goes by the nicknamnadiya Gino HPI Narrative: 49 yo female, presents with sx of anxiety, panic. Symptoms present since middle school, recalls feeling in class like she was going to the anxiety was so severe-recalls rapid heart rate, occurs out of no where and can occur 1-2 episodes per week. Recalls in the summer of 2018 a ?convulsion when blood glucose was 22, paramedics took her to ER-when she awoke she saw bright silhouettes, sounds and voices like she was in a dream. Feared sleep for a time after this as she was attempting to nap when this occurred. Pt travels to [place] regularly. Each time she fears something bad will happen. She fears crashing when driving. Feels the same if father is driving. Feels safe when sister is driving. Consistent worry about a disaster occurring, worries about her nephew (very close to him as she has no children). Past Psychiatric History: IP: Denies OP: Teens when in [place]-psychotherapy hx of PHP in teens Med Trials: Ambien and another agent when in school Depressive sx in her 20's, but I was not like this. At times when sleeping, hears a voice that says her name Char- no, well maybe at times Fear-yes, always Pt reports she is attempting to lose weight- she eats to manage stress Sleep 4-5 hours per night Subjective Subjective Subjective Medication Compliance: Yes Side effects from medications: No Review of Systems Medical Review of Systems: unchanged Review of Systems Review of Systems Denies today Mental Status Exam Mental Status Exam Patient Appearance: Appropriate Patient Orientation: Person, Place, Time and Situation Level of Consciousness: Alert Patient Behavior: Talkative and Good Eye Contact Mood Description: Anxious Affect Description: Anxious Patient Cognition Impaired: No Ability to Follow Directions: Good Speech Pattern: Spontaneous Speech Memory Description: Intact Hallucinations: None Delusions: Not Present Thought Process: Intact and Goal Oriented Thought Content: positive for Intact and positive for Goal Oriented Depressive Symptoms: Increased Anxiety Judgement: Good Assessment and Plan Assessment & Plan (1) Generalized anxiety disorder: Status: Acute Code(s): F41.1 - Generalized anxiety disorder Plan Discussed medicine options with Juan. We will begin with a trial of Sertraline 25 mg daily as she is sensitive to medications. At this time she declines any benzodiazepine trial for her sx of extreme anxiety, panic as her work requires her to be alert and attentive at all times. Medications: New sertraline 25 mg PO DAILY 30 tabs 0RF Counseling and coordination of Care Medication management counseling: Effectiveness, Side effects, Dosing range, Duration, Drug interaction and Adherence Details: I spent [] minutes reviewing the record, seeing the patient and documenting in the medical record. Counseling provided to the patient/caregiver as outlined below. Addressed patient/caregiver concerns regarding current medication regime including effective adherence. Addressed patient/caregiver concerns regarding diagnosis and prognosis including accuracy of diagnosis, prognosis over time, impact of diagnosis. Addressed patient/caregiver concerns regarding impact of recent stressors. [facility], [facility] Medical History Obesity, morbid, BMI 40.0-49.9 Allergic rhinitis Back pain Obesity Cough Uncontrolled type 1 diabetes mellitus with hyperglycemia, with long-term current use of insulin Viral syndrome half-way (current) use of insulin Vitamin D deficiency Diabetic nephropathy associated with type 2 diabetes mellitus Hypothyroidism Impacted cerumen of right ear Menstrual bleeding problem Hypothyroid Asthma Hypercholesterolemia Hypertension Surgical History History of hysteroscopy Hx of right breast biopsy Hx of tooth extraction Family History Father Hypertension Obesity Prediabetes Mother Heart disease Glaucoma Social History Household Members: Family Housing: Apartment Alcohol intake: never Patient Tobacco Use Status: Never used Tobacco Tobacco use type: Cigarette e-Cigarette/Vaping Use: Never Used Second Hand Smoke Exposure: No service: No Current occupational status: employed Current occupational exposures/hazards: No Gender identity: Female Cognitive needs: No Hearing needs: No Vision needs: Yes Social History: Born in [place] and attended school in [place]. Father is still in [place]. Mother is in [place]. Parents were teachers One sister, lives with pt, their mother, and sister's son Pt has a BA in [employer]. 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 no hx of suicides Substance History: Social alcohol on occasion Caffeine 2-5 cups daily No recreational drug use or nicotine use Trauma History: Denies Coding Level of Care Code Psych Diag Eval w/Med (10960) Diagnoses Generalized anxiety disorder F41.1
--- OUTSIDE RECORDS SUMMARY | 2024-12-12 16:15 | XMS_ITS | Encounter Summary ---
Author Organization [employer] Address [address] [place] [address] Care Team Providers Care Branch Billing Payroll Clerk Name Role Phone Unavailable Primary Care [...]
--- OUTSIDE RECORDS SUMMARY | 2024-12-12 16:15 | XMS_ITS | Patient Health Record ---
Author Organization [facility] Address [facility] [place] [address] Care Team Providers Care Loss Control Manager Name Role Phone JAZIEL BULLARD Primary Care Provider Bee vailable Allergies Allergen (clinical drug ingredient) Drug/Non Drug Allergy documented on EMR Reaction Allergy Type Onset Date Status aspirin Aspirina (uncoded) sangrado Allergy A ctive Reason For Referral No Information Medications Medication SIG (Take, Route, Frequency, Duration) Notes Start Date End Date Status Januvia Active metFORMIN HCl Active Synthroid Active Social History Social History Semaj de Emergencia Social Info Question Answer Notes Historial Social Transfuciones componentes sanguineos No Modo de llegada Ambulando Silla de jonah Plan Of Treatment Pending Test Test Name Order Date ABDOMEN (FLAT PLATE)1 VIEW 11/02/2018 Medical (General) History Medical History History ICD Code Tiroides Diabetes
== END 2024-12-12 16:25 | disposition home or self-care (01) ==
LOC: HO.HOP 15:22
PROVIDERS: PCP Internal Medicine; Visit Provider Clinical Nurse Specialist Psychiatric/Mental Health, Adult
DX: F41.1 Generalized anxiety disorder (principal)
CPT/HCPCS: 90792

== ENCOUNTER → 2024-12-12 15:22 | Outpatient (BNVA) | payer OTHER, SELFPAY | PROVIDERS: PCP Internal Medicine; Visit Provider Clinical Nurse Specialist Psychiatric/Mental Health, Adult | DX: F41.1 Generalized anxiety disorder (principal) | CPT/HCPCS: 90792 ==

== ENCOUNTER → 2024-12-17 09:44 | Outpatient (BNV) | payer OTHER, SELFPAY | PROVIDERS: Emergency Provider Emergency Medicine; PCP Internal Medicine; Visit Provider Radiology Diagnostic Radiology | DX: R06.02 Shortness of breath (principal); R07.9 Chest pain, unspecified | CPT/HCPCS: 71045 ==

== ENCOUNTER 2024-12-17 10:20 | Emergency (ER) | payer OTHER, SELFPAY ==
--- NOTE | ~2024-12-17 | XR_ITS ---
EXAMINATION: XR CHEST CLINICAL INFORMATION: chest pain/sob COMPARISON: 02/20/2024. TECHNIQUE: AP view of the chest was obtained. FINDINGS: The cardiac, hilar, and mediastinal contours are normal. The lungs are clear bilaterally. No pneumothorax or effusion. No focal osseous or soft tissue abnormality. XR/XR chest 1V IMPRESSION: Normal chest. No active pulmonary disease. Electronically signed by: Benjy Luna MD 12/17/2024 11:03 AM EDT
[2024-12-17 10:25] VITALS: BP 170/67; PULSE 78; RESP 16; TEMP 36.9; O2SAT 98; BMI 38.3
--- NOTE | 2024-12-17 10:35 | ECG_ITS ---
Test Reason : CP Blood Pressure : */* mmHG Vent. Rate : 92 BPM Atrial Rate : 92 BPM P-R Int : 144 ms QRS Dur : 88 ms QT Int : 356 ms P-R-T Axes : 12 -19 -22 degrees QTcB Int : 440 ms Normal sinus rhythm Possible Left atrial enlargement Nonspecific T wave abnormality Abnormal ECG No previous ECGs available Referred By: Beverly Licona Electronically Signed By: LOPEZ VELOZ
--- NOTE | 2024-12-17 10:36 | ED.CHESTPAIN ---
HPI - Chest Pain General Chief Complaint: Chest Pain Stated Complaint: high blood pressure, chest pain Time Seen by Provider: 12/17/24 10:32 Source: patient, RN notes reviewed and old records reviewed Mode of arrival: ambulatory Limitations: no limitations History of Present Illness ED Provider: Archie Barajas PA-C HPI narrative: 49-year-old female with medical history of obesity, T1DM, GERD, HTN, HLD, hypothyroidism, anxiety, presents to the ED due to abdominal pain and chest pain. Patient states she started 25 milligrams of Zoloft this Tuesday (12/15) and immediately after taking experienced an episode of dizziness and epigastric pain. 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 Patient states she thought it was high blood sugar, and was drinking water when she began feeling anxious, experiencing palpitations, and shortness of breath. She then went to the school nurse who took her blood pressure and noted high blood pressure but is unsure of the reading. Patient states she is now experiencing epigastric pain, with diffuse chest pressure, nausea, with SOB resolved at this time. Related Data Home Medications ?Medication ?Instructions ?Recorded ?Confirmed pen needle, diabetic 32 gauge x #50 ea 03/06/20 12/12/24 cetirizine 10 mg tablet 10 mg PO DAILY PRN 06/13/24 12/12/24 polyethylene glycol 3350 17 238 g PO ONCE PRN 06/13/24 12/12/24 gram/dose oral powder (Miralax) magnesium oxide 800 mg PO DAILY 06/14/24 12/12/24 Previous Rx's ?Medication ?Instructions ?Recorded pen needle, diabetic 32 gauge x #150 ea 04/29/20 (1st Tier Unifine Pentips Plus) FreeStyle Lancets 28 gauge #120 ea 05/16/20 (lancets) insulin pump cart,automated,BT #5 ea 04/20/22 (Omnipod 5 G6 Pods (Gen 5) subcutaneous cartridge) insulin pump cartridge,automated #1 ea 04/20/22 dose,BT with controller subcutaneous (Omnipod 5 G6 Intro Kit (Gen 5) subcutaneous cartridge with controller) blood-glucose sensor ([employer] G7 #3 ea 12/10/22 Sensor device) acetaminophen 500 mg capsule 1,000 mg (2 x 500 mg) PO Q6H PRN 07/06/23 pain #30 caps albuterol sulfate 90 mcg/actuation 1 inh inhalation Q6H PRN shortness 01/30/24 aerosol inhaler (Ventolin HFA) of breath or wheezing #18 grams acetone (urine) test (Ketone Urine #25 ea 02/03/24 Test strips) blood sugar diagnostic (FreeStyle #200 ea 02/03/24 Lite Strips) blood-glucose meter (FreeStyle #1 ea 02/03/24 Lite Meter kit) lancets 28 gauge (FreeStyle #100 ea 02/03/24 Lancets) inhalational spacing device #1 ea 02/24/24 losartan 25 mg tablet 25 mg PO BID 30 days #60 tabs 06/13/24 Levoxyl 100 mcg tablet 100 mcg PO DAILY 30 days #30 tabs 06/26/24 (levothyroxine) fluticasone propionate 50 2 spray intranasal DAILY #16 grams 08/30/24 mcg/actuation nasal spray,suspension (Flonase Allergy Relief) Baqsimi 3 mg/actuation nasal spray 3 mg intranasal ONCE PRN severe 09/04/24 (glucagon) low 30 days #2 ea insulin glargine 100 unit/mL (3 30 unit (0.3 mL) subcut QPM PRN 09/04/24 mL) subcutaneous pen (Lantus pump failure 30 days #6 mL Solostar U-100 Insulin) pen needle, diabetic 32 gauge x #100 ea 09/04/24 insulin syringe-needle U-100 0.3 #100 ea 10/12/24 mL 31 gauge x 09/07 atorvastatin 20 mg tablet 20 mg PO DAILY #30 tabs 11/19/24 pantoprazole 40 mg tablet,delayed 40 mg PO QAM #90 tabs 11/20/24 release lidocaine 5 % topical patch 1 patch topical DAILY #15 ea 11/25/24 (Lidoderm) cyclobenzaprine 5 mg tablet 5 mg PO BID PRN muscle spasm #30 12/04/24 tabs insulin aspart (niacinamide) See Rx Instructions subcut 12/04/24 (U-100) 100 unit/mL subcutaneous .COMPLEX #40 mL solution (Fiasp U-100 Insulin) ketorolac 10 mg tablet 10 mg PO Q8H PRN pain #10 tabs 12/04/24 sertraline 25 mg tablet 25 mg PO DAILY #30 tabs 12/12/24 Allergies Allergy/AdvReac Type Severity Reaction Status Date / Time aspirin (ASA) Allergy Unknown BLEEDING Verified 12/17/24 10:27 lisinopril AdvReac Intermediate Cough Verified 12/17/24 10:27 prednisone AdvReac Intermediate high Blood Verified 12/17/24 10:27 sugar grasses/pollen Allergy Mild congestion Uncoded 12/17/24 10:27 Actos Allergy Unknown nausea and Uncoded 12/17/24 10:27 vomiting Trulicity Allergy Unknown nausea and Uncoded 12/17/24 10:27 vomiting Review of Systems Review of Systems: CONST: Negative for fever, body aches and chills. HENT: Negative for neck pain/stiffness, headache, congestion, sore throat, swelling. EYES: Negative for discharge/pain or vision changes. RESP: Negative for cough/hemoptysis and shortness of breath. CV: Negative difficulty breathing, palpitations. POS chest pain ABD: Negative vomiting. POS epigastric pain, nausea : Negative increase frequency, dysuria, blood in urine or stool. MUSC: Negative for muscle aches, edema. SKIN: Negative rash, lesions/sores. NEURO: Negative headache, dizziness, weakness. Yes all other systems are reviewed and are negative PMFSH Past Medical History Attestation statement: The following information was validated with the patient. Source: old records reviewed and nursing notes reviewed Medical History Obesity, morbid, BMI 40.0-49.9 Allergic rhinitis Back pain Obesity Cough Uncontrolled type 1 diabetes mellitus with hyperglycemia, with long-term current use of insulin Viral syndrome jail (current) use of insulin Vitamin D deficiency Diabetic nephropathy associated with type 2 diabetes mellitus Hypothyroidism Impacted cerumen of right ear Menstrual bleeding problem Hypothyroid Asthma Hypercholesterolemia Hypertension Surgical History History of hysteroscopy Hx of right breast biopsy Hx of tooth extraction Family History Family History Father Hypertension Obesity Prediabetes Mother Heart disease Glaucoma Social History Social History Household Members: Family Housing: Apartment Alcohol intake: never Patient Tobacco Use Status: Never used Tobacco Tobacco use type: Cigarette Smoked in Last 30 Days: No e-Cigarette/Vaping Use: Never Used Second Hand Smoke Exposure: No Use of substances other than those prescribed or required for medical reasons: No Advance Directives: No Advance Directives Information Provided: No Do you have a plan to hurt others: No Plan service: No Current occupational status: employed Current occupational exposures/hazards: No Gender identity: Female Cognitive needs: No Hearing needs: No Vision needs: Yes Physical Exam Vital Signs: Vital Signs: Last Vital Signs Temp 98.3 F 12/17/24 13:29 Pulse 91 12/17/24 13:29 Resp 17 12/17/24 13:29 BP 169/88 H 12/17/24 13:29 Pulse Ox 98 12/17/24 13:29 O2 Del Method Room Air 12/17/24 13:29 BMI result Body Mass Index 38.3 GENERAL APPEARANCE: ?AxOx4, generally well-appearing, no acute distress. HEENT: ?NC, AT. MMM. EOMI, clear conjunctiva, oropharynx clear. NECK: ?Supple without lymphadenopathy.? No stiffness or restricted ROM. HEART:? Normal rate and regular rhythm, normal S1/S2, no m/r/g LUNGS:? CTAB, moving air well. No crackles or wheezes are heard. ABDOMEN: ?Soft, nontender, nondistended with good bowel sounds heard. BACK: No CVAT, no obvious deformity. EXTREMITIES: ?Without cyanosis, clubbing or edema. NEUROLOGICAL: ?Grossly nonfocal. Alert and oriented, moving all 4 extremities. Observed to ambulate with normal gait. Skin: ?Warm and dry without any rash. Medications Administered Discontinued Medications Generic Name Dose Route Start Last Admin Trade Name Freq PRN Reason Stop Dose Admin Al Hydroxide/Mg Hydroxide 15 ml 12/17/24 11:35 12/17/24 11:43 Magnesium Hydrox/Alum Hydrox 30 Ml Oral.Susp PO 12/17/24 11:36 15 ml ONCE ONE Administration Lidocaine HCl 15 ml 12/17/24 11:35 12/17/24 11:43 Lidocaine Hcl Viscous 2 % 15 Ml Solution MUCOUS MEM 12/17/24 11:36 15 ml ONCE ONE Administration Medical Decision Making Medical Decision Making MDM Narrative: 9-year-old female with medical history of obesity, T1DM, GERD, HTN, HLD, hypothyroidism, anxiety, presents to the ED due to abdominal pain and chest pain. Patient states she started 25 milligrams of Zoloft this Tuesday (12/15) and immediately after taking experienced an episode of dizziness and epigastric pain. 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 Patient states she thought it was high blood sugar, and was drinking water when she began feeling anxious, experiencing palpitations, and shortness of breath. She then went to the school nurse who took her blood pressure and noted high blood pressure but is unsure of the reading. Patient states she is now experiencing epigastric pain, with diffuse chest pressure, nausea, with SOB resolved at this time. VS on initial observation-BP 170/67, pulse rate of 78, respiratory rate of 16, afebrile with oral temp of 98.4, O2 saturation of 98 on room air. Plan: EKG, CXR, Labs, Course 11:41- EKG reveals normal sinus rhythm, possible left atrial enlargement, no ST-elevation/depression, with non-specific T wave abnormality Labs without leukocytosis/leukopenia, H&H stable, random serum glucose of 151, lipase WNL, without electrolyte abnormality, initial troponin 2.9 Patient with history of GERD and needed evaluation with upper endoscopy and colonoscopy but was unable to go for imaging. Patient being medicated with 15 mL of Maalox, 15 mL of viscous lidocaine to see if this improves epigastric pain. 14:54- Patient states burning epigastric pain resolved after being medicated with 15 mL of Maalox, viscous lidocaine. Second troponin with negative delta at 4.8- less likely ACS UA negative for infection or blood. At this time I believe patient's symptoms may be due to GERD/esophagitis. Patient has follow up with [facility] [place]. I counseled patient to follow up with her primary care doctor for her concerns over blood pressure. Differential Diagnosis Differential Diagnoses: The differential diagnosis associated with the presentation includes ACS Dysrhythmia Electrolyte imbalance Hyperglycemia Gastritis Admission/Observation Consideration of admission/observation: Escalation of care including admission/observation considered Lab Data MDM Lab Attestation statement: I reviewed the patient's lab results. 12/17/24 10:47 12/17/24 10:47 Labs: Lab Results 12/17/24 12/17/24 12/17/24 Range/Units 10:43 10:47 12:54 WBC 10.6 (4.8-10.8) X10*3/uL RBC 4.12 L (4.20-5.50) X10*6/uL Hgb 12.1 (12.0-16.0) g/dl Hct 36.6 L (37.0-47.0) % MCV 88.8 (80.0-98.0) fL MCH 29.4 (27.0-33.0) pg MCHC 33.1 (31.0-35.0) g/dl RDW 13.8 (11.0-16.0) % Plt Count 320 (160-400) X10*3/uL MPV 10.1 (9.4-12.3) fL Immature Gran % (Auto) 0.4 (0.0-0.4) % Neut % (Auto) 78.7 H (45-73) % Lymph % (Auto) 13.7 L (20-40) % [place] % (Auto) 6.0 (2-11) % Eos % (Auto) 0.6 (0-4) % Baso % (Auto) 0.6 (0-2) % Lymph # (Auto) 1.5 (1.2-4.9) X10*3/uL [place] # (Auto) 0.6 (0.1-1.2) X10*3/uL Eos # (Auto) 0.1 (0.0-0.4) X10*3/uL Baso # (Auto) 0.1 (0.0-0.2) X10*3/uL Abs Immat Gran (auto) 0.04 H (0.00-0.03) X10*3/uL Absolute Neuts (auto) 8.4 H (2.0-8.3) x10*3/uL Absolute Nucleated RBC 0.000 (0.0-0.012) X10*3/uL Nucleated RBC % (auto) 0.0 (0.0-0.2) /100WBC Sodium 140 (135-145) mmol/L Potassium 3.9 (3.3-5.1) mmol/L Chloride 104 (96-108) mmol/L Carbon Dioxide 27 (22-29) mmol/L Anion Gap 13 (12-20) BUN 14 (9-16) mg/dL Creatinine 0.74 (0.5-1.4) mg/dL Estim Creat Clear Calc 111.4 Estimated GFR > 60 POC Glucose 137 H (60-115) mg/dL Random Glucose 151 H (60-115) mg/dL Calcium 9.6 (8.4-10.2) mg/dL Magnesium 1.8 (1.6-2.6) mg/dL Total Bilirubin 0.3 (0.0-1.0) mg/dL AST 28 (5-31) U/L ALT 25 (0-31) U/L Alkaline Phosphatase 114 (39-117) U/L Troponin I High Sens 2.9 4.8 D (<3.5-17.0) ng/L Total Protein 7.5 (6.5-8.0) g/dL Albumin 4.4 (3.5-5.0) g/dL Lipase 21 (8-78) U/L Urine Color Urine Appearance Urine pH (5.0-9.0) Ur Specific [place] (1.005-1.025) Urine Protein (Neg-Trace) mg/dL Urine Glucose (UA) (Negative) mg/dL Urine Ketones (Negative) mg/dL Urine Blood (Negative) Urine Nitrite (Negative) Ur Leukocyte Esterase (Negative) Urine RBC (0-2) /HPF Urine WBC (0-5) /HPF Ur Squamous Epith Cells (0-2) /HPF Urine Bacteria (None Seen) Hyaline Casts (0-2) /LPF 12/17/ Range/Units 14:12 WBC (4.8-10.8) X10*3/uL RBC (4.20-5.50) X10*6/uL Hgb (12.0-16.0) g/dl Hct (37.0-47.0) % MCV (80.0-98.0) fL MCH (27.0-33.0) pg MCHC (31.0-35.0) g/dl RDW (11.0-16.0) % Plt Count (160-400) X10*3/uL MPV (9.4-12.3) fL Immature Gran % (Auto) (0.0-0.4) % Neut % (Auto) (45-73) % Lymph % (Auto) (20-40) % [place] % (Auto) (2-11) % Eos % (Auto) (0-4) % Baso % (Auto) (0-2) % Lymph # (Auto) (1.2-4.9) X10*3/uL [place] # (Auto) (0.1-1.2) X10*3/uL Eos # (Auto) (0.0-0.4) X10*3/uL Baso # (Auto) (0.0-0.2) X10*3/uL Abs Immat Gran (auto) (0.00-0.03) X10*3/uL Absolute Neuts (auto) (2.0-8.3) x10*3/uL Absolute Nucleated RBC (0.0-0.012) X10*3/uL Nucleated RBC % (auto) (0.0-0.2) /100WBC Sodium (135-145) mmol/L Potassium (3.3-5.1) mmol/L Chloride (96-108) mmol/L Carbon Dioxide (22-29) mmol/L Anion Gap (12-20) BUN (9-16) mg/dL Creatinine (0.5-1.4) mg/dL Estim Creat Clear Calc Estimated GFR POC Glucose (60-115) mg/dL Random Glucose (60-115) mg/dL Calcium (8.4-10.2) mg/dL Magnesium (1.6-2.6) mg/dL Total Bilirubin (0.0-1.0) mg/dL AST (5-31) U/L ALT (0-31) U/L Alkaline Phosphatase (39-117) U/L Troponin I High Sens (<3.5-17.0) ng/L Total Protein (6.5-8.0) g/dL Albumin (3.5-5.0) g/dL Lipase (8-78) U/L Urine Color Yellow Urine Appearance Clear Urine pH 7.5 (5.0-9.0) Ur Specific [place] 1.010 (1.005-1.025) Urine Protein 30 (1+) H (Neg-Trace) mg/dL Urine Glucose (UA) Negative (Negative) mg/dL Urine Ketones Trace (Negative) mg/dL Urine Blood Negative (Negative) Urine Nitrite Negative (Negative) Ur Leukocyte Esterase Negative (Negative) Urine RBC 0-2 (0-2) /HPF Urine WBC 0-5 (0-5) /HPF Ur Squamous Epith Cells 0-2 (0-2) /HPF Urine Bacteria None Seen (None Seen) Hyaline Casts 0-2 (0-2) /LPF Independent Interpretation I performed an independent interpretation of an: EKG Interpretation: I personally interpreted the EKG which reveals normal sinus rhythm, no ST-elevation/depression with nonspecific T-wave abnormality Vent. Rate : 92 BPM Atrial Rate : 92 BPM P-R Int : 144 ms QRS Dur : 88 ms QT Int : 356 ms P-R-T Axes : 12 -19 -22 degrees QTcB Int : 440 ms Normal sinus rhythm Possible Left atrial enlargement Nonspecific T wave abnormality I personally interpreted the CXR which reveals a normal cardiomediastinal silhouette, no pulmonary effusion, pulmonary edema, infiltrates or consolidation, I agree with the radiologist's interpretation Radiology Impression Discussion of test interpretation with radiology: I have reviewed the radiologist's reading. Radiologist Impression: CXR FINDINGS: The cardiac, hilar, and mediastinal contours are normal. The lungs are clear bilaterally. No pneumothorax or effusion. No focal osseous or soft tissue abnormality. XR/XR chest 1V IMPRESSION: Normal chest. No active pulmonary disease. Electronically signed by: Benjy Luna MD 12/17/2024 11:03 AM EDT Dictated By: Benjy Luna MD Signed By: <Electronically signed by Benjy Luna MD in [place]> 12/17/24 1103 External Record Review External record reviewed: Inpatient record, Office record and Outpatient record Chronic Conditions Patient?s care impacted by: Diabetes, Hypertension and Other (GERD, anxiety) Discharge Plan Discharge Clinical Impression: Atypical chest pain Patient Disposition: Home, Self-Care Additional Instructions: You were evaluated in the ED today due to chest pain. Your lab work including troponins Motrin enzyme that your heart gives off while under stress or damage were negative, your EKG did not show emergent cardiac pattern. Your chest x-ray did not reveal an enlarged cardiac silhouette, or emergent cardiopulmonary issues. Your UA did show evidence of protein, however did not show evidence of infection or blood. Your random glucose today was 137. I believe your symptoms may be caused by GERD or esophagitis. Please follow up with your GI doctor in January for further evaluation. I also encourage you to follow up with your primary care doctor for your concerns of your blood pressure. Please return to the emergency department if you experience worsening chest pain, shortness of breath, abdominal pain, nausea, vomiting, fevers over 100.4 degrees, lightheadedness, dizziness or any new/worsening/concerning symptoms. Prescriptions: No Action (DME) pen needle, diabetic [1st Tier Unifine Pentips Plus] 32 gauge x 5/32 needle See Rx Instructions .ROUTE .MEDSUPPLY Qty: 150 6RF Rx Instructions: 4 times a day (DME) lancets [FreeStyle Lancets] 28 gauge misc See Rx Instructions topical QID Qty: 120 6RF Rx Instructions: 4 times a day (DME) Omnipod 5 G6 Intro Kit (Gen 5) Cartridge See Rx Instructions .Route Qty: 1 0RF Rx Instructions: As directed (DME) Omnipod 5 G6 Pods (Gen 5) Cartridge See Rx Instructions .Route Qty: 5 3RF Rx Instructions: As directed (DME) Dexcom G7 Sensor Device See Rx Instructions .Route Qty: 3 4RF Rx Instructions: As directed change every 10 days levothyroxine [Levoxyl] 100 mcg tablet 100 mcg PO DAILY 30 Days Qty: 30 11RF (DME) insulin syringe-needle U-100 0.3 mL 31 gauge x 5/16 syringe See Rx Instructions .ROUTE .MEDSUPPLY Qty: 100 1RF Rx Instructions: As directed up to qid for pump failure or glucose correction atorvastatin 20 mg tablet 20 mg PO DAILY Qty: 30 3RF pantoprazole 40 mg tablet,delayed release (DR/EC) 40 mg PO QAM Qty: 90 2RF lidocaine [Lidoderm] 5 % adhesive patch,medicated 1 patch topical DAILY Qty: 15 0RF Rx Instructions: leave on most painful area for up to 12 hrs (DME) pen needle, diabetic 32 gauge x 5/32 needle See Rx Instructions subcut .MEDSUPPLY Qty: 50 Rx Instructions: As directed acetaminophen 500 mg capsule 1,000 mg PO Q6H PRN (Reason: pain) Qty: 30 0RF albuterol sulfate [Ventolin HFA] 90 mcg/actuation HFA aerosol inhaler 1 inh inhalation Q6H PRN (Reason: shortness of breath or wheezing) Qty: 18 0RF (DME) inhalational spacing device Spacer See Rx Instructions .Route Qty: 1 0RF Rx Instructions: As directed cetirizine 10 mg tablet 10 mg PO DAILY PRN polyethylene glycol 3350 [Miralax] 17 gram/dose powder 238 g PO ONCE PRN losartan 25 mg tablet 25 mg PO BID 30 Days Qty: 60 6RF magnesium oxide 400 mg magnesium tablet 800 mg PO DAILY Fiasp U-100 Insulin 100 unit/mL solution See Rx Instructions subcut .COMPLEX Qty: 40 4RF Rx Instructions: subcutaneously; Infuse up to 120 units via insulin pen per day subcutaneously; ketorolac 10 mg tablet 10 mg PO Q8H PRN (Reason: pain) Qty: 10 0RF Rx Instructions: maximum total duration of 5 days from all oral, intranasal, or parenteral formulations cyclobenzaprine 5 mg tablet 5 mg PO BID PRN (Reason: muscle spasm) Qty: 30 0RF (DME) FreeStyle Lite Strips Strip See Rx Instructions .ROUTE .MEDSUPPLY Qty: 200 11RF Rx Instructions: As directed six times a day p.r.n. sensor failure or to confirm readings (DME) lancets [FreeStyle Lancets] 28 gauge misc See Rx Instructions .ROUTE .MEDSUPPLY Qty: 100 1RF Rx Instructions: 6 times a day prn sensor failure or to confirm glucose (DME) blood-glucose meter [FreeStyle Lite Meter] Kit See Rx Instructions .Route Qty: 1 1RF Rx Instructions: As directed (DME) Ketone Urine Test Strip See Rx Instructions .ROUTE .MEDSUPPLY Qty: 25 1RF Rx Instructions: As directed (DME) pen needle, diabetic 32 gauge x 5/32 needle See Rx Instructions .ROUTE .COMPLEX Qty: 100 6RF Dose Instruction: USE TO INJECT 5 TIMES A DAY Rx Instructions: USE TO INJECT 5 TIMES A DAY if pump is not operating insulin glargine [Lantus Solostar U-100 Insulin] 100 unit/mL (3 mL) insulin pen 30 unit subcut QPM MDD 30 PRN (Reason: pump failure) 30 Days Qty: 6 3RF Baqsimi 3 mg/actuation spray,non-aerosol 3 mg intranasal ONCE MDD 6mg PRN (Reason: severe low) 30 Days Qty: 2 1RF Rx Instructions: may repeat in 15 min fluticasone propionate [Flonase Allergy Relief] 50 mcg/actuation spray,suspension 2 spray intranasal DAILY Qty: 16 1RF Rx Instructions: administer into each nostril sertraline 25 mg tablet 25 mg PO DAILY Qty: 30 0RF Stand Alone Forms: Work/School Release Print Language: Maltese
[2024-12-17 10:40] VITALS: BP 161/74; PULSE 91; RESP 17; TEMP 36.6; O2SAT 96
[2024-12-17 10:46] LABS: Glucose, Whole Blood 137 mg/dL (60-115)
[2024-12-17 10:52] LABS: MANUAL DIFF FLAG NO
[2024-12-17 11:00] LABS: Hematocrit 36.6 % (37.0-47.0); Hemoglobin 12.1 g/dl (12.0-16.0); Imm Gran Abs Auto 0.04 X10*3/uL (0.00-0.03); Imm Gran Pct Auto 0.4 % (0.0-0.4); Lymphocytes Absolute Auto 1.5 X10*3/uL (1.2-4.9); Mean Corpuscular HGB Conc 33.1 g/dl (31.0-35.0); Mean Corpuscular Hemoglobin 29.4 pg (27.0-33.0); Mean Corpuscular Volume 88.8 fL (80.0-98.0); NRBC Abs Auto 0.000 X10*3/uL (0.0-0.012); NRBC Pct Auto 0.0 /100WBC (0.0-0.2); Platelet Count 320 X10*3/uL (160-400); Red Blood Count 4.12 X10*6/uL (4.20-5.50); White Blood Count 10.6 X10*3/uL (4.8-10.8)
[2024-12-17 11:09] LABS: Alanine Aminotransferase 25 U/L (0-31); Albumin Level 4.4 g/dL (3.5-5.0); Alkaline Phosphatase 114 U/L (39-117); Anion Gap 13 (12-20); Aspartate Amino Transferase 28 U/L (5-31); Blood Urea Nitrogen 14 mg/dL (9-16); Calcium 9.6 mg/dL (8.4-10.2); Carbon Dioxide 27 mmol/L (22-29); Chloride 104 mmol/L (96-108); Creatinine Clr Calc Pharmacy 111.4; Estimated Glomerular Filt Rate > 60; Magnesium 1.8 mg/dL (1.6-2.6); Potassium 3.9 mmol/L (3.3-5.1); Sodium 140 mmol/L (135-145); Total Protein 7.5 g/dL (6.5-8.0)
[2024-12-17 11:19] LABS: Troponin-I High Sensitivity 2.9 ng/L (<3.5-17.0)
[2024-12-17 11:34] LABS: Lipase 21 U/L (8-78)
[2024-12-17] MEDS: Magnesium Hydrox/Alum Hydrox 30 ML ORAL.SUSP 15 ML PO (11:43)
[2024-12-17] MEDS: Lidocaine HCl Viscous 2 % 15 ML SOLUTION MUCOUS MEM (11:43)
--- OUTSIDE RECORDS SUMMARY | 2024-12-17 11:59 | XMS_ITS | Patient Health Record ---
Author Organization [facility] Address [facility] [place] [address] Care Team Providers Care Biomedical Scientist Name Role Phone JAZIEL BULLARD Primary Care [...]
--- OUTSIDE RECORDS SUMMARY | 2024-12-17 11:59 | XMS_ITS | Encounter Summary ---
Author Organization [employer] Address [address] [place] [address] Care Team Providers Care Design Supervisor Name Role Phone Unavailable Primary Care [...]
[2024-12-17 12:16] VITALS: BP 186/90; PULSE 84; RESP 18; O2SAT 97
[2024-12-17 13:17] LABS: Troponin-I High Sensitivity 4.8 ng/L (<3.5-17.0)
[2024-12-17 13:29] VITALS: BP 169/88; PULSE 91; RESP 17; TEMP 36.8; O2SAT 98
[2024-12-17 14:39] LABS: Appearance Urine Clear; Glucose Urine UA Negative (Negative); PH 7.5 (5.0-9.0); Specific Gravity - Urine 1.010 (1.005-1.025); UMIC TRIGGER UACC YES
[2024-12-17 14:54] VITALS: BP 168/80; PULSE 79; RESP 18; TEMP 36.6; O2SAT 99
[2024-12-17 15:02] VITALS: BP 168/80; PULSE 79; RESP 18; TEMP 36.6; O2SAT 99
== END 2024-12-17 15:10 | disposition home or self-care (01) ==
PROVIDERS: Emergency Provider Emergency Medicine; PCP Internal Medicine
DX: R07.89 Other chest pain (principal); E10.9 Type 1 diabetes mellitus without complications; R11.0 Nausea; R10.13 Epigastric pain; Z79.4 Long term (current) use of insulin; Z79.899 Other long term (current) drug therapy
CPT/HCPCS: 36415; 71045; 80053; 81001; 82947; 83690; 83735; 84484; 85025; 93005; 99283; 99285

== ENCOUNTER → 2024-12-17 10:35 | Outpatient (BNV) | payer OTHER, SELFPAY | PROVIDERS: Emergency Provider Emergency Medicine; PCP Internal Medicine; Visit Provider Internal Medicine | DX: R94.31 Abnormal electrocardiogram [ECG] [EKG] (principal); R07.9 Chest pain, unspecified | CPT/HCPCS: 93010 ==

== ENCOUNTER 2024-12-28 15:03 | Outpatient (AMB) | payer OTHER, SELFPAY ==
--- OUTSIDE RECORDS SUMMARY | 2024-12-28 15:06 | XMS_ITS | Patient Health Record ---
Author Organization [facility] Address [facility] [place] [address] Care Team Providers Care Rod Placer Name Role Phone JAZIEL BULLARD Primary Care [...]
--- NOTE | 2024-12-28 15:16 | MHC.PC.OV ---
Vital Signs 12/28/24 15:17 Height 5 ft 5 in Weight 323 lb 2 oz BMI 53.8 BP 140/80 H Blood Pressure Location Lt brachial Position Sitting Pulse 84 Pulse Source Pulse Oximeter Temp 97.1 F Temp Source Temporal Artery Scan Pulse Oximetry (%) 97 Oxygen Delivery Method Room Air Int[place] [facility] [place] pain Intake Note: Patient is here to follow-up after a visit the [place] department [place] [facility] [place] Seed Tester Required: No Neonatal Intensive Care Unit Nurse: Not Required per policy Accompanied by: Self / Same As Patient Allergies sertraline Allergy (Severe, Verified 12/28/24 15:22) GERD aspirin (ASA) Allergy (Unknown, Verified 12/28/24 15:22) BLEEDING lisinopril Adverse Reaction (Intermediate, Verified 12/28/24 15:22) Cough prednisone Adverse Reaction (Intermediate, Verified 12/28/24 15:22) high Blood sugar grasses/pollen Allergy (Mild, Uncoded 12/28/24 15:17) congestion Actos Allergy (Unknown, Uncoded 12/28/24 15:17) nausea and vomiting Trulicity Allergy (Unknown, Uncoded 12/28/24 15:17) nausea and vomiting Tobacco use date assessed: 12/28/24 Dental Screening Dental Screen Date: 08/30/24 HPI HPI Comments History of Present Illness Details 49 y/o Female patient who presents to the clinic today for EDF. Pt was [place] [facility] [place] for an evaluation and treatment of Chest Pains and Epigastric region Pain. Pt was found to have GERD. ECG was normal. Pt currently takes Pantoprazole for GERD. Pt's BP has been elevated since the Emergency Room Visit - todays's reading is 140/80 with mild chest pain and headaches. Denies SOB, dizziness or lightheadedness. She does take Losartan 25 mg (takes 2 Tabs) at Bedtime - she can't take it during the day because she gets dizzy. [facility] Medical History Obesity, morbid, BMI 40.0-49.9 Allergic rhinitis Back pain Obesity Cough Uncontrolled type 1 diabetes mellitus with hyperglycemia, with long-term current use of insulin Viral syndrome residential (current) use of insulin Vitamin D deficiency Diabetic nephropathy associated with type 2 diabetes mellitus Hypothyroidism Impacted cerumen of right ear Menstrual bleeding problem Hypothyroid Asthma Hypercholesterolemia Hypertension Surgical History History of hysteroscopy Hx of right breast biopsy Hx of tooth extraction Family History Father Hypertension Obesity Prediabetes Mother Heart disease Glaucoma Social History Household Members: Family Housing: Apartment Alcohol intake: never Patient Tobacco Use Status: Never used Tobacco Tobacco use type: Cigarette e-Cigarette/Vaping Use: Never Used Second Hand Smoke Exposure: No service: No Current occupational status: employed Current occupational exposures/hazards: No Gender identity: Female Cognitive needs: No Hearing needs: No Vision needs: Yes Female Reproductive History Menstrual Age of Menarche: 12 Questionnaire Thrive Questionnaire Date Thrive assessed: 08/30/24 I am a: Patient What is your living situation today?: I have a steady place to live Within the past 12 months, did the food you bought not last and you didn't have the money to get more?: Never true Within the past 12 months, did you worry whether your food would run out before you got money to buy more?: Never true Do you have trouble paying for medicines?: No Do you have trouble getting transportation to medical appointments?: No Do you have trouble paying your heating and electricity bill?: No Do you have trouble taking care of your child, family member or friend?: No Do you have trouble with day-to-day activities such as bathing, preparing meals, shopping, managing finances, etc.?: No Are you currently unemployed and looking for a job?: No Are you interested in more education?: No Please select the resources that you would like help with: None Currently or been in a relationship where the following occur: No concerns reported THRIVE Score: 0 DIMA-7 AMB Questionnaire DIMA-7 Date DIMA - 7 assessed: 08/30/24 Source: Developed by Drs. Sagar Ascencio, Jackelyn Dueñas, Camilo Redman and colleagues, with an educational maura from [employer]. Review of Systems Const All systems reviewed & are unremarkable except as noted in HPI and below Physical exam (Primary Care) Vital Signs: Last Vital Signs Temp 97.1 F 12/28/24 15:17 Pulse 84 12/28/24 15:17 BP 140/80 H 12/28/24 15:17 Pulse Ox 97 12/28/24 15:17 Oxygen Delivery Method Room Air 12/28/24 15:17 BMI result Body Mass Index 53.8 Tobacco/Smoking Status: Tobacco use Status Tobacco use date assessed 12/28/24 12/28/24 15:23 Patient Tobacco Use Status Never used Tobacco 12/28/24 15:23 Tobacco use type Cigarette 12/28/24 15:23 e-Cigarette/Vaping Use Never Used 12/28/24 15:23 Thrive Assessment: Date of Thrive Assessment Date Thrive assessed 08/30/24 12/28/24 15:23 Currently or been in a relationship where the following occur: No concerns reported Const General: no acute distress Nutritional Appearance: obese morbidly obese Orientation/consciousness: patient oriented x3 Resp Effort & Inspection: normal respiratory effort Auscultation: clear to auscultation bilaterally Cardio Heart sounds: S1 normal heart sound present and S2 normal heart sound present Neuro General: patient oriented x3, gait normal and moves all extremities Coding Level of Care Code Est Pt Level 4 (74580) Diagnoses Essential hypertension I10 Hypertension type: essential hypertension Gastroesophageal reflux disease, unspecified whether esophagitis present K21.9 Esophagitis presence: esophagitis presence not specified Time Spent (min) 20 Assessment & Plan Assessment & Plan (1) Hypertension: Code(s): I10 - Essential (primary) hypertension Category: Medical Qualifiers: Hypertension type: essential hypertension Qualified Code(s): I10 - Essential (primary) hypertension Plan: Advised to increase the Losartan to 100 mg. Pt currently has 25 mg tablets at home. She is to take 2 Tabs of 25 mg = 50 mg twice a day, which makes a total dose of 100 mg per day. Pt will be scheduled with Nurse Navigator in 2 weeks for BP check. Advised lifestyle changes; Weight loss, Low salt diet and Exercise. (2) GERD (gastroesophageal reflux disease): Code(s): K21.9 - Gastro-esophageal reflux disease without esophagitis Category: Medical Qualifiers: Esophagitis presence: esophagitis presence not specified Qualified Code(s): K21.9 - Gastro-esophageal reflux disease without esophagitis Plan: Continue taking Pantoprazole as directed. Avoid Spicy and Oily foods.
[2024-12-28 15:17] VITALS: BP 140/80; PULSE 84; TEMP 36.2; O2SAT 97; BMI 53.8
== END 2024-12-28 15:57 | disposition home or self-care (01) ==
LOC: HO.HMCH 15:04
PROVIDERS: PCP Internal Medicine; Visit Provider Nurse Practitioner Family
DX: I10 Essential (primary) hypertension (principal); K21.9 Gastro-esophageal reflux disease without esophagitis

== ENCOUNTER → 2024-12-28 15:03 | Outpatient (BNVA) | payer OTHER, SELFPAY | PROVIDERS: PCP Internal Medicine; Visit Provider Nurse Practitioner Family | DX: K21.9 Gastro-esophageal reflux disease without esophagitis (principal); I10 Essential (primary) hypertension | CPT/HCPCS: 99212 ==

== ENCOUNTER 2025-01-02 15:41 | Outpatient (AMB) | payer OTHER, SELFPAY ==
--- NOTE | 2025-01-02 16:04 | A.OFFPSYCH_ITS ---
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 Malt Liquors Required: No Allergies sertraline Allergy (Severe, Verified 12/28/24 15:22) GERD aspirin (ASA) Allergy (Unknown, Verified 12/28/24 15:22) BLEEDING lisinopril Adverse Reaction (Intermediate, Verified 12/28/24 15:22) Cough prednisone Adverse Reaction (Intermediate, Verified 12/28/24 15:22) high Blood sugar grasses/pollen Allergy (Mild, Uncoded 12/28/24 15:17) congestion Actos Allergy (Unknown, Uncoded 12/28/24 15:17) nausea and vomiting Trulicity Allergy (Unknown, Uncoded 12/28/24 15:17) nausea and vomiting HPI- Psychiatric Chief Complaint: follow up Intake Note: PHQ-9 11 DIMA-7 8 Losartan increase from 50 mg to 100 mg daily Sertraline allergy due to adverse response after 3 days of dosing at 25 mg. HPI Narrative: Rodneysingh reviewed adverse response to Sertraline. She initiated dosing on Tuesday, had her first dose after breakfast-felt some dizziness however her glucose was variable. She repeated the dose on Tuesday, post breakfast and had no symptoms. 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 Reports the only change was that she had no carbohydrate servings with that breakfast. Reports after 8am she began with diaphoresis, thirst. She drank water, had an elevated heart rate, felt worry, panic, her chest was burning and it felt like a ripping sensation in her chest. She felt short of breath, dizzy, nausea and went to the nursing office where her BP was high. Family drove her to the ED where she was diagnosed with GERD. She spent the remainder of the day in bed. She was incontinent of urine x [address] to the ER. She will have a GI consult on 02/22. Pantoprazole was initiated. We will hold on further antidepressants however will give lorazepam prn for panic to manage sx until after the GI consult. Discussed sx of Serotonin Syndrome and pt did have most of those associated symptoms with the third dosing of [address]. Will place on allergy/adverse response list. Past Psychiatric History: IP: Denies OP: Teens when in [place]-psychotherapy hx of PHP in teens Med Trials: Ambien and another agent when in school Depressive sx in her 20's, but I was not like this. At times when sleeping, hears a voice that says her name Char- no, well maybe at times Fear-yes, always Pt reports she is attempting to lose weight- she eats to manage stress Sleep 4-5 hours per night Subjective Subjective Subjective Medication Compliance: Yes Side effects from medications: Yes Review of Systems Medical Review of Systems: unchanged Review of Systems Review of Systems Adverse response to Sertraline Mental Status Exam Mental Status Exam Patient Appearance: Appropriate Patient Orientation: Person, Place, Time and Situation Level of Consciousness: Alert Patient Behavior: Talkative Mood Description: Anxious and Apprehensive Affect Description: Anxious and Apprehensive Patient Cognition Impaired: No Ability to Follow Directions: Good Speech Pattern: Spontaneous Speech Memory Description: Intact Hallucinations: None Delusions: Not Present Thought Process: Intact Thought Content: positive for Intact Depressive Symptoms: Increased Anxiety Judgement: Good Assessment and Plan Assessment & Plan (1) Generalized anxiety disorder: Status: Acute Code(s): F41.1 - Generalized anxiety disorder Plan Will hold on further trials until GI eval is completed. Lorazapam prn for panic attacks ?Sertonin Syndrome with Sertraline Medications: New lorazepam 0.25 mg (1/2 x 0.5 mg) PO DAILY PRN 10 tabs 0RF anxiety Counseling and coordination of Care Medication management counseling: Effectiveness, Side effects, Dosing range, Duration, Drug interaction and Adherence Details: I spent [] minutes reviewing the record, seeing the patient and documenting in the medical record. Counseling provided to the patient/caregiver as outlined below. Addressed patient/caregiver concerns regarding current medication regime including effective adherence. Addressed patient/caregiver concerns regarding diagnosis and prognosis including accuracy of diagnosis, prognosis over time, impact of diagnosis. Addressed patient/caregiver concerns regarding impact of recent stressors. [facility] Medical History Obesity, morbid, BMI 40.0-49.9 Allergic rhinitis Back pain Obesity Cough Uncontrolled type 1 diabetes mellitus with hyperglycemia, with long-term current use of insulin Viral syndrome superintendent terminal (current) use of insulin Vitamin D deficiency Diabetic nephropathy associated with type 2 diabetes mellitus Hypothyroidism Impacted cerumen of right ear Menstrual bleeding problem Hypothyroid Asthma Hypercholesterolemia Hypertension Surgical History History of hysteroscopy Hx of right breast biopsy Hx of tooth extraction Family History Father Hypertension Obesity Prediabetes Mother Heart disease Glaucoma Social History Household Members: Family Housing: Apartment Alcohol intake: never Patient Tobacco Use Status: Never used Tobacco Tobacco use type: Cigarette e-Cigarette/Vaping Use: Never Used Second Hand Smoke Exposure: No service: No Current occupational status: employed Current occupational exposures/hazards: No Gender identity: Female Cognitive needs: No Hearing needs: No Vision needs: Yes Social History: Born in [place] and attended school in [place]. Father is still in [place]. Mother is in [place]. Parents were teachers One sister, lives with pt, their mother, and sister's son Pt has a BA in [employer]. 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 no hx of suicides Substance History: Social alcohol on occasion Caffeine 2-5 cups daily No recreational drug use or nicotine use Trauma History: Denies Coding Level of Care Code Est Pt Level 3 (93293) Diagnoses Generalized anxiety disorder F41.1
--- OUTSIDE RECORDS SUMMARY | 2025-01-02 18:28 | XMS_ITS | Encounter Summary ---
Author Organization [employer] Address [address] [place] [address] Care Team Providers Care Instructional Coordinator Name Role Phone Unavailable Primary Care [...]
--- OUTSIDE RECORDS SUMMARY | 2025-01-02 18:29 | XMS_ITS | Encounter Summary ---
Author Organization [employer] Address [address] [facility] [address] [place] [address] Care Team Providers Care Naval Aircrewman Helicopter Name Role Phone Unavailable Primary Care Provider [...]
--- OUTSIDE RECORDS SUMMARY | 2025-01-02 18:29 | XMS_ITS | Clinical Summary ---
Author Organization [employer] Address [address] [place] [address] Care Team Providers Care Editorial Intern Name Role Phone Unavailable Primary Care Provider [...] 10/14/2023 MPDS (myofascial pain dysfunction syndrome) 09/24 Social History Tobacco Use Types Packs/Day Years [...] Screening 1976 SDOH Screening 1976 Sigmoidoscopy 1976 Disability Screening 1976 Alcohol/Substance Use Screening 1988 Family Planning (PISQ) 12/01/1991 Hepatitis C Screening 1994 Hepatitis B Vaccines (1 of 3 - 19+ 3-dose series) 12/01/1995 Pap Smear 1997 Cervical Cancer Screening 2006 HPV/Cotest 2006 Mammogram 2016 Dental X-Ray: Full Mouth 11/20/2023 11/18/2020, 02/24 Dental Oral Exam 04/15/2024 10/14/2023, , 11/18/2020, Additional history exists Dental X-Ray: Bitewings 10/14/2024 10/14/19 24, 11/27/2021, 11/18/2020, Additional history exists Dental Prophylaxis 12/13/2024 06/14/2024, 0 10/14/2023, 11/27/2021, Additional history exists COVID-19 Vaccine ( - season) 2024 03/28/2021, 07/29/2020, 07/08/2020 Influenza Vaccine (#1) 2024 3, 03/15/2022, 02/20/2021, Additional history exists Tobacco Screening 06/14/2025 06/14/2024 [...] patient's age to complete this topic Meningococcal B Vaccine Aged Out No l onger eligible based on patient's age to complete this topic Meningococcal Vaccine Aged Out No garret ricardo eligible based on patient's age to complete this topic Pneumococcal Vaccine: Pediatrics (0 to 5 Years) and At-Risk Patients (6 to 49) Years Aged Out No longer eligible based on [...] Most Recently Relevant to Health Maintenance Insurance * Guarantor: Juan Estrada Account Type Relation to Patient Date of Phone Billing Address Dental Self 1975 [address] [place] [address] DENTAL - HSN PARTIAL (MEDICAID)
--- OUTSIDE RECORDS SUMMARY | 2025-01-02 18:29 | XMS_ITS | Encounter Summary ---
Author Organization [employer] Address [address] [facility] [address] [place] [address] Care Team Providers Care Store Clerk Cashier Name Role Phone Unavailable Primary Care Provider [...]
--- OUTSIDE RECORDS SUMMARY | 2025-01-02 18:29 | XMS_ITS | Patient Health Record ---
Author Organization [facility] Address [facility] [place] [address] Care Team Providers Care Private Detective Name Role Phone JAZIEL BULLARD Primary Care [...]
== END 2025-01-02 16:52 | disposition home or self-care (01) ==
LOC: HO.HOP 15:41
PROVIDERS: PCP Internal Medicine; Visit Provider Clinical Nurse Specialist Psychiatric/Mental Health, Adult
DX: F41.1 Generalized anxiety disorder (principal)
CPT/HCPCS: 99213

== ENCOUNTER → 2025-01-02 15:41 | Outpatient (BNVA) | payer OTHER, SELFPAY | PROVIDERS: PCP Internal Medicine; Visit Provider Clinical Nurse Specialist Psychiatric/Mental Health, Adult | DX: F41.1 Generalized anxiety disorder (principal) | CPT/HCPCS: 99212 ==

== ENCOUNTER 2025-01-29 22:53 | Emergency (ER) | payer OTHER, SELFPAY ==
[2025-01-29 23:07] VITALS: BP 153/71; PULSE 74; RESP 16; TEMP 36.6; O2SAT 97; BMI 54.9
--- OUTSIDE RECORDS SUMMARY | 2025-01-30 00:38 | XMS_ITS | Clinical Summary ---
Author Organization [employer] Address [address] [facility] [address] [place] [address] Care Team Providers Care Molding Supervisor Name Role Phone Unavailable Primary Care [...] Phone Billing Address Dental Self 1975 [address] [place] [address] DENTAL - HSN PARTIAL (MEDICAID)
--- OUTSIDE RECORDS SUMMARY | 2025-01-30 00:38 | XMS_ITS | Encounter Summary ---
Author Organization [email or web address] Address [address] [place] [address] Care Team Providers Care Extension Educator Name Role Phone Unavailable Primary Care Provider [...]
--- OUTSIDE RECORDS SUMMARY | 2025-01-30 00:38 | XMS_ITS | Encounter Summary ---
Author Organization [employer] Address [address] [facility] [address] [place] [address] Care Team Providers Care Aircraft Armament Mechanic Name Role Phone Unavailable Primary Care Provider [...]
--- OUTSIDE RECORDS SUMMARY | 2025-01-30 00:38 | XMS_ITS | Patient Health Record ---
Author Organization [facility] Address [address] [facility] [place] [address] Care Team Providers Care Tourist Escort Name Role Phone JAZIEL BULLARD Primary Care [...]
--- OUTSIDE RECORDS SUMMARY | 2025-01-30 00:38 | XMS_ITS | Encounter Summary ---
Author Organization [employer] Address [address] [place] [address] Care Team Providers Care Data Analysis Intern Name Role Phone Unavailable Primary Care [...]
[2025-01-30 01:05] LABS: MANUAL DIFF FLAG NO
[2025-01-30 01:08] LABS: Hematocrit 36.0 % (37.0-47.0); Hemoglobin 12.1 g/dl (12.0-16.0); Imm Gran Abs Auto 0.03 X10*3/uL (0.00-0.03); Imm Gran Pct Auto 0.2 % (0.0-0.4); Lymphocytes Absolute Auto 2.7 X10*3/uL (1.2-4.9); Mean Corpuscular HGB Conc 33.6 g/dl (31.0-35.0); Mean Corpuscular Hemoglobin 29.3 pg (27.0-33.0); Mean Corpuscular Volume 87.2 fL (80.0-98.0); NRBC Abs Auto 0.000 X10*3/uL (0.0-0.012); NRBC Pct Auto 0.0 /100WBC (0.0-0.2); Platelet Count 285 X10*3/uL (160-400); Red Blood Count 4.13 X10*6/uL (4.20-5.50); White Blood Count 12.2 X10*3/uL (4.8-10.8)
--- NOTE | 2025-01-30 01:15 | PC.NURSE ---
pt medicated as per mar
[2025-01-30 01:22] LABS: Alanine Aminotransferase 12 U/L (0-31); Albumin Level 4.3 g/dL (3.5-5.0); Alkaline Phosphatase 98 U/L (39-117); Anion Gap 14 (12-20); Aspartate Amino Transferase 19 U/L (5-31); Blood Urea Nitrogen 18 mg/dL (9-16); Calcium 9.3 mg/dL (8.4-10.2); Carbon Dioxide 22 mmol/L (22-29); Chloride 110 mmol/L (96-108); Creatinine Clr Calc Pharmacy 162.2; Estimated Glomerular Filt Rate > 60; Magnesium 2.1 mg/dL (1.6-2.6); Potassium 3.9 mmol/L (3.3-5.1); Sodium 142 mmol/L (135-145); Total Protein 7.1 g/dL (6.5-8.0)
--- NOTE | 2025-01-30 02:01 | ED_ITS ---
HPI - General Adult General Chief complaint: Extremity Problem Stated complaint: toes on the left ft stuck Time Seen by Provider: 01/30/25 00:34 Source: patient Limitations: no limitations History of Present Illness ED Provider: Meron Jessica PA-C HPI narrative: 49-year-old female with history of morbid obesity, diabetes, hypertension, hyperlipidemia, active sciatica on the left side, asthma, who presents with left foot cramping x3 days. Patient states she continues to have episodes where her 2nd and 3rd toes of the left foot cramp, she is unable to flex them when the spasm occurs. Patient was seen by primary care, she was given Flexeril without relief of symptoms. The patient has physical therapy that we will begin next week. Related Data Home Medications ?Medication ?Instructions ?Recorded ?Confirmed pen needle, diabetic 32 gauge x #50 ea 03/06/20 cetirizine 10 mg tablet 10 mg PO DAILY PRN 06/13/24 12/12/24 polyethylene glycol 3350 17 238 g PO ONCE PRN 06/13/24 12/12/24 gram/dose oral powder (Miralax) magnesium oxide 800 mg PO DAILY 06/14/24 Previous Rx's ?Medication ?Instructions ?Recorded pen needle, diabetic 32 gauge x #150 ea 04/29/20 (1st Tier Unifine Pentips Plus) FreeStyle Lancets 28 gauge #120 ea 05/16/20 (lancets) insulin pump cart,automated,BT #5 ea 04/20/22 (Omnipod 5 G6 Pods (Gen 5) subcutaneous cartridge) insulin pump cartridge,automated #1 ea 04/20/22 dose,BT with controller subcutaneous (Omnipod 5 G6 Intro Kit (Gen 5) subcutaneous cartridge with controller) blood-glucose sensor (Dexcom G7 #3 ea 12/10/22 Sensor device) acetaminophen 500 mg capsule 1,000 mg (2 x 500 mg) PO Q6H PRN 07/06/23 pain #30 caps albuterol sulfate 90 mcg/actuation 1 inh inhalation Q6 H PRN shortness 01/30/24 aerosol inhaler (Ventolin HFA) of breath or wheezing # 18 grams acetone (urine) test (Ketone Urine #25 ea 02/03/24 Test strips) blood sugar diagnostic (FreeStyle #200 ea 02/03/24 Lite Strips) blood-glucose meter (FreeStyle #1 ea 02/03/24 Lite Meter kit) lancets 28 gauge (FreeStyle #100 ea 02/03/24 Lancets) inhalational spacing device #1 ea 02/24/24 fluticasone propionate 50 2 spray intranasal DAILY #16 grams 08/30/24 mcg/actuation nasal spray,suspension (Flonase Allergy Relief) Baqsimi 3 mg/actuation nasal spray 3 mg intranasal ONC E PRN severe 09/04/24 (glucagon) low 30 days #2 ea insulin glargine 100 unit/mL (3 30 unit (0.3 mL) subcu t QPM PRN 09/04/24 mL) subcutaneous pen (Lantus pump failure 30 days #6 m L Solostar U-100 Insulin) pen needle, diabetic 32 gauge x #100 ea 09/04/24 insulin syringe-needle U-100 0.3 #100 ea 10/12/24 mL 31 gauge x 09/07 atorvastatin 20 mg tablet 20 mg PO DAILY #30 tabs 10/24 12/17 pantoprazole 40 mg tablet,delayed 40 mg PO QAM #90 tab s 11/20/24 release lidocaine 5 % topical patch 1 patch topical DAILY #15 ea 11/25/24 (Lidoderm) cyclobenzaprine 5 mg tablet 5 mg PO BID PRN muscle spa sm #30 12/04/24 tabs insulin aspart (niacinamide) See Rx Instructions subcu t 12/04/24 (U-100) 100 unit/mL subcutaneous .COMPLEX #40 mL solution (Fiasp U-100 Insulin) ketorolac 10 mg tablet 10 mg PO Q8H PRN pain #10 ta bs 12/04/24 lorazepam 0.5 mg tablet 0.25 mg (1/2 x 0.5 mg) PO DA HOLLI 01/02/25 PRN anxiety #10 tabs losartan 50 mg tablet 50 mg PO BID 30 days #60 tab s 01/02/25 Levoxyl 100 mcg tablet 100 mcg PO DAILY 30 days #30 tabs 01/21/25 (levothyroxine) ketorolac 10 mg tablet 10 mg PO Q6H PRN pain #20 ta bs 01/30/25 methocarbamol 750 mg tablet 1,500 mg (2 x 750 mg) PO Q 8H PRN 01/30/25 pain, moderate #24 tabs Allergies Allergy/AdvReac Type Severity Reaction Status Date / Time sertraline Allergy Severe GERD Verified 01/29/25 23:10 aspirin (ASA) Allergy Unknown BLEEDING Verified 01/29/25 23:10 lisinopril AdvReac Intermediate Cough Verified 01/29/25 23:10 prednisone AdvReac Intermediate high Blood Verified 01/29/25 23:10 sugar grasses/pollen Allergy Mild congestion Uncoded 01/29/25 23:10 Actos Allergy Unknown nausea and Uncoded 01/29/25 23:10 vomiting Trulicity Allergy Unknown nausea and Uncoded 01/29/25 23:10 vomiting Review of Systems 2 Review of Systems: Yes all other systems are reviewed and are negative Constitutional: Constitutional: Denies fatigue and Denies fever(s) Musculoskeletal: Musculoskeletal: Reports back pain, Reports muscle cramps, Denies muscle weakness, Denies numbness, Reports radiating pain into limb and Reports tingling Neurologic: Denies numbness and Reports tingling Endocrine: Endocrine: Denies fatigue PMFSH Past Medical History Attestation statement: The following information was validated with the patient. Medical History Obesity, morbid, BMI 40.0-49.9 Allergic rhinitis Back pain Obesity Cough Uncontrolled type 1 diabetes mellitus with hyperglycemia, with long-term current use of insulin Viral syndrome [facility] (current) use of insulin Vitamin D deficiency Diabetic nephropathy associated with type 2 diabetes mellitus Hypothyroidism Impacted cerumen of right ear Menstrual bleeding problem Hypothyroid Asthma Hypercholesterolemia Hypertension Surgical History History of hysteroscopy Hx of right breast biopsy Hx of tooth extraction Family History Family History Father Hypertension Obesity Prediabetes Mother Heart disease Glaucoma Social History Social History Household Members: Family Housing: Apartment Alcohol intake: never Patient Tobacco Use Status: Never used Tobacco Tobacco use type: Cigarette e-Cigarette/Vaping Use: Never Used Second Hand Smoke Exposure: No Advance Directives: No Do you have a plan to hurt others: No Plan service: No Current occupational status: employed Current occupational exposures/hazards: No Gender identity: Female Cognitive needs: No Hearing needs: No Vision needs: Yes Physical Exam ED Vital Signs: Vital Signs - 24 hr 01/29/25 23:07 01/30/25 02:15 Temperature 98 F 98 F Pulse Rate 74 74 Respiratory Rate 16 16 Blood Pressure 153/71 H 154/83 H Pulse Oximetry 97 98 Oxygen Delivery Method Room Air Room Air BMI result Body Mass Index 54.9 Const Other: Alert, appears older than stated age Orientation/consciousness: patient oriented x3 Resp Effort & Inspection: normal respiratory effort Cardio Other: Normal peripheral perfusion Skin Other: Warm dry no rash Neuro General: patient oriented x3, gait normal, no focal motor deficits and CN's II- XI intact bilaterally Extrem Other: No deformity of left foot, or any of the toes, no swelling, no overlying erythema or warmth, Psych Other: Cooperative Course Reevaluation(s) Reevaluation #1: Symptoms improved after Valium Medications Administered Discontinued Medications Generic Name Dose Route Start Last Admin Trade Name Freq PRN Reason Stop Dose Admin Diazepam 10 mg 01/30/25 00:52 01/30/25 01:11 Diazepam 5 Mg Tablet PO 01/30/25 00:53 10 mg ONCE ONE Administration Ketorolac Tromethamine 15 mg 01/30/25 00:53 01/30/25 01:11 Ketorolac Tromethamine 15 Mg/Ml Vial IM 01/30/25 00:54 15 mg ONCE ONE Administration Medical Decision Making Medical Decision Making MDM Narrative: 49-year-old female with history of morbid obesity, diabetes, hypertension, hyperlipidemia, active sciatica on the left side, asthma, who presents with left foot cramping x3 days. Patient states she continues to have episodes where her 2nd and 3rd toes of the left foot cramp, she is unable to flex them when the spasm occurs. Patient was seen by primary care, she was given Flexeril without relief of symptoms. The patient has physical therapy that we will begin next week. Problem: Morbid obesity, diabetes, known sciatica History: Per patient I have considered the following differential diagnoses: Muscle cramps, electrolyte abnormality Plan: Patient is having muscle spasm, we will order screening labs to assess for electrolyte abnormality, she is actively being treated for sciatica, the Flexeril is not helping, we will be giving ketorolac and Valium. I have independently reviewed the following tests: Labs: No leukocytosis, not anemic, no electrolyte abnormality Differential Diagnosis Differential Diagnoses: The differential diagnosis associated with the presentation includes See medical decision-making Admission/Observation Consideration of admission/observation: Escalation of care including admission/observation considered Not applicable Lab Data MDM Lab Attestation statement: I reviewed the patient's lab results. 01/30/25 01:01 01/30/25 01:01 Labs: Lab Results 01/30/25 Range/Units 01:01 WBC 12.2 H (4.8-10.8) X10*3/uL RBC 4.13 L (4.20-5.50) X10*6/uL Hgb 12.1 (12.0-16.0) g/dl Hct 36.0 L (37.0-47.0) % MCV 87.2 (80.0-98.0) fL MCH 29.3 (27.0-33.0) pg MCHC 33.6 (31.0-35.0) g/dl RDW 14.0 (11.0-16.0) % Plt Count 285 (160-400) X10*3/uL MPV 10.1 (9.4-12.3) fL Immature Gran % (Auto) 0.2 (0.0-0.4) % Neut % (Auto) 68.0 (45-73) % Lymph % (Auto) 22.3 (20-40) % Boyle % (Auto) 7.4 (2-11) % Eos % (Auto) 1.6 (0-4) % Baso % (Auto) 0.5 (0-2) % Lymph # (Auto) 2.7 (1.2-4.9) X10*3/uL Boyle # (Auto) 0.9 (0.1-1.2) X10*3/uL Eos # (Auto) 0.2 (0.0-0.4) X10*3/uL Baso # (Auto) 0.1 (0.0-0.2) X10*3/uL Abs Immat Gran (auto) 0.03 (0.00-0.03) X10*3/uL Absolute Neuts (auto) 8.3 (2.0-8.3) x10*3/uL Absolute Nucleated RBC 0.000 (0.0-0.012) X10*3/uL Nucleated RBC % (auto) 0.0 (0.0-0.2) /100WBC Sodium 142 (135-145) mmol/L Potassium 3.9 (3.3-5.1) mmol/L Chloride 110 H (96-108) mmol/L Carbon Dioxide 22 (22-29) mmol/L Anion Gap 14 (12-20) BUN 18 H (9-16) mg/dL Creatinine 0.63 (0.5-1.4) mg/dL Estim Creat Clear Calc 162.2 Estimated GFR > 60 Random Glucose 134 H (60-115) mg/dL Calcium 9.3 (8.4-10.2) mg/dL Magnesium 2.1 (1.6-2.6) mg/dL Total Bilirubin 0.2 (0.0-1.0) mg/dL AST 19 (5-31) U/L ALT 12 (0-31) U/L Alkaline Phosphatase 98 (39-117) U/L Total Protein 7.1 (6.5-8.0) g/dL Albumin 4.3 (3.5-5.0) g/dL Discharge Plan Discharge Clinical Impression: Muscle spasm Patient Disposition: Home, Self-Care Instructions: Muscle Spasm (ED) Additional Instructions: All of your screening labs were normal you had no electrolyte abnormalities. You are being treated for muscle spasm/cramps. See home care instructions. Use the ketorolac as needed for pain this is an anti-inflammatory take it with food. Use the methocarbamol as needed for further pain, this is a muscle relaxant, this will cause drowsiness do not drive or operate machinery while taking the medication. Keep your pending appointment for physical therapy. Follow up with your primary care provider. Prescriptions: New ketorolac 10 mg tablet 10 mg PO Q6H PRN (Reason: pain) Qty: 20 0RF Rx Instructions: maximum total duration of 5 days from all oral, intranasal, or parenteral formulations. The patient on an intramuscular dose of Toradol here in the emergency room methocarbamol 750 mg tablet 1,500 mg PO Q8H PRN (Reason: pain, moderate) Qty: 24 0RF No Action (DME) pen needle, diabetic [1st Tier Unifine Pentips Plus] 32 gauge x 5/32 needle See Rx Instructions .ROUTE .MEDSUPPLY Qty: 150 6RF Rx Instructions: 4 times a day (DME) lancets [FreeStyle Lancets] 28 gauge misc See Rx Instructions topical QID Qty: 120 6RF Rx Instructions: 4 times a day (DME) Omnipod 5 G6 Intro Kit (Gen 5) Cartridge See Rx Instructions .Route Qty: 1 0RF Rx Instructions: As directed (DME) Omnipod 5 G6 Pods (Gen 5) Cartridge See Rx Instructions .Route Qty: 5 3RF Rx Instructions: As directed (DME) Dexcom G7 Sensor Device See Rx Instructions .Route Qty: 3 4RF Rx Instructions: As directed change every 10 days (DME) insulin syringe-needle U-100 0.3 mL 31 gauge x 5/16 syringe See Rx Instructions .ROUTE .MEDSUPPLY Qty: 100 1RF Rx Instructions: As directed up to qid for pump failure or glucose correction atorvastatin 20 mg tablet 20 mg PO DAILY Qty: 30 3RF pantoprazole 40 mg tablet,delayed release (DR/EC) 40 mg PO QAM Qty: 90 2RF losartan 50 mg tablet 50 mg PO BID 30 Days Qty: 60 6RF levothyroxine [Levoxyl] 100 mcg tablet 100 mcg PO DAILY 30 Days Qty: 30 11RF lidocaine [Lidoderm] 5 % adhesive patch,medicated 1 patch topical DAILY Qty: 15 0RF Rx Instructions: leave on most painful area for up to 12 hrs (DME) pen needle, diabetic 32 gauge x 5/32 needle See Rx Instructions subcut .MEDSUPPLY Qty: 50 Rx Instructions: As directed acetaminophen 500 mg capsule 1,000 mg PO Q6H PRN (Reason: pain) Qty: 30 0RF albuterol sulfate [Ventolin HFA] 90 mcg/actuation HFA aerosol inhaler 1 inh inhalation Q6H PRN (Reason: shortness of breath or wheezing) Qty: 18 0RF (DME) inhalational spacing device Spacer See Rx Instructions .Route Qty: 1 0RF Rx Instructions: As directed cetirizine 10 mg tablet 10 mg PO DAILY PRN polyethylene glycol 3350 [Miralax] 17 gram/dose powder 238 g PO ONCE PRN magnesium oxide 400 mg magnesium tablet 800 mg PO DAILY Fiasp U-100 Insulin 100 unit/mL solution See Rx Instructions subcut .COMPLEX Qty: 40 4RF Rx Instructions: subcutaneously; Infuse up to 120 units via insulin pen per day subcutaneously; ketorolac 10 mg tablet 10 mg PO Q8H PRN (Reason: pain) Qty: 10 0RF Rx Instructions: maximum total duration of 5 days from all oral, intranasal, or parenteral formulations cyclobenzaprine 5 mg tablet 5 mg PO BID PRN (Reason: muscle spasm) Qty: 30 0RF (DME) FreeStyle Lite Strips Strip See Rx Instructions .ROUTE .MEDSUPPLY Qty: 200 11RF Rx Instructions: As directed six times a day p.r.n. sensor failure or to confirm readings (DME) lancets [FreeStyle Lancets] 28 gauge misc See Rx Instructions .ROUTE .MEDSUPPLY Qty: 100 1RF Rx Instructions: 6 times a day prn sensor failure or to confirm glucose (DME) blood-glucose meter [FreeStyle Lite Meter] Kit See Rx Instructions .Route Qty: 1 1RF Rx Instructions: As directed (DME) Ketone Urine Test Strip See Rx Instructions .ROUTE .MEDSUPPLY Qty: 25 1RF Rx Instructions: As directed (DME) pen needle, diabetic 32 gauge x 5/32 needle See Rx Instructions .ROUTE .COMPLEX Qty: 100 6RF Dose Instruction: USE TO INJECT 5 TIMES A DAY Rx Instructions: USE TO INJECT 5 TIMES A DAY if pump is not operating insulin glargine [Lantus Solostar U-100 Insulin] 100 unit/mL (3 mL) insulin pen 30 unit subcut QPM MDD 30 PRN (Reason: pump failure) 30 Days Qty: 6 3RF Baqsimi 3 mg/actuation spray,non-aerosol 3 mg intranasal ONCE MDD 6mg PRN (Reason: severe low) 30 Days Qty: 2 1RF Rx Instructions: may repeat in 15 min fluticasone propionate [Flonase Allergy Relief] 50 mcg/actuation spray,suspension 2 spray intranasal DAILY Qty: 16 1RF Rx Instructions: administer into each nostril lorazepam 0.5 mg tablet 0.25 mg PO DAILY PRN (Reason: anxiety) Qty: 10 0RF Stand Alone Forms: Work/School Release Interventions: ED Discharge Assessment Last Done: 01/30/25 02:15 Discharge Date/Time: 01/30/25 02:15 Print Language: Japanese
[2025-01-30 02:15] VITALS: BP 154/83; PULSE 74; RESP 16; TEMP 36.6; O2SAT 98
== END 2025-01-30 02:15 | disposition home or self-care (01) ==
PROVIDERS: Physician Assistant Medical; Emergency Provider Emergency Medicine; PCP Internal Medicine
DX: M79.672 Pain in left foot (principal); M62.838 Other muscle spasm; I10 Essential (primary) hypertension; E11.9 Type 2 diabetes mellitus without complications; Z79.899 Other long term (current) drug therapy; Z79.4 Long term (current) use of insulin
CPT/HCPCS: 36415; 80053; 83735; 85025; 96372; 99283; 99284; J1885

== ENCOUNTER 2025-02-01 08:17 | Emergency (ER) | payer OTHER, SELFPAY ==
--- NOTE | ~2025-02-01 | XR_ITS ---
EXAMINATION: XR FOOT 3 OR MORE VIEWS LEFT HISTORY: foot pain COMPARISON: Comparison is made with the prior examination dated 02/10/2019. FINDINGS: Three views of the left foot are submitted. Osseous mineralization is normal. There is no fracture or dislocation. Again seen is a prominent os trigonum. The joint spaces are preserved. There are calcaneal spurs at the plantar aspect and at the insertion of the Achilles tendon. Calcaneal spurs as described. XR/XR foot LT min 3V IMPRESSION: Electronically signed by: Sagar Murillo MD 02/01/2025 09:42 AM EDT
[2025-02-01 08:38] VITALS: BP 161/74; PULSE 90; RESP 22; TEMP 36.5; O2SAT 100; BMI 54.9
--- OUTSIDE RECORDS SUMMARY | 2025-02-01 08:42 | XMS_ITS | Encounter Summary ---
Author Organization [employer] Address [address] [place] [address] Care Team Providers Care Convention Planner Name Role Phone Unavailable Primary Care Provider [...]
--- OUTSIDE RECORDS SUMMARY | 2025-02-01 08:42 | XMS_ITS | Clinical Summary ---
Author Organization [employer] Address [address] [place] [address] Care Team Providers Care Ios Developer Name Role Phone Unavailable Primary Care Provider [...] Phone Billing Address Dental Self 1975 [address] [place] [address] DENTAL - [facility] PARTIAL (MEDICAID)
--- OUTSIDE RECORDS SUMMARY | 2025-02-01 08:42 | XMS_ITS | Encounter Summary ---
Author Organization [employer] Address [address] [place] [address] Care Team Providers Care Baked Goods Stock Clerk Name Role Phone Unavailable Primary Care [...]
--- OUTSIDE RECORDS SUMMARY | 2025-02-01 08:42 | XMS_ITS | Patient Health Record ---
Author Organization [facility] Address [address] [facility] [facility] [place] [address] Care Team Providers Care Yard Laborer Name Role Phone JAZIEL BULLARD Primary Care [...]
--- OUTSIDE RECORDS SUMMARY | 2025-02-01 08:42 | XMS_ITS | Encounter Summary ---
Author Organization [employer] Address [address] [place] [address] Care Team Providers Care Engineer Soils Name Role Phone Unavailable Primary Care Provider [...]
--- NOTE | 2025-02-01 08:47 | PC.NURSE ---
patient a&ox3, c/o 02/01 lle, denies injury and states she was here previously for the same thing without resolution. awaiting provider evaluation, call chacon within reach, plan of care ongoing
--- NOTE | 2025-02-01 08:59 | ED_ITS ---
HPI - Extremity Injury (Lower) General Chief Complaint: Extremity Injury, Lower Stated Complaint: L foot unable to walk on Time Seen by Provider: 02/01/25 08:30 Source: patient, RN notes reviewed and old records reviewed Mode of arrival: ambulatory History of Present Illness ED Provider: Ashely Parry PA-C HPI Narrative: 49-year-old female with a past medical history diabetes, hypothyroid, asthma, HTN, obesity, presenting to the ED complaining of intermittent atraumatic left foot pain described as burning, with spasms x 6 days. Patient was seen and treated in our ED on 01/30 for similar symptoms, had labs, discharged with ketorolac and methocarbamol without relief. Admits she has podiatry appointment on 02/13. Denies weakness, calf pain, recent travel, history of clots, back pain Related Data Home Medications ?Medication ?Instructions ?Recorded ?Confirmed pen needle, diabetic 32 gauge x #50 ea 03/06/20 cetirizine 10 mg tablet 10 mg PO DAILY PRN 06/13/24 12/12/24 polyethylene glycol 3350 17 238 g PO ONCE PRN 06/13/24 12/12/24 gram/dose oral powder (Miralax) magnesium oxide 800 mg PO DAILY 06/14/24 Previous Rx's ?Medication ?Instructions ?Recorded pen needle, diabetic 32 gauge x #150 ea 04/29/20 (1st Tier Unifine Pentips Plus) FreeStyle Lancets 28 gauge #120 ea 05/16/20 (lancets) insulin pump cart,automated,BT #5 ea 04/20/22 (Omnipod 5 G6 Pods (Gen 5) subcutaneous cartridge) insulin pump cartridge,automated #1 ea 04/20/22 dose,BT with controller subcutaneous (Omnipod 5 G6 Intro Kit (Gen 5) subcutaneous cartridge with controller) blood-glucose sensor ([employer] G7 #3 ea 12/10/22 Sensor device) acetaminophen 500 mg capsule 1,000 mg (2 x 500 mg) PO Q6H PRN 07/06/23 pain #30 caps albuterol sulfate 90 mcg/actuation 1 inh inhalation Q6 H PRN shortness 01/30/24 aerosol inhaler (Ventolin HFA) of breath or wheezing # 18 grams acetone (urine) test (Ketone Urine #25 ea 02/03/24 Test strips) blood sugar diagnostic (FreeStyle #200 ea 02/03/24 Lite Strips) blood-glucose meter (FreeStyle #1 ea 02/03/24 Lite Meter kit) lancets 28 gauge (FreeStyle #100 ea 02/03/24 Lancets) inhalational spacing device #1 ea 02/24/24 fluticasone propionate 50 2 spray intranasal DAILY #16 grams 08/30/24 mcg/actuation nasal spray,suspension (Flonase Allergy Relief) Baqsimi 3 mg/actuation nasal spray 3 mg intranasal ONC E PRN severe 09/04/24 (glucagon) low 30 days #2 ea insulin glargine 100 unit/mL (3 30 unit (0.3 mL) subcu t QPM PRN 09/04/24 mL) subcutaneous pen (Lantus pump failure 30 days #6 m L Solostar U-100 Insulin) pen needle, diabetic 32 gauge x #100 ea 09/04/24 insulin syringe-needle U-100 0.3 #100 ea 10/12/24 mL 31 gauge x 09/07 atorvastatin 20 mg tablet 20 mg PO DAILY #30 tabs 10/24 12/17 pantoprazole 40 mg tablet,delayed 40 mg PO QAM #90 tab s 11/20/24 release lidocaine 5 % topical patch 1 patch topical DAILY #15 ea 11/25/24 (Lidoderm) cyclobenzaprine 5 mg tablet 5 mg PO BID PRN muscle spa sm #30 12/04/24 tabs insulin aspart (niacinamide) See Rx Instructions subcu t 12/04/24 (U-100) 100 unit/mL subcutaneous .COMPLEX #40 mL solution (Fiasp U-100 Insulin) ketorolac 10 mg tablet 10 mg PO Q8H PRN pain #10 ta bs 12/04/24 lorazepam 0.5 mg tablet 0.25 mg (1/2 x 0.5 mg) PO DA HOLLI 01/02/25 PRN anxiety #10 tabs losartan 50 mg tablet 50 mg PO BID 30 days #60 tab s 01/02/25 Levoxyl 100 mcg tablet 100 mcg PO DAILY 30 days #30 tabs 01/21/25 (levothyroxine) ketorolac 10 mg tablet 10 mg PO Q6H PRN pain #20 ta bs 01/30/25 methocarbamol 750 mg tablet 1,500 mg (2 x 750 mg) PO Q 8H PRN 01/30/25 pain, moderate #24 tabs gabapentin 300 mg capsule 300 mg PO TID PRN pain (scal e 02/01/25 score 4-6) #15 caps Allergies Allergy/AdvReac Type Severity Reaction Status Date / Time sertraline Allergy Severe GERD Verified 02/01/25 08:39 aspirin (ASA) Allergy Unknown BLEEDING Verified 02/01/25 08:39 lisinopril AdvReac Intermediate Cough Verified 02/01/25 08:39 prednisone AdvReac Intermediate high Blood Verified 02/01/25 08:39 sugar grasses/pollen Allergy Mild congestion Uncoded 01/29/25 23:10 Actos Allergy Unknown nausea and Uncoded 01/29/25 23:10 vomiting Trulicity Allergy Unknown nausea and Uncoded 01/29/25 23:10 vomiting Review of Systems Review of Systems: Yes all other systems are reviewed and are negative Constitutional: Constitutional: Reports as per HPI Neurologic: Denies Sensory deficit (Neuro) FORMERLY [facility], [facility] Past Medical History Attestation statement: The following information was validated with the patient. 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 Vitamin D deficiency Diabetic nephropathy associated with type 2 diabetes mellitus Hypothyroidism Impacted cerumen of right ear Menstrual bleeding problem Hypothyroid Asthma Hypercholesterolemia Hypertension Surgical History History of hysteroscopy Hx of right breast biopsy Hx of tooth extraction Family History Family History Father Hypertension Obesity Prediabetes Mother Heart disease Glaucoma Social History Social History Household Members: Family Housing: Apartment Alcohol intake: never Patient Tobacco Use Status: Never used Tobacco Tobacco use type: Cigarette e-Cigarette/Vaping Use: Never Used Second Hand Smoke Exposure: No service: No Current occupational status: employed Current occupational exposures/hazards: No Gender identity: Female Cognitive needs: No Hearing needs: No Vision needs: Yes Physical Exam Vital Signs: Vital Signs: Last Vital Signs Temp 98.0 F 02/01/25 10:58 Pulse 88 02/01/25 10:58 Resp 20 02/01/25 10:58 BP 156/72 H 02/01/25 10:58 Pulse Ox 100 02/01/25 10:58 O2 Del Method Room Air 02/01/25 10:58 BMI result Body Mass Index 54.9 Const: General: cooperative, healthy appearing and no acute distress Orientation/consciousness: patient oriented x3 Limitations: no limitations HEENT: Head: Yes normal to inspection and Yes atraumatic Ears: hearing grossly normal bilaterally General nose exam: Normal external nose present Face and sinus: Yes normal facial exam Eyes: General: appearance normal, both eyes and all related structures EOM: EOMs intact bilaterally Neck: Neck: Yes normal visual inspection and Yes no meningeal signs Resp: Effort & Inspection: normal respiratory effort and no respiratory distress Cardio: Rate: regular rate Back/Spine/Pelvis: Other: No midline cervical/thoracic/lumbar spinous tenderness/step-off or deformity Skin: Rashes: no rashes Wounds: no wounds Neuro: General: patient oriented x3, tone normal, moves all extremities, no meningeal signs and no focal motor deficits Motor exam (neuro): 5/5 motor strength present throughout Sensory Exam: No Sensory deficit (Neuro) Extrem: Other: Left foot without appreciable deformity. No swelling/erythema or warmth. Tender to palpation to volar aspect of foot. No plantar tenderness. No crepitus. Neurovascularly intact. Intermittent spasms of pain appreciated with movement General: Yes no calf tenderness and Yes edema (Bilaterally) Course Course Course Narrative: XR foot LT min 3V IMPRESSION: Calcaneal spurs as described. > will add gabapentin to patient's regimen. Discussed needed close follow up with Podiatry which she has an appointment on 02/13. Results discussed with patient including worrisome signs and symptoms and strict return precautions, and when to return to the emergency department. They verbalized understanding and feel safe for discharge at this time. Medications Administered Discontinued Medications Generic Name Dose Route Start Last Admin Trade Name Freq PRN Reason Stop Dose Admin Gabapentin 300 mg 02/01/25 08:55 02/01/25 09:42 Gabapentin 300 Mg Capsule PO 02/01/25 08:56 300 mg ONCE ONE Administration Ketorolac Tromethamine 30 mg 02/01/25 08:55 02/01/25 09:41 Ketorolac Tromethamine 30 Mg/Ml Vial IM 02/01/25 08:56 30 mg ONCE ONE Administration Medical Decision Making Medical Decision Making [facility] Narrative: 49-year-old female with a past medical history diabetes, hypothyroid, asthma, HTN, obesity, presenting to the ED complaining of intermittent atraumatic left foot pain described as burning, with spasms x 6 days. On exam vital signs stable, NAD, nontoxic appearing, physical exam as noted above. Concern for neuropathic pain vs occult/stress fracture vs MSK pain/strain/spasming. No evidence of septic joint/arthritis. Lower suspicion for gout. Unlikely DVT. Low suspicion for electrolyte abnormalities with labs on 01/30/2025 which were unremarkable Plan: Pain control, x-ray, podiatry follow-up Please refer to course for remaining clinical decision making, interpretation of labs/imaging results, and discussions with consultants and/or family members. Differential Diagnosis Differential Diagnoses: The differential diagnosis associated with the pre sentation includes As above Lab Data [facility] Lab Attestation statement: I reviewed the patient's lab results. Independent Interpretation I performed an independent interpretation of an: Plain X-Ray Radiology Impression Discussion of test interpretation with radiology: I have reviewed the radiologist's reading. Independent Historian Clinical information obtained from an independent historian. History obtained from or confirmed by: Friend External Record Review External record reviewed: Inpatient record, Office record, Outpatient record, Prior outpatient labs, Prior outpatient radiology, Primary care record and Outside ED record Tests considered The following testing was considered but not selected: As above Prescription Management I considered prescription management with: Pain Medication Chronic Conditions Patient?s care impacted by: Diabetes and Other (Obesity) Social Determinants Patient?s care significantly limited by Social Determinants of Health including: Other Social Determinant of Health Discharge Plan Discharge Clinical Impression: Foot pain Patient Disposition: Home, Self-Care Instructions: Arthralgia (ED) Additional Instructions: Your x-ray shows some calcaneus spurs Continue taking previously prescribed medications In addition gabapentin will help with neuropathic pain Follow-up with your primary care doctor as well as Podiatry as scheduled If her symptoms persist or worsen or pain becomes unbearable, you have any shortness of breath or chest pain, or difficulty or inability to walk return to the ED Prescriptions: New gabapentin 300 mg capsule 300 mg PO TID PRN (Reason: pain (scale score 4-6)) Qty: 15 0RF No Action (DME) pen needle, diabetic [1st Tier Unifine Pentips Plus] 32 gauge x 5/32 needle See Rx Instructions .ROUTE .MEDSUPPLY Qty: 150 6RF Rx Instructions: 4 times a day (DME) lancets [FreeStyle Lancets] 28 gauge misc See Rx Instructions topical QID Qty: 120 6RF Rx Instructions: 4 times a day (DME) Omnipod 5 G6 Intro Kit (Gen 5) Cartridge See Rx Instructions .Route Qty: 1 0RF Rx Instructions: As directed (DME) Omnipod 5 G6 Pods (Gen 5) Cartridge See Rx Instructions .Route Qty: 5 3RF Rx Instructions: As directed (DME) Dexcom G7 Sensor Device See Rx Instructions .Route Qty: 3 4RF Rx Instructions: As directed change every 10 days (DME) insulin syringe-needle U-100 0.3 mL 31 gauge x 5/16 syringe See Rx Instructions .ROUTE .MEDSUPPLY Qty: 100 1RF Rx Instructions: As directed up to qid for pump failure or glucose correction atorvastatin 20 mg tablet 20 mg PO DAILY Qty: 30 3RF pantoprazole 40 mg tablet,delayed release (DR/EC) 40 mg PO QAM Qty: 90 2RF losartan 50 mg tablet 50 mg PO BID 30 Days Qty: 60 6RF levothyroxine [Levoxyl] 100 mcg tablet 100 mcg PO DAILY 30 Days Qty: 30 11RF ketorolac 10 mg tablet 10 mg PO Q6H PRN (Reason: pain) Qty: 20 0RF Rx Instructions: maximum total duration of 5 days from all oral, intranasal, or parenteral formulations. The patient on an intramuscular dose of Toradol here in the emergency room methocarbamol 750 mg tablet 1,500 mg PO Q8H PRN (Reason: pain, moderate) Qty: 24 0RF lidocaine [Lidoderm] 5 % adhesive patch,medicated 1 patch topical DAILY Qty: 15 0RF Rx Instructions: leave on most painful area for up to 12 hrs (DME) pen needle, diabetic 32 gauge x 5/32 needle See Rx Instructions subcut .MEDSUPPLY Qty: 50 Rx Instructions: As directed acetaminophen 500 mg capsule 1,000 mg PO Q6H PRN (Reason: pain) Qty: 30 0RF albuterol sulfate [Ventolin HFA] 90 mcg/actuation HFA aerosol inhaler 1 inh inhalation Q6H PRN (Reason: shortness of breath or wheezing) Qty: 18 0RF (DME) inhalational spacing device Spacer See Rx Instructions .Route Qty: 1 0RF Rx Instructions: As directed cetirizine 10 mg tablet 10 mg PO DAILY PRN polyethylene glycol 3350 [Miralax] 17 gram/dose powder 238 g PO ONCE PRN magnesium oxide 400 mg magnesium tablet 800 mg PO DAILY Fiasp U-100 Insulin 100 unit/mL solution See Rx Instructions subcut .COMPLEX Qty: 40 4RF Rx Instructions: subcutaneously; Infuse up to 120 units via insulin pen per day subcutaneously; ketorolac 10 mg tablet 10 mg PO Q8H PRN (Reason: pain) Qty: 10 0RF Rx Instructions: maximum total duration of 5 days from all oral, intranasal, or parenteral formulations cyclobenzaprine 5 mg tablet 5 mg PO BID PRN (Reason: muscle spasm) Qty: 30 0RF (DME) FreeStyle Lite Strips Strip See Rx Instructions .ROUTE .MEDSUPPLY Qty: 200 11RF Rx Instructions: As directed six times a day p.r.n. sensor failure or to confirm readings (DME) lancets [FreeStyle Lancets] 28 gauge misc See Rx Instructions .ROUTE .MEDSUPPLY Qty: 100 1RF Rx Instructions: 6 times a day prn sensor failure or to confirm glucose (DME) blood-glucose meter [FreeStyle Lite Meter] Kit See Rx Instructions .Route Qty: 1 1RF Rx Instructions: As directed (DME) Ketone Urine Test Strip See Rx Instructions .ROUTE .MEDSUPPLY Qty: 25 1RF Rx Instructions: As directed (DME) pen needle, diabetic 32 gauge x 5/32 needle See Rx Instructions .ROUTE .COMPLEX Qty: 100 6RF Dose Instruction: USE TO INJECT 5 TIMES A DAY Rx Instructions: USE TO INJECT 5 TIMES A DAY if pump is not operating insulin glargine [Lantus Solostar U-100 Insulin] 100 unit/mL (3 mL) insulin pen 30 unit subcut QPM MDD 30 PRN (Reason: pump failure) 30 Days Qty: 6 3RF Baqsimi 3 mg/actuation spray,non-aerosol 3 mg intranasal ONCE MDD 6mg PRN (Reason: severe low) 30 Days Qty: 2 1RF Rx Instructions: may repeat in 15 min fluticasone propionate [Flonase Allergy Relief] 50 mcg/actuation spray,suspension 2 spray intranasal DAILY Qty: 16 1RF Rx Instructions: administer into each nostril lorazepam 0.5 mg tablet 0.25 mg PO DAILY PRN (Reason: anxiety) Qty: 10 0RF Referrals: [facility] [Provider Group, Podiatry] David,Daksha Eduardo MD [Primary Care Provider, Internal Medicine] Interventions: ED Discharge Assessment Last Done: 02/01/25 10:58 Discharge Date/Time: 02/01/25 10:59 Print Language: Canadian
--- NOTE | 2025-02-01 09:43 | PC.NURSE ---
patient medicated per order
[2025-02-01 10:53] VITALS: BP 156/72; PULSE 88; RESP 20; TEMP 36.7; O2SAT 100
[2025-02-01 10:54] VITALS: BP 156/72; PULSE 88; RESP 20; TEMP 36.7; O2SAT 100
[2025-02-01 10:58] VITALS: BP 156/72; PULSE 88; RESP 20; TEMP 36.7; O2SAT 100
== END 2025-02-01 10:59 | disposition home or self-care (01) ==
PROVIDERS: Emergency Provider Emergency Medicine Emergency Medical Services; PCP Internal Medicine
DX: M79.672 Pain in left foot (principal); Z79.899 Other long term (current) drug therapy
CPT/HCPCS: 73630; 96372; 99284; J1885

== ENCOUNTER → 2025-02-01 08:55 | Outpatient (BNV) | payer OTHER, SELFPAY | PROVIDERS: Emergency Provider Emergency Medicine Emergency Medical Services; PCP Internal Medicine; Visit Provider Radiology Diagnostic Radiology | DX: M79.672 Pain in left foot (principal) | CPT/HCPCS: 73630 ==

== ENCOUNTER 2025-02-06 08:36 | Outpatient (AMB) | payer OTHER, SELFPAY ==
--- NOTE | 2025-02-06 08:55 | MHC.PC.OV ---
Vital Signs 02/06/25 08:56 Height 5 ft 5 in Weight 328 lb 0.765 oz BMI 54.6 BP 142/88 H Blood Pressure Location Lt brachial Position Sitting Pulse 81 Pulse Source Pulse Oximeter Temp 97.1 F Temp Source Temporal Artery Scan Pulse Oximetry (%) 98 Oxygen Delivery Method Room Air Intake Visit Reasons: [facility] [place] 02/01 L foot unable to walk on Allergies sertraline Allergy (Severe, Verified 02/06/25 08:58) GERD aspirin (ASA) Allergy (Unknown, Verified 02/06/25 08:58) BLEEDING lisinopril Adverse Reaction (Intermediate, Verified 02/06/25 08:58) Cough prednisone Adverse Reaction (Intermediate, Verified 02/06/25 08:58) high Blood sugar grasses/pollen Allergy (Mild, Uncoded 02/06/25 08:58) congestion Actos Allergy (Unknown, Uncoded 02/06/25 08:58) nausea and vomiting Trulicity Allergy (Unknown, Uncoded 02/06/25 08:58) nausea and vomiting Medication List - Last Reconciled 02/06/25 by Daksha Hernandez MD acetaminophen 1,000 mg (2 x 500 mg) PO Q6H PRN acetone (urine) test (Ketone Urine Test strips) As directed albuterol sulfate 90 mcg/actuation (Ventolin HFA) 1 inh inhalation Q6H PRN atorvastatin 20 mg PO DAILY Baqsimi 3 mg/actuation (glucagon) 3 mg intranasal ONCE PRN 30 days MDD 6mg NS blood sugar diagnostic (FreeStyle Lite Strips) As directed six times a day p.r.n. sensor failure or to confirm readings blood-glucose meter (FreeStyle Lite Meter kit) As directed blood-glucose sensor (Osteomimetics G7 Sensor device) As directed change every 10 days cetirizine 10 mg PO DAILY PRN cyclobenzaprine 5 mg PO BID PRN fluticasone propionate 50 mcg/actuation (Flonase Allergy Relief) 2 sprays intranasal DAILY FreeStyle Lancets (lancets) 4 times a day NS gabapentin 300 mg PO TID PRN inhalational spacing device As directed insulin aspart (niacinamide) 100 unit/mL (Fiasp U-100 Insulin) subcutaneously; Infuse up to 120 units via insulin pen per day subcutaneously; insulin glargine (Lantus Solostar U-100 Insulin) 30 units (0.3 mL) subcut QPM PRN 30 days MDD 30 insulin pump cart,auto,BT-cntr (Omnipod 5 G6 Intro Kit (Gen 5) subcutaneous cartridge with controller) As directed insulin pump cart,automated,BT (Omnipod 5 G6 Pods (Gen 5) subcutaneous cartridge) As directed insulin syringe-needle U-100 As directed up to qid for pump failure or glucose correction ketorolac 10 mg PO Q6H PRN ketorolac 10 mg PO Q8H PRN lancets (FreeStyle Lancets) 6 times a day prn sensor failure or to confirm glucose Levoxyl (levothyroxine) 100 mcg PO DAILY 30 days NS lidocaine 5% (Lidoderm) 1 patch topical DAILY lorazepam 0.25 mg (1/2 x 0.5 mg) PO DAILY PRN losartan 50 mg PO BID 30 days magnesium oxide 800 mg PO DAILY methocarbamol 1,500 mg (2 x 750 mg) PO Q8H PRN pantoprazole 40 mg PO QAM pen needle, diabetic As directed pen needle, diabetic (1st Tier Unifine Pentips Plus) 4 times a day pen needle, diabetic USE TO INJECT 5 TIMES A DAY if pump is not operating polyethylene glycol 3350 (Miralax) 238 grams PO ONCE PRN Tobacco use date assessed: 02/06/25 Dental Screening Dental Screen Date: 02/06/25 Did you have a dental visit in the last 12 months?: No Did you have a dental problem in the last 6 months where you did not have access to dental care?: No Was dental information given to patient?: Patient has dentist [facility] Medical History Obesity, morbid, BMI 40.0-49.9 Allergic rhinitis Back pain Obesity Cough Uncontrolled type 1 diabetes mellitus with hyperglycemia, with long-term current use of insulin 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 Vitamin D deficiency Diabetic nephropathy associated with type 2 diabetes mellitus Hypothyroidism Impacted cerumen of right ear Menstrual bleeding problem Hypothyroid Asthma Hypercholesterolemia Hypertension Surgical History History of hysteroscopy Hx of right breast biopsy Hx of tooth extraction Family History Father Hypertension Obesity Prediabetes Mother Heart disease Glaucoma Social History Household Members: Family Housing: Apartment Alcohol intake: never Patient Tobacco Use Status: Never used Tobacco Tobacco use type: Cigarette e-Cigarette/Vaping Use: Never Used Second Hand Smoke Exposure: No service: No Current occupational status: employed Current occupational exposures/hazards: No Gender identity: Female Cognitive needs: No Hearing needs: No Vision needs: Yes Female Reproductive History Menstrual Age of Menarche: 12 Questionnaire PHQ-9 Over the last 2 weeks, how often have you been bothered by any of the following problems? 1. Little interest or pleasure in doing things: not at all 2. Feeling down, depressed, or hopeless: not at all 3. Trouble falling or staying asleep, or sleeping too much: not at all 4. Feeling tired or having little energy: not at all 5. Poor appetite or overeating: not at all 6. Feeling bad about yourself - or that you are a failure or have let yourself or your family down: not at all 7. Trouble concentrating on things, such as reading the newspaper or watching television: not at all 8. Moving or speaking so slowly that other people could have noticed. Or the opposite - being so fidgety or restless that you have been moving around a lot more than usual: not at all 9. Thoughts that you would be better off or of hurting yourself in some way: not at all Total score: 0 Source: Developed by Drs. Sagar Ascencio, Jackelyn Dueñas, Camilo Redman and colleagues, with an educational maura from [employer]. Thrive Questionnaire Date Thrive assessed: 08/30/24 I am a: Patient What is your living situation today?: I have a steady place to live Within the past 12 months, did the food you bought not last and you didn't have the money to get more?: Never true Within the past 12 months, did you worry whether your food would run out before you got money to buy more?: Never true Do you have trouble paying for medicines?: No Do you have trouble getting transportation to medical appointments?: No Do you have trouble paying your heating and electricity bill?: No Do you have trouble taking care of your child, family member or friend?: No Do you have trouble with day-to-day activities such as bathing, preparing meals, shopping, managing finances, etc.?: No Are you currently unemployed and looking for a job?: No Are you interested in more education?: No Please select the resources that you would like help with: None Currently or been in a relationship where the following occur: No concerns reported THRIVE Score: 0 AUDIT C Alcohol Use Questionnaire (AUDIT-C) 1. How often do you have a drink containing alcohol?: 2-4 times a month 2. How many drinks containing alcohol do you have on a typical day when you are drinking?: 1 or 2 3. How often do you have six or more drinks on one occasion?: Never Total Score: 2 DIMA-7 AMB Questionnaire DIMA-7 Date DIMA - 7 assessed: 08/30/24 Feeling nervous, anxious, or on edge: 0 = Not at all Not being able to stop or control worryin = Not at all Worrying too much about different things: 0 = Not at all Trouble relaxin = Not at all Being so restless that it is hard to sit still: 0 = Not at all Becoming easily annoyed or irritable: 0 = Not at all Feeling afraid as if something awful might happen: 0 = Not at all Total DIMA-7 score (0-4 normal; 5-9 mild; 10-14 moderate; 15-21 severe): 0 Source: Developed by Drs. Sagar Ascencio, Jackelyn Dueñas, Camilo Redman and colleagues, with an educational maura from [employer]. Physical exam (Primary Care) Vital Signs: Last Vital Signs Temp 97.1 F 02/06/25 08:56 Pulse 81 02/06/25 08:56 BP 142/88 H 02/06/25 08:56 Pulse Ox 98 02/06/25 08:56 Oxygen Delivery Method Room Air 02/06/25 08:56 BMI result Body Mass Index 54.6 Tobacco/Smoking Status: Tobacco use Status Tobacco use date assessed 02/06/25 02/06/25 09:02 Patient Tobacco Use Status Never used Tobacco 02/06/25 09:02 Tobacco use type Cigarette 02/06/25 09:02 e-Cigarette/Vaping Use Never Used 02/06/25 09:02 PHQ-9: PHQ-9 Score PHQ-9: Total score 0 02/06/25 09:34 Thrive Assessment: Date of Thrive Assessment Date Thrive assessed 08/30/24 02/06/25 09:02 Currently or been in a relationship where the following occur: No concerns reported Const General: alert; No acute distress Eyes Conjunctivae: conjunctivae normal Resp Auscultation: clear to auscultation bilaterally Cardio Rate: regular rate Rhythm: regular rhythm GI Inspection: Yes normal to inspection Extrem General: Yes normal to inspection and No edema Coding Level of Care Code Est Pt Level 4 (65209) Complex EM visit Add On G2211 Diagnoses 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), managed as type 1 E13.9 Essential hypertension I10 Hypertension type: essential hypertension Hypercholesterolemia E78.00 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; E06.3 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 Morbid obesity E66.01 Gastroesophageal reflux disease, unspecified whether esophagitis present K21.9 Esophagitis presence: esophagitis presence not specified Diabetic nephropathy associated with type 2 diabetes mellitus E11.21 Peripheral neuropathy G62.9 Foot pain, left M79.672 Assessment & Plan Assessment & Plan (1) 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 Patient is following up with endocrinology (2) Hypertension: Code(s): I10 - Essential (primary) hypertension Category: Medical Qualifiers: Hypertension type: essential hypertension Qualified Code(s): I10 - Essential (primary) hypertension Plan: Continue with blood pressure medication. Decrease salt intake and exercise patient is on losartan 50 mg twice a day (3) Hypercholesterolemia: Code(s): E78.00 - Pure hypercholesterolemia, unspecified Category: Medical Plan: Avoid fried foods, chicken skin, eggs, butter margarine, pastries and meat. Be it pork or beef they have a lot of cholesterol LDL goal of less than 100 and triglyceride of less than 150 on atorvastatin 20 mg once a day May blood work (4) Hypothyroidism: Code(s): E03.9 - Hypothyroidism, unspecified Category: Medical Qualifiers: 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 Qualified Code(s): E03.8 - Other specified hypothyroidism; E06.3 - Autoimmune thyroiditis Plan: Continue with thyroid medication (5) Morbid obesity: Code(s): E66.01 - Morbid (severe) obesity due to excess calories Category: Medical Plan: Diet and exercise (6) GERD (gastroesophageal reflux disease): Code(s): K21.9 - Gastro-esophageal reflux disease without esophagitis Category: Medical Qualifiers: Esophagitis presence: esophagitis presence not specified Qualified Code(s): K21.9 - Gastro-esophageal reflux disease without esophagitis Plan: Avoid the foods that causes that usually spicy foods, tomato products, juices, coffee, soda and foods that your sensitive to. After eating do not lie down, allow 3-4 hours before in lie down. And keep the head of bed above 30 degrees to avoid the acid from going up. (7) Diabetic nephropathy associated with type 2 diabetes mellitus: Code(s): E11.21 - Type 2 diabetes mellitus with diabetic nephropathy Category: Medical Plan: Patient on losartan, controlled diabetes (8) Peripheral neuropathy: Code(s): G62.9 - Polyneuropathy, unspecified Category: Medical Plan: Patient was prescribed gabapentin (9) Foot pain, left: Code(s): M79.672 - Pain in left foot Category: Medical Plan Patient will have PT tomorrow for the foot and has an upcoming podiatry referral History of Present Illness The patient is a 49-year-old female presenting for a follow-up visit. The patient has a history of systemic lupus erythematosus, which has been managed over time with regular follow-ups. She also has diabetes mellitus, with a recent blood sugar level of 134 mg/dL and a hemoglobin A1c of 6.4% as of December 04. Hypertension is another chronic condition, for which the patient has been advised to increase the dosage of losartan. Hypercholesterolemia is being monitored, with the last LDL cholesterol test conducted in May. The patient also suffers from hypothyroidism and continues on thyroid medication. Gastroesophageal reflux disease is managed with dietary modifications and medication. Peripheral neuropathy is present, and the patient has been prescribed gabapentin for nerve pain management. The patient also has glaucoma, which is being monitored. Obesity is a significant concern, with a BMI of 54, and the patient is encouraged to follow a diet and exercise regimen. Preventative care measures include an up-to-date mammogram and a scheduled colonoscopy on February 22. Health Maintenance - Mammogram is up to date - Scheduled colonoscopy on February 22 - Dietary modifications for GERD management - Encouraged diet and exercise for obesity management Social History - Diet includes sweet potatoes and white potatoes, avoiding spicy foods and tomato products due to GERD - Avoids sugary drinks, prefers apple juice occasionally - Consumes vegetables like carrots and green beans Review of Systems - Musculoskeletal: Reports left foot pain with burning sensation and spasms - Cardiovascular: Reports chest pain, atypical in nature Physical Exam Results - Labs: Normal blood count, no anemia, normal electrolytes, elevated blood sugar at 134 mg/dL, hemoglobin A1c at 6.4% - Tests: LDL cholesterol tested in May Plan Patient was informed and verbally consented to the use of an ambient scribe for clinic note documentation during this visit. 1. Systemic Lupus Erythematosus The patient continues to manage systemic lupus erythematosus with regular follow-ups to monitor disease activity and adjust treatment as necessary. 2. Diabetes Mellitus Diabetes management includes monitoring blood sugar levels and maintaining hemoglobin A1c below 7%. 3. Hypertension The patient is advised to increase the dosage of losartan to better control blood pressure. 4. Hypercholesterolemia Hypercholesterolemia is being monitored, with the last LDL cholesterol test conducted in May. 5. Hypothyroidism The patient continues on thyroid medication to manage hypothyroidism. 6. Gastroesophageal Reflux Disease (Gerd) GERD is managed with dietary modifications and medication, including avoiding spicy foods and tomato products. 7. Peripheral Neuropathy Peripheral neuropathy is managed with gabapentin for nerve pain relief. 8. Glaucoma Glaucoma is being monitored with regular ophthalmologic evaluations. 9. Obesity The patient is encouraged to follow a diet and exercise regimen to manage obesity, with a BMI of 54. Discussion Notes Patient Instructions Medications: Refilled gabapentin 300 mg PO TID PRN 90 caps 0RF pain (scale score 4-6) methocarbamol 1,500 mg (2 x 750 mg) PO Q8H PRN 24 tabs 0RF pain, moderate Discontinued ketorolac maximum total duration of 5 days from all oral, intranasal, or parenteral formulations. The patient on an intramuscular dose of Toradol here in the emergency room Discontinued Reason: Patient Completed Course 10 mg PO Q6H PRN 20 tabs 0RF pain ketorolac maximum total duration of 5 days from all oral, intranasal, or parenteral formulations Discontinued Reason: Patient Completed Course 10 mg PO Q8H PRN 10 tabs 0RF pain G89.29 - Other chronic pain, M54.50 - Low back pain, unspecified
[2025-02-06 08:56] VITALS: BP 142/88; PULSE 81; TEMP 36.2; O2SAT 98; BMI 54.6
--- OUTSIDE RECORDS SUMMARY | 2025-02-06 09:05 | XMS_ITS | Patient Health Record ---
Author Organization [facility] Address [facility] [place] [address] Care Team Providers Care Educational Psychology Teacher Name Role Phone JAZIEL BULLARD Primary Care [...]
--- OUTSIDE RECORDS SUMMARY | 2025-02-06 09:05 | XMS_ITS | Encounter Summary ---
Author Organization [employer] Address [address] [facility] [address] [place] [address] Care Team Providers Care Fulfillment Coordinator Name Role Phone Unavailable Primary Care [...]
--- OUTSIDE RECORDS SUMMARY | 2025-02-06 09:05 | XMS_ITS | Encounter Summary ---
Author Organization [employer] Address [address] [facility] [address] [place] [address] Care Team Providers Care Nurse Emergency Room Name Role Phone Unavailable Primary Care Provider [...]
--- OUTSIDE RECORDS SUMMARY | 2025-02-06 09:06 | XMS_ITS | Clinical Summary ---
Author Organization [employer] Address [address] [facility] [address] [place] [address] Care Team Providers Care Asphalt Patcher Name Role Phone Unavailable Primary Care Provider [...] Phone Billing Address Dental Self 1975 [address] [place] [address] DENTAL - HSN PARTIAL (MEDICAID)
--- OUTSIDE RECORDS SUMMARY | 2025-02-06 09:06 | XMS_ITS | Encounter Summary ---
Author Organization [employer] Address [address] [facility] [address] [place] [address] Care Team Providers Care Vp Of Product Name Role Phone Unavailable Primary Care Provider [...]
== END 2025-02-06 09:47 | disposition home or self-care (01) ==
LOC: HO.HMCH 08:37
PROVIDERS: PCP Internal Medicine; Visit Provider Internal Medicine
DX: E11.21 Type 2 diabetes mellitus with diabetic nephropathy (principal); I10 Essential (primary) hypertension; E78.00 Pure hypercholesterolemia, unspecified; E03.8 Other specified hypothyroidism; E06.3 Autoimmune thyroiditis; E66.01 Morbid (severe) obesity due to excess calories; K21.9 Gastro-esophageal reflux disease without esophagitis; G62.9 Polyneuropathy, unspecified; M79.672 Pain in left foot

== ENCOUNTER → 2025-02-06 08:36 | Outpatient (BNVA) | payer OTHER, SELFPAY | PROVIDERS: PCP Internal Medicine; Visit Provider Internal Medicine | DX: I10 Essential (primary) hypertension (principal); E78.00 Pure hypercholesterolemia, unspecified; E03.8 Other specified hypothyroidism; E06.3 Autoimmune thyroiditis; E66.01 Morbid (severe) obesity due to excess calories; K21.9 Gastro-esophageal reflux disease without esophagitis; M79.672 Pain in left foot; E13.40 Other specified diabetes mellitus with diabetic neuropathy, unspecified; E13.21 Other specified diabetes mellitus with diabetic nephropathy; M32.9 Systemic lupus erythematosus, unspecified; H40.9 Unspecified glaucoma; G89.29 Other chronic pain; M54.50 Low back pain, unspecified; Z68.43 Body mass index [BMI] 50.0-59.9, adult | CPT/HCPCS: 99212 ==

== ENCOUNTER 2025-02-13 14:57 | Outpatient (AMB) | payer OTHER, SELFPAY ==
--- NOTE | 2025-02-13 14:59 | A.OFFVIS_ITS ---
Vital Signs 02/13/25 15:06 Height 5 ft 5 in Weight 328 lb BMI 54.6 Intake Visit Reasons: Type 1 diabetes mellitus with hyperglycemia Intake Note: Juan is a 49 year old female who presents to the office today as a new patient visit referred by her Merchandise Handler Dr. Isaac for Type 1 diabetes mellitus with hyperglycemia. X-ray obtained on 02/01/25 and in chart for review for left foot pain. Pt states her left foot pain started on 01/29/25. Allergies sertraline Allergy (Severe, Verified 02/13/25 15:06) GERD aspirin (ASA) Allergy (Unknown, Verified 02/13/25 15:06) BLEEDING lisinopril Adverse Reaction (Intermediate, Verified 02/13/25 15:06) Cough prednisone Adverse Reaction (Intermediate, Verified 02/13/25 15:06) high Blood sugar grasses/pollen Allergy (Mild, Uncoded 02/13/25 15:06) congestion Actos Allergy (Unknown, Uncoded 02/13/25 15:06) nausea and vomiting Trulicity Allergy (Unknown, Uncoded 02/13/25 15:06) nausea and vomiting HPI HPI Type 1 diabetes mellitus with hyperglycemia: Details: 49 y/o female past medical history of SLE, type 1 diabetes on insulin w/ peripheral neuropathy, hypothyroidism, HTN, HLD, morbid obesity, and chronic back pain presents for evaluation of left foot/ankle stiffness and pain. She complains of left anterior ankle and dorsal foot pain as well as spasms of her toes that began 3 weeks ago after a lower back strain. She states the toe spasms started as a hyper extension, however she has not had recent episodes since then, and her pain and symptoms in her toes have improved. Now her pain is mostly localized to the front of her ankle and foot. She complains her lower extremity has been stiff since her back spasm, and she is unable to move her ankle/foot/toes properly, affecting her gait significantly. She notes mild improvement in this stiffness when she rests her leg in a dependent position. Patient denies any numbness, tingling, burning, or shooting sensations to her left leg at this time. She does note sciatica symptoms of her left hip, which is new, compared to a chronic history of right hip sciatica. She denies any urinary/bowel incontinence/urgency/constipation, and pain out of proportion. [facility] Medical History Obesity, morbid, BMI 40.0-49.9 Allergic rhinitis Back pain Obesity Cough Uncontrolled type 1 diabetes mellitus with hyperglycemia, with long-term current use of insulin Viral syndrome MCFP (current) use of insulin Vitamin D deficiency Diabetic nephropathy associated with type 2 diabetes mellitus Hypothyroidism Impacted cerumen of right ear Menstrual bleeding problem Hypothyroid Asthma Hypercholesterolemia Hypertension Surgical History History of hysteroscopy Hx of right breast biopsy Hx of tooth extraction Family History Father Hypertension Obesity Prediabetes Mother Heart disease Glaucoma Social History Household Members: Family Housing: Apartment Alcohol intake: never Patient Tobacco Use Status: Never used Tobacco Tobacco use type: Cigarette e-Cigarette/Vaping Use: Never Used Second Hand Smoke Exposure: No service: No Current occupational status: employed Current occupational exposures/hazards: No Gender identity: Female Cognitive needs: No Hearing needs: No Vision needs: Yes Female Reproductive History Menstrual Age of Menarche: 12 Review of Systems Const All systems reviewed & are unremarkable except as noted in HPI and below Physical Exam Vital Signs: BMI result Body Mass Index 54.6 Extrem Other: *Bilateral Lower Extremity Focused Diabetic Foot Exam Vascular: DP/PT 2/4, CFT<3s to digits, TG warm to cool, no pedal edema, pedal hair present Derm: Skin: annular scaling plantar heel/arches with a well circumscribed erythematous patch along the dorsal-medial arches, bilaterally. Interdigital spaces: Clear, no maceration or fungal infection. Nails: No onychomycosis, paronychia, or ingrown nails. Neuro: Negative tinel's sign bilateral CPN, tibial nerve, and DPN/SPN. Msk: Nearly rigid left ankle, subtalar joint, and digits. Ankle remains at 0 degrees dorsiflexion. Hypertonic anterior muscle compartment. No active fasciculation or spasticity noted on examination. Digital ROM intact and without restriction upon manual manipulation. Patient is unable to perform passive ROM to the left foot/ankle/digits. Footwear Assessment: Shoes inspected; appropriate fit, no excessive wear, or foreign objects noted. Results Reviewed Results Reviewed: Podiatry X-ray Read: 02/01/2025 X-ray left foot 3 views (AP, MO, Lateral) reviewed which shows no fractures, dislocations, or gross abnormalities. Bone density is within normal limits. Normal anatomy. posterior talar steida process, mild posterior and inferior calcaneal spurring. I personally reviewed the imaging and my findings are listed above. Assessment & Plan Assessment & Plan (1) Tendinitis of left ankle: Code(s): M77.52 - Other enthesopathy of left foot and ankle Category: Medical Plan: * Rx Left ankle x-rays * Left anterior ankle extensor tendinitis likely secondary to hypertonicity/rigid ankle extension. * Referred for physical therapy, instructed to perform ROM exercises at home. * Discussed topical options such as voltaren for symptomatic relief. * Patient deferred oral steroids and NSAID treatment at this time. * Follow up in 3 weeks (2) Muscular hypertonicity: Code(s): M62.89 - Other specified disorders of muscle Category: Medical Plan: * Referred to Neurology * Discussed with PCP to work-up for motor nerve compression. Recommend MRI. Will likely require neuro-spine referral. * Instructed patient to present to the ER if she notices bowl/urinary dysfunction, abnormal paresthesias to her leg, and other signs of cord compression. (3) Pain of left calf: Code(s): M79.662 - Pain in left lower leg Category: Medical Plan: * Likely muscle strain secondary to left leg spasm but due to active symptoms of calf pain (without shortness of breath), recommended ruling out DVT. * Left lower extremity US doppler ordered. (4) Tinea pedis: Code(s): B35.3 - Tinea pedis Category: Medical Qualifiers: Laterality: bilateral Qualified Code(s): B35.3 - Tinea pedis Plan: * Rx Clotrimazole-betamethasone Orders: Orders XR ankle LT min 3V Today M25.572 - Pain in left ankle and joints of left foot, M77.52 - Other enthesopathy of left foot and ankle US venous duplex LE LT Today M79.662 - Pain in left lower leg PT Evaluation and Treatment Today M77.52 - Other enthesopathy of left foot and ankle, M79.662 - Pain in left lower leg Referrals Neurology Referral M62.89 - Other specified disorders of muscle Medications: New clotrimazole-betamethasone 1-0.05 % Apply to bottom of feet twice a day. 1 appl topical BID 15 grams 3RF athlete's foot 4 weeks B35.3 - Tinea pedis Coding Level of Care Code New Pt Level 5 (92090) Diagnoses Tendinitis of left ankle M77.52 Muscular hypertonicity M62.89 Pain of left calf M79.662 Tinea pedis of both feet B35.3 Laterality: bilateral Time Spent (min) 60 Comment patient face-time 40 minutes, 20min charting + discussion with other providers on her car.
[2025-02-13 15:06] VITALS: BMI 54.6
--- OUTSIDE RECORDS SUMMARY | 2025-02-13 21:12 | XMS_ITS | Encounter Summary ---
Author Organization [employer] Address [address] [facility] [address] [place] [address] Care Team Providers Care Rag Inspector Name Role Phone Unavailable Primary Care Provider [...]
--- OUTSIDE RECORDS SUMMARY | 2025-02-13 21:12 | XMS_ITS | Encounter Summary ---
Author Organization [employer] Address [address] [facility] [address] [place] [address] Care Team Providers Care Lining Machine Tender Name Role Phone Unavailable Primary Care [...]
--- OUTSIDE RECORDS SUMMARY | 2025-02-13 21:12 | XMS_ITS | Encounter Summary ---
Author Organization [employer] Address [address] [facility] [address] [place] [address] Care Team Providers Care Automatic Profile Sander Operator Name Role Phone Unavailable Primary Care [...]
--- OUTSIDE RECORDS SUMMARY | 2025-02-13 21:12 | XMS_ITS | Patient Health Record ---
Author Organization [facility] Address [facility] [place] [address] Care Team Providers Care Audio Technician Name Role Phone JAZIEL BULLARD Primary Care [...]
--- OUTSIDE RECORDS SUMMARY | 2025-02-13 21:12 | XMS_ITS | Clinical Summary ---
Author Organization [employer] Address [address] [facility] [address] [place] [address] Care Team Providers Care Manager Health Name Role Phone Unavailable Primary Care Provider [...] Phone Billing Address Dental Self 1975 [address] [facility] [address] [place] [address] DENTAL - HSN PARTIAL (MEDICAID)
== END 2025-02-13 15:31 | disposition home or self-care (01) ==
LOC: HO.HPODS 14:58
PROVIDERS: PCP Internal Medicine; Visit Provider Student in an Organized Health Care Education/Training Program
DX: M77.52 Other enthesopathy of left foot and ankle (principal); M62.89 Other specified disorders of muscle; M79.662 Pain in left lower leg; B35.3 Tinea pedis
CPT/HCPCS: 99205

== ENCOUNTER → 2025-02-13 14:57 | Outpatient (BNVA) | payer OTHER, SELFPAY | PROVIDERS: PCP Internal Medicine; Visit Provider Student in an Organized Health Care Education/Training Program | DX: M77.52 Other enthesopathy of left foot and ankle (principal); M62.89 Other specified disorders of muscle; M79.662 Pain in left lower leg; B35.3 Tinea pedis; E10.42 Type 1 diabetes mellitus with diabetic polyneuropathy | CPT/HCPCS: 99202 ==

== ENCOUNTER 2025-02-18 09:47 | Outpatient (AMB) | payer OTHER, SELFPAY ==
--- NOTE | 2025-02-18 10:01 | A.OFFVIS_ITS ---
Vital Signs 02/18/25 10:02 Height 5 ft 5 in Weight 324 lb BMI 53.9 BP 148/90 H Blood Pressure Location Rt brachial Position Sitting Pulse 78 Pulse Source Pulse Oximeter Pulse Oximetry (%) 98 Oxygen Delivery Method Room Air Intake Visit Reasons: INP- Other specified disorders of muscle Intake Note: Muscle hypertonicity - sub acute Lt leg hypertonicity/rigid spasm after back spasm Machine Chain Maker Required: No Accompanied by: Self / Same As Patient Allergies sertraline Allergy (Severe, Verified 02/18/25 10:02) GERD aspirin (ASA) Allergy (Unknown, Verified 02/18/25 10:02) BLEEDING lisinopril Adverse Reaction (Intermediate, Verified 02/18/25 10:02) Cough prednisone Adverse Reaction (Intermediate, Verified 02/18/25 10:02) high Blood sugar grasses/pollen Allergy (Mild, Uncoded 02/13/25 15:06) congestion Actos Allergy (Unknown, Uncoded 02/13/25 15:06) nausea and vomiting Trulicity Allergy (Unknown, Uncoded 02/13/25 15:06) nausea and vomiting Medication List - Last Reconciled 02/18/25 by Danielle Royal MD acetaminophen 1,000 mg (2 x 500 mg) PO Q6H PRN acetone (urine) test (Ketone Urine Test strips) As directed albuterol sulfate 90 mcg/actuation (Ventolin HFA) 1 inh inhalation Q6H PRN atorvastatin 20 mg PO DAILY Baqsimi 3 mg/actuation (glucagon) 3 mg intranasal ONCE PRN 30 days MDD 6mg NS blood sugar diagnostic (FreeStyle Lite Strips) As directed six times a day p.r.n. sensor failure or to confirm readings blood-glucose meter (FreeStyle Lite Meter kit) As directed blood-glucose sensor (Dexcom G7 Sensor device) As directed change every 10 days cetirizine 10 mg PO DAILY PRN clotrimazole-betamethasone 1-0.05 % 1 appl topical BID 4 weeks cyclobenzaprine 5 mg PO BID PRN fluticasone propionate 50 mcg/actuation (Flonase Allergy Relief) 2 sprays intranasal DAILY FreeStyle Lancets (lancets) 4 times a day NS gabapentin orally 3 times a day; 1cap qam 1 cap qnoon and 2 caps qhs inhalational spacing device As directed insulin aspart (niacinamide) 100 unit/mL (Fiasp U-100 Insulin) subcutaneously; Infuse up to 120 units via insulin pen per day subcutaneously; insulin glargine (Lantus Solostar U-100 Insulin) 30 units (0.3 mL) subcut QPM PRN 30 days MDD 30 insulin pump cart,auto,BT-cntr (Omnipod 5 G6 Intro Kit (Gen 5) subcutaneous cartridge with controller) As directed insulin pump cart,automated,BT (Omnipod 5 G6 Pods (Gen 5) subcutaneous cartridge) As directed insulin syringe-needle U-100 As directed up to qid for pump failure or glucose correction ketorolac 10 mg PO Q6H PRN lancets (FreeStyle Lancets) 6 times a day prn sensor failure or to confirm glucose Levoxyl (levothyroxine) 100 mcg PO DAILY 30 days NS lidocaine 5% (Lidoderm) 1 patch topical DAILY lorazepam 0.25 mg (1/2 x 0.5 mg) PO DAILY PRN losartan 50 mg PO BID 30 days methocarbamol 1,500 mg (2 x 750 mg) PO Q8H PRN pantoprazole 40 mg PO QAM pen needle, diabetic As directed pen needle, diabetic (1st Tier Unifine Pentips Plus) 4 times a day pen needle, diabetic USE TO INJECT 5 TIMES A DAY if pump is not operating HPI Comments Details: 49y/o female comes for evalaution of dorothy leg spasms , tightness and rigidity . she reports the symptoms started fater she hurt her back while clenaing about 6 mths ago . she started having back pain tightness and intermittent shooting pains down the leg s. she had a lUmbar spine X ray which showed deg changes. she reports elda tightness an dspasms are worse at night and at rest and can be very painful. she is on gabapentin 300mg tid and was on methocarbamol and is not sure it is helping . she also has chronic problems with obesity and diabetes. she denies any numbness tingling or weakness. she denies any weakness or urinary issues she also has depression and anxiety - now well controlled. she ahs chronic sleep issues - snoring , frequent arousals with leg pain and excessive daytime sleepiness. 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 Vitamin D deficiency Diabetic nephropathy associated with type 2 diabetes mellitus Hypothyroidism Impacted cerumen of right ear Menstrual bleeding problem Hypothyroid Asthma Hypercholesterolemia Hypertension Surgical History History of hysteroscopy Hx of right breast biopsy Hx of tooth extraction Family History Father Hypertension Obesity Prediabetes Mother Heart disease Glaucoma Social History Household Members: Family Housing: Apartment Alcohol intake: never Patient Tobacco Use Status: Never used Tobacco Tobacco use type: Cigarette e-Cigarette/Vaping Use: Never Used Second Hand Smoke Exposure: No service: No Current occupational status: employed Current occupational exposures/hazards: No Gender identity: Female Cognitive needs: No Hearing needs: No Vision needs: Yes Female Reproductive History Menstrual Age of Menarche: 12 Physical Exam Vital Signs: Last Vital Signs Pulse 78 02/18/25 10:02 BP 148/90 H 02/18/25 10:02 Pulse Ox 98 02/18/25 10:02 Oxygen Delivery Method Room Air 02/18/25 10:02 BMI result Body Mass Index 53.9 Const General: cooperative, comfortable and no acute distress Nutritional Appearance: obese morbidly obese Orientation/consciousness: patient oriented x3 Eyes Pupils: Equal, round and reactive pupils present Neuro General: patient oriented x3, tone normal, moves all extremities and no focal motor deficits Cranial nerves: Yes Facial sensation intact/muscles of mastication intact, Yes Equal, round and reactive pupils present, Yes Bilaterally intact EOM present, Yes Nystagmus not present, Yes Normal facial strength present, Yes Midline tongue present and Yes Ability to bilaterally elevate shoulders present Cognition (Neuro): normal cognition Gait exam (Neuro): Normal gait present Motor exam (neuro): 5/5 motor strength present throughout and Normal motor muscle tone present throughout Deep tendon reflexes (DTR's): Right triceps reflex intensity grade: 1+, Left triceps reflex intensity grade: 1+, Rt Biceps (C5, C6): 1+, Left biceps reflex intensity grade: 1+, Right brachioradialis reflex intensity grade: 1+, Left brachioradialis reflex intensity grade: 1+, Right patellar reflex intensity grade: 1+ and Left patellar reflex intensity grade: 1+ Coordination: [id number] test normal Assessment & Plan Assessment & Plan (1) Muscular hypertonicity: Comment: muscle spasm worse at night - Periodic limb movements in sleep Code(s): M62.89 - Other specified disorders of muscle Category: Medical Plan I suggested to increase gabapentin 300mg 1-1-2 tabs [facility] weight management ref HOme sleep test to r/o sleep apnea. Orders: Orders RT home sleep study Today E66.9 - Obesity, unspecified, G47.10 - Hypersomnia, unspecified, R06.83 - Snoring Referrals Medical Weight Management Referral E66.9 - Obesity, unspecified Medications: Changed From gabapentin 300 mg PO TID PRN 90 caps 0RF pain (scale score 4-6) To gabapentin orally 3 times a day; 1cap qam 1 cap qnoon and 2 caps qhs 120 caps 6RF pain (scale score 4-6) Coding Level of Care Code New Pt Level 4 (90283) Diagnoses Muscular hypertonicity M62.89
[2025-02-18 10:02] VITALS: BP 148/90; PULSE 78; O2SAT 98; BMI 53.9
--- OUTSIDE RECORDS SUMMARY | 2025-02-18 11:18 | XMS_ITS | Patient Health Record ---
Author Organization [facility] Address [facility] [place] [address] Care Team Providers Care Clothing Consultant Name Role Phone JAZIEL BULLARD Primary Care [...]
--- OUTSIDE RECORDS SUMMARY | 2025-02-18 11:18 | XMS_ITS | Encounter Summary ---
Author Organization [employer] Address [address] [facility] [address] [place] [address] Care Team Providers Care Quality Liaison Name Role Phone Unavailable Primary Care Provider [...]
--- OUTSIDE RECORDS SUMMARY | 2025-02-18 11:18 | XMS_ITS | Clinical Summary ---
Author Organization [employer] Address [address] [facility] [address] [place] [address] Care Team Providers Care Meter Installer And Remover Name Role Phone Unavailable Primary Care Provider [...] Phone Billing Address Dental Self 1975 [address] [facility] [address] [place] [address] DENTAL - HSN PARTIAL (MEDICAID)
--- OUTSIDE RECORDS SUMMARY | 2025-02-18 11:18 | XMS_ITS | Encounter Summary ---
Author Organization [employer] Address [address] [facility] [address] [place] [address] Care Team Providers Care Leaf Binner Name Role Phone Unavailable Primary Care Provider [...]
--- OUTSIDE RECORDS SUMMARY | 2025-02-18 11:18 | XMS_ITS | Encounter Summary ---
Author Organization [employer] Address [address] [facility] [address] [place] [address] Care Team Providers Care Relations Specialist Name Role Phone Unavailable Primary Care [...]
== END 2025-02-18 11:35 | disposition home or self-care (01) ==
LOC: HO.HSMS 09:49
PROVIDERS: PCP Internal Medicine; Visit Provider Psychiatry & Neurology Neurology
DX: M62.89 Other specified disorders of muscle (principal)
CPT/HCPCS: 99204

== ENCOUNTER → 2025-02-18 09:47 | Outpatient (BNVA) | payer OTHER, SELFPAY | PROVIDERS: PCP Internal Medicine; Visit Provider Psychiatry & Neurology Neurology | DX: R06.83 Snoring (principal); E13.9 Other specified diabetes mellitus without complications; M62.89 Other specified disorders of muscle; E66.9 Obesity, unspecified | CPT/HCPCS: 99202; 99211 ==

== ENCOUNTER 2025-02-18 15:14 | Outpatient (AMB) | payer OTHER, SELFPAY ==
--- NOTE | 2025-02-18 16:05 | MHC.AMDMED ---
Intake Intake Visit Reasons: 60 min Allergies sertraline Allergy (Severe, Verified 02/18/25 10:02) GERD aspirin (ASA) Allergy (Unknown, Verified 02/18/25 10:02) BLEEDING lisinopril Adverse Reaction (Intermediate, Verified 02/18/25 10:02) Cough prednisone Adverse Reaction (Intermediate, Verified 02/18/25 10:02) high Blood sugar grasses/pollen Allergy (Mild, Uncoded 02/13/25 15:06) congestion Actos Allergy (Unknown, Uncoded 02/13/25 15:06) nausea and vomiting Trulicity Allergy (Unknown, Uncoded 02/13/25 15:06) nausea and vomiting HPI Comprehensive Diabetes Asmnt Most Recent Diabetes Results: Creatinine, (0.5-1.4) 0.63 mg/dL 01/30/25 BUN, (9-16) 18 mg/dL H 01/30/25 Sodium, (135-145) 142 mmol/L 01/30/25 Potassium, (3.3-5.1) 3.9 mmol/L 01/30/25 Chloride, (96-108) 110 mmol/L H 01/30/25 Carbon Dioxide, (22-29) 22 mmol/L 01/30/25 Calcium, (8.4-10.2) 9.3 mg/dL 01/30/25 AST, (5-31) 19 U/L 01/30/25 ALT, (0-31) 12 U/L 01/30/25 Total Protein, (6.5-8.0) 7.1 g/dL 01/30/25 Albumin, (3.5-5.0) 4.3 g/dL 01/30/25 [facility] Medical History Obesity, morbid, BMI 40.0-49.9 Allergic rhinitis Back pain Obesity Cough Uncontrolled type 1 diabetes mellitus with hyperglycemia, with long-term current use of insulin 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 Vitamin D deficiency Diabetic nephropathy associated with type 2 diabetes mellitus Hypothyroidism Impacted cerumen of right ear Menstrual bleeding problem Hypothyroid Asthma Hypercholesterolemia Hypertension Surgical History History of hysteroscopy Hx of right breast biopsy Hx of tooth extraction Family History Father Hypertension Obesity Prediabetes Mother Heart disease Glaucoma Social History Household Members: Family Housing: Apartment Alcohol intake: never Patient Tobacco Use Status: Never used Tobacco Tobacco use type: Cigarette e-Cigarette/Vaping Use: Never Used Second Hand Smoke Exposure: No service: No Current occupational status: employed Current occupational exposures/hazards: No Gender identity: Female Cognitive needs: No Hearing needs: No Vision needs: Yes Female Reproductive History Menstrual Age of Menarche: 12 Assessment & Plan Assessment & Plan (1) 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 The following topics were reviewed today: -Pump therapy basic concepts: Basal/bolus -For most effective glucose control bolus prior to meals - Off pump backup insulin plan iLet Alerts: ??? High Alert: 300 mg/dl ??? Low Alert: 75 mg/dl 4 Patient's last A1c on 12/04/2024 6.4% At today's visit patient declined to change target level leave at usual Reviewed other options of sensors and insulin pumps At this time Pt will stay with current pump and sensor Troubleshooting after starting new pod or inserting new insulin set: Occlusion, adhesive tape sensitivity, redness Check BG 2 hours after site change Reviewed Safety information: Importance of a backup plan, for manual injections, proper prescriptions and emergency supplies ketone strips, and rules for testing for ketones Patient understands the basic concepts of pump therapy, how to give insulin for meals and snacks, how to troubleshoot for hyper and hypoglycemia. Patient will follow up with [facility] as instructed Patient will contact [facility] with questions or concerns, patient given IT number to support in any technical issues related to insulin pump Portions of this note were created using voice recognition software, please excuse any words or phrases that may have been misinterpreted. 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
== END 2025-02-18 16:08 | disposition home or self-care (01) ==
LOC: HO.ENCR 15:15
PROVIDERS: PCP Internal Medicine; Visit Provider Registered Nurse Diabetes Educator
DX: E13.9 Other specified diabetes mellitus without complications (principal)

== ENCOUNTER 2025-02-22 15:57 | Outpatient (AMB) | payer OTHER, SELFPAY ==
[2025-02-22 15:59] VITALS: BP 138/58; PULSE 80; O2SAT 98; BMI 53.9
--- NOTE | 2025-02-22 15:59 | A.OFFVIS_ITS ---
Vital Signs 02/22/25 15:59 Height 5 ft 5 in Weight 324 lb BMI 53.9 BP 138/58 L Blood Pressure Location Rt brachial Position Sitting Pulse 80 Pulse Source Pulse Oximeter Pulse Oximetry (%) 98 Oxygen Delivery Method Room Air Intake Visit Reasons: [place] screening. [facility] 2022 for CIC + GERD. Intake Note: Est pt for mgmt of GERD + CIC. Pt due for initial colo screening. CC: C.O. breakthrough GERD sx despite current therapy, worse at night. Pt also reports having frequent BMs but feels that they also have difficulty with full evacuation of the colon. Pt never had colo per previous screening as she confesses that she is scared of the procedure. Allergies sertraline Allergy (Severe, Verified 03/19/25 20:13) GERD aspirin (ASA) Allergy (Unknown, Verified 03/19/25 20:13) BLEEDING lisinopril Adverse Reaction (Intermediate, Verified 03/19/25 20:13) Cough prednisone Adverse Reaction (Intermediate, Verified 03/19/25 20:13) high Blood sugar grasses/pollen Allergy (Mild, Uncoded 03/12/25 15:12) congestion Actos Allergy (Unknown, Uncoded 03/12/25 15:12) nausea and vomiting Trulicity Allergy (Unknown, Uncoded 03/12/25 15:12) nausea and vomiting HPI HPI [place] screening. [facility] 2022 for CIC + GERD.: Details: LAST VISIT: GERD (gastroesophageal reflux disease) Colon cancer screening Constipation IBS (irritable bowel syndrome) Plan Patient will be sent for upper endoscopy to rule out gastritis, duodenitis, gastric or peptic ulcer, Enriquez's, H pylori. Patient has been on PPI for quite some time. Patient also is diabetic. Patient denies any issues with anesthesia in the past. Will be sent for colonoscopy. Family history of colorectal cancer. Patient is uncle was diagnosed with CRC. Patient denies any melena, hematochezia, unintentional weight loss or ribbon like stools. No issues with anesthesia in the past. No history of sleep apnea. Not on any anticoagulation medication. I will see patient after the procedure, sooner on as needed basis. Patient is agreeable to this plan and verbalizes understanding of instructions. She was given the opportunity to ask questions and all questions answered. TODAY'S VISIT Patient is here today to discuss going for colonoscopy and endoscopy. Patient reports that she was little skeptical and afraid to go under anesthesia off for upper endoscopy and colonoscopy. She also was visiting her grandmother in [place]. Recently she has worsening epigastric pain specially at night time. She is taking pantoprazole in the morning. She is not eating late at night. She reports that her sugars have been controlled for the most part. Patient denies eating snacks late at night. She does report occasional loose stools, however it happens with certain meals. She reports that generally she is more constipated. 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 Vitamin D deficiency Diabetic nephropathy associated with type 2 diabetes mellitus Hypothyroidism Impacted cerumen of right ear Menstrual bleeding problem Hypothyroid Asthma Hypercholesterolemia Hypertension Surgical History History of hysteroscopy Hx of right breast biopsy Hx of tooth extraction Family History Father Hypertension Obesity Prediabetes Mother Heart disease Glaucoma Social History Household Members: Family Housing: Apartment Alcohol intake: never Patient Tobacco Use Status: Never used Tobacco Tobacco use type: Cigarette e-Cigarette/Vaping Use: Never Used Second Hand Smoke Exposure: No service: No Current occupational status: employed Current occupational exposures/hazards: No Gender identity: Female Cognitive needs: No Hearing needs: No Vision needs: Yes Female Reproductive History Menstrual Age of Menarche: 12 Physical Exam Vital Signs: Last Vital Signs Pulse 80 02/22/25 15:59 BP 138/58 L 02/22/25 15:59 Pulse Ox 98 02/22/25 15:59 Oxygen Delivery Method Room Air 02/22/25 15:59 BMI result Body Mass Index 53.9 Assessment & Plan Assessment & Plan (1) GERD (gastroesophageal reflux disease): Code(s): K21.9 - Gastro-esophageal reflux disease without esophagitis Category: Medical Qualifiers: Esophagitis presence: esophagitis presence not specified Qualified Code(s): K21.9 - Gastro-esophageal reflux disease without esophagitis (2) Colon cancer screening: Code(s): Z12.11 - Encounter for screening for malignant neoplasm of colon Category: Medical (3) Constipation: Code(s): K59.00 - Constipation, unspecified Category: Medical Qualifiers: Constipation type: slow transit constipation Qualified Code(s): K59.01 - Slow transit constipation (4) Postprandial epigastric pain: Code(s): R10.13 - Epigastric pain Plan Will check pancreatic a last days. Patient will start taking Dulcolax daily to help empty better. Increase fluid intake and activity to promote better bowel motility. Continue pantoprazole daily. Avoid dietary triggers only times not taking. Message sent to Surgical schedules, GI procedure notification ordered. Patient agrees to go for both endoscopy and colonoscopy. What to expect before during and after procedure discussed with patient. Stressed the importance of good bowel prep and clear liquid diet with patient. Patient is agreeable to current plan of care and verbalizes understanding of instructions. She was given the opportunity to ask questions and all questions answered Thank you for allowing me to participate in her care Orders: Orders Pancreatic Elastase-1 02/22/25 R10.9 - Unspecified abdominal pain Referrals GI Procedure Notification Z12.11 - Encounter for screening for malignant neoplasm of colon, K21.9 - Gastro-esophageal reflux disease without esophagitis Medications: New polyethylene glycol 3350 (Miralax) As directed by gastroenterology department at [facility] 238 grams PO ONCE 238 grams 0RF Z12.11 - Encounter for screening for malignant neoplasm of colon bisacodyl (Dulcolax (bisacodyl)) 10 mg (2 x 5 mg) PO BEDTIME 180 tabs 4RF Coding Level of Care Code Est Pt Level 4 (61734) Complex visit Add On G2211 Diagnoses Gastroesophageal reflux disease, unspecified whether esophagitis present K21.9 Esophagitis presence: esophagitis presence not specified Colon cancer screening Z12.11 Slow transit constipation K59.01 Constipation type: slow transit constipation Postprandial epigastric pain R10.13 Time Spent (min) 40 Comment 25 minutes spent with patient and additional 15 minutes spent reviewing her records
--- OUTSIDE RECORDS SUMMARY | 2025-02-22 16:00 | XMS_ITS | Encounter Summary ---
Author Organization [employer] Address [address] [facility] [address] [place] [address] Care Team Providers Care Energy Efficient Site Manager Name Role Phone Unavailable Primary Care Provider [...]
--- OUTSIDE RECORDS SUMMARY | 2025-02-22 16:00 | XMS_ITS | Encounter Summary ---
Author Organization [employer] Address [address] [facility] [address] [place] [address] Care Team Providers Care Heating And Blending Supervisor Name Role Phone Unavailable Primary Care [...]
--- OUTSIDE RECORDS SUMMARY | 2025-02-22 16:00 | XMS_ITS | Clinical Summary ---
Author Organization [employer] Address [address] [facility] [address] [place] [address] Care Team Providers Care Automatic Print Developer Name Role Phone Unavailable Primary Care [...] Phone Billing Address Dental Self 1975 [address] [place] [address] DENTAL - HSN PARTIAL (MEDICAID)
--- OUTSIDE RECORDS SUMMARY | 2025-02-22 16:00 | XMS_ITS | Encounter Summary ---
Author Organization [employer] Address [address] [facility] [address] [place] [address] Care Team Providers Care Social And Political Studies Professor Name Role Phone Unavailable Primary Care Provider [...]
--- OUTSIDE RECORDS SUMMARY | 2025-02-22 16:00 | XMS_ITS | Patient Health Record ---
Author Organization [facility] Address [facility] [place] [address] Care Team Providers Care Medical Practice Administrator Name Role Phone JAZIEL BULLARD Primary Care [...]
== END 2025-02-22 18:38 | disposition home or self-care (01) ==
PROVIDERS: PCP Internal Medicine; Visit Provider Nurse Practitioner Family
DX: Z01.818 Encounter for other preprocedural examination (principal); Z12.11 Encounter for screening for malignant neoplasm of colon; K21.9 Gastro-esophageal reflux disease without esophagitis; K59.01 Slow transit constipation; R10.13 Epigastric pain
CPT/HCPCS: 99214

== ENCOUNTER → 2025-02-22 15:57 | Outpatient (BNVA) | payer OTHER, SELFPAY | PROVIDERS: PCP Internal Medicine; Visit Provider Nurse Practitioner Family | DX: Z01.818 Encounter for other preprocedural examination (principal); K21.9 Gastro-esophageal reflux disease without esophagitis; K59.01 Slow transit constipation; R10.13 Epigastric pain | CPT/HCPCS: 99212 ==

== ENCOUNTER 2025-02-27 07:40 | Outpatient (REF) | payer OTHER, SELFPAY ==
--- NOTE | ~2025-02-27 | XR_ITS ---
EXAMINATION: XR ANKLE, LEFT CLINICAL INFORMATION: M25.572 - Pain in left ankle and joints of left foot COMPARISON: Left foot x-ray January 2025 TECHNIQUE: AP, lateral, and mortise views of the left ankle. FINDINGS: Bone alignment is normal. No fracture or dislocation. Normal joint space. Prominent os trigonum posterior to the talus unchanged. Diffuse soft tissue swelling. Large calcaneal spurs. XR/XR ankle LT min 3V IMPRESSION: Normal appearing ankle joint. Prominent os trigonum. No cranial spurs and diffuse soft tissue swelling. Electronically signed by: Simona Eldrideg MD 02/27/2025 08:13 AM [facility]
--- NOTE | ~2025-02-27 | US_ITS ---
EXAMINATION: US TRIPLEX LOWER EXTREMITY, LEFT CLINICAL INFORMATION: Left lower extremity pain. COMPARISON: None available. TECHNIQUE: Color-flow triplex imaging with spectral analysis and compression Doppler were performed on the left lower extremity. FINDINGS: Respiratory variation, normal compression and augmented flow are noted throughout the left lower extremity. The visualized common femoral vein, superficial femoral vein, profunda femoral vein, popliteal vein and midcalf peroneal and posterior tibial venous segments show no evidence of deep venous thrombosis. There is no Fierro's cyst. US/US venous duplex LE LT IMPRESSION: No evidence of deep venous thrombosis involving the left lower extremity. Electronically signed by: Benjy Luna MD 02/27/2025 08:37 AM EST
--- OUTSIDE RECORDS SUMMARY | 2025-02-27 07:43 | XMS_ITS | Encounter Summary ---
Author Organization [employer] Address [address] [facility] 7 [place] [address] Care Team Providers Care Project Manager/Design Manager Name Role Phone Unavailable Primary Care [...]
--- OUTSIDE RECORDS SUMMARY | 2025-02-27 07:43 | XMS_ITS | Patient Health Record ---
Author Organization [facility] Address [facility] [place] [address] Care Team Providers Care Slasher Runner Name Role Phone JAZIEL BULLARD Primary Care [...]
--- OUTSIDE RECORDS SUMMARY | 2025-02-27 07:43 | XMS_ITS | Encounter Summary ---
Author Organization [employer] Address [address] [facility] [address] [place] [address] Care Team Providers Care Lead Die Molder Name Role Phone Unavailable Primary Care Provider [...]
--- OUTSIDE RECORDS SUMMARY | 2025-02-27 07:43 | XMS_ITS | Encounter Summary ---
Author Organization [employer] Address [address] [facility] [address] [place] [address] Care Team Providers Care Sawmill Tally Clerk Name Role Phone Unavailable Primary Care [...]
--- OUTSIDE RECORDS SUMMARY | 2025-02-27 07:43 | XMS_ITS | Clinical Summary ---
Author Organization [employer] Address [address] [facility] [address] [place] [address] Care Team Providers Care Readiness Paraprofessional Name Role Phone Unavailable Primary Care Provider [...] Phone Billing Address Dental Self 1975 [address] [facility] [address] [place] [address] DENTAL - HSN PARTIAL (MEDICAID)
== END 2025-02-27 07:41 | disposition home or self-care (01) ==
LOC: HO.US 07:40
PROVIDERS: PCP Internal Medicine; Visit Provider Student in an Organized Health Care Education/Training Program
DX: M79.662 Pain in left lower leg (principal); M25.572 Pain in left ankle and joints of left foot; M77.52 Other enthesopathy of left foot and ankle
CPT/HCPCS: 73610; 93971

== ENCOUNTER → 2025-02-27 07:43 | Outpatient (BNV) | payer OTHER, SELFPAY | PROVIDERS: PCP Internal Medicine; Visit Provider Radiology Diagnostic Radiology | DX: M79.662 Pain in left lower leg (principal); M25.572 Pain in left ankle and joints of left foot | CPT/HCPCS: 73610; 93971 ==

== ENCOUNTER 2025-02-27 08:33 | Outpatient (REF) | payer OTHER, SELFPAY ==
[2025-02-27 09:44] LABS: Anion Gap 8 (12-20); Blood Urea Nitrogen 18 mg/dL (9-16); Carbon Dioxide 23 mmol/L (22-29); Chloride 113 mmol/L (96-108); Estimated Glomerular Filt Rate > 60; Potassium 4.2 mmol/L (3.3-5.1); Sodium 140 mmol/L (135-145)
[2025-02-27 10:12] LABS: Protein/Creatinine Ratio, Ur 0.12 (<0.2); Total Protein Urine Random 14 mg/dL (<12)
== END 2025-02-27 08:34 | disposition home or self-care (01) ==
LOC: HO.LAB 08:33
PROVIDERS: Absent Provider Nurse Practitioner Family; PCP Internal Medicine; Visit Provider Internal Medicine Nephrology
DX: I10 Essential (primary) hypertension (principal); R80.9 Proteinuria, unspecified
CPT/HCPCS: 80051; 82565; 82570; 82784; 84156; 84520; 86334; 86335

== ENCOUNTER 2025-03-07 15:00 | Outpatient (AMB) | payer OTHER, SELFPAY ==
[2025-03-07 15:05] VITALS: BMI 53.9
--- NOTE | 2025-03-07 15:05 | A.OFFVIS_ITS ---
Vital Signs 03/07/25 15:05 Height 5 ft 5 in Weight 324 lb BMI 53.9 Intake Visit Reasons: Type 1 diabetes mellitus with hyperglycemia Intake Note: Juan is a 49 year old female who presents today for a follow up visit for type 1 diabetes mellitus with hyperglycemia. Patient reports tension in her bilateral quads as well as in the anterior aspect of her knees. Also complaints of constant pain in the heel and ankle of her left foot. She would also like to go over the medications that were prescribed. Allergies sertraline Allergy (Severe, Verified 02/22/25 16:00) GERD aspirin (ASA) Allergy (Unknown, Verified 02/22/25 16:00) BLEEDING lisinopril Adverse Reaction (Intermediate, Verified 02/22/25 16:00) Cough prednisone Adverse Reaction (Intermediate, Verified 02/22/25 16:00) high Blood sugar grasses/pollen Allergy (Mild, Uncoded 02/22/25 16:00) congestion Actos Allergy (Unknown, Uncoded 02/22/25 16:00) nausea and vomiting Trulicity Allergy (Unknown, Uncoded 02/22/25 16:00) nausea and vomiting HPI HPI Type 1 diabetes mellitus with hyperglycemia: Details: 49 y/o female past medical history of SLE, type 1 diabetes on insulin w/ peripheral neuropathy, hypothyroidism, HTN, HLD, morbid obesity, and chronic back pain presents for 3 week follow up evaluation of left foot/ankle stiffness and pain. She notes some improvement in range of motion to the left ankle. She has been performing the ROM exercises as recommended. She has been taking Robaxin and recently increased her Gabapentin dosage. She is also seeing PT for her back however hasnt started ankle therapy yet. She has seen Neurology and has appointments with Primary and Newspaper Delivery Counselor coming up. History: She complains of left anterior ankle and dorsal foot pain as well as spasms of her toes that began early January after a lower back strain. She states the toe spasms started as a hyper extension, however she has not had recent episodes since then, and her pain and symptoms in her toes have improved. Now her pain is mostly localized to the front of her ankle and foot. She complains her lower extremity has been stiff since her back spasm, and she is unable to move her ankle/foot/toes properly, affecting her gait significantly. She notes mild improvement in this stiffness when she rests her leg in a dependent position. Patient denies any numbness, tingling, burning, or shooting sensations to her left leg at this time. She does note sciatica symptoms of her left hip, which is new, compared to a chronic history of right hip sciatica. She denies any urinary/bowel incontinence/urgency/constipation, and pain out of proportion. 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 Vitamin D deficiency Diabetic nephropathy associated with type 2 diabetes mellitus Hypothyroidism Impacted cerumen of right ear Menstrual bleeding problem Hypothyroid Asthma Hypercholesterolemia Hypertension Surgical History History of hysteroscopy Hx of right breast biopsy Hx of tooth extraction Family History Father Hypertension Obesity Prediabetes Mother Heart disease Glaucoma Social History Household Members: Family Housing: Apartment Alcohol intake: never Patient Tobacco Use Status: Never used Tobacco Tobacco use type: Cigarette e-Cigarette/Vaping Use: Never Used Second Hand Smoke Exposure: No service: No Current occupational status: employed Current occupational exposures/hazards: No Gender identity: Female Cognitive needs: No Hearing needs: No Vision needs: Yes Female Reproductive History Menstrual Age of Menarche: 12 Review of Systems Const All systems reviewed & are unremarkable except as noted in HPI and below Physical Exam Vital Signs: BMI result Body Mass Index 53.9 Results Reviewed Results Reviewed: Date of Service: 02/27/25 Procedure(s): US venous duplex LE LT IMPRESSION: No evidence of deep venous thrombosis involving the left lower extremity. X-ray Read: 02/27/2025 X-ray left ankle 3 views (AP, Mortise, Lateral) reviewed which shows os trigonum. No fractures. Normal bone density. Anatomic tibiotalar joint without OCDs or narrowing. I personally reviewed the imaging and my findings are listed above. X-ray Read: 02/01/2025 X-ray left foot 3 views (AP, MO, Lateral) reviewed which shows no fractures, dislocations, or gross abnormalities. Bone density is within normal limits. Normal anatomy. posterior talar steida process, mild posterior and inferior calcaneal spurring. I personally reviewed the imaging and my findings are listed above. Assessment & Plan Assessment & Plan (1) Tendinitis of left ankle: Code(s): M77.52 - Other enthesopathy of left foot and ankle Category: Medical Plan: * Reviewed left ankle x-rays * Left anterior ankle extensor tendinitis likely secondary to hypertonicity/rigid ankle extension. * Referred for physical therapy, instructed to perform ROM exercises at home. * Patient deferred oral steroids and NSAID treatment at this time. 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 * Pending lumbar/spine MRI. Will likely require neuro-spine referral. (3) Pain of left calf: Code(s): M79.662 - Pain in left lower leg Category: Medical Plan: * US doppler negative for DVT (4) Tinea pedis: Code(s): B35.3 - Tinea pedis Category: Medical Qualifiers: Laterality: bilateral Qualified Code(s): B35.3 - Tinea pedis Plan: * Continue Clotrimazole-betamethasone Coding Level of Care Code Est Pt Level 3 (00846) Diagnoses Tendinitis of left ankle M77.52 Muscular hypertonicity M62.89 Pain of left calf M79.662 Tinea pedis of both feet B35.3 Laterality: bilateral Time Spent (min) 30
--- OUTSIDE RECORDS SUMMARY | 2025-03-07 18:16 | XMS_ITS | Patient Health Record ---
Author Organization [facility] Address [facility] [place] [address] Care Team Providers Care Wedger Name Role Phone JAZIEL BULLARD Primary Care [...]
--- OUTSIDE RECORDS SUMMARY | 2025-03-07 18:16 | XMS_ITS | Encounter Summary ---
Author Organization [employer] Address [address] [facility] [address] [place] [address] Care Team Providers Care Factory Helper Name Role Phone Unavailable Primary Care Provider [...]
--- OUTSIDE RECORDS SUMMARY | 2025-03-07 18:16 | XMS_ITS | Encounter Summary ---
Author Organization [employer] Address [address] [facility] [address] [place] [address] Care Team Providers Care Gas Meter Installer Helper Name Role Phone Unavailable Primary Care [...]
--- OUTSIDE RECORDS SUMMARY | 2025-03-07 18:16 | XMS_ITS | Encounter Summary ---
Author Organization [employer] Address [address] [facility] [address] [place] [address] Care Team Providers Care Mill Feeder Name Role Phone Unavailable Primary Care Provider [...]
--- OUTSIDE RECORDS SUMMARY | 2025-03-07 18:16 | XMS_ITS | Clinical Summary ---
Author Organization [employer] Address [address] [facility] [address] [place] [address] Care Team Providers Care Climbing Guide Name Role Phone Unavailable Primary Care Provider [...] Phone Billing Address Dental Self 1975 [address] [facility] [address] [place] [address] DENTAL - HSN PARTIAL (MEDICAID)
== END 2025-03-07 15:41 | disposition home or self-care (01) ==
LOC: HO.HPODS 15:00
PROVIDERS: PCP Internal Medicine; Visit Provider Student in an Organized Health Care Education/Training Program
DX: M77.52 Other enthesopathy of left foot and ankle (principal); M62.89 Other specified disorders of muscle; M79.662 Pain in left lower leg; B35.3 Tinea pedis
CPT/HCPCS: 99213

== ENCOUNTER → 2025-03-07 15:00 | Outpatient (BNVA) | payer OTHER, SELFPAY | PROVIDERS: PCP Internal Medicine; Visit Provider Student in an Organized Health Care Education/Training Program | DX: E11.42 Type 2 diabetes mellitus with diabetic polyneuropathy (principal); M77.52 Other enthesopathy of left foot and ankle; M62.89 Other specified disorders of muscle; M79.662 Pain in left lower leg; B35.3 Tinea pedis | CPT/HCPCS: 99212 ==

== ENCOUNTER 2025-03-08 15:22 | Outpatient (AMB) | payer OTHER, SELFPAY ==
[2025-03-08 15:28] VITALS: BP 132/74; PULSE 77; RESP 18; O2SAT 98; BMI 53.6
--- NOTE | 2025-03-08 15:28 | A.OFFPC_ITS ---
Vital Signs 03/08/25 15:28 Height 5 ft 5 in Weight 322 lb 6 oz BMI 53.6 BP 132/74 Blood Pressure Location Rt brachial Position Sitting Respiration 18 Pulse 77 Pulse Source Pulse Oximeter Temp Source Temporal Artery Scan Pulse Oximetry (%) 98 Oxygen Delivery Method Room Air Intake Visit Reasons: 3mth f/u Pathology Technologist Required: No Accompanied by: Self / Same As Patient Allergies sertraline Allergy (Severe, Verified 03/08/25 15:39) GERD aspirin (ASA) Allergy (Unknown, Verified 03/08/25 15:39) BLEEDING lisinopril Adverse Reaction (Intermediate, Verified 03/08/25 15:39) Cough prednisone Adverse Reaction (Intermediate, Verified 03/08/25 15:39) high Blood sugar grasses/pollen Allergy (Mild, Uncoded 02/22/25 16:00) congestion Actos Allergy (Unknown, Uncoded 02/22/25 16:00) nausea and vomiting Trulicity Allergy (Unknown, Uncoded 02/22/25 16:00) nausea and vomiting Medication List - Last Reconciled 03/08/25 by Daksha Hernandez MD acetaminophen 1,000 mg (2 x 500 mg) PO Q6H PRN acetone (urine) test (Ketone Urine Test strips) As directed albuterol sulfate 90 mcg/actuation (Ventolin HFA) 1 inh inhalation Q6H PRN atorvastatin 20 mg PO DAILY Baqsimi 3 mg/actuation (glucagon) 3 mg intranasal ONCE PRN 30 days MDD 6mg NS bisacodyl (Dulcolax (bisacodyl)) 10 mg (2 x 5 mg) PO BEDTIME blood sugar diagnostic (FreeStyle Lite Strips) As directed six times a day p.r.n. sensor failure or to confirm readings blood-glucose meter (FreeStyle Lite Meter kit) As directed blood-glucose sensor (Connectbeam G7 Sensor device) As directed change every 10 days cetirizine 10 mg PO DAILY PRN clotrimazole-betamethasone 1-0.05 % 1 appl topical BID 4 weeks cyclobenzaprine 5 mg PO BID PRN fluticasone propionate 50 mcg/actuation (Flonase Allergy Relief) 2 sprays intranasal DAILY FreeStyle Lancets (lancets) 4 times a day NS gabapentin orally 3 times a day; 1cap qam 1 cap qnoon and 2 caps qhs inhalational spacing device As directed insulin aspart (niacinamide) 100 unit/mL (Fiasp U-100 Insulin) subcutaneously; Infuse up to 120 units via insulin pen per day subcutaneously; insulin glargine (Lantus Solostar U-100 Insulin) 30 units (0.3 mL) subcut QPM PRN 30 days MDD 30 insulin pump cart,auto,BT-cntr (Omnipod 5 G6 Intro Kit (Gen 5) subcutaneous cartridge with controller) As directed insulin pump cart,automated,BT (Omnipod 5 G6 Pods (Gen 5) subcutaneous cartridge) As directed insulin syringe-needle U-100 As directed up to qid for pump failure or glucose correction ketorolac 10 mg PO Q6H PRN lancets (FreeStyle Lancets) 6 times a day prn sensor failure or to confirm glucose Levoxyl (levothyroxine) 100 mcg PO DAILY 30 days NS lidocaine 5% (Lidoderm) 1 patch topical DAILY lorazepam 0.25 mg (1/2 x 0.5 mg) PO DAILY PRN losartan 50 mg PO BID 30 days methocarbamol 1,500 mg (2 x 750 mg) PO Q8H 2 weeks pantoprazole 40 mg PO QAM pen needle, diabetic As directed pen needle, diabetic (1st Tier Unifine Pentips Plus) 4 times a day pen needle, diabetic USE TO INJECT 5 TIMES A DAY if pump is not operating polyethylene glycol 3350 (Miralax) 238 grams PO ONCE Tobacco use date assessed: 03/08/25 Dental Screening Dental Screen Date: 03/08/25 Did you have a dental visit in the last 12 months?: No Did you have a dental problem in the last 6 months where you did not have access to dental care?: No Was dental information given to patient?: No HPI 3mth f/u HPI Details April Colon test 2025 [facility] Medical History Obesity, morbid, BMI 40.0-49.9 Allergic rhinitis Back pain Obesity Cough Uncontrolled type 1 diabetes mellitus with hyperglycemia, with long-term current use of insulin Viral syndrome FPC (current) use of insulin Vitamin D deficiency Diabetic nephropathy associated with type 2 diabetes mellitus Hypothyroidism Impacted cerumen of right ear Menstrual bleeding problem Hypothyroid Asthma Hypercholesterolemia Hypertension Surgical History History of hysteroscopy Hx of right breast biopsy Hx of tooth extraction Family History Father Hypertension Obesity Prediabetes Mother Heart disease Glaucoma Social History Household Members: Family Housing: Apartment Alcohol intake: never Patient Tobacco Use Status: Never used Tobacco Tobacco use type: Cigarette e-Cigarette/Vaping Use: Never Used Second Hand Smoke Exposure: No service: No Current occupational status: employed Current occupational exposures/hazards: No Gender identity: Female Cognitive needs: No Hearing needs: No Vision needs: Yes Female Reproductive History Menstrual Age of Menarche: 12 Questionnaire Thrive Questionnaire Date Thrive assessed: 08/30/24 I am a: Patient What is your living situation today?: I have a steady place to live Within the past 12 months, did the food you bought not last and you didn't have the money to get more?: Never true Within the past 12 months, did you worry whether your food would run out before you got money to buy more?: Never true Do you have trouble paying for medicines?: No Do you have trouble getting transportation to medical appointments?: No Do you have trouble paying your heating and electricity bill?: No Do you have trouble taking care of your child, family member or friend?: No Do you have trouble with day-to-day activities such as bathing, preparing meals, shopping, managing finances, etc.?: No Are you currently unemployed and looking for a job?: No Are you interested in more education?: No Please select the resources that you would like help with: None Currently or been in a relationship where the following occur: No concerns reported THRIVE Score: 0 DIMA-7 AMB Questionnaire DIMA-7 Date DIMA - 7 assessed: 08/30/24 Source: Developed by Drs. Sagar Ascencio, Jackelyn Dueñas, Camilo Redman and colleagues, with an educational maura from [employer]. Physical exam (Primary Care) Vital Signs: Last Vital Signs Pulse 77 03/08/25 15:28 Resp 18 03/08/25 15:28 BP 132/74 03/08/25 15:28 Pulse Ox 98 03/08/25 15:28 Oxygen Delivery Method Room Air 03/08/25 15:28 BMI result Body Mass Index 53.6 Tobacco/Smoking Status: Tobacco use Status Tobacco use date assessed 03/08/25 03/08/25 15:30 Patient Tobacco Use Status Never used Tobacco 03/08/25 15:30 Tobacco use type Cigarette 03/08/25 15:30 e-Cigarette/Vaping Use Never Used 03/08/25 15:30 Thrive Assessment: Date of Thrive Assessment Date Thrive assessed 08/30/24 03/08/25 15:30 Currently or been in a relationship where the following occur: No concerns reported Const General: alert; No acute distress Eyes Conjunctivae: conjunctivae normal Resp Auscultation: clear to auscultation bilaterally Cardio Rate: regular rate Rhythm: regular rhythm GI Inspection: Yes normal to inspection Extrem General: Yes normal to inspection and No edema Results AMB Hemoglobin A1c AMB Hemoglobin A1c 5.9 % Last Edit by Nika Mike CMA on 03/08/25 16 :01 Results Reviewed Results Reviewed: Laboratory Last Values Hgb A1c (Clinic) 5.9 % (4.0-6.0) 03/08/25 16:00 Coding Level of Care Code Est Pt Level 4 (37804) Complex EM visit Add On G2211 Diagnoses 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), managed as type 1 E13.9 Essential hypertension I10 Hypertension type: essential hypertension Hypercholesterolemia E78.00 Morbid obesity E66.01 Gastroesophageal reflux disease, unspecified whether esophagitis present K21.9 Esophagitis presence: esophagitis presence not specified Colon cancer screening Z12.11 Asthma J45.909 Assessment & Plan Assessment & Plan (1) 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 (2) Hypertension: Code(s): I10 - Essential (primary) hypertension Category: Medical Qualifiers: Hypertension type: essential hypertension Qualified Code(s): I10 - Es sential (primary) hypertension Plan: Continue with blood pressure medication. Decrease salt intake and exercise on losartan 50 mg twice a day (3) Hypercholesterolemia: Code(s): E78.00 - Pure hypercholesterolemia, unspecified Category: Medical Plan: Avoid fried foods, chicken skin, eggs, butter margarine, pastries and meat. Be it pork or beef they have a lot of cholesterol LDL goal of less than 100 and triglyceride of less than 150 on atorvastatin 20 mg once a (4) Morbid obesity: Code(s): E66.01 - Morbid (severe) obesity due to excess calories Category: Medical Plan: Diet and exercise, patient has been referred to weight management also. (5) GERD (gastroesophageal reflux disease): Code(s): K21.9 - Gastro-esophageal reflux disease without esophagitis Category: Medical Qualifiers: Esophagitis presence: esophagitis presence not specified Qualified Code(s): K21.9 - Gastro-esophageal reflux disease without esophagitis Plan: Avoid the foods that causes that usually spicy foods, tomato products, juices, coffee, soda and foods that your sensitive to. After eating do not lie down, allow 3-4 hours before in lie down. And keep the head of bed above 30 degrees to avoid the acid from going up. (6) Colon cancer screening: Code(s): Z12.11 - Encounter for screening for malignant neoplasm of colon Category: Medical Plan: Patient has met with Gastroenterology but no schedule set. (7) Asthma: Code(s): J45.909 - Unspecified asthma, uncomplicated Category: Medical Plan: Continue with albuterol inhaler as needed Plan History of Present Illness The patient is a 49-year-old female presenting for a follow-up visit for multiple chronic conditions including systemic lupus erythematosus, type 1 diabetes mellitus, hypertension, hypercholesterolemia, hypothyroidism, GERD, low back pain, and generalized anxiety disorder. Her last visit was on February 06, 2025. The patient's primary complaint is lower extremity muscle spasms, which she describes as tension and rigidity. She has seen podiatry, who was concerned for a lumbar radicular problem, and neurology in January for this issue. A recent lower extremity ultrasound was negative for DVT, and an ankle x-ray was also performed. Neurology advised an increase in her gabapentin to 300 mg. 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 Regarding her diabetes, she is followed by endocrinology and recently started using a continuous glucose monitor and an insulin pump. Her last hemoglobin A1c was 6.4, and her current A1c is 5.9. Her medications include Fiasp and Lantus, with the latter used for emergencies. The patient has been seen by gastroenterology in January and is scheduled for a colonoscopy and endoscopy. Her last cholesterol test in May 2024 showed an LDL of 79. Blood work from January was notable for no anemia or leukocytosis, with normal electrolytes and renal function. A urine test showed no proteinuria. Health Maintenance The patient is scheduled for a colonoscopy and endoscopy with gastroenterology on May 21. She declined the influenza vaccine due to a past adverse reaction. Follow up in three months. A lab request for bloodwork and a urine test will be provided, to be completed one week prior to the next visit. Social History - Weight Management: The patient desires to lose weight and was previously referred to weight management, which she did not like. - She was also referred for bariatric surgery but declined, citing concerns about poor healing due to her type 1 diabetes. - She has agreed to a referral to a executive talent acquisition consultant. Review of Systems - Musculoskeletal: Reports tension and spasms in the lower extremities. - Reports pain in the heel and ankle. - Denies pain with passive leg straightening. Physical Exam - Extremities: On examination of the lower extremities, there is no pain with passive straightening of the leg. Results - Labs: Blood work from January 30 showed no anemia, no leukocytosis, and normal electrolytes and renal function. - Current hemoglobin A1c is 5.9%, down from 6.4%. - A cholesterol test from May 2024 showed an LDL of 79. - A urine test showed no proteinuria. - Imaging: A lower extremity ultrasound showed no evidence of DVT. - An ankle x-ray was performed, with results not specified. Plan Patient was informed and verbally consented to the use of an ambient scribe for clinic note documentation during this visit. 1. Lower Extremity Muscle Spasms The patient continues to experience tension and rigidity in her lower extremities, which worsens if she misses a dose of her muscle relaxant. Per neurology recommendations, she takes gabapentin and methocarbamol. Although she is unsure of the efficacy of methocarbamol, she reports significant pain recurrence when she skips a dose. A refill for gabapentin is needed and will be provided. A one-month supply of the muscle relaxant will also be sent. The patient was informed that alternative muscle relaxants are available if this one proves ineffective. 2. Type 1 Diabetes Mellitus The patient's glycemic control has improved, with her hemoglobin A1c decreasing to 5.9%. She is managed by endocrinology and is using an insulin pump with Fiasp and a continuous glucose monitor, with Lantus available for emergencies. The possibility of using Mounjaro for weight loss was discussed, but it will likely be rejected by insurance due to her type 1 diabetes diagnosis. Continue current management under endocrinology. 3. Hypertension Continue losartan 50 mg twice a day. 4. Hypercholesterolemia The patient's LDL goal is less than 100. Continue atorvastatin 20 mg once a day. A comprehensive blood panel, including cholesterol, will be ordered for her next follow-up in three months. 5. Morbid Obesity The patient desires to lose weight but had a negative experience with a prior weight management referral and declined bariatric surgery due to concerns about her diabetes. She has agreed to a referral to a executive talent acquisition consultant for dietary counseling. Discussion Notes I reviewed the patient's ongoing lower extremity muscle spasms. We discussed her current medications, gabapentin and methocarbamol, and I explained that the muscle relaxant is an as-needed medication, though she finds she needs it regularly to control her symptoms. I agreed to send refills for both medications. We reviewed her recent lab work, and I noted the excellent improvement in her hemoglobin A1c to 5.9. I provided her with a request for a comprehensive panel of bloodwork and a urine test to be completed before our next visit in three months. I discussed weight management options with her; she is not interested in bariatric surgery but agreed to a referral to a executive talent acquisition consultant, which I will place. I explained that GLP-1 agonists like Mounjaro are not typically approved for type 1 diabetes. I confirmed her upcoming appointments, including her colonoscopy and endoscopy on May 21. We discussed the flu shot, which she declined due to a past reaction that made her feel sick. She will follow up in the office in three months. Patient Instructions - Continue taking your gabapentin and methocarbamol (muscle relaxant) to manage your leg spasms. I have sent refills for these to your pharmacy. - Continue managing your diabetes with your insulin pump as directed by your food services manager. - We are referring you to a executive talent acquisition consultant to help you with your weight loss goals. You will be contacted to schedule an appointment. - In about three months, you will need to have blood tests and a urine test done. Please complete these tests one week before your next scheduled appointment. You should not eat or drink before the test, but you can take your medications with sips of water. - Keep your appointment with the electrode cleaning machine operator for your colonoscopy and endoscopy on May 21. - Please schedule a follow-up visit here in three months. Orders: Orders Complete Blood Count Auto Diff Today E10.65 - Type 1 diabetes mellitus with hyperglycemia Comprehensive Met. Panel Today E10.65 - Type 1 diabetes mellitus with hypergly cemia IRON PROFILE Today E10.65 - Type 1 diabetes mellitus with hyperglycemia Reticulocyte Count Today E10.65 - Type 1 diabetes mellitus with hyperglycemia Ferritin Today E10.65 - Type 1 diabetes mellitus with hyperglycemia Free T4 (Free Thyroxine) Today E10.65 - Type 1 diabetes mellitus with hyperglycemia Thyroid Stimulating Hormone Today E10.65 - Type 1 diabetes mellitus with hyperglycemia Vitamin B12 and Folate Today E10.65 - Type 1 diabetes mellitus with hyperglycemia AMB Hemoglobin A1c Today Z13.9 - Encounter for screening, unspecified Lipid Panel Today E10.65 - Type 1 diabetes mellitus with hyperglycemia, E78.00 - Pure hypercholesterolemia, unspecified Hemoglobin A1c Today E10.65 - Type 1 diabetes mellitus with hyperglycemia Creatinine Urine Today E10.65 - Type 1 diabetes mellitus with hyperglycemia, E11.65 - Type 2 diabetes mellitus with hyperglycemia Microalbumin, Random (w Creat) Today E10.65 - Type 1 diabetes mellitus with hyperglycemia, E11.65 - Type 2 diabetes mellitus with hyperglycemia UA CC w/rflx Micro + Cult Today E10.65 - Type 1 diabetes mellitus with hyperglycemia, R30.0 - Dysuria Vitamin D 25-OH Total Today E10.65 - Type 1 diabetes mellitus with hyperglycemia Magnesium Today E10.65 - Type 1 diabetes mellitus with hyperglycemia Referrals Nutrition/Dietitian Referral E66.01 - Morbid (severe) obesity due to excess calories Medications: Changed From methocarbamol 1,500 mg (2 x 750 mg) PO Q8H 2 weeks 84 tabs 0RF pain, moderate E10.65 - Type 1 diabetes mellitus with hyperglycemia To methocarbamol 1,500 mg (2 x 750 mg) PO Q8H 168 tabs 0RF pain, moderate 4 weeks E10.65 - Type 1 diabetes mellitus with hyperglycemia
--- OUTSIDE RECORDS SUMMARY | 2025-03-09 00:17 | XMS_ITS | Encounter Summary ---
Author Organization [employer] Address [address] [place] [address] Care Team Providers Care Merchant Seaman Name Role Phone Unavailable Primary Care Provider [...]
--- OUTSIDE RECORDS SUMMARY | 2025-03-09 00:18 | XMS_ITS | Patient Health Record ---
Author Organization [facility] Address [address] [facility] [place] [address] Care Team Providers Care Retail Sales Director Name Role Phone JAZIEL BULLARD Primary Care [...]
--- OUTSIDE RECORDS SUMMARY | 2025-03-09 00:18 | XMS_ITS | Encounter Summary ---
Author Organization [employer] Address [address] [facility] [address] [place] [address] Care Team Providers Care Project Product Manager Name Role Phone Unavailable Primary Care [...]
--- OUTSIDE RECORDS SUMMARY | 2025-03-09 00:19 | XMS_ITS | Clinical Summary ---
Author Organization [employer] Address [address] [facility] [address] [place] [address] Care Team Providers Care Dye Range Tender Name Role Phone Unavailable Primary Care [...] this topic Meningococcal Vaccine Aged Out No garert ricardo eligible based on patient's age to [...] Phone Billing Address Dental Self 1975 [address] [place] [address] DENTAL - HSN PARTIAL (MEDICAID)
--- OUTSIDE RECORDS SUMMARY | 2025-03-09 00:19 | XMS_ITS | Encounter Summary ---
Author Organization [employer] Address [address] [facility] [address] [place] [address] Care Team Providers Care Six Sigma Project Manager Name Role Phone Unavailable Primary Care [...]
== END 2025-03-08 16:34 | disposition home or self-care (01) ==
LOC: HO.HMCH 15:23
PROVIDERS: PCP Internal Medicine; Visit Provider Internal Medicine
DX: I10 Essential (primary) hypertension (principal); E13.9 Other specified diabetes mellitus without complications; E66.01 Morbid (severe) obesity due to excess calories; Z68.43 Body mass index [BMI] 50.0-59.9, adult; E78.00 Pure hypercholesterolemia, unspecified; K21.9 Gastro-esophageal reflux disease without esophagitis; Z12.11 Encounter for screening for malignant neoplasm of colon; J45.909 Unspecified asthma, uncomplicated

== ENCOUNTER → 2025-03-08 15:22 | Outpatient (BNVA) | payer OTHER, SELFPAY | PROVIDERS: PCP Internal Medicine; Visit Provider Internal Medicine | DX: I10 Essential (primary) hypertension (principal); E13.9 Other specified diabetes mellitus without complications; E78.00 Pure hypercholesterolemia, unspecified; K21.9 Gastro-esophageal reflux disease without esophagitis; J45.909 Unspecified asthma, uncomplicated; E66.01 Morbid (severe) obesity due to excess calories; M62.838 Other muscle spasm; Z68.43 Body mass index [BMI] 50.0-59.9, adult | CPT/HCPCS: 83036; 99212 ==

== ENCOUNTER 2025-03-12 15:00 | Outpatient (AMB) | payer OTHER, SELFPAY ==
--- NOTE | 2025-03-12 15:11 | MHC.OFFVIS ---
Vital Signs 03/12/25 15:22 Height 5 ft 5 in Weight 321 lb 13.998 oz BMI 53.6 BP 128/60 Blood Pressure Location Rt brachial Position Sitting Pulse 95 Pulse Source Pulse Oximeter Pulse Oximetry (%) 100 Oxygen Delivery Method Room Air Intake Visit Reasons: T2DM/Hypothyroidism- pt Intake Note: Patient presents today for a follow-up on Type 2 Diabetes Mellitus Hypothyroidism: Patient last seen by DR Simona Isaac MD: Patient was experiencing a panic attack at the time of the intake: A bag of ice and water was provided by the Nurse: Last Diabetic eye exam was on: 08/2024 Last Podiatry exam was on: Patient does not see a Facilities Coordinator Most recent HbA1c: 5.%, 03/08/2025 Random Glucose: 227 mg/dL Steam Table Associate Required: Yes Steam Table Associate Language: Transplant Nurse Services: Steam Table Associate Offered & Declined (Dr Thorpe Speak Fluent Romansh) Accompanied by: Self / Same As Patient Allergies sertraline Allergy (Severe, Verified 03/12/25 15:12) GERD aspirin (ASA) Allergy (Unknown, Verified 03/12/25 15:12) BLEEDING lisinopril Adverse Reaction (Intermediate, Verified 03/12/25 15:12) Cough prednisone Adverse Reaction (Intermediate, Verified 03/12/25 15:12) high Blood sugar grasses/pollen Allergy (Mild, Uncoded 03/12/25 15:12) congestion Actos Allergy (Unknown, Uncoded 03/12/25 15:12) nausea and vomiting Trulicity Allergy (Unknown, Uncoded 03/12/25 15:12) nausea and vomiting HPI Comments Details: 48-year-old female who presents for management of diabetes type 1 and hypothyroidism. Last seen by Dr. Isaac on 12/04/24 1) Diabetes Diabetes type 2 diagnosed and 2015. However then found to have dima antibodies, concern for DIEGO She also has hypoglycemic unawareness. HgbA1C today in the office 04/18 6.4%. 02/02/24 7% 09/22/23 7.2% Past medical history: Diabetes type 2 hypothyroidism, HTN, dyslipidemia, obesity Micro and macrovascular complications: Nephropathy (+ microalbumin) Diabetes medications: Ilet pump Back up pump failure plan: Lantus 30 units daily, Fiasp via I:C ratio 1:10, and sensitivity 1:10 begin correction at 120mg/dl CGM data: Interpretation: Overall excellent control, without episodes of hypoglycemia. 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 Medications: Levoxyl 100 mcg eats and takes other medications at least one hour later. Symptoms: Reports some fatigue, dry skin. Denies dysphagia, dyspnea, dysphonia, Denies radiation to head or neck, thyroid surgery or biopsy. Denies biotin use. Family History: unknown if any hypothyroidism in family recent Tsh 2.02 06/19 Interval history 03/12/25 Patient was having a panic attack at the begining of the office visit, which lasted approximately 5 mins. She report having some problems after she had a serotonin symdrome after she was started on medications for panic attack. No DM related admissions to the hospital Reports 1-2 episodes of hypoglycemia in a week She sometimes forget to announce meals as she is afraid of hypoglycemia She has been very unstable Reports occasional dysphagia to both liquids and solids Taking LT 100 mcg daily, taking it properly Physical exam: General: Well appearing. NAD. Morbid Obesity Neck/Thyroid: Thyroid not palpable, no nodules. CV: RRR, no murmur. Mild pitting edema bilaterally. Resp:Lungs clear to auscultation bilaterally Abdomen: Soft, nontender. nondistended Extremities/Neuro: No weakness or tremor of outstretched hands Laboratory Tests 03/08/25 03/12/25 16:00 15:28 Glucose (Clinic) 217 H Hgb A1c (Clinic) 5.9 Laboratory Tests 01/26/23 05/26/24 05/26/24 15:38 10:00 10:08 Hgb 12.1 Hct 37.2 Plt Count 316 Glucose (Clinic) Hgb A1c (Clinic) Triglycerides 56 Cholesterol 153 LDL Cholesterol, Calc 79 HDL Cholesterol 63 TSH 2.02 Free T4 1.21 Urine Creatinine 199.53 Urine Microalbumin 109.0 Microalb/Creat Ratio 54.2 H DIMA Antibody >250 H 12/04/24 12/04/24 10:37 15:34 Hgb Hct Plt Count Glucose (Clinic) 121 H Hgb A1c (Clinic) 6.4 H Triglycerides Cholesterol LDL Cholesterol, Calc HDL Cholesterol TSH Free T4 Urine Creatinine Urine Microalbumin Microalb/Creat Ratio DIMA Antibody PFSH Medical History Obesity, morbid, BMI 40.0-49.9 Allergic rhinitis Back pain Obesity Cough Uncontrolled type 1 diabetes mellitus with hyperglycemia, with long-term current use of insulin 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 Vitamin D deficiency Diabetic nephropathy associated with type 2 diabetes mellitus Hypothyroidism Impacted cerumen of right ear Menstrual bleeding problem Hypothyroid Asthma Hypercholesterolemia Hypertension Surgical History History of hysteroscopy Hx of right breast biopsy Hx of tooth extraction Family History Father Hypertension Obesity Prediabetes Mother Heart disease Glaucoma Social History Household Members: Family Housing: Apartment Alcohol intake: never Patient Tobacco Use Status: Never used Tobacco Tobacco use type: Cigarette e-Cigarette/Vaping Use: Never Used Second Hand Smoke Exposure: No service: No Current occupational status: employed Current occupational exposures/hazards: No Gender identity: Female Cognitive needs: No Hearing needs: No Vision needs: Yes Female Reproductive History Menstrual Age of Menarche: 12 Physical Exam Vital Signs: Last Vital Signs Pulse 95 03/12/25 15:22 BP 128/60 03/12/25 15:22 Pulse Ox 100 03/12/25 15:22 Oxygen Delivery Method Room Air 03/12/25 15:22 BMI result Body Mass Index 53.6 Office Procedures Glucose Monitoring Details Details: See [facility] [address] - Glucose Monitoring, continuous Procedure code (CPT) selection complete Results Reviewed Results Reviewed: Laboratory Last Values Glucose (Clinic) 217 mg/dL (60-115) H 03/12/25 15:28 Assessment & Plan Assessment & Plan (1) 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 Her previous A1c was too low at 5.6% in represented multiple lows. A1c 12/04/2024 improved today to 6.4%. Now when she has a lows they are very transient and only on occasion. She does carry a sugar source with her We will continue her with the beta bionics pump. She does report that she does not announce meals all the time as she is concerned about hypoglycemia. She likely needs a reset in her Ilet pump which will be performed by hospice educator during the next visit. Plan Continue insulin pump Advised to announce all meals as pump will learn from her dietary habits and adjust insulin delivery Advised to increase physical activity to 170 mins per week as tolerated Follow up with diabetes educador. 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 Labs from May 2024 showed normal TSH. Plan: -continue Levoxyl 100 mcg daily -Repeat TFTs prior to next visit Plan I spent 30 minutes in reviewing the record, seeing the patient and documenting in the medical record. 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
[2025-03-12 15:22] VITALS: BP 128/60; PULSE 95; O2SAT 100; BMI 53.6
[2025-03-12 15:33] LABS: Glucose, Whole Blood 217 mg/dL (60-115)
== END 2025-03-12 16:04 | disposition home or self-care (01) ==
LOC: HO.ENCR 15:01
PROVIDERS: PCP Internal Medicine; Visit Provider Student in an Organized Health Care Education/Training Program
DX: E13.9 Other specified diabetes mellitus without complications (principal); E03.8 Other specified hypothyroidism; E06.3 Autoimmune thyroiditis
CPT/HCPCS: 99213

== ENCOUNTER → 2025-03-12 15:00 | Outpatient (BNVA) | payer OTHER, SELFPAY | PROVIDERS: PCP Internal Medicine; Visit Provider Student in an Organized Health Care Education/Training Program | DX: E13.9 Other specified diabetes mellitus without complications (principal); E06.3 Autoimmune thyroiditis; Z79.899 Other long term (current) drug therapy; Z79.4 Long term (current) use of insulin | CPT/HCPCS: 82947; 95250; 99212 ==

== ENCOUNTER 2025-03-19 19:50 | Emergency (ER) | payer OTHER, SELFPAY ==
--- NOTE | ~2025-03-19 | XR_ITS ---
CLINICAL HISTORY: chest pain 2 view chest x-ray. Comparison: 12/17/2024 Findings: No consolidation or effusion. Cardiac and mediastinal contours are stable. Bones unremarkable. Impression: 1. No acute pulmonary disease. This document has been electronically signed by: Carmelo Lau MD on 03/19/2025 20:39:09
--- NOTE | 2025-03-19 19:51 | ECG_ITS ---
Test Reason : CP Blood Pressure : */* mmHG Vent. Rate : 97 BPM Atrial Rate : 97 BPM P-R Int : 148 ms QRS Dur : 80 ms QT Int : 344 ms P-R-T Axes : 15 7 8 degrees QTcB Int : 436 ms Normal sinus rhythm Possible Left atrial enlargement Nonspecific ST abnormality Abnormal ECG When compared with ECG of 17-Dec-2024 10:28, Nonspecific T wave abnormality, improved in Inferior leads Nonspecific T wave abnormality, improved in Anterolateral leads Referred By: Leonora Waite Electronically Signed By: Jean-Pierre White
[2025-03-19 20:08] VITALS: BP 167/75; PULSE 91; RESP 18; TEMP 36.7; O2SAT 95; BMI 53.6
[2025-03-19 20:12] LABS: MANUAL DIFF FLAG NO
[2025-03-19 20:13] LABS: Hematocrit 36.8 % (37.0-47.0); Hemoglobin 11.8 g/dl (12.0-16.0); Imm Gran Abs Auto 0.02 X10*3/uL (0.00-0.03); Imm Gran Pct Auto 0.2 % (0.0-0.4); Lymphocytes Absolute Auto 2.4 X10*3/uL (1.2-4.9); Mean Corpuscular HGB Conc 32.1 g/dl (31.0-35.0); Mean Corpuscular Hemoglobin 28.7 pg (27.0-33.0); Mean Corpuscular Volume 89.5 fL (80.0-98.0); NRBC Abs Auto 0.000 X10*3/uL (0.0-0.012); NRBC Pct Auto 0.0 /100WBC (0.0-0.2); Platelet Count 295 X10*3/uL (160-400); Red Blood Count 4.11 X10*6/uL (4.20-5.50); White Blood Count 9.2 X10*3/uL (4.8-10.8)
[2025-03-19 20:19] LABS: INTERNATIONAL NORM RATIO 1.0 (0.9-1.1); Prothrombin Time 12.3 SEC (11.2-13.5)
[2025-03-19 20:29] LABS: Alanine Aminotransferase 18 U/L (0-31); Albumin Level 4.3 g/dL (3.5-5.0); Alkaline Phosphatase 117 U/L (39-117); Anion Gap 13 (12-20); Aspartate Amino Transferase 20 U/L (5-31); Blood Urea Nitrogen 21 mg/dL (9-16); Calcium 9.5 mg/dL (8.4-10.2); Carbon Dioxide 24 mmol/L (22-29); Chloride 109 mmol/L (96-108); Creatinine Clr Calc Pharmacy 150.1; Estimated Glomerular Filt Rate > 60; Magnesium 1.7 mg/dL (1.6-2.6); Potassium 3.8 mmol/L (3.3-5.1); Sodium 142 mmol/L (135-145); Total Protein 7.1 g/dL (6.5-8.0)
[2025-03-19 20:32] LABS: Troponin-I High Sensitivity < 2.7 ng/L (<3.5-17.0)
--- OUTSIDE RECORDS SUMMARY | 2025-03-19 20:48 | XMS_ITS | Clinical Summary ---
Author Organization [employer] Address [address] [place] [address] Care Team Providers Care Rail Signal Mechanic Name Role Phone Unavailable Primary Care [...] Billing Address Dental Self 1975 [address] [place] [address] DENTAL - HSN PARTIAL (MEDICAID)
--- OUTSIDE RECORDS SUMMARY | 2025-03-19 20:48 | XMS_ITS | Encounter Summary ---
Author Organization [employer] Address [address] [facility] [place] [address] Care Team Providers Care Supervisor Game Farm Name Role Phone Unavailable Primary Care Provider [...]
--- OUTSIDE RECORDS SUMMARY | 2025-03-19 20:48 | XMS_ITS | Encounter Summary ---
Author Organization [employer] Address [address] [facility] [address] [place] [address] Care Team Providers Care Seamer Name Role Phone Unavailable Primary Care Provider [...]
--- OUTSIDE RECORDS SUMMARY | 2025-03-19 20:48 | XMS_ITS | Encounter Summary ---
Author Organization [employer] Address [address] [facility] [address] [place] [address] Care Team Providers Care Sensitized Paper Tester Name Role Phone Unavailable Primary Care Provider [...]
--- OUTSIDE RECORDS SUMMARY | 2025-03-19 20:48 | XMS_ITS | Patient Health Record ---
Author Organization [facility] Address [facility] [place] [address] Care Team Providers Care Mate Fishing Vessel Name Role Phone JAZIEL BULLARD Primary Care [...]
[2025-03-19 20:49] LABS: Resp Syncy Virus RNA Qual PCR NEGATIVE (Negative); SARS COV2 PCR INHOUSE NEGATIVE (Negative)
--- NOTE | 2025-03-19 20:53 | ED.CHESTPAIN ---
HPI - Chest Pain General Chief Complaint: Chest Pain Stated Complaint: Chest pain Time Seen by Provider: 03/19/25 20:33 Source: patient Mode of arrival: ambulatory Limitations: no limitations History of Present Illness ED Provider: Dr. Arnold HPI narrative: 49-year-old female history of anxiety presented hospital today for panic attack. Patient stated that she had a panic attack yesterday where cells decided on her own. However patient was bending forward today and felt a twinge in her back. She had another panic attack. Patient stated that she was unable to get comfortable. And this has been setting off her panic attack. She is complaining of some burning sensation in her chest and throat her jaw. Patient is described as a pins and needle sensation. It feels like there is asleep. Related Data Home Medications ?Medication ?Instructions ?Recorded ?Confirmed pen needle, diabetic 32 gauge x #50 ea 03/06/20 03/08/25 cetirizine 10 mg tablet 10 mg PO DAILY PRN 06/13/24 03/08/25 ketorolac 10 mg tablet 10 mg PO Q6H PRN pain 02/18/25 03/08/25 Previous Rx's ?Medication ?Instructions ?Recorded pen needle, diabetic 32 gauge x #150 ea 04/29/20 (1st Tier Unifine Pentips Plus) FreeStyle Lancets 28 gauge #120 ea 05/16/20 (lancets) insulin pump cart,automated,BT #5 ea 04/20/22 (Omnipod 5 G6 Pods (Gen 5) subcutaneous cartridge) insulin pump cartridge,automated #1 ea 04/20/22 dose,BT with controller subcutaneous (Omnipod 5 G6 Intro Kit (Gen 5) subcutaneous cartridge with controller) blood-glucose sensor (Dexcom G7 #3 ea 12/10/22 Sensor device) acetaminophen 500 mg capsule 1,000 mg (2 x 500 mg) PO Q6H PRN 07/06/23 pain #30 caps albuterol sulfate 90 mcg/actuation 1 inh inhalation Q6H PRN shortness 01/30/24 aerosol inhaler (Ventolin HFA) of breath or wheezing #18 grams acetone (urine) test (Ketone Urine #25 ea 02/03/24 Test strips) blood sugar diagnostic (FreeStyle #200 ea 02/03/24 Lite Strips) blood-glucose meter (FreeStyle #1 ea 02/03/24 Lite Meter kit) lancets 28 gauge (FreeStyle #100 ea 02/03/24 Lancets) inhalational spacing device #1 ea 02/24/24 fluticasone propionate 50 2 spray intranasal DAILY #16 grams 08/30/24 mcg/actuation nasal spray,suspension (Flonase Allergy Relief) Baqsimi 3 mg/actuation nasal spray 3 mg intranasal ONCE PRN severe 09/04/24 (glucagon) low 30 days #2 ea insulin glargine 100 unit/mL (3 30 unit (0.3 mL) subcut QPM PRN 09/04/24 mL) subcutaneous pen (Lantus pump failure 30 days #6 mL Solostar U-100 Insulin) pen needle, diabetic 32 gauge x #100 ea 09/04/24 insulin syringe-needle U-100 0.3 #100 ea 10/12/24 mL 31 gauge x 09/07 pantoprazole 40 mg tablet,delayed 40 mg PO QAM #90 tabs 11/20/24 release lidocaine 5 % topical patch 1 patch topical DAILY #15 ea 11/25/24 (Lidoderm) cyclobenzaprine 5 mg tablet 5 mg PO BID PRN muscle spasm #30 12/04/24 tabs insulin aspart (niacinamide) See Rx Instructions subcut 12/04/24 (U-100) 100 unit/mL subcutaneous .COMPLEX #40 mL solution (Fiasp U-100 Insulin) lorazepam 0.5 mg tablet 0.25 mg (1/2 x 0.5 mg) PO DAILY 01/02/25 PRN anxiety #10 tabs losartan 50 mg tablet 50 mg PO BID 30 days #60 tabs 01/02/25 Levoxyl 100 mcg tablet 100 mcg PO DAILY 30 days #30 tabs 01/21/25 (levothyroxine) clotrimazole-betamethasone 1 1 appl topical BID athlete's foot 02/13/25 %-0.05 % topical cream 4 weeks #15 grams gabapentin 300 mg capsule See Rx Instructions PO TID pain 02/18/25 (scale score 4-6) #120 caps atorvastatin 20 mg tablet 20 mg PO DAILY #30 tabs 02/19/25 bisacodyl 5 mg tablet,delayed 10 mg (2 x 5 mg) PO BEDTIME #180 02/22/25 release (Dulcolax (bisacodyl)) tabs polyethylene glycol 3350 17 238 g PO ONCE #238 grams 02/22/25 gram/dose oral powder (Miralax) methocarbamol 750 mg tablet 1,500 mg (2 x 750 mg) PO Q8H pain, 03/08/25 moderate 4 weeks #168 tabs hydroxyzine HCl 25 mg tablet 25 mg PO TID PRN anxiety #30 tabs 03/19/25 Allergies Allergy/AdvReac Type Severity Reaction Status Date / Time sertraline Allergy Severe GERD Verified 03/19/25 20:13 aspirin (ASA) Allergy Unknown BLEEDING Verified 03/19/25 20:13 lisinopril AdvReac Intermediate Cough Verified 03/19/25 20:13 prednisone AdvReac Intermediate high Blood Verified 03/19/25 20:13 sugar grasses/pollen Allergy Mild congestion Uncoded 03/12/25 15:12 Actos Allergy Unknown nausea and Uncoded 03/12/25 15:12 vomiting Trulicity Allergy Unknown nausea and Uncoded 03/12/25 15:12 vomiting Review of Systems Review of Systems: Pertinent review of systems as mentioned in HPI. All other system otherwise negative. 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 Vitamin D deficiency Diabetic nephropathy associated with type 2 diabetes mellitus Hypothyroidism Impacted cerumen of right ear Menstrual bleeding problem Hypothyroid Asthma Hypercholesterolemia Hypertension Surgical History History of hysteroscopy Hx of right breast biopsy Hx of tooth extraction Family History Family History Father Hypertension Obesity Prediabetes Mother Heart disease Glaucoma Social History Social History Household Members: Family Housing: Apartment Alcohol intake: never Patient Tobacco Use Status: Never used Tobacco Tobacco use type: Cigarette Smoked in Last 30 Days: No e-Cigarette/Vaping Use: Never Used Second Hand Smoke Exposure: No Use of substances other than those prescribed or required for medical reasons: No Advance Directives: No Advance Directives Information Provided: No service: No Current occupational status: employed Current occupational exposures/hazards: No Gender identity: Female Cognitive needs: No Hearing needs: No Vision needs: Yes Physical Exam Exam: Exam: General: Pleasant, no distress, interacting appropriately Head: Normacephalic, atraumatic ENT: oral mucosa moist, neck supple, no tracheal deviation Cardiovascular: regular rate, regular rhythm, no murmurs, rubbing, gallops Respiratory: CTAB, no wheeze, rales, rhonchi Neurological: Awake and alert, no facial droop noted Skin: Warm and dry Psychiatric: Appears anxious Vital Signs: Vital Signs: Last Vital Signs Temp 98.4 F 03/19/25 22:08 Pulse 74 03/19/25 22:08 Resp 16 03/19/25 22:08 BP 155/83 H 03/19/25 22:08 Pulse Ox 98 03/19/25 22:08 O2 Del Method Room Air 03/19/25 22:08 BMI result Body Mass Index 53.6 Medications Administered Discontinued Medications Generic Name Dose Route Start Last Admin Trade Name Freq PRN Reason Stop Dose Admin Lorazepam 1 mg 03/19/25 21:03 03/19/25 21:11 Lorazepam 1 Mg Tablet PO 03/19/25 21:04 1 mg ONCE ONE Administration Medical Decision Making Medical Decision Making [facility] Narrative: This is a 49-year-old female presented hospital today for evaluation of panic attack. The patient had cardiac workup performed EKGs were negative. X-ray is negative. Troponin is negative. I suspect this is likely a panic attack. Did discuss with the patient's of taking p.o. benzodiazepine for her anxiety. The patient is hesitant due to her previous experience with SSRI and serotonin syndrome. I discussed with her that the benzodiazepine should not have any serotonin in fact. We will plan to give her a small dose of 1 mg of p.o. Ativan. Patient is agreeable to this at this time. We will plan to reassess patient afterward shortly. Patient states she has difficulty accessing outpatient counseling. We will plan to consult care team for assistance on linking her with outpatient resources. Plan to discharge patient on hydroxyzine. I do not think patient is a threat to herself or others. Patient will be discharged. Differential Diagnosis Differential Diagnoses: The differential diagnosis associated with the presentation includes Anxiety attack, ACS, pneumothorax Lab Data MDM Lab Attestation statement: I reviewed the patient's lab results. 03/19/25 20:07 03/19/25 20:07 Labs: Lab Results 03/19/25 Range/Units 20:07 WBC 9.2 (4.8-10.8) X10*3/uL RBC 4.11 L (4.20-5.50) X10*6/uL Hgb 11.8 L (12.0-16.0) g/dl Hct 36.8 L (37.0-47.0) % MCV 89.5 (80.0-98.0) fL MCH 28.7 (27.0-33.0) pg MCHC 32.1 (31.0-35.0) g/dl RDW 14.4 (11.0-16.0) % Plt Count 295 (160-400) X10*3/uL MPV 10.1 (9.4-12.3) fL Immature Gran % (Auto) 0.2 (0.0-0.4) % Neut % (Auto) 62.5 (45-73) % Lymph % (Auto) 25.9 (20-40) % Stearns % (Auto) 7.9 (2-11) % Eos % (Auto) 2.7 (0-4) % Baso % (Auto) 0.8 (0-2) % Lymph # (Auto) 2.4 (1.2-4.9) X10*3/uL Stearns # (Auto) 0.7 (0.1-1.2) X10*3/uL Eos # (Auto) 0.3 (0.0-0.4) X10*3/uL Baso # (Auto) 0.1 (0.0-0.2) X10*3/uL Abs Immat Gran (auto) 0.02 (0.00-0.03) X10*3/uL Absolute Neuts (auto) 5.7 (2.0-8.3) x10*3/uL Absolute Nucleated RBC 0.000 (0.0-0.012) X10*3/uL Nucleated RBC % (auto) 0.0 (0.0-0.2) /100WBC PT 12.3 (11.2-13.5) SEC INR 1.0 (0.9-1.1) Sodium 142 (135-145) mmol/L Potassium 3.8 (3.3-5.1) mmol/L Chloride 109 H (96-108) mmol/L Carbon Dioxide 24 (22-29) mmol/L Anion Gap 13 (12-20) BUN 21 H (9-16) mg/dL Creatinine 0.67 (0.5-1.4) mg/dL Estim Creat Clear Calc 150.1 Estimated GFR > 60 Random Glucose 183 H (60-115) mg/dL Calcium 9.5 (8.4-10.2) mg/dL Magnesium 1.7 (1.6-2.6) mg/dL Total Bilirubin 0.1 (0.0-1.0) mg/dL AST 20 (5-31) U/L ALT 18 (0-31) U/L Alkaline Phosphatase 117 (39-117) U/L Troponin I High Sens < 2.7 (<3.5-17.0) ng/L Total Protein 7.1 (6.5-8.0) g/dL Albumin 4.3 (3.5-5.0) g/dL Influenza Type A (PCR) NEGATIVE (Negative) Influenza Type B (PCR) NEGATIVE (Negative) RSV RNA Qual (PCR) NEGATIVE (Negative) SARS-CoV-2 RNA (RT-PCR) NEGATIVE (Negative) Independent Interpretation I performed an independent interpretation of an: EKG and Plain X-Ray Radiology Impression Discussion of test interpretation with radiology: I have reviewed the radiologist's reading. Discharge Plan Discharge Clinical Impression: Anxiety Patient Disposition: Home, Self-Care Instructions: Anxiety (ED) Additional Instructions: You were seen in our Emergency Department today for treatment of a behavioral health issue. It is important after your visit that you follow up with either your behavioral health provider or a primary care doctor within 7 days.? If you have trouble finding a therapist you can reach out to [address] [phone] The National Suicide and Crisis Lifeline can be reached 7 days a week 24 hours a day.? Call 988 to speak with someone.? Return for any worsening symptoms or concerns such as thoughts of self harm or harm to others. Please call 911 if you feel your mental health is worsening.? Prescriptions: New hydroxyzine HCl 25 mg tablet 25 mg PO TID PRN (Reason: anxiety) Qty: 30 0RF No Action (DME) pen needle, diabetic [1st Tier Unifine Pentips Plus] 32 gauge x 5/32 needle See Rx Instructions .ROUTE .MEDSUPPLY Qty: 150 6RF Rx Instructions: 4 times a day (DME) lancets [FreeStyle Lancets] 28 gauge misc See Rx Instructions topical QID Qty: 120 6RF Rx Instructions: 4 times a day (DME) Omnipod 5 G6 Intro Kit (Gen 5) Cartridge See Rx Instructions .Route Qty: 1 0RF Rx Instructions: As directed (DME) Omnipod 5 G6 Pods (Gen 5) Cartridge See Rx Instructions .Route Qty: 5 3RF Rx Instructions: As directed (DME) Dexcom G7 Sensor Device See Rx Instructions .Route Qty: 3 4RF Rx Instructions: As directed change every 10 days (DME) insulin syringe-needle U-100 0.3 mL 31 gauge x 5/16 syringe See Rx Instructions .ROUTE .MEDSUPPLY Qty: 100 1RF Rx Instructions: As directed up to qid for pump failure or glucose correction pantoprazole 40 mg tablet,delayed release (DR/EC) 40 mg PO QAM Qty: 90 2RF losartan 50 mg tablet 50 mg PO BID 30 Days Qty: 60 6RF levothyroxine [Levoxyl] 100 mcg tablet 100 mcg PO DAILY 30 Days Qty: 30 11RF atorvastatin 20 mg tablet 20 mg PO DAILY Qty: 30 3RF lidocaine [Lidoderm] 5 % adhesive patch,medicated 1 patch topical DAILY Qty: 15 0RF Rx Instructions: leave on most painful area for up to 12 hrs (DME) pen needle, diabetic 32 gauge x 5/32 needle See Rx Instructions subcut .MEDSUPPLY Qty: 50 Rx Instructions: As directed acetaminophen 500 mg capsule 1,000 mg PO Q6H PRN (Reason: pain) Qty: 30 0RF albuterol sulfate [Ventolin HFA] 90 mcg/actuation HFA aerosol inhaler 1 inh inhalation Q6H PRN (Reason: shortness of breath or wheezing) Qty: 18 0RF (DME) inhalational spacing device Spacer See Rx Instructions .Route Qty: 1 0RF Rx Instructions: As directed cetirizine 10 mg tablet 10 mg PO DAILY PRN Fiasp U-100 Insulin 100 unit/mL solution See Rx Instructions subcut .COMPLEX Qty: 40 4RF Rx Instructions: subcutaneously; Infuse up to 120 units via insulin pen per day subcutaneously; cyclobenzaprine 5 mg tablet 5 mg PO BID PRN (Reason: muscle spasm) Qty: 30 0RF methocarbamol 750 mg tablet 1,500 mg PO Q8H 28 Days Qty: 168 0RF ketorolac 10 mg tablet 10 mg PO Q6H PRN (Reason: pain) gabapentin 300 mg capsule See Rx Instructions PO TID Qty: 120 6RF Rx Instructions: orally 3 times a day; 1cap qam 1 cap qnoon and 2 caps qhs (DME) FreeStyle Lite Strips Strip See Rx Instructions .ROUTE .MEDSUPPLY Qty: 200 11RF Rx Instructions: As directed six times a day p.r.n. sensor failure or to confirm readings (DME) lancets [FreeStyle Lancets] 28 gauge misc See Rx Instructions .ROUTE .MEDSUPPLY Qty: 100 1RF Rx Instructions: 6 times a day prn sensor failure or to confirm glucose (DME) blood-glucose meter [FreeStyle Lite Meter] Kit See Rx Instructions .Route Qty: 1 1RF Rx Instructions: As directed (DME) Ketone Urine Test Strip See Rx Instructions .ROUTE .MEDSUPPLY Qty: 25 1RF Rx Instructions: As directed (DME) pen needle, diabetic 32 gauge x 5/32 needle See Rx Instructions .ROUTE .COMPLEX Qty: 100 6RF Dose Instruction: USE TO INJECT 5 TIMES A DAY Rx Instructions: USE TO INJECT 5 TIMES A DAY if pump is not operating insulin glargine [Lantus Solostar U-100 Insulin] 100 unit/mL (3 mL) insulin pen 30 unit subcut QPM MDD 30 PRN (Reason: pump failure) 30 Days Qty: 6 3RF Baqsimi 3 mg/actuation spray,non-aerosol 3 mg intranasal ONCE MDD 6mg PRN (Reason: severe low) 30 Days Qty: 2 1RF Rx Instructions: may repeat in 15 min fluticasone propionate [Flonase Allergy Relief] 50 mcg/actuation spray,suspension 2 spray intranasal DAILY Qty: 16 1RF Rx Instructions: administer into each nostril bisacodyl [Dulcolax (bisacodyl)] 5 mg tablet,delayed release (DR/EC) 10 mg PO BEDTIME Qty: 180 4RF polyethylene glycol 3350 [Miralax] 17 gram/dose powder 238 g PO ONCE Qty: 238 0RF Rx Instructions: As directed by gastroenterology department at [facility] lorazepam 0.5 mg tablet 0.25 mg PO DAILY PRN (Reason: anxiety) Qty: 10 0RF clotrimazole-betamethasone 1-0.05 % cream 1 appl topical BID 28 Days Qty: 15 3RF Rx Instructions: Apply to bottom of feet twice a day. Referrals: [facility] [Provider Group, Psychiatry] Clinical Impression: Anxiety Print Language: Indonesian
[2025-03-19 21:50] VITALS: BP 141/70; PULSE 88; RESP 16; TEMP 36.9; O2SAT 95
[2025-03-19 22:08] VITALS: BP 155/83; PULSE 74; RESP 16; TEMP 36.9; O2SAT 98
--- NOTE | 2025-03-19 22:41 | MHC.CARE ---
Per ED provider, CARE team is consulted to offer information/resources for therapy. Upon discussion, Pt expresses struggling with frequent panic attacks in the context of medical concerns. She reports that her outpatient medication provider is Stefani Cooney through [facility], however is not prescribed medications at this time pending medical workup. Per Pt, it had been recommended by the medication prescriber that Pt would benefit from therapy to alleviate her symptoms of anxiety instead of medications. It is unclear if she is still established with the medication prescriber. Pt is agreeable to a referral for [facility] for therapy. Pt is provided information about [facility]'s walk-in hours and contact number in the mean time.
[2025-03-19 23:23] VITALS: BP 155/83; PULSE 74; RESP 16; TEMP 36.9; O2SAT 98
== END 2025-03-19 23:15 | disposition home or self-care (01) ==
PROVIDERS: Registered Nurse Emergency; Emergency Provider Student in an Organized Health Care Education/Training Program; PCP Internal Medicine
DX: F41.9 Anxiety disorder, unspecified (principal); F41.0 Panic disorder [episodic paroxysmal anxiety]; R07.9 Chest pain, unspecified; Z03.818 Encounter for observation for suspected exposure to other biological agents ruled out
CPT/HCPCS: 71046; 80053; 83735; 84484; 85025; 85610; 87637; 93005; 99283; 99285

== ENCOUNTER → 2025-03-19 19:51 | Outpatient (BNV) | payer OTHER, SELFPAY | PROVIDERS: Emergency Provider Student in an Organized Health Care Education/Training Program; PCP Internal Medicine; Visit Provider Radiology Diagnostic Radiology | DX: R07.9 Chest pain, unspecified (principal) | CPT/HCPCS: 71046 ==

== ENCOUNTER → 2025-03-19 19:51 | Outpatient (BNV) | payer OTHER, SELFPAY | PROVIDERS: Emergency Provider Student in an Organized Health Care Education/Training Program; PCP Internal Medicine; Visit Provider Internal Medicine Cardiovascular Disease | DX: R94.31 Abnormal electrocardiogram [ECG] [EKG] (principal); R07.9 Chest pain, unspecified | CPT/HCPCS: 93010 ==

== ENCOUNTER 2025-04-01 01:02 | Emergency (ER) | payer OTHER, SELFPAY ==
[2025-04-01 01:04] VITALS: BP 178/116; PULSE 85; RESP 18; TEMP 36.6; O2SAT 98; BMI 54.3
--- NOTE | 2025-04-01 01:13 | ECG_ITS ---
Test Reason : DIZZINESS Blood Pressure : */* mmHG Vent. Rate : 83 BPM Atrial Rate : 83 BPM P-R Int : 160 ms QRS Dur : 90 ms QT Int : 380 ms P-R-T Axes : 41 14 15 degrees QTcB Int : 446 ms Normal sinus rhythm Normal ECG When compared with ECG of 19-Mar-2025 19:55, No significant change was found Referred By: Generic ED Physician Electronically Signed By: CAROLINA ALVARADO MD
[2025-04-01 01:14] LABS: Glucose, Whole Blood 129 mg/dL (60-115)
[2025-04-01 01:30] LABS: MANUAL DIFF FLAG NO
[2025-04-01 01:31] LABS: Hematocrit 34.7 % (37.0-47.0); Hemoglobin 11.2 g/dl (12.0-16.0); Imm Gran Abs Auto 0.02 X10*3/uL (0.00-0.03); Imm Gran Pct Auto 0.2 % (0.0-0.4); Lymphocytes Absolute Auto 3.0 X10*3/uL (1.2-4.9); Mean Corpuscular HGB Conc 32.3 g/dl (31.0-35.0); Mean Corpuscular Hemoglobin 28.9 pg (27.0-33.0); Mean Corpuscular Volume 89.4 fL (80.0-98.0); NRBC Abs Auto 0.000 X10*3/uL (0.0-0.012); NRBC Pct Auto 0.0 /100WBC (0.0-0.2); Platelet Count 294 X10*3/uL (160-400); Red Blood Count 3.88 X10*6/uL (4.20-5.50); White Blood Count 8.6 X10*3/uL (4.8-10.8)
[2025-04-01 01:49] LABS: Alanine Aminotransferase 18 U/L (0-31); Albumin Level 4.0 g/dL (3.5-5.0); Alkaline Phosphatase 115 U/L (39-117); Anion Gap 14 (12-20); Aspartate Amino Transferase 23 U/L (5-31); Blood Urea Nitrogen 18 mg/dL (9-16); Calcium 9.3 mg/dL (8.4-10.2); Carbon Dioxide 24 mmol/L (22-29); Chloride 109 mmol/L (96-108); Creatinine Clr Calc Pharmacy 166.3; Estimated Glomerular Filt Rate > 60; Potassium 3.8 mmol/L (3.3-5.1); Sodium 143 mmol/L (135-145); Total Protein 6.6 g/dL (6.5-8.0)
--- NOTE | 2025-04-01 02:17 | PC.NURSE ---
pt reports being woken up ay 0000 tonight with a 40 POC reading on her insulin pump. She ate two slices of bread with spam, two spoon fulls of sugar and some juice, prior to arriving in the ED. Pt POC was 129 at 0100 and 212 at 0215. pt reports feeling dizzy.
--- OUTSIDE RECORDS SUMMARY | 2025-04-01 02:46 | XMS_ITS | Encounter Summary ---
Author Organization [employer] Address [address] [facility] [address] [place] [address] Care Team Providers Care Peripatologist Name Role Phone Unavailable Primary Care Provider [...]
--- OUTSIDE RECORDS SUMMARY | 2025-04-01 02:46 | XMS_ITS | Encounter Summary ---
Author Organization [employer] Address [address] [facility] [address] [place] [address] Care Team Providers Care Head Of Loss Prevention Name Role Phone Unavailable Primary Care Provider [...]
--- OUTSIDE RECORDS SUMMARY | 2025-04-01 02:46 | XMS_ITS | Clinical Summary ---
Author Organization [employer] Address [address] [facility] [address] [place] [address] Care Team Providers Care Aws Consultant Name Role Phone Unavailable Primary Care Provider [...] Phone Billing Address Dental Self 1975 [address] [facility] [address] [place] [address] DENTAL - [facility]SN PARTIAL (MEDICAID)
--- OUTSIDE RECORDS SUMMARY | 2025-04-01 02:46 | XMS_ITS | Encounter Summary ---
Author Organization [employer] Address [address] [facility] [address] [place] [address] Care Team Providers Care Iron Worker Apprentice Name Role Phone Unavailable Primary Care Provider [...]
[2025-04-01 04:08] LABS: Glucose, Whole Blood 252 mg/dL (60-115)
[2025-04-01 04:08] LABS: Glucose, Whole Blood 193 mg/dL (60-115)
--- NOTE | 2025-04-01 04:17 | ED_ITS ---
HPI - Dizziness General Chief Complaint: Dizziness Stated Complaint: General Medical Time Seen by Provider: 04/01/25 04:16 Source: patient Mode of arrival: ambulatory Limitations: no limitations History of Present Illness ED Provider: Benjy CARVALHO HPI Narrative: The patient is a 49-year-old female with insulin-dependent diabetes presented after her insulin pump alarmed for hypoglycemia around midnight. She noted dizziness and, on checking the pump, saw a glucose reading of 43. She treated at home by pausing her pump and ingesting juice and bread, then came to the ED for evaluation. Shortly after arriving in the ED, she noted her Dexcom CGM sensor has failed, patient reports her pump is dependent on the CGM data and she needs to self administer insulin when she does not have Dexcom available. The patient reports multiple recent Dexcom sensor failures in her most recent batch of sensors, with two failing out of the last 6, and this went will be the 3rd failure, patient reports her new sensors are expected to arrive this week. Patient reports her dizziness has resolved at time of provider exam/interviewed. The patient denies other acute somatic complaint. Related Data Home Medications ?Medication ?Instructions ?Recorded ?Confirmed pen needle, diabetic 32 gauge x #50 ea 03/06/20 cetirizine 10 mg tablet 10 mg PO DAILY PRN 06/13/24 03/08/25 ketorolac 10 mg tablet 10 mg PO Q6H PRN pain 03/08/25 Previous Rx's ?Medication ?Instructions ?Recorded pen needle, diabetic 32 gauge x #150 ea 04/29/20 (1st Tier Unifine Pentips Plus) FreeStyle Lancets 28 gauge #120 ea 05/16/20 (lancets) insulin pump cart,automated,BT #5 ea 04/20/22 (Omnipod 5 G6 Pods (Gen 5) subcutaneous cartridge) insulin pump cartridge,automated #1 ea 04/20/22 dose,BT with controller subcutaneous (Omnipod 5 G6 Intro Kit (Gen 5) subcutaneous cartridge with controller) blood-glucose sensor (Dexcom G7 #3 ea 12/10/22 Sensor device) acetaminophen 500 mg capsule 1,000 mg (2 x 500 mg) PO Q6H PRN 07/06/23 pain #30 caps albuterol sulfate 90 mcg/actuation 1 inh inhalation Q6 H PRN shortness 01/30/24 aerosol inhaler (Ventolin HFA) of breath or wheezing # 18 grams acetone (urine) test (Ketone Urine #25 ea 02/03/24 Test strips) blood sugar diagnostic (FreeStyle #200 ea 02/03/24 Lite Strips) blood-glucose meter (FreeStyle #1 ea 02/03/24 Lite Meter kit) lancets 28 gauge (FreeStyle #100 ea 02/03/24 Lancets) inhalational spacing device #1 ea 02/24/24 fluticasone propionate 50 2 spray intranasal DAILY #16 grams 08/30/24 mcg/actuation nasal spray,suspension (Flonase Allergy Relief) Baqsimi 3 mg/actuation nasal spray 3 mg intranasal ONC E PRN severe 09/04/24 (glucagon) low 30 days #2 ea insulin glargine 100 unit/mL (3 30 unit (0.3 mL) subcu t QPM PRN 09/04/24 mL) subcutaneous pen (Lantus pump failure 30 days #6 m L Solostar U-100 Insulin) pen needle, diabetic 32 gauge x #100 ea 09/04/24 insulin syringe-needle U-100 0.3 #100 ea 10/12/24 mL 31 gauge x 09/07 pantoprazole 40 mg tablet,delayed 40 mg PO QAM #90 tab s 11/20/24 release lidocaine 5 % topical patch 1 patch topical DAILY #15 ea 11/25/24 (Lidoderm) cyclobenzaprine 5 mg tablet 5 mg PO BID PRN muscle spa sm #30 12/04/24 tabs insulin aspart (niacinamide) See Rx Instructions subcu t 12/04/24 (U-100) 100 unit/mL subcutaneous .COMPLEX #40 mL solution (Fiasp U-100 Insulin) lorazepam 0.5 mg tablet 0.25 mg (1/2 x 0.5 mg) PO DA HOLLI 01/02/25 PRN anxiety #10 tabs losartan 50 mg tablet 50 mg PO BID 30 days #60 tab s 01/02/25 Levoxyl 100 mcg tablet 100 mcg PO DAILY 30 days #30 tabs 01/21/25 (levothyroxine) clotrimazole-betamethasone 1 1 appl topical BID athlet e's foot 02/13/25 %-0.05 % topical cream 4 weeks #15 grams gabapentin 300 mg capsule See Rx Instructions PO TID p ain 02/18/25 (scale score 4-6) #120 caps atorvastatin 20 mg tablet 20 mg PO DAILY #30 tabs 01/24 12/17 bisacodyl 5 mg tablet,delayed 10 mg (2 x 5 mg) PO BEDT NITHIN #180 02/22/25 release (Dulcolax (bisacodyl)) tabs polyethylene glycol 3350 17 238 g PO ONCE #238 grams 1 gram/dose oral powder (Miralax) methocarbamol 750 mg tablet 1,500 mg (2 x 750 mg) PO Q 8H pain, 03/08/25 moderate 4 weeks #168 tabs hydroxyzine HCl 25 mg tablet 25 mg PO TID PRN anxiety #30 tabs 03/19/25 Allergies Allergy/AdvReac Type Severity Reaction Status Date / Time sertraline Allergy Severe GERD Verified 04/01/25 01:05 aspirin (ASA) Allergy Unknown BLEEDING Verified 04/01/25 01:05 lisinopril AdvReac Intermediate Cough Verified 04/01/25 01:05 prednisone AdvReac Intermediate high Blood Verified 04/01/25 01:05 sugar grasses/pollen Allergy Mild congestion Uncoded 03/12/25 15:12 Actos Allergy Unknown nausea and Uncoded 03/12/25 15:12 vomiting Trulicity Allergy Unknown nausea and Uncoded 03/12/25 15:12 vomiting Review of Systems 2 Review of Systems: Yes all other systems are reviewed and are negative PMFSH Past Medical History Medical History Obesity, morbid, BMI 40.0-49.9 Allergic rhinitis Back pain Obesity Cough Uncontrolled type 1 diabetes mellitus with hyperglycemia, with long-term current use of insulin Viral syndrome 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 Vitamin D deficiency Diabetic nephropathy associated with type 2 diabetes mellitus Hypothyroidism Impacted cerumen of right ear Menstrual bleeding problem Hypothyroid Asthma Hypercholesterolemia Hypertension Surgical History History of hysteroscopy Hx of right breast biopsy Hx of tooth extraction Family History Family History Father Hypertension Obesity Prediabetes Mother Heart disease Glaucoma Social History Social History Household Members: Family Housing: Apartment Alcohol intake: never Patient Tobacco Use Status: Never used Tobacco Tobacco use type: Cigarette e-Cigarette/Vaping Use: Never Used Second Hand Smoke Exposure: No Advance Directives: No Advance Directives Information Provided: No Patient : No service: No Current occupational status: employed Current occupational exposures/hazards: No Gender identity: Female Cognitive needs: No Hearing needs: No Vision needs: Yes Physical Exam 2 Vital Signs: Vital Signs: Last Vital Signs Temp 97.9 F 04/01/25 01:04 Pulse 85 04/01/25 01:04 Resp 18 04/01/25 01:04 BP 178/116 H 04/01/25 01:04 Pulse Ox 98 04/01/25 01:04 O2 Del Method Room Air 04/01/25 01:04 BMI result Body Mass Index 54.3 CONSTITUTIONAL: The patient appears non-toxic, well nourished and in no acute distress. Vital signs as documented. HEAD: Atraumatic, normocephalic. EYES: EOMs grossly intact, pupils equal, conjunctiva clear, no exudate. ENT: Nares patent, no discharge. Airway patent, no audible stridor, visible mucosa is pink and moist without noted lesions. NECK: trachea is midline, no obvious masses or gross abnormalities. CHEST: Symmetric movement, normal appearance. LUNGS: Non-labored work of breathing. CARDIAC: No evidence of hypoperfusion. ABDOMEN: Nondistended, no obvious injury. : Deferred. EXTREMITIES: Moves all extremities spontaneously without reported pain. No obvious injury or deformity noted. NEURO: Alert and oriented x3, CN II-XII appear grossly intact. Cerebellar Functioning grossly intact. Speech clear and appropriate. SKIN: Warm, dry, color appropriate. No rashes or lesions noted. Medical Decision Making Medical Decision Making MDM Narrative: 4:31 AM 04/01/2025 (Parviz CARVALHO): The patient is a 49-year-old female with insulin-dependent diabetes presented after her insulin pump alarmed for hypoglycemia around midnight. She noted dizziness and, on checking the pump, saw a glucose reading of 43. She treated at home by pausing her pump and ingesting juice and bread, then came to the ED for evaluation. Shortly after arriving in the ED, she noted her Dexcom CGM sensor has failed, patient reports her pump is dependent on the CGM data and she needs to self administer insulin when she does not have Dexcom available. The patient reports multiple recent Dexcom sensor failures in her most recent batch of sensors, with two failing out of the last 6, and this went will be the 3rd failure, patient reports her new sensors are expected to arrive this week. Patient reports her dizziness has resolved at time of provider exam/interviewed. The patient denies other acute somatic complaint. Laboratory evaluation in the ED shows no leukocytosis, significant anemia, electrolyte abnormality, or CHANDLER. The patient's LFTs are unremarkable. All blood glucose values measured in the ED have been >100, with the most recent reported value of 252 mg/dL. Using her provided correction formula (current BG - 110)/30) she calculates that she needs a corrective dose of 4.7 U , however the patient must use Fiasp insulin as she has an allergy to other insulin. The patient reports she has syringes at home and plans to administer 4 U at home which is 5 minutes away. The patient will be discharged to self administer her insulin, and we will continue checking her insulin manually until she receives her new Dexcom shipment. The patient will also contact her agriculture specialist today to see if they have any free sample Dexcom units she can use until her package arrives. Admission/Observation Consideration of admission/observation: Escalation of care including admission/observation considered Lab Data MDM Lab Attestation statement: I reviewed the patient's lab results. 04/01/25 01:24 04/01/25 01:24 Labs: Lab Results 04/01/25 04/01/25 04/01/25 Range/Units 01:10 01:24 02:42 WBC 8.6 (4.8-10.8) X10*3/uL RBC 3.88 L (4.20-5.50) X10*6/uL Hgb 11.2 L (12.0-16.0) g/dl Hct 34.7 L (37.0-47.0) % MCV 89.4 (80.0-98.0) fL MCH 28.9 (27.0-33.0) pg MCHC 32.3 (31.0-35.0) g/dl RDW 14.5 (11.0-16.0) % Plt Count 294 (160-400) X10*3/uL MPV 9.9 (9.4-12.3) fL Immature Gran % (Auto) 0.2 (0.0-0.4) % Neut % (Auto) 51.8 (45-73) % Lymph % (Auto) 34.4 (20-40) % [place] % (Auto) 9.3 (2-11) % Eos % (Auto) 3.5 (0-4) % Baso % (Auto) 0.8 (0-2) % Lymph # (Auto) 3.0 (1.2-4.9) X10*3/uL [place] # (Auto) 0.8 (0.1-1.2) X10*3/uL Eos # (Auto) 0.3 (0.0-0.4) X10*3/uL Baso # (Auto) 0.1 (0.0-0.2) X10*3/uL Abs Immat Gran (auto) 0.02 (0.00-0.03) X10*3/uL Absolute Neuts (auto) 4.5 (2.0-8.3) x10*3/uL Absolute Nucleated RBC 0.000 (0.0-0.012) X10*3/uL Nucleated RBC % (auto) 0.0 (0.0-0.2) /100WBC Sodium 143 (135-145) mmol/L Potassium 3.8 (3.3-5.1) mmol/L Chloride 109 H (96-108) mmol/L Carbon Dioxide 24 (22-29) mmol/L Anion Gap 14 (12-20) BUN 18 H (9-16) mg/dL Creatinine 0.61 (0.5-1.4) mg/dL Estim Creat Clear Calc 166.3 Estimated GFR > 60 POC Glucose 129 H 193 H (60-115) mg/dL Random Glucose 167 H (60-115) mg/dL Calcium 9.3 (8.4-10.2) mg/dL Total Bilirubin 0.1 (0.0-1.0) mg/dL AST 23 (5-31) U/L ALT 18 (0-31) U/L Alkaline Phosphatase 115 (39-117) U/L Total Protein 6.6 (6.5-8.0) g/dL Albumin 4.0 (3.5-5.0) g/dL 04/01/25 Range/Units 04:03 WBC (4.8-10.8) X10*3/uL RBC (4.20-5.50) X10*6/uL Hgb (12.0-16.0) g/dl Hct (37.0-47.0) % MCV (80.0-98.0) fL MCH (27.0-33.0) pg MCHC (31.0-35.0) g/dl RDW (11.0-16.0) % Plt Count (160-400) X10*3/uL MPV (9.4-12.3) fL Immature Gran % (Auto) (0.0-0.4) % Neut % (Auto) (45-73) % Lymph % (Auto) (20-40) % [place] % (Auto) (2-11) % Eos % (Auto) (0-4) % Baso % (Auto) (0-2) % Lymph # (Auto) (1.2-4.9) X10*3/uL [place] # (Auto) (0.1-1.2) X10*3/uL Eos # (Auto) (0.0-0.4) X10*3/uL Baso # (Auto) (0.0-0.2) X10*3/uL Abs Immat Gran (auto) (0.00-0.03) X10*3/uL Absolute Neuts (auto) (2.0-8.3) x10*3/uL Absolute Nucleated RBC (0.0-0.012) X10*3/uL Nucleated RBC % (auto) (0.0-0.2) /100WBC Sodium (135-145) mmol/L Potassium (3.3-5.1) mmol/L Chloride (96-108) mmol/L Carbon Dioxide (22-29) mmol/L Anion Gap (12-20) BUN (9-16) mg/dL Creatinine (0.5-1.4) mg/dL Estim Creat Clear Calc Estimated GFR POC Glucose 252 H (60-115) mg/dL Random Glucose (60-115) mg/dL Calcium (8.4-10.2) mg/dL Total Bilirubin (0.0-1.0) mg/dL AST (5-31) U/L ALT (0-31) U/L Alkaline Phosphatase (39-117) U/L Total Protein (6.5-8.0) g/dL Albumin (3.5-5.0) g/dL External Record Review External record reviewed: Outpatient record and Prior outpatient labs Discharge Plan Discharge Clinical Impression: Hypoglycemia due to insulin Patient Disposition: Home, Self-Care Instructions: Hypoglycemia in a Person with Diabetes (ED) Additional Instructions: Thank you for choosing [facility]'s Emergency Department for your care today. Thankfully your laboratory evaluation today showed no evidence of a systemic infection or emergent process. At this time there is no indication for admission to the hospital or continued ED observation, and it is safe to discharge you home. Your low blood sugar today appears to be related to a malfunction of your continuous glucose monitor, resulting in an erroneous dosing of your insulin. Until you receive your new Dexcom monitors, please monitor your blood sugar bimanual methods, and self administer your insulin via syringe. Please follow up with your agriculture specialist and primary care physician for re- evaluation, additional management of your symptoms, and continued preventative care. If you do not have a primary care physician, please call the [facility] at [phone] to establish a new primary care physician. While waiting to establish your new primary care physician, you can call our Walk-in Care [facility] at [phone] for non-emergency needs. Please return to the emergency department if you develop a severe or sudden change in your symptoms, a fever over 100.4 that does not improve with Tylenol or Ibuprofen, recurrent vomiting, or any other new or worsening symptoms or concerns. Prescriptions: No Action (DME) pen needle, diabetic [1st Tier Unifine Pentips Plus] 32 gauge x 5/32 needle See Rx Instructions .ROUTE .MEDSUPPLY Qty: 150 6RF Rx Instructions: 4 times a day (DME) lancets [FreeStyle Lancets] 28 gauge misc See Rx Instructions topical QID Qty: 120 6RF Rx Instructions: 4 times a day (DME) Omnipod 5 G6 Intro Kit (Gen 5) Cartridge See Rx Instructions .Route Qty: 1 0RF Rx Instructions: As directed ([facility] [place]) Omnipod 5 G6 Pods (Gen 5) Cartridge See Rx Instructions .Route Qty: 5 3RF Rx Instructions: As directed ([facility] [place]) Dexcom G7 Sensor Device See Rx Instructions .Route Qty: 3 4RF Rx Instructions: As directed change every 10 days (DME) insulin syringe-needle U-100 0.3 mL 31 gauge x 5/16 syringe See Rx Instructions .ROUTE .MEDSUPPLY Qty: 100 1RF Rx Instructions: As directed up to qid for pump failure or glucose correction pantoprazole 40 mg tablet,delayed release (DR/EC) 40 mg PO QAM Qty: 90 2RF losartan 50 mg tablet 50 mg PO BID 30 Days Qty: 60 6RF levothyroxine [Levoxyl] 100 mcg tablet 100 mcg PO DAILY 30 Days Qty: 30 11RF atorvastatin 20 mg tablet 20 mg PO DAILY Qty: 30 3RF hydroxyzine HCl 25 mg tablet 25 mg PO TID PRN (Reason: anxiety) Qty: 30 0RF lidocaine [Lidoderm] 5 % adhesive patch,medicated 1 patch topical DAILY Qty: 15 0RF Rx Instructions: leave on most painful area for up to 12 hrs ([facility] [place]) pen needle, diabetic 32 gauge x 5/32 needle See Rx Instructions subcut .MEDSUPPLY Qty: 50 Rx Instructions: As directed acetaminophen 500 mg capsule 1,000 mg PO Q6H PRN (Reason: pain) Qty: 30 0RF albuterol sulfate [Ventolin HFA] 90 mcg/actuation HFA aerosol inhaler 1 inh inhalation Q6H PRN (Reason: shortness of breath or wheezing) Qty: 18 0RF ([facility] [place]) inhalational spacing device Spacer See Rx Instructions .Route Qty: 1 0RF Rx Instructions: As directed cetirizine 10 mg tablet 10 mg PO DAILY PRN Fiasp U-100 Insulin 100 unit/mL solution See Rx Instructions subcut .COMPLEX Qty: 40 4RF Rx Instructions: subcutaneously; Infuse up to 120 units via insulin pen per day subcutaneously; cyclobenzaprine 5 mg tablet 5 mg PO BID PRN (Reason: muscle spasm) Qty: 30 0RF methocarbamol 750 mg tablet 1,500 mg PO Q8H 28 Days Qty: 168 0RF ketorolac 10 mg tablet 10 mg PO Q6H PRN (Reason: pain) gabapentin 300 mg capsule See Rx Instructions PO TID Qty: 120 6RF Rx Instructions: orally 3 times a day; 1cap qam 1 cap qnoon and 2 caps qhs (DME) FreeStyle Lite Strips Strip See Rx Instructions .ROUTE .MEDSUPPLY Qty: 200 11RF Rx Instructions: As directed six times a day p.r.n. sensor failure or to confirm readings (DME) lancets [FreeStyle Lancets] 28 gauge misc See Rx Instructions .ROUTE .MEDSUPPLY Qty: 100 1RF Rx Instructions: 6 times a day prn sensor failure or to confirm glucose (DME) blood-glucose meter [FreeStyle Lite Meter] Kit See Rx Instructions .Route Qty: 1 1RF Rx Instructions: As directed (DME) Ketone Urine Test Strip See Rx Instructions .ROUTE .MEDSUPPLY Qty: 25 1RF Rx Instructions: As directed (DME) pen needle, diabetic 32 gauge x 5/32 needle See Rx Instructions .ROUTE .COMPLEX Qty: 100 6RF Dose Instruction: USE TO INJECT 5 TIMES A DAY Rx Instructions: USE TO INJECT 5 TIMES A DAY if pump is not operating insulin glargine [Lantus Solostar U-100 Insulin] 100 unit/mL (3 mL) insulin pen 30 unit subcut QPM MDD 30 PRN (Reason: pump failure) 30 Days Qty: 6 3RF Baqsimi 3 mg/actuation spray,non-aerosol 3 mg intranasal ONCE MDD 6mg PRN (Reason: severe low) 30 Days Qty: 2 1RF Rx Instructions: may repeat in 15 min fluticasone propionate [Flonase Allergy Relief] 50 mcg/actuation spray,suspension 2 spray intranasal DAILY Qty: 16 1RF Rx Instructions: administer into each nostril bisacodyl [Dulcolax (bisacodyl)] 5 mg tablet,delayed release (DR/EC) 10 mg PO BEDTIME Qty: 180 4RF polyethylene glycol 3350 [Miralax] 17 gram/dose powder 238 g PO ONCE Qty: 238 0RF Rx Instructions: As directed by gastroenterology department at [facility] lorazepam 0.5 mg tablet 0.25 mg PO DAILY PRN (Reason: anxiety) Qty: 10 0RF clotrimazole-betamethasone 1-0.05 % cream 1 appl topical BID 28 Days Qty: 15 3RF Rx Instructions: Apply to bottom of feet twice a day. Referrals: Daksha Hernandez MD [Primary Care Provider, Internal Medicine] Clinical Impression: Hypoglycemia due to insulin Print Language: [place] Timorese
[2025-04-01 04:36] LABS: Glucose, Whole Blood 246 mg/dL (60-115)
[2025-04-01 04:48] VITALS: BP 136/58; PULSE 80; RESP 18; TEMP 36.6; O2SAT 95
[2025-04-01 08:38] LABS: Glucose, Whole Blood 212 mg/dL (60-115)
== END 2025-04-01 04:52 | disposition home or self-care (01) ==
PROVIDERS: Emergency Provider Emergency Medicine; PCP Internal Medicine
DX: E11.649 Type 2 diabetes mellitus with hypoglycemia without coma (principal); R42 Dizziness and giddiness; I10 Essential (primary) hypertension; E78.00 Pure hypercholesterolemia, unspecified; Z79.4 Long term (current) use of insulin
CPT/HCPCS: 36415; 80053; 82947; 85025; 93005; 99283; 99284

== ENCOUNTER → 2025-04-01 01:13 | Outpatient (BNV) | payer OTHER, SELFPAY | PROVIDERS: Emergency Provider Emergency Medicine; PCP Internal Medicine; Visit Provider Internal Medicine Cardiovascular Disease | DX: R42 Dizziness and giddiness (principal) | CPT/HCPCS: 93010 ==

== ENCOUNTER 2025-04-01 17:00 | Outpatient (RCR) | payer OTHER, SELFPAY ==
--- NOTE | 2025-02-07 17:02 | MHC.PT.EP ---
[facility] [place] Office [place] Office [place] Office [address] Reyna Pitts [address] [phone] F: [phone] F: [phone] F: [phone] F: [phone] Physical Therapy Plan of Care Date of Evaluation: 02/07/25 Date of Surgery: N/A Diagnosis: low back pain *sciatic nerve pain (RL) Assessment: pt is a 49 y/o female presenting to physical therapy w/ referring diagnosis of low back pain *sciatic nerve pain. Impairments include pain, decreased range of motion, decreased strength, impaired functional mobility, impaired postural awareness, and altered ambulation mechanics. pt is a good candidate for skilled PT due to age, potential remediation of impairments, typical disease/condition progression and prognosis, comorbidities, and motivation. pt would benefit from skilled PT intervention to provide a tailored strengthening and stretching exercise program, functional training, gait training, postural re-training, neuromuscular re-education, modalities as needed for pain, equipment safety demonstration. Frequency and Duration: The patient will be seen 2x/wk for 4 wks Short Term Goals: pt will be I w/ HEP to promote self-management of condition. pt will demo proper sitting posture w/ lumbar roll to promote neutral spine w/ seated ADLs. 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 pt will ascend/descend 12 stairs using reciprocal pattern to promote ease in navigation at work. Treatment Plan: Modalities to reduce pain, spasms and effusion. Manual therapy to restore motion and function. Therapeutic exercise to improve strength and flexibility. Neuromuscular re-education for posture and balance. Therapeutic activities to return to functional activities of daily living. Electronically signed by: Patricia Franco PT, DPT Please sign and return to therapist. Thank you for your referral.
--- NOTE | 2025-04-22 15:27 | MHC.PT.DC ---
[facility] [place] Office [place] Office [place] Office [address] Reyna Pitts [address] [phone] F: [phone] F: [phone] F: [phone] F: [phone] Physical Therapy Discharge Report Diagnosis: low back pain *sciatic nerve pain (RL) Date of Surgery: N/A Date of Evaluation: 02/07/25 Date of Discharge: 04/22/25 Treatments to Date: 10 Cancellations to Date: 2 No Shows to Date: 0 Discharge Status: Improved Function Independent with HEP Discharge Summary: The patient overall is reporting improvement in the pain for which she originally presented. Unfortunately, she's been experiencing right heel pain for which she will be attending PT in a couple weeks. At this time, she is discharged from this physical therapy plan of care with the recommendation to continue with her home exercise program. Electronically signed by: Patricia Franco PT, DPT Please sign and return to therapist. Thank you for your referral.
== END 2025-04-22 15:28 | disposition home or self-care (01) ==
LOC: HO.PT 17:00
PROVIDERS: PCP Internal Medicine; Visit Provider Internal Medicine
DX: M54.40 Lumbago with sciatica, unspecified side (principal); G89.29 Other chronic pain
CPT/HCPCS: 97110; 97116; 97140; 97162; 97530

== ENCOUNTER 2025-04-15 11:19 | Outpatient (REF) | payer OTHER, SELFPAY ==
--- NOTE | ~2025-04-15 | MM_ITS ---
EXAMINATION: MM SCREENING DIGITAL BREAST TOMOSYNTHESIS, BILATERAL CLINICAL INFORMATION: Screening. Asymptomatic. COMPARISON: Mammography: Comparison is made with available priors TECHNIQUE: Digital breast mammography with tomosynthesis is performed in both the craniocaudal and mediolateral oblique views along with computer-aided detection (CAD). FINDINGS: There are scattered areas of fibroglandular density. Marker clip. There are no significant masses, abnormal calcifications, or other abnormalities. MM/MM tomosynthesis screening BI IMPRESSION: No mammographic evidence of malignancy. ASSESSMENT: BI-RADS Category 2: Benign RECOMMENDATION: Routine annual mammography screening. 1 year F/U This examination should not preclude the clinical evaluation of a suspicious palpable abnormality. This patient's information was entered into a reminder system with a target due date for their next mammogram. Electronically signed by: Lin Santana DO 04/17/2025 04:50 PM NIKKI
--- OUTSIDE RECORDS SUMMARY | 2025-04-15 14:26 | XMS_ITS | Encounter Summary ---
Author Organization [employer] Address [address] [facility] [facility] [address] [place] [address] Care Team Providers Care Director Human Services Name Role Phone Unavailable Primary Care Provider [...]
--- OUTSIDE RECORDS SUMMARY | 2025-04-15 14:27 | XMS_ITS | Clinical Summary ---
Author Organization [employer] Address [address] [facility] [address] [place] [address] Care Team Providers Care Wood Veneer Taper Name Role Phone Unavailable Primary Care Provider [...] Phone Billing Address Dental Self 1975 [address] [place] [address] DENTAL - HSN PARTIAL (MEDICAID)
--- OUTSIDE RECORDS SUMMARY | 2025-04-15 14:27 | XMS_ITS | Encounter Summary ---
Author Organization [employer] Address [address] [facility] [address] [place] [address] Care Team Providers Care General Warehouse Worker Name Role Phone Unavailable Primary Care [...]
--- OUTSIDE RECORDS SUMMARY | 2025-04-15 14:27 | XMS_ITS | Patient Health Record ---
Author Organization [facility] Address [facility] [place] [address] Care Team Providers Care Car Wrecker Name Role Phone CALDERONJAZIEL RUSH Primary Care Provider Bee vailable Allergies Allergen (clinical drug ingredient) Drug/Non Drug Allergy documented on EMR Reaction Allergy Type Onset Date Status aspirin Aspirina (uncoded) sangrado Allergy A ctive Reason For Referral No Information Medications Medication SIG (Take, Route, Frequency, Duration) Notes Start Date End Date Diagnosis ( ICD Code) Status Januvia Active metFORMIN HCl Active Synthroid Active Social History Sex Observation Social History Observation Description Sex Observation Female Social History Semaj de Emergencia Social Info Question Answer Notes Historial Social Transfuciones componentes sanguineos No Modo de llegada Ambulando Silla de jonah Plan Of Treatment Pending Test Test Name Order Date ABDOMEN (FLAT PLATE)1 VIEW 11/02/2018 Medical (General) History Medical History History ICD Code Tiroides Diabetes
--- OUTSIDE RECORDS SUMMARY | 2025-04-15 14:27 | XMS_ITS | Encounter Summary ---
Author Organization [employer] Address [address] [facility] [address] [place] [address] Care Team Providers Care Chuck Wagon Driver Name Role Phone Unavailable Primary Care Provider [...]
== END 2025-04-15 11:20 | disposition home or self-care (01) ==
LOC: HO.MAMMO 11:19
PROVIDERS: PCP Internal Medicine; Visit Provider Internal Medicine
DX: Z12.31 Encounter for screening mammogram for malignant neoplasm of breast (principal)
CPT/HCPCS: 77063; 77067

== ENCOUNTER → 2025-04-15 11:30 | Outpatient (BNV) | payer OTHER, SELFPAY | PROVIDERS: PCP Internal Medicine; Visit Provider Internal Medicine | DX: Z12.31 Encounter for screening mammogram for malignant neoplasm of breast (principal) | CPT/HCPCS: 77063; 77067 ==

== ENCOUNTER 2025-04-17 09:06 | Outpatient (AMB) | payer OTHER, SELFPAY ==
--- OUTSIDE RECORDS SUMMARY | 2025-04-17 09:12 | XMS_ITS | Encounter Summary ---
Author Organization [employer] Address [address] [facility] [address] [place] [address] Care Team Providers Care Analyst Sales Name Role Phone Unavailable Primary Care Provider [...]
--- OUTSIDE RECORDS SUMMARY | 2025-04-17 09:12 | XMS_ITS | Encounter Summary ---
Author Organization [employer] Address [address] [facility] [address] [place] [address] Care Team Providers Care Granular Operator Name Role Phone Unavailable Primary Care [...]
--- OUTSIDE RECORDS SUMMARY | 2025-04-17 09:12 | XMS_ITS | Clinical Summary ---
Author Organization [email or web address] Address [address] [facility] [address] [place] [address] Care Team Providers Care Washing Machine Loader And Puller Name Role Phone Unavailable Primary Care Provider [...] Phone Billing Address Dental Self 1975 [address] [facility] [address] [place] [address] DENTAL - HSN PARTIAL (MEDICAID)
--- OUTSIDE RECORDS SUMMARY | 2025-04-17 09:12 | XMS_ITS | Encounter Summary ---
Author Organization [employer] Address [address] [facility] [address] [place] [address] Care Team Providers Care Chemist Assistant Name Role Phone Unavailable Primary Care Provider [...]
--- OUTSIDE RECORDS SUMMARY | 2025-04-17 09:12 | XMS_ITS | Patient Health Record ---
Author Organization [facility] Address [facility] [place] [address] Care Team Providers Care Administrative Resident Name Role Phone CALDERONJAZIEL RUSH Primary Care [...]
--- NOTE | 2025-04-17 09:40 | A.OFFVIS_ITS ---
Vital Signs 04/17/25 09:55 Height 5 ft 5 in Weight 326 lb BMI 54.2 Intake Visit Reasons: Type 1 diabetes mellitus with hyperglycemia Intake Note: Juan is a 49 year old female who presents today for a follow up on her left ankle tendonitis. AT her last visit she was referred for Physical therapy, Instructed to perform ROM exercises at home. Patient reports that she started PT yesterday for her evaluation and next week is first one. She has been doing ROM at home and she feels like it is helping. ROM is better when she wears sneakers then if she is barefoot. Overall pain is between 8 and 10. Pain is worse when she does a lot of walking and especially stairs. Patient would like to know how long she will need to take the gabapentin and methocarbamol for? She is not sure if they are working, or if she will feel this way forever now, due to the muscular hypertonicity. Outside Parts Sales Required: No Allergies sertraline Allergy (Severe, Verified 04/01/25 01:05) GERD aspirin (ASA) Allergy (Unknown, Verified 04/01/25 01:05) BLEEDING lisinopril Adverse Reaction (Intermediate, Verified 04/01/25 01:05) Cough prednisone Adverse Reaction (Intermediate, Verified 04/01/25 01:05) high Blood sugar grasses/pollen Allergy (Mild, Uncoded 03/12/25 15:12) congestion Actos Allergy (Unknown, Uncoded 03/12/25 15:12) nausea and vomiting Trulicity Allergy (Unknown, Uncoded 03/12/25 15:12) nausea and vomiting HPI HPI Type 1 diabetes mellitus with hyperglycemia: Details: 49 y/o female past medical history of SLE, type 1 diabetes on insulin w/ peripheral neuropathy, hypothyroidism, HTN, HLD, morbid obesity, and chronic back pain presents for 1 month follow up evaluation of left foot/ankle stiffness and pain. She notes increasing improvement in range of motion to the left ankle. She notes that she has overall intermittent worsening symptoms depending on her activity, mostly presenting with hypertonicity to her uper leg muscles. She has just started physical therapy. She has been taking Robaxin and recently in creased her Gabapentin dosage, both of which he is not sure if she is seeing improvement from. She saw her belt operator which did not recommend GLP-1 due to her type 1 diabetes. She has been unable to complete her neuro/sleep exams currently. She notes a history of serotonin syndrome due after starting sertraline for 3 days, which she was hospitalized for at the time. She believes her lower extremity symptoms started after her serotonin syndrome. History: She complains of left anterior ankle and dorsal foot pain as well as spasms of her toes that began early January after a lower back strain. She states the toe spasms started as a hyper extension, however she has not had recent episodes since then, and her pain and symptoms in her toes have improved. Now her pain is mostly localized to the front of her ankle and foot. She complains her lower extremity has been stiff since her back spasm, and she is unable to move her ankle/foot/toes properly, affecting her gait significantly. She notes mild improvement in this stiffness when she rests her leg in a dependent position. Patient denies any numbness, tingling, burning, or shooting sensations to her left leg at this time. She does note sciatica symptoms of her left hip, which is new, compared to a chronic history of right hip sciatica. She denies any urinary/bowel incontinence/urgency/constipation, and pain out of proportion. [facility] Medical History Obesity, morbid, BMI 40.0-49.9 Allergic rhinitis Back pain Obesity Cough Uncontrolled type 1 diabetes mellitus with hyperglycemia, with long-term current use of insulin Viral syndrome meterman (current) use of insulin Vitamin D deficiency Diabetic nephropathy associated with type 2 diabetes mellitus Hypothyroidism Impacted cerumen of right ear Menstrual bleeding problem Hypothyroid Asthma Hypercholesterolemia Hypertension Surgical History History of hysteroscopy Hx of right breast biopsy Hx of tooth extraction Family History Father Hypertension Obesity Prediabetes Mother Heart disease Glaucoma Social History Household Members: Family Housing: Apartment Alcohol intake: never Patient Tobacco Use Status: Never used Tobacco Tobacco use type: Cigarette e-Cigarette/Vaping Use: Never Used Second Hand Smoke Exposure: No service: No Current occupational status: employed Current occupational exposures/hazards: No Gender identity: Female Cognitive needs: No Hearing needs: No Vision needs: Yes Female Reproductive History Menstrual Age of Menarche: 12 Physical Exam Vital Signs: BMI result Body Mass Index 54.2 Extrem Other: *Bilateral Lower Extremity Focused Diabetic Foot Exam Vascular: DP/PT 2/4, CFT<3s to digits, TG warm to cool, no pedal edema, pedal hair present Derm: Skin: annular scaling plantar heel/arches with a well circumscribed erythematous patch along the dorsal-medial arches, bilaterally, significantly improved. Interdigital spaces: Clear, no maceration or fungal infection. Nails: No onychomycosis, paronychia, or ingrown nails. Neuro: Negative tinel's sign bilateral CPN, tibial nerve, and DPN/SPN. Msk: Bilateral ankle range of motion 20 degrees plantarflexion and up to 3-4 degrees of ankle dorsiflexion. No notable anterior leg hypertonicity. No active fasciculation or spasticity noted on examination. Digital ROM intact and without restriction upon manual manipulation. Patient is now able to perform passive ROM to the left foot/ankle/digits. Footwear Assessment: Shoes inspected; appropriate fit, no excessive wear, or foreign objects noted. 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
[2025-04-17 09:55] VITALS: BMI 54.2
== END 2025-04-17 10:06 | disposition home or self-care (01) ==
LOC: HO.HPODS 09:07
PROVIDERS: PCP Internal Medicine; Visit Provider Student in an Organized Health Care Education/Training Program
DX: M77.52 Other enthesopathy of left foot and ankle (principal); M62.89 Other specified disorders of muscle; B35.3 Tinea pedis
CPT/HCPCS: 99213

== ENCOUNTER → 2025-04-17 09:06 | Outpatient (BNVA) | payer OTHER, SELFPAY | PROVIDERS: PCP Internal Medicine; Visit Provider Student in an Organized Health Care Education/Training Program | DX: E10.65 Type 1 diabetes mellitus with hyperglycemia (principal); Z79.4 Long term (current) use of insulin; M77.52 Other enthesopathy of left foot and ankle; M62.89 Other specified disorders of muscle; B35.3 Tinea pedis | CPT/HCPCS: 99212 ==

== ENCOUNTER 2025-04-24 12:35 | Outpatient (AMB) | payer OTHER, SELFPAY ==
--- NOTE | 2025-04-24 13:05 | A.OFFVIS_ITS ---
Intake Intake Visit Reasons: 60 min Calciner Operator Required: No Accompanied by: Self / Same As Patient Allergies sertraline Allergy (Severe, Verified 04/01/25 01:05) GERD aspirin (ASA) Allergy (Unknown, Verified 04/01/25 01:05) BLEEDING lisinopril Adverse Reaction (Intermediate, Verified 04/01/25 01:05) Cough prednisone Adverse Reaction (Intermediate, Verified 04/01/25 01:05) high Blood sugar grasses/pollen Allergy (Mild, Uncoded 03/12/25 15:12) congestion Actos Allergy (Unknown, Uncoded 03/12/25 15:12) nausea and vomiting Trulicity Allergy (Unknown, Uncoded 03/12/25 15:12) nausea and vomiting HPI Comprehensive Diabetes Asmnt Most Recent Diabetes Results: 2 Microalb/Creat Ratio, (<30) 54.2 ug/mg cr H 05/26/24 Cholesterol, (<200) 153 mg/dL 05/26/24 HDL Cholesterol, (>40) 63 mg/dL 05/26/24 Triglycerides, (<150) 56 mg/dL 05/26/24 Creatinine, (0.5-1.4) 0.61 mg/dL 04/01/25 BUN, (9-16) 18 mg/dL H 04/01/25 Sodium, (135-145) 143 mmol/L 04/01/25 Potassium, (3.3-5.1) 3.8 mmol/L 04/01/25 Chloride, (96-108) 109 mmol/L H 04/01/25 Carbon Dioxide, (22-29) 24 mmol/L 04/01/25 Calcium, (8.4-10.2) 9.3 mg/dL 04/01/25 AST, (5-31) 23 U/L 04/01/25 ALT, (0-31) 18 U/L 04/01/25 Total Protein, (6.5-8.0) 6.6 g/dL 04/01/25 Albumin, (3.5-5.0) 4.0 g/dL 04/01/25 [facility] Medical History Obesity, morbid, BMI 40.0-49.9 Allergic rhinitis Back pain Obesity Cough Uncontrolled type 1 diabetes mellitus with hyperglycemia, with long-term current use of insulin Viral syndrome intermediate manager (current) use of insulin Vitamin D deficiency Diabetic nephropathy associated with type 2 diabetes mellitus Hypothyroidism Impacted cerumen of right ear Menstrual bleeding problem Hypothyroid Asthma Hypercholesterolemia Hypertension Surgical History History of hysteroscopy Hx of right breast biopsy Hx of tooth extraction Family History Father Hypertension Obesity Prediabetes Mother Heart disease Glaucoma Social History Household Members: Family Housing: Apartment Alcohol intake: never Patient Tobacco Use Status: Never used Tobacco Tobacco use type: Cigarette e-Cigarette/Vaping Use: Never Used Second Hand Smoke Exposure: No service: No Current occupational status: employed Current occupational exposures/hazards: No Gender identity: Female Cognitive needs: No Hearing needs: No Vision needs: Yes Female Reproductive History Menstrual Age of Menarche: 12 Assessment & Plan Assessment & Plan (1) 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 The following topics were reviewed today: -Pump therapy basic concepts: Basal/bolus -For most effective glucose control bolus prior to meals - Off pump backup insulin plan iLet Alerts: ??? High Alert: 300 mg/dl ??? Low Alert: 75 mg/dl Patient's last A1c on 03/08/2025 5.9% Patient expressed interest in factory reset once holidays are over due to change in eating patterns. Reports that holidays will end on April 30 2025 At today's visit reviewed how to do a factory reset on insulin pump Instructed patient if she feels comfortable doing it on her own she can do it on May 01. She will follow-up with telehealth nurse educator in 2 weeks Instructed patient to only use room temperature insulin, how to load cartridge or fill pod, with insulin. Fill tubing and cannula (if applicable) Patient understands the basic concepts of pump therapy, how to give insulin for meals and snacks, how to troubleshoot for hyper and hypoglycemia. Patient will follow up with [facility] as instructed Patient will contact [facility] with questions or concerns, patient given IT number to support in any technical issues related to insulin pump Portions of this note were created using voice recognition software, please excuse any words or phrases that may have been misinterpreted. 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
--- OUTSIDE RECORDS SUMMARY | 2025-04-24 14:12 | XMS_ITS | Patient Health Record ---
Author Organization [facility] Address [facility] [place] [address] Care Team Providers Care Life Scientist Name Role Phone CALDERONJAZIEL RUSH Primary Care [...]
--- OUTSIDE RECORDS SUMMARY | 2025-04-24 14:12 | XMS_ITS | Encounter Summary ---
Author Organization [employer] Address [address] [facility] [address] [place] [address] Care Team Providers Care District Operations Manager Name Role Phone Unavailable Primary Care [...]
--- OUTSIDE RECORDS SUMMARY | 2025-04-24 14:12 | XMS_ITS | Clinical Summary ---
Author Organization [employer] Address [address] [facility] [address] [place] [address] Care Team Providers Care Director Of Convention Services Name Role Phone Unavailable Primary Care [...] Phone Billing Address Dental Self 1975 [address] [facility] [address] [place] [address] DENTAL - HSN PARTIAL (MEDICAID)
--- OUTSIDE RECORDS SUMMARY | 2025-04-24 14:12 | XMS_ITS | Encounter Summary ---
Author Organization [employer] Address [address] [facility] [address] [place] [address] Care Team Providers Care Inspector Subassembly Name Role Phone Unavailable Primary Care Provider [...]
--- OUTSIDE RECORDS SUMMARY | 2025-04-24 14:12 | XMS_ITS | Encounter Summary ---
Author Organization [employer] Address [address] [facility] [address] [place] [address] Care Team Providers Care Grain Merchandising Manager Name Role Phone Unavailable Primary Care [...]
== END 2025-04-24 13:08 | disposition home or self-care (01) ==
LOC: HO.ENCR 12:37
PROVIDERS: PCP Internal Medicine; Visit Provider Registered Nurse Diabetes Educator
DX: E13.9 Other specified diabetes mellitus without complications (principal)

== ENCOUNTER → 2025-04-24 12:35 | Outpatient (BNVA) | payer OTHER, SELFPAY | PROVIDERS: PCP Internal Medicine; Visit Provider Registered Nurse Diabetes Educator | DX: E13.9 Other specified diabetes mellitus without complications (principal); Z46.81 Encounter for fitting and adjustment of insulin pump; Z79.4 Long term (current) use of insulin | CPT/HCPCS: G0108 ==